=== PATIENT | male | born 1935 | race Caucasian/White ===

== ENCOUNTER 2017-10-24 11:40 | Inpatient (IN) | payer MEDICARE, OTHER ==
[2017-10-24 12:09] LABS: #Lymphocytes 1.4 thou/uL (1.20-3.40); #Neutrophils 7.3 thou/uL (1.40-6.50); %Basophils 0.3 % (0.0-1.0); %Eosinophils 9.2 % (0.0-10.0); %Lymphocytes 13.1 % (21.0-51.0); %Monocytes 9.3 % (0.0-10.0); %Neutrophils 68.1 % (42.0-75.0); Mean Corpuscular HGB CONC 34.4 g/dL (32.0-36.0); Mean Corpuscular Hemoglobin 31.6 pg (27.0-31.0); Mean Platelet Volume 7.7 fL (7.4-10.4); Platelet Count 182 thou/uL (130-400); RBC Distribution Width 12.6 % (11.5-14.5); Red Blood Cell (RBC) Count 4.42 mill/uL (4.70-6.10); White Blood Cell (WBC) Count 10.7 thou/uL (4.8-10.8)
[2017-10-24 12:28] LABS: ALT (SGPT) 12 U/L (8-55); AST (SGOT) 12 U/L (5-34); Albumin 4.3 g/dL (3.4-4.8); Alkaline Phosphatase 103 U/L (40-150); Anion Gap 18 mmol/L (10-20); Bilirubin, Total 0.5 mg/dL (0.2-1.2); Calc. Creatinine Clearance 0 mL/min (70-130); Calcium 8.7 mg/dL (7.8-10.44); Carbon Dioxide 12 mmol/L (23-31); Chloride 103 mmol/L (98-107); Estimated GFR-MDRD 10; Globulin 2.9 g/dL (2.4-3.5); Glucose 132 mg/dL (83-110); Potassium 5.9 mmol/L (3.5-5.1); Protein, Total 7.2 g/dL (5.8-8.1); Sodium 127 mmol/L (136-145)
[2017-10-24 12:31] LABS: Troponin I 0.022 ng/mL (< 0.028)
[2017-10-24 12:34] LABS: INR-International Normal Ratio 1.2; Prothrombin Time 15.3 SEC (12.0-14.7)
[2017-10-24 12:35] LABS: PTT 29.4 SEC (22.9-36.1)
[2017-10-24 12:39] LABS: BUN (Urea Nitrogen) 172 mg/dL (8.4-25.7)
--- NOTE | 2017-10-24 13:00 | RAD ---
FRONTAL RADIOGRAPH OF CHEST: Date: 10/24/17 COMPARISON: 01/24/17. HISTORY: Diarrhea, weakness. FINDINGS: Stable single lead AICD inserted via left subclavian approach. Mild increased linear interstitial den sity with pulmonary hyperinflation, stable. There is atherosclerotic calcification of the aortic arch . There is no pneumothorax or pleural fluid, and no focal consolidation or alveolar edema. Coronary a rterial calcification and/or stent material suspected. IMPRESSION: No acute findings. Stable appearance of the chest. POS: LORIE
[2017-10-24] MEDS ORDERED: Calcium Gluc 4.6 MEQ/10 ML (100 MG/ML) ONE ×2 (13:38→13:40)
[2017-10-24] MEDS ORDERED: Insulin Regular 300 UNITS/3 ML VIAL ONE (13:40)
[2017-10-24] MEDS ORDERED: Dextrose 50% Abboject 50 ML SYRINGE ONE (13:40)
[2017-10-24] MEDS ORDERED: Sodium Bicarb 50 MEQ/50 ML Abboject 8.4% SYRINGE ONE (13:52)
[2017-10-24 15:01] LABS: Anion Gap 17 mmol/L (10-20); Calc. Creatinine Clearance 0 mL/min (70-130); Carbon Dioxide 14 mmol/L (23-31); Chloride 107 mmol/L (98-107); Estimated GFR-MDRD 11; Glucose 158 mg/dL (83-110); Potassium 5.5 mmol/L (3.5-5.1); Sodium 132 mmol/L (136-145)
[2017-10-24 15:13] LABS: BUN (Urea Nitrogen) 168 mg/dL (8.4-25.7)
--- NOTE | 2017-10-24 15:59 | HP ---
PRIMARY CARE PHYSICIAN: Dr. Chepe Parr. REASON FOR ADMISSION: Gastroenteritis, acute kidney failure, hyperkalemia, metabolic acidosis, and b radycardia. HISTORY OF PRESENT ILLNESS: An 82-year-old male, who has underlying history of diabetes type 2, hype rtension, dyslipidemia, and chronic diastolic heart failure, who presented to emergency room with the complaint of nausea, vomiting, diarrhea. Patient reports that all symptoms started on 10/15/2017 during night time. The patient reports that he had a Botox injection for his tremor and night after patient's symptoms started with diarrhea. Si nce then every day, he was having loose stool without any pus or blood. He was feeling day by day mo re and more weak. He was also taking along with the diarrhea all his cardiac medication including bl ood pressure medication. Yesterday, he had episode of fall and he was not able to get out of from th e floor. He did not have any syncopal episode, but he was feeling dizzy, lightheaded, and very weak. He did not have any fever. He did not have any nausea or vomiting subsequently, but the diarrhea p ersisted. On Saturday, he went to see his primary care physician, who prescribed Lomotil and ciproflo xacin. The patient was able to refill those prescription yesterday and after taking Lomotil and cipr ofloxacin, his diarrhea slowed down, but today he was feeling more exhausted, more fatigued, more wea k. He was not able to walk few steps because of generalized weakness and that is why he came to the ER today. Today in the emergency room, routine blood tests showed hyperkalemia, hyponatremia, metabolic acidosi s, acute kidney failure with a creatinine 5.32. Last year in January, his creatinine was 1.68. His BNP is elevated, but patient's chest x-ray did not show any congestion and he was saturating normal on r oom air and he was lying flat without any shortness of breath in the emergency room. The patient has received 2 liters of fluid and the patient is also received hyperkalemia cocktail rishabh atment. The patient is being admitted to CCU for IMCU for close monitoring. PAST MEDICAL HISTORY: Chronic diastolic dysfunction with EF 50% to 55%, history of [place] in 2004, histo ry of ventricular tachyarrhythmia, required ablation in [place], diabetes type 2; requiring insulin, d yslipidemia, hypertension, peripheral vascular disease; required stent placement, gastroesophageal re flux disease, and opacity. PAST SURGICAL HISTORY: Cardiac catheterization with stent placement, renal artery stent placement, c arotid artery stent placements for cervical spinal fusion, back surgery, ablation for ventricular tac hyarrhythmia, and umbilical hernia surgery. PAST PSYCHIATRIC HISTORY: Reviewed and negative. ALLERGIES: FISH product, LATEX, NATURAL RUBBER, PENICILLIN, AND SHELLFISH. FAMILY HISTORY: No strong family history of premature coronary artery disease, stroke or cancer. SOCIAL HISTORY: Patient lives in [place], [place]. 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 He is able to do all activities of daily life by himself. He lives alone at home. REVIEW OF SYSTEMS: The following complete review of systems was negative, unless otherwise mentioned in the HPI or below: Constitutional: Weight loss or gain, ability to conduct usual activities. Skin: Rash, itching. Eyes: Double vision, pain. ENT/Mouth: Nose bleeding, neck stiffness, pain, tenderness. Cardiovascular: Palpitations, dyspnea on exertion, orthopnea. Respiratory: Shortness of breath, whee zing, cough, hemoptysis, fever or night sweats. Gastrointestinal: Poor appetite, abdominal pain, hea rtburn, nausea, vomiting, constipation, or diarrhea. Genitourinary: Urgency, frequency, dysuria, noc turia. Musculoskeletal: Pain, swelling. Neurologic/Psychiatric: Anxiety, depression. Allergy/Immunologic: Skin rash, bleeding tendency. Please see my HPI for pertinent positive and negative. All other review of systems reviewed and nega tive except as mentioned in the HPI. CURRENT HOME MEDICATIONS: Coreg 12.5 mg p.o. b.i.d., Lipitor 40 mg p.o. daily, Januvia 100 mg p.o. d aily, Plavix 75 mg p.o. daily, Procardia XL 60 mg p.o. daily, lisinopril 10 mg p.o. daily, Lopid 600 mg p.o. daily, Lasix 40 mg p.o. daily, Lantus 100 units subcu at bedtime, metformin 500 mg twice stephanie y, omeprazole 40 mg p.o. daily, aspirin 81 mg p.o. daily, calcium with vitamin D 1 tablet twice daily , Centrum one tablet p.o. daily, Lomotil p.r.n., and ciprofloxacin twice daily. EMERGENCY ROOM COURSE: So far in the emergency room, patient has received 2 liters of IV fluid, dext sowmya 50 in water, sodium bicarbonate 1 ampule, calcium gluconate 3 grams, Novolin R 10 units, and alb uterol nebulization. PHYSICAL EXAMINATION: VITAL SIGNS: Currently, blood pressure 81/71, pulse 48, respiratory rate 18, temperature 97.8, satur ation 98% on room air, weight 98.1 kilograms. GENERAL: Patient is currently alert, awake, appears weak, bradycardic, hypotensive. HEENT: Head is normocephalic, atraumatic. Eyes: Pupils round, reactive to light. Extraocular musc le intact. ENT: Dry mucous membranes. No oral lesion, no pharyngeal erythema, no exudate. NECK: Supple, no JVD, no thyromegaly, no carotid bruit, no JVD, no thyromegaly, no carotid bruits. LUNGS: Clear to auscultation without any rhonchi or rales. CARDIAC: S1 and S2. Appears bradycardic. No murmur elicited, no gallop, no rub. ABDOMEN: Soft, bowel sounds present, nontender, nondistended. No organomegaly, no mass, no suprapub ic tenderness. BACK: Unremarkable, no CVA tenderness. EXTREMITIES: Upper extremity passive movement of all joints are normal. Lower extremities: No cyndy a. Good peripheral pulsation. SKIN: No skin rash. HEMATOLOGICAL: No lymphadenopathy. PSYCHIATRIC: Normal affect. NEUROLOGIC: Nonfocal examination. He moves all 4 limbs. SIGNIFICANT LABORATORY DATA: 1. EKG showing pacemaker rhythm with heart rate 47 beats per minute. Chest x-ray based on my review , no acute cardiopulmonary process, AICD in place. No congestion. Coronary artery calcification. 2. CBC: WBC 10.7, hemoglobin 14.0, platelet 182. INR 1.2. BMP: Sodium 127, potassium 5.9, chlori de 103, carbon dioxide 12, anion gap 18, BUN 172, creatinine 5.32, glucose 132, calcium 8.7. LFT: A ST 12, ALT 12, alkaline phosphatase is 103, albumin 4.3, CK-MB 8.0, troponin I 0.022, and BNP 1052.6. ASSESSMENT AND PLAN: 1. Acute on chronic kidney failure, baseline chronic kidney disease stage 3. This patient's previou s creatinine is 1.68 and currently 5.32. He has almost one week history of diarrhea and on top of th at, he was taking antihypertensive medication as well as diuretic therapy that made him hypotension a nd this is hypoperfusion induced kidney injury, most likely acute flareup of kidney failure because o f volume depletion. We will check urinalysis, urine sodium, creatinine, urine protein, and creatinin e ratio as well. He may have underlying worsening of diabetic nephropathy. We will give him gentle IV fluid along with a bicarbonate drip and we will avoid nephrotoxin agent. We will consult Nephrolo gy. We will obtain renal ultrasound and we will monitor renal function closely. Even this patient h as underlying cardiomyopathy, he is at risk for fluid overload status and that is why we will closely monitor on IMCU. 2. Metabolic acidosis due to renal failure. The patient has received 1 ampule of sodium bicarbonate in the emergency room. We will start sodium bicarbonate drip at 75 mL per hour. We will use 3 ampu les of sodium bicarbonate in 5% dextrose with half normal saline and continue at 75 mL per hour. We will repeat BMP tomorrow. 3. Hyperkalemia likely due to renal failure and metabolic acidosis as well as lisinopril. At this p oint, the patient is given hyperkalemia cocktail treatment in the emergency room. We will repeat BMP tomorrow and we will avoid lisinopril for now. 4. Hyponatremia, likely related with dehydration. Patient is getting NS and we will repeat BMP bhavin rrow. 5. Gastroenteritis. The patient attributes relation with the Botox injection that is possible, but we will try to rule out infectious etiology and we will continue ciprofloxacin renally adjusted dose while in hospital and we will provide symptomatic treatment with Lomotil if needed. 6. Bradycardia, etiology uncertain, but most likely related with medication induced. He may need so me adjustment in his defibrillator or pacemaker. We will consult Cardiology for their opinion. 7. Chronic diastolic heart failure. Currently, patient appears euvolemic. He is saturating normal. He does not have any orthopnea. He does not have any edema though his BNP is elevated, but patient is euvolemic. We will hold on Lasix therapy because of hypotension. 8. Hypotension due to hypovolemia from diarrhea. We will avoid all antihypertensive medication unti l his blood pressure and hemodynamics improves. 9. Diabetes type 2. We will only use insulin as per sliding scale per protocol. Diabetic diet will be given. 10. Gastroesophageal reflux disease. We will continue Protonix 40 mg IV daily. 11. Dyslipidemia. We will check total CK and we will continue with Lopid 600 mg p.o. daily and Lipi tor 40 mg p.o. at bedtime. 12. Deep venous thrombosis prophylaxis, heparin 5000 units subcu twice daily. 13. Gastrointestinal prophylaxis. Protonix 40 mg IV daily. 14. Coronary artery disease. We will continue aspirin and statin therapy while in hospital along wi th the Plavix. Code status: The patient is FULL CODE. Patient's daughter is surrogate decision maker. Disposition plan based on clinical course. We are expecting patient's stay in hospital more than 2 m idnights. Plan of care discussed with the patient and family member at bedside in the emergency room .
[2017-10-24] MEDS ORDERED: Mag-Al 1200 mg/1200 mg/30 ML UDCUP PO PRN (16:05)
[2017-10-24] MEDS ORDERED: Artificial Tears 18 DROP/0.9 ML EA EYE PRN (16:05)
[2017-10-24] MEDS ORDERED: Sodium Bicarbonate 150 MEQ in Dextrose 5 %-0.45 % NaCl 1,000 ML IV SCH (16:05)
[2017-10-24] MEDS ORDERED: Diabetic Tussin 200 MG/10 ML UDCUP PO PRN (16:05)
[2017-10-24] MEDS ORDERED: HYDROcodone/Acetaminophen 5/325 mg Tablet PO PRN (16:05)
[2017-10-24] MEDS ORDERED: Sodium Chloride 0.65% Nasal 44 ML BOT EA NARE PRN (16:05)
[2017-10-24] MEDS ORDERED: Dextrose 50% Abboject 50 ML SYRINGE SLOW IVP PRN (16:05)
[2017-10-24] MEDS ORDERED: Silver Sulfadiazine 1% Cream 50 GM JAR TOP PRN (16:05)
[2017-10-24] MEDS ORDERED: Ondansetron ODT 4 MG TAB PO PRN (16:05)
[2017-10-24] MEDS ORDERED: Ondansetron HCl/PF 4 MG/2 ML Vial IVP PRN (16:05)
[2017-10-24] MEDS ORDERED: Acetaminophen 325 MG TAB PO PRN (16:05)
[2017-10-24] MEDS ORDERED: Eucerin (Mineral Oil/Petrolatum,White) 30 gm Jar TOP PRN (16:05)
[2017-10-24] MEDS ORDERED: Dextrose 5% in Water 1,000 ML IV PRN (16:05)
[2017-10-24 16:38] LABS: Uric Acid 13.6 mg/dL (3.5-7.2)
[2017-10-24 17:13] LABS: Bilirubin Negative (Negative); Blood, Urine Negative (Negative); Clarity CLEAR (Clear); Glucose, Urine (Dipstick) Negative (Negative); Leukocyte Negative (Negative); Nitrite Negative (Negative); Protein, Urine (Dipstick) Negative (Neg-Trace); Specific Gravity, Urine 1.013 (1.002-1.036); Urobilinogen 0.2 mg/dL (0.2-1.0)
[2017-10-24 17:18] LABS: Bacteria/HPF None Seen HPF (None Seen); Hyaline Casts/LPF 0-3 HYALINE CAST LPF (0-3 Hyaline); Pathc Cast-AUWi Flag 0.27 (0-2.49); RBC/HPF 0-3 HPF (0-3); Squamous Epithelial None Seen HPF (0-3); WBC/HPF None Seen HPF (0-3)
[2017-10-24 17:43] LABS: Creatinine, Urine 46.69 mg/dL (63-166); Protein, Urine Random Quant Less than 10 mg/dL
[2017-10-24] MEDS: Sodium Bicarbonate 150 MEQ in Dextrose 5% in Water 1,000 ML IV SCH ×2 (18:09)
[2017-10-24 20:34] LABS: Anion Gap 19 mmol/L (10-20); Calc. Creatinine Clearance 18 mL/min (70-130); Calcium 8.6 mg/dL (7.8-10.44); Carbon Dioxide 13 mmol/L (23-31); Chloride 105 mmol/L (98-107); Estimated GFR-MDRD 12; Glucose 152 mg/dL (83-110); Potassium 5.8 mmol/L (3.5-5.1); Sodium 131 mmol/L (136-145)
[2017-10-24 20:41] LABS: BUN (Urea Nitrogen) 157 mg/dL (8.4-25.7)
[2017-10-24] MEDS: Atorvastatin Calcium 40 MG TAB PO SCH (20:54)
[2017-10-24] MEDS: Heparin 5,000 UNITS/ML VIAL SC SCH (20:54)
--- NOTE | 2017-10-24 20:58 | CON ---
DATE OF CONSULTATION: 10/24/2017 REASON FOR CONSULTATION: Hyperkalemia and elevated creatinine. HISTORY OF PRESENT ILLNESS: This is an 82-year-old very pleasant gentleman, who presented to the [facility] with a 2-day history of diarrhea, abdominal pain, and low blood pressure. The patient's creati nine was in the ones in 2013 and increased to 4.89 today. It had improved from 5.3-4.8. The patient also had a potassium of 5.9, which has improved. The patient was started on a bicarbonate drip. Th e patient has had previous episodes of acute kidney injury. PAST MEDICAL HISTORY: Significant for hypertension, congestive heart failure, history of [place], history of ventricular tachyarrhythmia, history of ablation, history of tremors, history of peripheral vascu lar disease, stent placement, history of cardiac catheterization, history of carotid artery stent, hi story of ventricular tachycardia, and history of umbilical hernia repair. SOCIAL ECONOMIC HISTORY: No alcohol or drug use. FAMILY HISTORY: Negative for ESRD. ALLERGIES: Reviewed. HOME MEDICATIONS: List reviewed. REVIEW OF SYSTEMS: Fifteen-point review of systems was performed and negative except positives noted above. GENERAL: Weakness- HEAD: Headache- NECK: No swelling or lumps. NOSE: No epistaxis or discharge. EYES: No diplopia or pain. 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 NEUROPSYCHIATIC SYSTEMS: No suicidal ideation. No ideation. SKIN: Denies any rash or ulcer. CONSTITUTIONAL: No fever or chills. PHYSICAL EXAMINATION: GENERAL: Patient is awake and alert. VITAL SIGNS: Afebrile, pulse 70, breathing 16, blood pressure was 100/50. GENERAL APPEARANCE AND MENTAL STATUS: Fair. HEAD/NECK: Normocephalic. Atraumatic. EYES: EOMI. No deformity. EARS: Clear. No ulcers. NOSE: Intact. No lesions. MOUTH: Clear. No discharge. THROAT: Clear. No exudate. LUNGS: Clear. No crackles. CARDIAC: S1, S2. No rub. ABDOMEN: Benign. BS+. GENITALIA/RECTUM: Canseco absent. BACK/EXTREMITIES: Edema 0+ Ulcer- NEUROLOGICAL: Alert and motor intact. SKIN: Rash- Bruise- LYMPHATICS: Edema- Ulcer- LABORATORY DATA: Potassium 5.9 and decreased to 5.5, creatinine 4.89, improved. ASSESSMENT AND RECOMMENDATIONS: 1. Acute kidney injury due to decreased effective arterial blood volume. 2. Metabolic acidosis, on bicarbonate drip. 3. Hyperkalemia. Continue bicarbonate. We will recheck potassium in 4 hours. 4. Hyponatremia due to renal failure. 5. Euvolemia due to renal failure. No urgent indication for dialysis at this time, even though BUN is more than 100. We will try to treat the patient conservatively. I will order renal imaging to loni ok at renal shape, size, and symmetry.
--- NOTE | 2017-10-24 22:06 | ULT ---
RENAL ULTRASOUND: 10/24/17 HISTORY: Acute kidney insufficiency. Both kidneys measure approximately 12 cm in length. There is no evidence of hydronephrosis. There are bilateral renal cystic lesions noted with a 2 cm exophytic cyst from the upper right kidney. 1.0 cm cyst from the mid left kidney and a 1.5 cm cyst from the lateral lower left kidney. A 1.3 cm cyst inf erior left kidney. There is a hyperechoic focus in the mid left kidney measuring 1.0 cm possibly representing a calcific ation. No hydronephrosis. The urinary bladder is distended and appears unremarkable. IMPRESSION: 1. Bilateral renal cysts. 2. Hyperechoic focus in the mid left kidney. This may represent a calculus although no significa nt posterior shadowing is confirmed. Recommend CT to further characterize. 3. Kidneys otherwise unremarkable. POS: LORIE
[2017-10-24 22:55] LABS: Anion Gap 18 mmol/L (10-20); Calc. Creatinine Clearance 20 mL/min (70-130); Calcium 8.6 mg/dL (7.8-10.44); Carbon Dioxide 14 mmol/L (23-31); Chloride 104 mmol/L (98-107); Estimated GFR-MDRD 14; Glucose 171 mg/dL (83-110); Sodium 131 mmol/L (136-145)
[2017-10-24 23:06] LABS: BUN (Urea Nitrogen) 149 mg/dL (8.4-25.7)
--- NOTE | 2017-10-25 01:43 | CON ---
DATE OF CONSULTATION: 10/24/2017 HISTORY OF PRESENT ILLNESS: The patient is a very pleasant 82-year-old gentleman with a history of a n ischemic cardiomyopathy, who presented with nausea, vomiting, diarrhea, and nearly lost consciousne ss. The patient has a long history of coronary artery disease. He is followed by Dr. Kris Chowdhury. He says he has had placement of several cardiac stents. He states he has been followed up and underg one followup stress test and has been doing well. He also has had placement of automatic implantable cardiac defibrillator. The patient was in his usual state of health when he had a Botox injection. He subsequently developed diarrhea. He became extremely weak and nearly lost consciousness. PAST MEDICAL HISTORY: Significant for: 1. Coronary artery disease. 2. Hypertension. 3. Diabetes mellitus. 4. Dyslipidemia. 5. History of [place]. PAST SURGICAL HISTORY: He has had cervical spine surgery, back surgery, hernia surgery. ALLERGIES: LATEX, RUBBER, PENICILLIN, SHELLFISH. FAMILY HISTORY: No strong family history of heart disease. SOCIAL HISTORY: Former smoker. REVIEW OF SYSTEMS: Ten-point system noticeable for weakness, diarrhea, increasing dyspnea MEDICATIONS: Include Coreg 12.5 b.i.d., Lipitor 40 at bedtime, Januvia 100 daily, Plavix 75 daily, P rocardia 60 XL daily, Lopid 600 daily, Lantus, Lasix 40 daily, metformin 500 twice a day, aspirin 81 daily. PHYSICAL EXAMINATION: GENERAL: He is a pale gentleman, in no acute distress. VITAL SIGNS: Blood pressure 108/47, heart rate is 50. NECK: Showed no jugular venous distention. LUNGS: Clear to auscultation. HEART: Regular rate and rhythm, normal S1, S2. ABDOMEN: Distended. EXTREMITIES: Showed trace edema. SKIN: Warm and dry. NEUROLOGIC: Nonfocal. LABORATORY DATA: Sodium 132, potassium 5.5, chloride 107, bicarbonate 14, BUN 168, creatinine was 4. 89. His white blood cell count is 10.7, hemoglobin 14.0, hematocrit 40.6, platelets 182. INR was 1. 2. His EKG revealed electronic ventricular pacemaker with a rate of approximately 47. IMPRESSION: 1. Acute renal failure. 2. Gastroenteritis. 3. History of coronary artery disease. 4. History of peripheral vascular disease. 5. History of automatic implantable cardioverter-defibrillator placement. 6. Diabetes mellitus. 7. Hypertension. 8. Dyslipidemia. This gentleman presents with acute renal failure secondary to dehydration. The patient is being acti vely hydrated with saline from a cardiac standpoint. He will continue on his present medical regimen . We will interrogate AICD. We will follow this patient with you through his hospitalization.
[2017-10-25] MEDS: Sodium Bicarbonate 150 MEQ in Dextrose 5% in Water 1,000 ML IV SCH ×6 (03:46→23:00)
[2017-10-25 04:33] LABS: #Eosinphils 0.8 thou/uL (0.0-0.7); #Lymphocytes 1.3 thou/uL (1.20-3.40); #Monocytes 1.1 thou/uL (0.11-0.59); #Neutrophils 5.7 thou/uL (1.40-6.50); %Basophils 0.4 % (0.0-1.0); %Eosinophils 9.1 % (0.0-10.0); %Lymphocytes 14.7 % (21.0-51.0); %Monocytes 12.4 % (0.0-10.0); %Neutrophils 63.4 % (42.0-75.0); Hemoglobin 13.2 g/dL (14.0-18.0); Mean Corpuscular HGB CONC 36.2 g/dL (32.0-36.0); Mean Platelet Volume 7.8 fL (7.4-10.4); Platelet Count 181 thou/uL (130-400); RBC Distribution Width 12.6 % (11.5-14.5); White Blood Cell (WBC) Count 8.9 thou/uL (4.8-10.8)
[2017-10-25 04:53] LABS: ALT (SGPT) 10 U/L (8-55); AST (SGOT) 14 U/L (5-34); Albumin 3.8 g/dL (3.4-4.8); Alkaline Phosphatase 92 U/L (40-150); Anion Gap 14 mmol/L (10-20); Bilirubin, Total 0.5 mg/dL (0.2-1.2); Calc. Creatinine Clearance 23 mL/min (70-130); Calcium 8.5 mg/dL (7.8-10.44); Carbon Dioxide 19 mmol/L (23-31); Chloride 104 mmol/L (98-107); Estimated GFR-MDRD 17; Globulin 2.4 g/dL (2.4-3.5); Glucose 163 mg/dL (83-110); Potassium 4.3 mmol/L (3.5-5.1); Protein, Total 6.2 g/dL (5.8-8.1); Sodium 133 mmol/L (136-145)
[2017-10-25 04:57] LABS: CKMB 6.2 ng/mL (0-6.6); Troponin I 0.031 ng/mL (< 0.028)
[2017-10-25 05:05] LABS: BUN (Urea Nitrogen) 133 mg/dL (8.4-25.7)
[2017-10-25] MEDS: Heparin 5,000 UNITS/ML VIAL SC SCH ×2 (08:13→21:26)
[2017-10-25] MEDS: Clopidogrel Bisulfate 75 MG TAB PO SCH (08:13)
[2017-10-25] MEDS: Gemfibrozil 600 MG TAB PO SCH (08:13)
--- NOTE | 2017-10-25 11:09 | PRG ---
DATE OF SERVICE: 10/25/2017 SUBJECTIVE: An 82-year-old gentleman being seen for acute kidney injury and hyperkalemia. The patient denies any nausea, vomiting or chest pain. OBJECTIVE: GENERAL: The patient is awake, alert. VITAL SIGNS: Afebrile, pulse 62, breathing 16, blood pressure 132/61. GENERAL APPEARANCE AND MENTAL STATUS: Fair. HEAD/NECK: Normocephalic. Atraumatic. EYES: EOMI. No deformity. EARS: Clear. No ulcers. NOSE: Intact. No lesions. MOUTH: Clear. No discharge. THROAT: Clear. No exudate. LUNGS: Clear. No crackles. CARDIAC: S1, S2. No rub. ABDOMEN: Benign. BS+. GENITALIA/RECTUM: Canseco absent. BACK/EXTREMITIES: Edema 0+ Ulcer- NEUROLOGICAL: Alert and motor intact. SKIN: Rash- Bruise- LYMPHATICS: Edema- Ulcer- LABORATORY: Potassium is 4.3, creatinine 3.5. ASSESSMENT AND PLAN: 1. Acute kidney injury, improved. 2. Obstructive uropathy, most likely due to bladder decompensation versus other etiologies. Urology will be consulted. 3. Hyperkalemia, stable. 4. Metabolic acidosis, improved. No indication for dialysis at this time. MTDD
[2017-10-25] MEDS: HumaLOG 300 UNITS/3 ML VIAL SC PRN ×3 (11:29→21:30)
--- NOTE | 2017-10-25 12:01 | PDOC.PN ---
- Subjective Encounter Start Date: 10/25/17 Encounter Start Time: 08:45 -: old records requested/rev Patient seen and examined. No new complaints. No overnight events today pt feels better, creatinine is improving no fever, no chest pain, no dyspnea, no diarrhoea - Objective MAR Reviewed: Yes Vital Signs & Weight: Vital Signs (12 hours) Temp Pulse Resp BP Pulse Ox 10/25/17 11:25 97.7 F 53 L 19 126/46 L 96 10/25/17 07:40 98.5 F 72 22 H 130/51 L 97 10/25/17 07:33 97.4 F L 60 16 100 10/25/17 04:00 97.4 F L 60 16 123/61 100 Weight Admit Weight 220 lb Weight 214 lb 12.8 oz I&O: 10/24/17 10/25/17 10/26/17 06:59 06:59 06:59 Intake Total 1930 240 Output Total 4250 Balance -2320 240 Result Diagrams: 10/25/17 04:20 10/25/17 04:20 Additional Labs: Accuchecks 10/25/17 10/25/17 10/24/17 11:15 05:54 20:53 POC Glucose 202 H 164 H 166 H 10/24/17 16:14 POC Glucose 60 L Radiology Reviewed by me: Yes (renal us) EKG Reviewed by me: Yes (nsr) Phys Exam - Physical Examination Constitutional: NAD HEENT: PERRLA, moist MMs, sclera anicteric Neck: no JVD, supple Respiratory: no wheezing, no rales, no rhonchi Cardiovascular: RRR, no significant murmur, no rub Gastrointestinal: soft, non-tender, no distention, positive bowel sounds Musculoskeletal: no edema, pulses present Neurological: non-focal, normal sensation Lymphatic: no nodes Psychiatric: normal affect, A&O x 3 Skin: no rash, normal turgor Dx/Plan (1) Acute worsening of stage 3 chronic kidney disease Code(s): N18.3 - CHRONIC KIDNEY DISEASE, STAGE 3 (MODERATE) Status: Acute (2) Bradycardia Code(s): R00.1 - BRADYCARDIA, UNSPECIFIED Status: Acute (3) Gastroenteritis Code(s): K52.9 - NONINFECTIVE GASTROENTERITIS AND COLITIS, UNSPECIFIED Status : Acute (4) Hyperkalemia Code(s): E87.5 - HYPERKALEMIA Status: Acute (5) Hyponatremia Code(s): E87.1 - HYPO-OSMOLALITY AND HYPONATREMIA Status: Acute (6) Metabolic acidosis Code(s): E87.2 - ACIDOSIS Status: Acute (7) CAD (coronary artery disease) Code(s): I25.10 - ATHSCL HEART DISEASE OF [place] CORONARY ARTERY W/O ANG PCTRS Status: Chronic (8) Chronic diastolic heart failure Code(s): I50.32 - CHRONIC DIASTOLIC (CONGESTIVE) HEART FAILURE Status: Chronic (9) Diabetes type 2, controlled Code(s): E11.9 - TYPE 2 DIABETES MELLITUS WITHOUT COMPLICATIONS Status: Chronic (10) Dyslipidemia Code(s): E78.5 - HYPERLIPIDEMIA, UNSPECIFIED Status: Chronic (11) GERD (gastroesophageal reflux disease) Code(s): K21.9 - GASTRO-ESOPHAGEAL REFLUX DISEASE WITHOUT ESOPHAGITIS Status: Chronic (12) Hypertension Code(s): I10 - ESSENTIAL (PRIMARY) HYPERTENSION Status: Chronic - Plan cont current plan of care * cardiology and nephrology recommendation noted * CT stone protocol today to rule out obstructive uropathy * continue IVF with bicarbonate * medication reviewed as below * symptomatic treatment * repeat labs tomorrow * monitor. Review of Systems - Review of Systems Eyes: negative: Pain, Vision Change, Conjunctivae Inflammation, Eyelid Inflammation, Redness, Other ENT: negative: Ear Pain, Ear Discharge, Nose Pain, Nose Discharge, Nose Congestion, Mouth Pain, Mouth Swelling, Throat Pain, Throat Swelling, Other Respiratory: negative: Cough, Dry, Shortness of Breath, Hemoptysis, SOB with Excertion, Pleuritic Pain, Sputum, Wheezing Cardiovascular: negative: chest pain, palpitations, orthopnea, paroxysmal nocturnal dyspnea, edema, light headedness, other Gastrointestinal: negative: Nausea, Vomiting, Abdominal Pain, Diarrhea, Constipation, Melena, Hematochezia, Other Genitourinary: negative: Dysuria, Frequency, Incontinence, Hematuria, Retention , Other Musculoskeletal: negative: Neck Pain, Shoulder Pain, Arm Pain, Back Pain, Hand Pain, Leg Pain, Foot Pain, Other Skin: negative: Rash, Lesions, Hector, Bruising, Other - Medications/Allergies Allergies/Adverse Reactions: Allergies Allergy/AdvReac Type Severity Reaction Status Date / Time Fish Containing Products Allergy Verified 08/01/14 14:27 fish oil Allergy Verified 08/01/14 14:27 Latex, Natural Rubber Allergy Verified 08/01/14 14:36 Penicillins Allergy Verified 08/01/14 14:27 shellfish derived Allergy Verified 08/01/14 14:27 Medications: Current Medications Acetaminophen (Tylenol) 650 mg PO Q4H PRN PRN Reason: Headache/Fever or Pain Hydrocodone Bitart/Acetaminophen ([place] 5/325) 1 tab PO Q4H PRN PRN Reason: Moderate Pain (4-6) Al Hydroxide/Mg Hydroxide (Maalox) 30 ml PO Q6H PRN PRN Reason: Heartburn or Indigestion Albuterol/Ipratropium (Duoneb) 3 ml NEB [id number] PRN PRN Reason: SOB &/or Wheezing Artificial Tears (Tears Naturale) 0 drop EA EYE PRN PRN PRN Reason: Dry Eyes Aspirin (Aspirin Chewable) 81 mg PO DAILY [facility] Last Admin: 10/25/17 08:13 Dose: 81 mg Atorvastatin Calcium (Lipitor) 40 mg PO [facility] Last Admin: 10/24/17 20:54 Dose: 40 mg Clopidogrel Bisulfate (Plavix) 75 mg PO DAILY [facility] Last Admin: 10/25/17 08:13 Dose: 75 mg Dextrose/Water (Dextrose 50%) 25 gm SLOW IVP PRN PRN PRN Reason: Hypoglycemia Diphenoxylate HCl/Atropine (Lomotil) 1 tab PO QIDPRN PRN PRN Reason: Diarrhea/Loose Stools Gemfibrozil (Lopid) 600 mg PO DAILY [facility] Last Admin: 10/25/17 08:13 Dose: 600 mg Glucagon (Glucagon) 1 mg IM PRN PRN PRN Reason: Hypoglycemia Guaifenesin (Robitussin Sf) 200 mg PO Q4H PRN PRN Reason: Cough Heparin Sodium (Porcine) (Heparin) 5,000 units SC BID [facility] Last Admin: 10/25/17 08:13 Dose: 5,000 units Hydralazine HCl (Apresoline) 10 mg SLOW IVP Q4H PRN PRN Reason: Systolic BP > 180 Dextrose/Water (D5w) 1,000 mls @ 0 mls/hr IV .Q0M PRN; As Directed PRN Reason: Hypoglycemia Sodium Bicarbonate 150 meq/ (Dextrose/Water) 1,150 mls @ 125 mls/hr IV .Q9H12M MIKAYLA Last Admin: 10/25/17 03:46 Dose: 1,150 mls Insulin Human Lispro (Humalog) 0 units SC .MODERATE SLIDING SC PRN PRN Reason: Moderate Correction[place] Scale Last Admin: 10/25/17 11:29 Dose: 4 unit Insulin Human Lispro (Humalog) 0 units SC .BEDTIME SLIDING SC PRN PRN Reason: Bedtime Correctional Scale Mineral Oil/White Petrolatum (Eucerin Cream) 0 gm TOP BIDPRN PRN PRN Reason: Dry Skin Ondansetron HCl (Zofran Odt) 4 mg PO Q6H PRN PRN Reason: Nausea/Vomiting Ondansetron HCl (Zofran) 4 mg IVP Q6H PRN PRN Reason: Nausea/Vomiting Silver Sulfadiazine (Silvadene) 0 gm TOP Q12H PRN PRN Reason: Burn Sodium Chloride ([place] Nasal [place] 0.65%) 0 ml EA NARE QIDPRN PRN PRN Reason: Nasal Congestion
--- NOTE | 2017-10-25 13:18 | CT ---
ABDOMEN AND PELVIC CT SCAN WITHOUT IV CONTRAST: Date: 10/25/17 HISTORY: 82-year-old male with history of acute kidney insufficiency. History of diarrhea. FINDINGS: Small, stable, pleural based nodule in the right lower lobe. Minimal parenchymal changes in the lingu la and right middle lobe, having more the appearance of chronic change, as well as some minimal chron ic appearing pleural thickening with improvement when compared to the 07/12/12 CT angio of chest. The liver, pancreas, spleen, and adrenal glands are noted to be unremarkable. There are multiple gall stones in the dependent portion of the gallbladder without overt gallbladder wall thickening or peric holecystic fat stranding. There are some atherosclerotic calcific changes of the aorta, including regina e bilateral renal vascular calcifications. 2.2 cm diameter right renal exophytic cyst. 1.8 cm diamete r exophytic posterior left renal hemorrhagic cyst. No evidence for renal calculus or acute obstruc tion. Bilateral fat-containing inguinal hernias, worse on the left side. Canseco catheter within the bl adder. Borderline size small bowel loops, but no evidence to suggest significant obstruction. IMPRESSION: Gallstones without gallbladder wall thickening or pericholecystic fat stranding. Nonspecific bilatera l perirenal fat stranding with a right renal cyst and a left hemorrhagic cyst. Several borderline siz e small bowel loops without evidence for obstruction. Prominent atherosclerotic changes of the aorta and bilateral renal artery calcifications with a left renal artery vascular stent. No renal calculus or acute obstruction. POS: LORIE
--- NOTE | 2017-10-25 15:46 | CON ---
DATE OF CONSULTATION: 10/25/2017 REASON FOR CONSULTATION: MICU. HISTORY OF PRESENT ILLNESS: The patient is a pleasant 82-year-old gentleman, who apparently was seen in Neurology for symptoms of tremors. He was given several different medications. He was given some medication recently, which he had some side effect, started on Botox on Saturday, Saturday he had profuse diarrhea, shortness of breath, diarr hea has not relented. He was admitted with severe dehydration. Former smoker, quit smoking in 2004, a pack and a half a day for 30 years. Previous pneumonia, no TB , no asthma, no bronchitis. PAST MEDICAL HISTORY: Hypertension, coronary artery disease, diabetes, IA, CHF, and cardiac arrhythm ias. PAST SURGICAL HISTORY: Back and neck surgery, cardiac stents, AICD placed in. ALLERGIES: Multiple. PENICILLIN, SHELLFISH. MEDICATIONS: From home, Januvia 100, metformin 500, omeprazole 40, nifedipine ER 1, multivitamin, li sinopril 1, insulin, gemfibrozil, Lasix 40, Cipro, Plavix, and aspirin. SOCIAL/FAMILY HISTORY: , no alcohol abuse. Quit smoking many years ago. REVIEW OF SYSTEMS: Otherwise, extensive 10-point negative. PHYSICAL EXAMINATION: GENERAL: Appears in no acute distress. VITAL SIGNS: Blood pressure 130/50, sat 100% on room air, temperature 98.5, respiratory rate 22, pul se 72. CHEST: Decreased breath sounds, no wheezing. CARDIAC: Normal S1 and S2 ABDOMEN: Soft, no masses. LABORATORY DATA: White count 8000, H and H 13 and 36, platelet count 181. Electrolytes normal. Cre atinine is 3, BUN is 131 , glucose 161. IMPRESSION: 1. Prerenal azotemia secondary to severe profuse diarrhea, possibly brought on by Botox. 2. Unknown upper extremity tremors. 3. Diabetes. 4. Hypertension, disease. On the pulmonary stand point of view MICU. We will follow while in the MICU.
[2017-10-25] MEDS: Atorvastatin Calcium 40 MG TAB PO SCH (21:24)
[2017-10-25] MEDS: Doxycycline 100 MG CAP PO SCH (21:24)
[2017-10-25] MEDS: Finasteride 5 MG TAB PO SCH (21:24)
--- NOTE | 2017-10-25 23:12 | CON ---
DATE OF CONSULTATION: 10/25/2017 REASON FOR CONSULTATION: Urinary retention. HISTORY OF PRESENT ILLNESS: Mr. Eris Carranza is a pleasant 82-year-old white male who was admitted o n 10/24/2017 due to diarrhea after receiving Botox injection. The patient has apparent findings of g astroenteritis and has acute on chronic renal failure, developed hyperkalemia, metabolic acidosis, an d bradycardia. The patient has a significant cardiac history in addition to diabetes mellitus type 2 . Mr. Carranza reports no previous episodes of issues. He has never had urinary retention with any of his hospitalizations. He has not noticed enough difficulty with voiding in the past to be on medical therapy. He does not know his PSA. The patient is on no routine medications at home for his prostate. He did notice in the 2 weeks prio r to his hospitalization some slowing of his urinary stream. I am consulted today due to apparent ac [place] urinary retention. He did have a Canseco catheter placed overnight and he had a large volume of ur ine output. The patient self-reports about 900 mL followed by 1300 mL. He says at least 3 bags of u rine have been emptied in the last 24 hours. PAST MEDICAL HISTORY: Chronic diastolic dysfunction with ejection fraction of 50%-55%. The patient had a myocardial infarction in 2004. He has a history of peripheral vascular disease with stenting. He had a previous ventricular tachyarrhythmia which required ablation in [place]. He is paced due to that. He has diabetes type 2 which currently requires insulin. Also, history of dyslipidemia and h ypertension. He has had gastroesophageal reflux disease as well. PAST SURGICAL HISTORY: 1. Cardiac catheterization with stent placement. 2. Renal artery stent placement on the left. 3. Carotid artery stent placement. 4. Cervical spinal fusion. 5. Back surgery. 6. Ablation for ventricular tachyarrhythmia. 7. Umbilical hernia surgery. ALLERGIES: The patient has reported allergies to LATEX, NATURAL RUBBER, PENICILLINS, and SHELLFISH. FAMILY MEDICAL HISTORY: No history of disorders or previous cardiac disorders. SOCIAL HISTORY: The patient resides in [place]. He is a of the [employer]. He does have c igarette smoking history, but quit after his myocardial infarction in 2004. Does not currently use a lcohol. REVIEW OF SYSTEMS: Constitutional: No complaints of weight loss or weight gain. Head, Ears, Nose a nd Throat: Negative. Cardiovascular: The patient reports palpitations, irregular heartbeat, dyspne a on exertion and orthopnea. He has to sleep on his left side for proper perfusion. Respiratory: T he patient does report some shortness of breath and occasional cough. Gastrointestinal: Patient rep orts recent history of diarrhea after a Botox injection. Does not report vomiting. Genitourinary: The patient reported prior to his catheterization increased urinary frequency with a sensation of inc omplete bladder emptying. Musculoskeletal: The patient has generalized body aches, but other than t his, no specifically focal complaints today. Skin: Complaints only dryness and occasional itching. HOME MEDICATION LIST: Included: 1. Coreg 12.5 mg twice daily. 2. Lipitor 40 mg p.o. daily. 3. Januvia 100 mg p.o. b.i.d. 4. Plavix 75 mg per day. 5. Ecotrin taken daily. 6. Procardia-XL 60 mg p.o. daily. 7. Lisinopril 10 mg per day. 8. Lopid 600 mg daily. 9. Lasix 40 mg p.o. daily. 10. Lantus insulin 100 units subcu at bedtime. 11. Metformin 500 mg twice daily. 12. Omeprazole 40 mg p.o. daily. 13. Calcium with vitamin D twice daily. 14. Centrum 1 tablet p.o. daily. 15. Lomotil recently prescribed by Dr. Parr. 16. Ciprofloxacin 500 mg twice daily also prescribed by Dr. Parr. PHYSICAL EXAMINATION: VITAL SIGNS: The patient is currently without a fever, temperature 98.1, pulse is 60. I note this i s a random rate with a variation and dropped beats. Respiratory rate 20, O2 saturation is 90% on koki m air, blood pressure is 132/61. GENERAL: This is awake, alert, white male who appears to be a reasonable historian. HEAD, EARS, NOSE and THROAT: Extraocular movements are intact. Sclerae are anicteric. Oropharynx i s clear. NECK: Supple. LUNGS: Clear to auscultation bilaterally. CARDIAC: There is an irregularly irregular rhythm. ABDOMEN: Soft and nontender. He had a previous umbilical hernia repair. There are no palpable mass es. BACK: There is no costovertebral angle tenderness. SKIN: Skin survey, there are no decubiti noted on examination of the patient's back. GENITOURINARY: Phallus is uncircumcised and is without external lesion. An indwelling Canseco cathete r is in place and is draining clear to straw-colored urine. Testes are present bilaterally in the sc rotum. They are smooth, anodular, nontender with no palpable masses. Palpation of inguinal canals f inds no evidence of inguinal canal hernia. RECTAL: Digital rectal examination finds prostate gland which palpates to about 60 grams in size. I t is smooth and anodular; however, it is tender, more so on the left side than the right. EXTREMITIES: Appear within normal limits. There is no clubbing, cyanosis or edema at present. RADIOLOGIC STUDIES: A CT scan of the abdomen and pelvis was obtained on 10/25/2017. I reviewed that study in its entirety as well as the patient's renal ultrasound evaluation from 10/24/2017. The CT scan study demonstrates gallstones within the patient's gallbladder without evidence of swelling of t he gallbladder itself or any evidence of thickening of the gallbladder wall. There is a nonspecific bilateral fat stranding about the right kidney and left kidney. The patient has cysts present on bot h left and right kidney on the left side. There is a hyperdense probable hemorrhagic cyst, left post eriorly inferiorly. The patient does not appear to have hydronephrosis or hydroureter. There are ca lcifications of the arterial supply of both kidneys and the patient has a left renal artery stent, wh ich extends to the aorta. This stent extends partially into the aorta itself. Stranding about the k idneys is greater on the right than the left. Examination of the abdomen finds no obvious lesions th ere. The patient does have a relatively thin walled bladder with a Canseco catheter in place. Bladder volume appears to be small, but this is a decompressed bladder. There is no focal thickening observ ed, although this study would be best performed without a catheter in place. The patient's prostate gland appears to be enlarged. Dimensions of the prostate gland are 39 x 53 x 58 mm. This would calc ulate to an ellipse volume of 62.6 cubic cm indicating about a 3-fold enlargement on the patient's pr ostate gland. LABORATORY STUDIES: The patient's white count today is normal at 8900, hemoglobin is 13.2, hematocri t 36.4. There is no evidence of left shift. The patient's admission creatinine was 4.19 with blood urea nitrogen of 149. This is marginally improved today with a current creatinine of 3.5 and blood u rachana nitrogen of 133. A urinalysis obtained. Apparently at time of the patient's catheter placement showed no microorganis ms visible. Urine gravity was 1.013 with a pH of 5.0. There were 0-3 red cells per high power field . Urinary creatinine was 46.69 which would be low. ASSESSMENT AND PLAN: 1. Acute urinary retention, most likely secondary to prostatitis. Plan will be to place the patient on maximal medical therapy with tamsulosin, finasteride, and we will cover his probable prostatitis with doxycycline. Based on his current medication and hospital admission issues, I am not recommendi ng use of ciprofloxacin or Bactrim in this patient, an alternative would be cefprozil. The patient d oes not have listed allergies to either. 2. 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 The patient will be covered with a long course of doxycyc line for now. 3. Urinary retention. Realistically this patient is probably not going to be able to undergo an act ual voiding trial while in hospital. Given his very high blood urea nitrogen and creatinine, cathete r management is appropriate for this patient for the short term. This patient may undergo a voiding trial in my office when his medical condition is suitable for discharge. There is no acute need for a voiding trial at this point and is not recommended based on his kidney function numbers. 4. Acute on chronic renal insufficiency. The patient would benefit from renal dosing on medications . 5. Renal cysts. At the present time except for the hyperdense cyst, all appeared to be probable Hugh niak class 1 cyst but should be followed over the fpc.
[2017-10-26 04:34] LABS: #Eosinphils 0.4 thou/uL (0.0-0.7); #Lymphocytes 1.6 thou/uL (1.20-3.40); #Monocytes 1.2 thou/uL (0.11-0.59); #Neutrophils 6.6 thou/uL (1.40-6.50); %Basophils 0.3 % (0.0-1.0); %Eosinophils 3.9 % (0.0-10.0); %Lymphocytes 16.2 % (21.0-51.0); %Monocytes 12.5 % (0.0-10.0); %Neutrophils 67.1 % (42.0-75.0); Hemoglobin 13.5 g/dL (14.0-18.0); Mean Corpuscular HGB CONC 34.8 g/dL (32.0-36.0); Mean Platelet Volume 7.4 fL (7.4-10.4); Platelet Count 187 thou/uL (130-400); RBC Distribution Width 12.6 % (11.5-14.5); Red Blood Cell (RBC) Count 4.22 mill/uL (4.70-6.10); White Blood Cell (WBC) Count 9.9 thou/uL (4.8-10.8)
[2017-10-26 04:52] LABS: Albumin 3.7 g/dL (3.4-4.8); Anion Gap 14 mmol/L (10-20); BUN (Urea Nitrogen) 95 mg/dL (8.4-25.7); Calc. Creatinine Clearance 42 mL/min (70-130); Calcium 8.4 mg/dL (7.8-10.44); Carbon Dioxide 27 mmol/L (23-31); Chloride 102 mmol/L (98-107); Estimated GFR-MDRD 34; Glucose 202 mg/dL (83-110); Phosphorus 2.7 mg/dL (2.3-4.7); Potassium 4.3 mmol/L (3.5-5.1); Sodium 139 mmol/L (136-145)
[2017-10-26] MEDS: Clopidogrel Bisulfate 75 MG TAB PO SCH (09:22)
[2017-10-26] MEDS: Tamsulosin HCl 0.4 MG CAP PO SCH (09:22)
[2017-10-26] MEDS: Gemfibrozil 600 MG TAB PO SCH (09:22)
[2017-10-26] MEDS: Doxycycline 100 MG CAP PO SCH ×2 (09:22→20:43)
[2017-10-26] MEDS: Sodium Bicarbonate 150 MEQ in Dextrose 5% in Water 1,000 ML IV SCH ×4 (09:24→12:50)
[2017-10-26] MEDS: Heparin 5,000 UNITS/ML VIAL SC SCH ×2 (09:56→20:42)
[2017-10-26] MEDS: hydrALAZINE 20 MG/ML VIAL SLOW IVP PRN (11:55)
--- NOTE | 2017-10-26 12:25 | PRG ---
DATE OF SERVICE: 10/26/2017 SUBJECTIVE: An 82-year-old gentleman being seen for acute kidney injury. The patient denies any yolanda sea, vomiting or chest pain. PHYSICAL EXAMINATION: GENERAL: Patient is awake, alert. VITAL SIGNS: Afebrile, pulse 75, breathing 16, blood pressure 171/72. HEAD/NECK: Normocephalic. Atraumatic. EYES: EOMI. No deformity. EARS: Clear. No ulcers. NOSE: Intact. No lesions. MOUTH: Clear. No discharge. THROAT: Clear. No exudate. LUNGS: Clear. No crackles. CARDIAC: S1, S2. No rub. ABDOMEN: Benign. BS+. GENITALIA/RECTUM: Canseco absent. BACK/EXTREMITIES: Edema 0+ Ulcer- NEUROLOGICAL: Alert and motor intact. SKIN: Rash- Bruise- LYMPHATICS: Edema- Ulcer- LABORATORY DATA: Show creatinine is 1.9. ASSESSMENT AND RECOMMENDATIONS: 1. Acute kidney injury with chronic kidney disease, improved. 2. Hypertension, stable. 3. Anemia, stable. 4. Metabolic acidosis, stable. No indication for dialysis. Continue gentle hydration.
[2017-10-26] MEDS ORDERED: Senokot 8.6 MG TAB PO PRN (12:45)
[2017-10-26] MEDS: HumaLOG 300 UNITS/3 ML VIAL SC PRN ×3 (12:51→20:43)
[2017-10-26] MEDS ORDERED: Carvedilol 3.125 MG TAB PO SCH (13:45)
[2017-10-26] MEDS: Carvedilol 6.25 MG TAB PO SCH (16:51)
--- NOTE | 2017-10-26 16:56 | PRG ---
DATE OF SERVICE: 10/26/2017 SUBJECTIVE: Mr. Carranza is doing better. OBJECTIVE: VITAL SIGNS: His blood pressure has stabilized 171/70, sat is 98% on room air, temperature is 97, re spiratory rate 27. CHEST: No wheezing, no crackles. CARDIAC: Normal S1, S2. ABDOMEN: No masses. LABORATORY DATA: BUN and creatinine are much improved. Creatinine is down to 1.9, BUN is 95. White count is . IMPRESSION: 1. Profuse diarrhea, probably secondary to Botox. 2. Renal failure, much improved, probably he can be transferred out of the MICU.
--- NOTE | 2017-10-26 20:10 | PDOC.PN ---
- Subjective Encounter Start Date: 10/26/17 Encounter Start Time: 14:00 Patient seen and examined. No new complaints. No overnight events. No fever/ chills/CP. - Objective MAR Reviewed: Yes Vital Signs & Weight: Vital Signs (12 hours) Temp Pulse Pulse Pulse Resp BP BP 10/26/17 19:58 97.7 F 59 L 20 10/26/17 17:14 66 55 L 169/62 H 181/54 H 10/26/17 16:25 97.9 F 64 24 H 10/26/17 12:00 97.7 F 70 20 10/26/17 11:55 57 L BP Pulse Ox Pulse Ox Pulse Ox 10/26/17 19:58 153/67 H 99 10/26/17 17:14 96 100 10/26/17 16:25 166/68 H 99 10/26/17 12:00 178/70 H 96 10/26/17 11:55 Weight Admit Weight 220 lb Weight 214 lb 9.6 oz I&O: 10/25/17 10/26/17 10/27/17 06:59 06:59 06:59 Intake Total 1930 5090 1856 Output Total 4250 3525 1500 Balance -2320 1565 356 Result Diagrams: 10/26/17 04:15 10/26/17 04:15 Additional Labs: Accuchecks 10/26/17 10/26/17 10/26/17 16:21 11:04 06:05 POC Glucose 182 H 185 H 203 H 10/25/17 10/25/17 23:16 21:24 POC Glucose 209 H 222 H EKG Reviewed by me: Yes (Tele SR) Phys Exam - Physical Examination Constitutional: NAD Respiratory: no wheezing, no rhonchi Cardiovascular: RRR, no rub Gastrointestinal: soft, non-tender, positive bowel sounds Musculoskeletal: no edema Neurological: moves all 4 limbs Dx/Plan - Plan DVT proph w/SCDs IMPRESSION: 1. ARLENE - multifactorial 2. Urinary retention/Prostatitis s/p freitas 3. CAD 4. HTN / HLD / DM2 / PAD / s/p AICD PLAN: * Cont gentle IV hydration * Cardio/Nephro/Urology following * AM labs * Avoid Nephrotoxic agents * Cont to monitor * Cont therapy * DC planning * Cont Doxycycline Review of Systems - Medications/Allergies Allergies/Adverse Reactions: Allergies Allergy/AdvReac Type Severity Reaction Status Date / Time Fish Containing Products Allergy Verified 08/01/14 14:27 fish oil Allergy Verified 08/01/14 14:27 Latex, Natural Rubber Allergy Verified 08/01/14 14:36 Penicillins Allergy Verified 08/01/14 14:27 shellfish derived Allergy Verified 08/01/14 14:27 Medications: Current Medications Acetaminophen (Tylenol) 650 mg PO Q4H PRN PRN Reason: Headache/Fever or Pain Hydrocodone Bitart/Acetaminophen ([place] 5/325) 1 tab PO Q4H PRN PRN Reason: Moderate Pain (4-6) Last Admin: 10/25/17 21:30 Dose: 1 tab Al Hydroxide/Mg Hydroxide (Maalox) 30 ml PO Q6H PRN PRN Reason: Heartburn or Indigestion Albuterol/Ipratropium (Duoneb) 3 ml NEB [id number] PRN PRN Reason: SOB &/or Wheezing Artificial Tears (Tears Naturale) 0 drop EA EYE PRN PRN PRN Reason: Dry Eyes Aspirin (Aspirin Chewable) 81 mg PO DAILY [facility] Last Admin: 10/26/17 09:22 Dose: 81 mg Atorvastatin Calcium (Lipitor) 40 mg PO [facility] Last Admin: 10/25/17 21:24 Dose: 40 mg Carvedilol (Coreg) 6.25 mg PO BID-[facility] Last Admin: 10/26/17 16:51 Dose: 6.25 mg Clopidogrel Bisulfate (Plavix) 75 mg PO DAILY [facility] Last Admin: 10/26/17 09:22 Dose: 75 mg Dextrose/Water (Dextrose 50%) 25 gm SLOW IVP PRN PRN PRN Reason: Hypoglycemia Diphenoxylate HCl/Atropine (Lomotil) 1 tab PO QIDPRN PRN PRN Reason: Diarrhea/Loose Stools Doxycycline Hyclate (Vibramycin) 100 mg PO BID [facility] Stop: 11/24/17 09:01 Last Admin: 10/26/17 09:22 Dose: 100 mg Finasteride (Proscar) 5 mg PO [facility] Stop: 01/22/18 21:01 Last Admin: 10/25/17 21:24 Dose: 5 mg Gemfibrozil (Lopid) 600 mg PO DAILY [facility] Last Admin: 10/26/17 09:22 Dose: 600 mg Glucagon (Glucagon) 1 mg IM PRN PRN PRN Reason: Hypoglycemia Guaifenesin (Robitussin Sf) 200 mg PO Q4H PRN PRN Reason: Cough Heparin Sodium (Porcine) (Heparin) 5,000 units SC BID [facility] Last Admin: 10/26/17 09:56 Dose: Not Given Hydralazine HCl (Apresoline) 10 mg SLOW IVP Q4H PRN PRN Reason: Systolic BP > 180 Last Admin: 10/26/17 11:55 Dose: 10 mg Dextrose/Water (D5w) 1,000 mls @ 0 mls/hr IV .Q0M PRN; As Directed PRN Reason: Hypoglycemia Sodium Bicarbonate 150 meq/ (Dextrose/Water) 1,150 mls @ 50 mls/hr IV .Q23H [facility] Last Admin: 10/26/17 12:50 Dose: Not Given Insulin Human Lispro (Humalog) 0 units SC .MODERATE SLIDING SC PRN PRN Reason: Moderate Correctional Scale Last Admin: 10/26/17 16:52 Dose: 2 unit Insulin Human Lispro (Humalog) 0 units SC .BEDTIME SLIDING SC PRN PRN Reason: Bedtime Correctional Scale Last Admin: 10/25/17 21:30 Dose: 2 unit Mineral Oil/White Petrolatum (Eucerin Cream) 0 gm TOP BIDPRN PRN PRN Reason: Dry Skin Ondansetron HCl (Zofran Odt) 4 mg PO Q6H PRN PRN Reason: Nausea/Vomiting Last Admin: 10/26/17 16:53 Dose: 4 mg Ondansetron HCl (Zofran) 4 mg IVP Q6H PRN PRN Reason: Nausea/Vomiting Senna (Senokot) 2 tab PO HSPRN PRN PRN Reason: Constipation Silver Sulfadiazine (Silvadene) 0 gm TOP Q12H PRN PRN Reason: Burn Sodium Chloride ([place] Nasal [place] 0.65%) 0 ml EA NARE QIDPRN PRN PRN Reason: Nasal Congestion Tamsulosin HCl (Flomax) 0.4 mg PO QAM [facility] Stop: 01/23/18 09:01 Last Admin: 10/26/17 09:22 Dose: 0.4 mg
[2017-10-26] MEDS: Atorvastatin Calcium 40 MG TAB PO SCH (20:43)
[2017-10-26] MEDS: Finasteride 5 MG TAB PO SCH (20:43)
[2017-10-26] MEDS ORDERED: Docusate 100 MG CAP PO SCH (21:00)
[2017-10-27] MEDS: HumaLOG 300 UNITS/3 ML VIAL SC PRN ×2 (06:06→11:28)
[2017-10-27 06:23] LABS: Anion Gap 13 mmol/L (10-20); BUN (Urea Nitrogen) 58 mg/dL (8.4-25.7); Calc. Creatinine Clearance 51 mL/min (70-130); Calcium 8.1 mg/dL (7.8-10.44); Carbon Dioxide 30 mmol/L (23-31); Chloride 101 mmol/L (98-107); Estimated GFR-MDRD 42; Glucose 179 mg/dL (83-110); Magnesium 1.3 mg/dL (1.6-2.6); Potassium 4.3 mmol/L (3.5-5.1); Sodium 140 mmol/L (136-145)
[2017-10-27] MEDS: Sodium Bicarbonate 150 MEQ in Dextrose 5% in Water 1,000 ML IV SCH ×2 (06:49)
[2017-10-27] MEDS ORDERED: Magnesium Sulfate 2 GM in Sodium Chloride 0.9% 100 ML IVPB SCH (07:30)
[2017-10-27] MEDS: Gemfibrozil 600 MG TAB PO SCH (08:27)
[2017-10-27] MEDS: Carvedilol 6.25 MG TAB PO SCH ×2 (08:27→17:31)
[2017-10-27] MEDS: Tamsulosin HCl 0.4 MG CAP PO SCH (08:27)
[2017-10-27] MEDS: Clopidogrel Bisulfate 75 MG TAB PO SCH (08:27)
[2017-10-27] MEDS: Doxycycline 100 MG CAP PO SCH ×2 (08:27→20:02)
[2017-10-27] MEDS: Heparin 5,000 UNITS/ML VIAL SC SCH ×2 (08:28→20:03)
[2017-10-27] MEDS: Docusate 100 MG CAP PO SCH (08:40)
--- NOTE | 2017-10-27 12:53 | PRG ---
DATE OF SERVICE: 10/27/2017 SUBJECTIVE: An 82-year-old gentleman being seen for acute kidney injury with improving creatinine. The patient denies any nausea, vomiting, or chest pain. PHYSICAL EXAMINATION: GENERAL: Patient is awake, alert. VITAL SIGNS: Afebrile, pulse 85, breathing 16, blood pressure 139/62. HEAD/NECK: Normocephalic. Atraumatic. EYES: EOMI. No deformity. EARS: Clear. No ulcers. NOSE: Intact. No lesions. MOUTH: Clear. No discharge. THROAT: Clear. No exudate. LUNGS: Clear. No crackles. CARDIAC: S1, S2. No rub. ABDOMEN: Benign. BS+. GENITALIA/RECTUM: Canseco absent. BACK/EXTREMITIES: Edema 0+ Ulcer- NEUROLOGICAL: Alert and motor intact. SKIN: Rash- Bruise- LYMPHATICS: Edema- Ulcer- LABORATORY DATA: Show hemoglobin 13.5, creatinine 1.5. ASSESSMENT AND PLAN: 1. Acute kidney injury, improved. 2. Hypertension, stable. 3. Anemia, stable. No indication for dialysis. I will sign off on this patient. The patient was a dvised to follow up with Urology for obstructive uropathy.
--- NOTE | 2017-10-27 18:58 | PRG ---
DATE OF SERVICE: 10/27/2017 SUBJECTIVE: Eris Carranza this morning, awake, alert, and, responsive, less . OBJECTIVE: VITAL SIGNS: Blood pressure 176/69, temperature 97, pulse 69, respirations 19. CHEST: No wheezing. CARDIAC: Normal S1, S2. No gallops. LABORATORY DATA: Creatinine 1.58. ASSESSMENT: Azotemia, much improved. Renal function improved. Diarrhea, much improved. Baseline t remor. From pulmonary standpoint, he needs to transfer out of the MICU. Supportive care and PT.
[2017-10-27] MEDS: Atorvastatin Calcium 40 MG TAB PO SCH (20:02)
[2017-10-27] MEDS: Finasteride 5 MG TAB PO SCH (20:03)
--- NOTE | 2017-10-27 22:15 | PDOC.PN ---
- Subjective Encounter Start Date: 10/27/17 Encounter Start Time: 12:00 Patient seen and examined. No new complaints. No overnight events - Objective MAR Reviewed: Yes Vital Signs & Weight: Vital Signs (12 hours) Temp Pulse Resp BP Pulse Ox 10/27/17 20:05 98.5 F 72 18 169/74 H 97 10/27/17 19:40 98.5 F 72 18 97 10/27/17 16:00 98.0 F 47 L 18 148/56 H 98 10/27/17 12:00 98.0 F 84 20 139/62 98 Weight Admit Weight 220 lb Weight 215 lb 6.4 oz I&O: 10/26/17 10/27/17 10/28/17 06:59 06:59 06:59 Intake Total 5090 2718 1980 Output Total 3525 2500 975 Balance 3449 960 3458 Result Diagrams: 10/28/17 04:22 10/28/17 04:22 Additional Labs: Accuchecks 10/27/17 10/27/17 10/27/17 20:00 16:38 11:14 POC Glucose 181 H 152 H 226 H 10/27/17 05:54 POC Glucose 175 H EKG Reviewed by me: Yes (Tele SR) Phys Exam - Physical Examination Constitutional: NAD Respiratory: no wheezing, no rhonchi Cardiovascular: RRR, no rub Gastrointestinal: soft, non-tender, positive bowel sounds Musculoskeletal: no edema Dx/Plan - Plan DVT proph w/heparin, DVT proph w/SCDs IMPRESSION: 1. ARLENE - multifactorial - improving 2. Urinary retention/Prostatitis s/p freitas 3. CAD 4. HTN / HLD / DM2 / PAD / s/p AICD PLAN: * DC IV fluids * Cardio/Nephro/Urology following * Cont therapy * DC planning to SNF or Rehab - Will consult CM * Cont Doxycycline for Prostatitis Review of Systems - Review of Systems Respiratory: negative: Cough, Dry, Shortness of Breath, Hemoptysis, SOB with Excertion, Pleuritic Pain, Sputum, Wheezing Cardiovascular: negative: chest pain, palpitations, orthopnea, paroxysmal nocturnal dyspnea, edema, light headedness, other - Medications/Allergies Allergies/Adverse Reactions: Allergies Allergy/AdvReac Type Severity Reaction Status Date / Time Fish Containing Products Allergy Verified 08/01/14 14:27 fish oil Allergy Verified 08/01/14 14:27 Latex, Natural Rubber Allergy Verified 08/01/14 14:36 Penicillins Allergy Verified 08/01/14 14:27 shellfish derived Allergy Verified 08/01/14 14:27 Medications: Current Medications Acetaminophen (Tylenol) 650 mg PO Q4H PRN PRN Reason: Headache/Fever or Pain Hydrocodone Bitart/Acetaminophen ([place] 5/325) 1 tab PO Q4H PRN PRN Reason: Moderate Pain (4-6) Last Admin: 10/25/17 21:30 Dose: 1 tab Al Hydroxide/Mg Hydroxide (Maalox) 30 ml PO Q6H PRN PRN Reason: Heartburn or Indigestion Albuterol/Ipratropium (Duoneb) 3 ml NEB [id number] PRN PRN Reason: SOB &/or Wheezing Artificial Tears (Tears Naturale) 0 drop EA EYE PRN PRN PRN Reason: Dry Eyes Aspirin (Aspirin Chewable) 81 mg PO DAILY [facility] Last Admin: 10/27/17 08:27 Dose: 81 mg Atorvastatin Calcium (Lipitor) 40 mg PO [facility] Last Admin: 10/27/17 20:02 Dose: 40 mg Carvedilol (Coreg) 6.25 mg PO BID-[facility] Last Admin: 10/27/17 17:31 Dose: 6.25 mg Clopidogrel Bisulfate (Plavix) 75 mg PO DAILY [facility] Last Admin: 10/27/17 08:27 Dose: 75 mg Dextrose/Water (Dextrose 50%) 25 gm SLOW IVP PRN PRN PRN Reason: Hypoglycemia Diphenoxylate HCl/Atropine (Lomotil) 1 tab PO QIDPRN PRN PRN Reason: Diarrhea/Loose Stools Docusate Sodium (Colace) 100 mg PO DAILY [facility] Last Admin: 10/27/17 08:40 Dose: 100 mg Doxycycline Hyclate (Vibramycin) 100 mg PO BID [facility] Stop: 11/24/17 09:01 Last Admin: 10/27/17 20:02 Dose: 100 mg Finasteride (Proscar) 5 mg PO [facility] Stop: 01/22/18 21:01 Last Admin: 10/27/17 20:03 Dose: 5 mg Gemfibrozil (Lopid) 600 mg PO DAILY [facility] Last Admin: 10/27/17 08:27 Dose: 600 mg Glucagon (Glucagon) 1 mg IM PRN PRN PRN Reason: Hypoglycemia Guaifenesin (Robitussin Sf) 200 mg PO Q4H PRN PRN Reason: Cough Heparin Sodium (Porcine) (Heparin) 5,000 units SC BID [facility] Last Admin: 10/27/17 20:03 Dose: 5,000 units Hydralazine HCl (Apresoline) 10 mg SLOW IVP Q4H PRN PRN Reason: Systolic BP > 180 Last Admin: 10/26/17 11:55 Dose: 10 mg Dextrose/Water (D5w) 1,000 mls @ 0 mls/hr IV .Q0M PRN; As Directed PRN Reason: Hypoglycemia Insulin Human Lispro (Humalog) 0 units SC .MODERATE SLIDING SC PRN PRN Reason: Moderate Correctional Scale Last Admin: 10/27/17 11:28 Dose: 4 unit Insulin Human Lispro (Humalog) 0 units SC .BEDTIME SLIDING SC PRN PRN Reason: Bedtime Correctional Scale Last Admin: 10/26/17 20:43 Dose: 3 unit Mineral Oil/White Petrolatum (Eucerin Cream) 0 gm TOP BIDPRN PRN PRN Reason: Dry Skin Ondansetron HCl (Zofran Odt) 4 mg PO Q6H PRN PRN Reason: Nausea/Vomiting Last Admin: 10/26/17 16:53 Dose: 4 mg Ondansetron HCl (Zofran) 4 mg IVP Q6H PRN PRN Reason: Nausea/Vomiting Senna (Senokot) 2 tab PO HSPRN PRN PRN Reason: Constipation Silver Sulfadiazine (Silvadene) 0 gm TOP Q12H PRN PRN Reason: Burn Sodium Chloride ([place] Nasal [place] 0.65%) 0 ml EA NARE QIDPRN PRN PRN Reason: Nasal Congestion Tamsulosin HCl (Flomax) 0.4 mg PO QAM [facility] Stop: 01/23/18 09:01 Last Admin: 10/27/17 08:27 Dose: 0.4 mg
[2017-10-28 04:46] LABS: #Eosinphils 0.4 thou/uL (0.0-0.7); #Lymphocytes 1.6 thou/uL (1.20-3.40); #Monocytes 1.2 thou/uL (0.11-0.59); #Neutrophils 9.1 thou/uL (1.40-6.50); %Basophils 0.4 % (0.0-1.0); %Eosinophils 3.2 % (0.0-10.0); %Monocytes 9.5 % (0.0-10.0); %Neutrophils 73.9 % (42.0-75.0); Hemoglobin 13.1 g/dL (14.0-18.0); Mean Corpuscular HGB CONC 34.5 g/dL (32.0-36.0); Mean Corpuscular Hemoglobin 32.3 pg (27.0-31.0); Mean Corpuscular Volume 93.5 fl (80.0-94.0); Mean Platelet Volume 7.1 fL (7.4-10.4); Platelet Count 186 thou/uL (130-400); RBC Distribution Width 12.3 % (11.5-14.5); Red Blood Cell (RBC) Count 4.06 mill/uL (4.70-6.10); White Blood Cell (WBC) Count 12.3 thou/uL (4.8-10.8)
[2017-10-28 05:00] LABS: Anion Gap 13 mmol/L (10-20); BUN (Urea Nitrogen) 43 mg/dL (8.4-25.7); Calc. Creatinine Clearance 58 mL/min (70-130); Carbon Dioxide 26 mmol/L (23-31); Chloride 99 mmol/L (98-107); Estimated GFR-MDRD 50; Glucose 142 mg/dL (83-110); Magnesium 1.3 mg/dL (1.6-2.6); Potassium 4.3 mmol/L (3.5-5.1); Sodium 134 mmol/L (136-145)
[2017-10-28] MEDS: Clopidogrel Bisulfate 75 MG TAB PO SCH (08:54)
[2017-10-28] MEDS: Carvedilol 6.25 MG TAB PO SCH ×2 (08:54→17:31)
[2017-10-28] MEDS: Docusate 100 MG CAP PO SCH (08:55)
[2017-10-28] MEDS: Heparin 5,000 UNITS/ML VIAL SC SCH ×2 (08:55→21:04)
[2017-10-28] MEDS: Doxycycline 100 MG CAP PO SCH ×2 (08:55→21:04)
[2017-10-28] MEDS: Tamsulosin HCl 0.4 MG CAP PO SCH (08:55)
[2017-10-28] MEDS: Gemfibrozil 600 MG TAB PO SCH (08:55)
[2017-10-28] MEDS: Lisinopril 5 MG TAB PO SCH (08:59)
[2017-10-28] MEDS: HumaLOG 300 UNITS/3 ML VIAL SC PRN (12:48)
--- NOTE | 2017-10-28 14:10 | PDOC.PN ---
- Subjective Encounter Start Date: 10/28/17 Encounter Start Time: 14:08 Subjective: c/o recurrent loose stools & nausea. -: reports that he has a 'weak stomach'for certain foods -: no blood in stools - Objective MAR Reviewed: Yes Vital Signs & Weight: Vital Signs (12 hours) Temp Pulse Resp BP Pulse Ox 10/28/17 11:13 98.1 F 81 20 149/72 H 96 10/28/17 08:59 77 10/28/17 07:59 98.2 F 77 20 97 10/28/17 07:00 98.2 F 77 20 178/79 H 96 10/28/17 04:30 98.4 F 64 18 175/72 H 96 Weight Admit Weight 220 lb Weight 217 lb 4.8 oz I&O: 10/27/17 10/28/17 10/29/17 06:59 06:59 06:59 Intake Total 2718 2380 Output Total 2500 1725 Balance 218 655 Result Diagrams: 10/28/17 04:22 10/28/17 04:22 Additional Labs: Accuchecks 10/28/17 10/28/17 10/27/17 10:54 06:34 20:00 POC Glucose 189 H 135 H 181 H 10/27/17 16:38 POC Glucose 152 H Microbiology 10/25/17 08:21 Stool Stool Culture - Final 10/25/17 08:21 Stool Rapid Parasite Screen - Final 10/25/17 08:21 Stool Campylobacter Antigen Assay - Final 10/25/17 08:21 Stool Shiga Toxin Test - Final 10/25/17 08:21 Stool C. difficile GDH Antigen & Toxins - Final Laboratory Tests 10/24/17 10/24/17 10/24/17 12:00 14:33 20:06 Creatinine 5.32 H 4.89 H 4.63 H 10/24/17 10/25/17 10/26/17 22:29 04:20 04:15 Creatinine 4.19 H 3.50 H 1.90 H 10/27/17 10/28/17 05:55 04:22 Creatinine 1.58 H 1.37 H Phys Exam - Physical Examination Constitutional: NAD HEENT: PERRLA, moist MMs, sclera anicteric, oral pharynx no lesions Neck: no nodes, no JVD, supple, full ROM Respiratory: no wheezing, no rales, no rhonchi, clear to auscultation bilateral Cardiovascular: RRR, no significant murmur Gastrointestinal: soft, non-tender, no distention, positive bowel sounds Musculoskeletal: no edema, pulses present Neurological: non-focal, normal sensation, moves all 4 limbs Psychiatric: normal affect, A&O x 3 Skin: no rash Dx/Plan (1) Acute worsening of stage 3 chronic kidney disease Code(s): N18.3 - CHRONIC KIDNEY DISEASE, STAGE 3 (MODERATE) Status: Acute Comment: Much improved. Continue to monitor.Nephrology signed off.Avoid any nephrotoxins (2) Urinary retention Code(s): R33.9 - RETENTION OF URINE, UNSPECIFIED Status: Acute Comment: s/p Freitas placement (3) Gastroenteritis Code(s): K52.9 - NONINFECTIVE GASTROENTERITIS AND COLITIS, UNSPECIFIED Status : Suspected Comment: Stool studies negative (4) CAD (coronary artery disease) Code(s): I25.10 - ATHSCL HEART DISEASE OF [place] CORONARY ARTERY W/O ANG PCTRS Status: Chronic Comment: on ASA,statin,Coreg,lisinopril,Plavix (5) Chronic diastolic heart failure Code(s): I50.32 - CHRONIC DIASTOLIC (CONGESTIVE) HEART FAILURE Status: Chronic (6) Diabetes type 2, controlled Code(s): E11.9 - TYPE 2 DIABETES MELLITUS WITHOUT COMPLICATIONS Status: Chronic (7) Dyslipidemia Code(s): E78.5 - HYPERLIPIDEMIA, UNSPECIFIED Status: Chronic (8) GERD (gastroesophageal reflux disease) Code(s): K21.9 - GASTRO-ESOPHAGEAL REFLUX DISEASE WITHOUT ESOPHAGITIS Status: Chronic (9) Hypertension Code(s): I10 - ESSENTIAL (PRIMARY) HYPERTENSION Status: Chronic (10) Bradycardia Code(s): R00.1 - BRADYCARDIA, UNSPECIFIED Status: Resolved - Plan freitas catheter, continue antibiotics, PT/OT, out of bed/ambulate, DVT proph w/ SCDs cont Doxycycline for possible prostatitis.Cont proscar & Flomax.Fretias -: OP f/u w urology for voiding trial -: recheck C.diff.use prn Lomotil.add Florastor for diarrhea -: trial of gluten free diet given h/o diet related symptoms -: If no improvement,consider Gi for colonoscopy * .BP high-coreg increased. monitor * OK to transfer to Medical.SNIF placement when arranged * am labs Review of Systems - Review of Systems Constitutional: weakness, malaise. negative: fever, chills, sweats, other ENT: negative: Ear Pain, Ear Discharge, Nose Pain, Nose Discharge, Nose Congestion, Mouth Pain, Mouth Swelling, Throat Pain, Throat Swelling, Other Respiratory: negative: Cough, Dry, Shortness of Breath, Hemoptysis, SOB with Excertion, Pleuritic Pain, Sputum, Wheezing Cardiovascular: negative: chest pain, palpitations, orthopnea, paroxysmal nocturnal dyspnea, edema, light headedness, other Gastrointestinal: Nausea, Diarrhea. negative: Vomiting, Abdominal Pain, Constipation, Melena, Hematochezia, Other Genitourinary: negative: Dysuria, Frequency, Incontinence, Hematuria, Retention , Other Musculoskeletal: negative: Neck Pain, Shoulder Pain, Arm Pain, Back Pain, Hand Pain, Leg Pain, Foot Pain, Other Skin: negative: Rash, Lesions, Hector, Bruising, Other Neurological: negative: Weakness, Numbness, Incoordination, Change in Speech, Confusion, Seizures, Other - Medications/Allergies Allergies/Adverse Reactions: Allergies Allergy/AdvReac Type Severity Reaction Status Date / Time Fish Containing Products Allergy Verified 08/01/14 14:27 fish oil Allergy Verified 08/01/14 14:27 Latex, Natural Rubber Allergy Verified 08/01/14 14:36 Penicillins Allergy Verified 08/01/14 14:27 shellfish derived Allergy Verified 08/01/14 14:27 Medications: Current Medications Acetaminophen (Tylenol) 650 mg PO Q4H PRN PRN Reason: Headache/Fever or Pain Hydrocodone Bitart/Acetaminophen ([place] 5/325) 1 tab PO Q4H PRN PRN Reason: Moderate Pain (4-6) Last Admin: 10/25/17 21:30 Dose: 1 tab Al Hydroxide/Mg Hydroxide (Maalox) 30 ml PO Q6H PRN PRN Reason: Heartburn or Indigestion Albuterol/Ipratropium (Duoneb) 3 ml NEB [id number] PRN PRN Reason: SOB &/or Wheezing Artificial Tears (Tears Naturale) 0 drop EA EYE PRN PRN PRN Reason: Dry Eyes Aspirin (Aspirin Chewable) 81 mg PO DAILY [facility] Last Admin: 10/28/17 08:54 Dose: 81 mg Atorvastatin Calcium (Lipitor) 40 mg PO [facility] Last Admin: 10/27/17 20:02 Dose: 40 mg Carvedilol (Coreg) 6.25 mg PO BID-[facility] Last Admin: 10/28/17 08:54 Dose: 6.25 mg Clopidogrel Bisulfate (Plavix) 75 mg PO DAILY [facility] Last Admin: 10/28/17 08:54 Dose: 75 mg Dextrose/Water (Dextrose 50%) 25 gm SLOW IVP PRN PRN PRN Reason: Hypoglycemia Diphenoxylate HCl/Atropine (Lomotil) 1 tab PO QIDPRN PRN PRN Reason: Diarrhea/Loose Stools Docusate Sodium (Colace) 100 mg PO DAILY [facility] Last Admin: 10/28/17 08:55 Dose: Not Given Doxycycline Hyclate (Vibramycin) 100 mg PO BID [facility] Stop: 11/24/17 09:01 Last Admin: 10/28/17 08:55 Dose: 100 mg Finasteride (Proscar) 5 mg PO [facility] Stop: 01/22/18 21:01 Last Admin: 10/27/17 20:03 Dose: 5 mg Gemfibrozil (Lopid) 600 mg PO DAILY [facility] Last Admin: 10/28/17 08:55 Dose: 600 mg Glucagon (Glucagon) 1 mg IM PRN PRN PRN Reason: Hypoglycemia Guaifenesin (Robitussin Sf) 200 mg PO Q4H PRN PRN Reason: Cough Heparin Sodium (Porcine) (Heparin) 5,000 units SC BID [facility] Last Admin: 10/28/17 08:55 Dose: 5,000 units Hydralazine HCl (Apresoline) 10 mg SLOW IVP Q4H PRN PRN Reason: Systolic BP > 180 Last Admin: 10/26/17 11:55 Dose: 10 mg Dextrose/Water (D5w) 1,000 mls @ 0 mls/hr IV .Q0M PRN; As Directed PRN Reason: Hypoglycemia Insulin Human Lispro (Humalog) 0 units SC .MODERATE SLIDING SC PRN PRN Reason: Moderate Correctional Scale Last Admin: 10/28/17 12:48 Dose: 2 unit Insulin Human Lispro (Humalog) 0 units SC .BEDTIME SLIDING SC PRN PRN Reason: Bedtime Correctional Scale Last Admin: 10/26/17 20:43 Dose: 3 unit Lisinopril (Zestril) 5 mg PO DAILY [facility] Last Admin: 10/28/17 08:59 Dose: 5 mg Mineral Oil/White Petrolatum (Eucerin Cream) 0 gm TOP BIDPRN PRN PRN Reason: Dry Skin Ondansetron HCl (Zofran Odt) 4 mg PO Q6H PRN PRN Reason: Nausea/Vomiting Last Admin: 10/26/17 16:53 Dose: 4 mg Ondansetron HCl (Zofran) 4 mg IVP Q6H PRN PRN Reason: Nausea/Vomiting Senna (Senokot) 2 tab PO HSPRN PRN PRN Reason: Constipation Silver Sulfadiazine (Silvadene) 0 gm TOP Q12H PRN PRN Reason: Burn Sodium Chloride ([place] Nasal [place] 0.65%) 0 ml EA NARE QIDPRN PRN PRN Reason: Nasal Congestion Sodium Chloride (Flush - Normal Saline) 10 ml IVF Q12HR [facility] Last Admin: 10/28/17 08:59 Dose: 10 ml Sodium Chloride (Flush - Normal Saline) 10 ml IVF PRN PRN PRN Reason: Saline Flush Tamsulosin [facility] (Flomax) [facility] Stop: 01/23/18 09:01 Last Admin: 10/28/17 08:55 Dose: 0.4 mg
[2017-10-28] MEDS ORDERED: Saccharomyces boulardii 250 MG CAP PO SCH ×2 (14:14→14:30)
[2017-10-28] MEDS ORDERED: Magnesium Sulfate 1 GM, Admixture Fee 1 EACH in Sodium Chloride 0.9% 100 ML IVPB SCH (14:15)
[2017-10-28] MEDS: Finasteride 5 MG TAB PO SCH (21:04)
[2017-10-28] MEDS: Atorvastatin Calcium 40 MG TAB PO SCH (21:04)
[2017-10-29] MEDS: hydrALAZINE 20 MG/ML VIAL SLOW IVP PRN (01:22)
[2017-10-29] MEDS ORDERED: Furosemide 40 MG/4 ML VIAL SLOW IVP SCH (02:00)
[2017-10-29 02:06] LABS: #Eosinphils 0.3 thou/uL (0.0-0.7); #Lymphocytes 3.2 thou/uL (1.20-3.40); #Monocytes 1.3 thou/uL (0.11-0.59); #Neutrophils 12.8 thou/uL (1.40-6.50); %Basophils 0.2 % (0.0-1.0); %Eosinophils 1.7 % (0.0-10.0); %Monocytes 7.4 % (0.0-10.0); %Neutrophils 72.6 % (42.0-75.0); Hemoglobin 14.4 g/dL (14.0-18.0); Mean Corpuscular HGB CONC 34.5 g/dL (32.0-36.0); Mean Corpuscular Volume 92.6 fl (80.0-94.0); Mean Platelet Volume 7.1 fL (7.4-10.4); Platelet Count 217 thou/uL (130-400); RBC Distribution Width 12.2 % (11.5-14.5); White Blood Cell (WBC) Count 17.6 thou/uL (4.8-10.8)
--- NOTE | 2017-10-29 02:12 | PDOC.EVN ---
Event Note - Event Note Event Note: sudden onset of SOB was called to bedside, upon arrival, [place] [facility] had been activated for patient c /o SOB also for noted hypertension, s/p hydralazine administration for SBP pt lying in bed, conversant, c/o SOB and asking for a breathing tube to be placed HR 90-110s pulse ox 90% on 2LNC pt able to converse with some SOB with conversation heent: slightly dry mm, eomi, normocephalic, atraumatic cv: s1, s2, soft heart tones, pulses 2+ b/l UE, no pitting pedal edema resp: wheezing throughout, more prominent centrally, some WOB w/o pursed lips abd: large, + bs, nonttp msk: maee labs reviewed from AM CXR ordered stat just prior to my arrival: pulmonary vascular congestion appears progressive from previously s/p 1. hypertensive urgency - repeat hydralazine, bp control, t/c ntg 2. SOB with wheezing and hypoxia nebs, abg, pt has been moved to CCU per request of nsg bipap, monitor O2 sat lasix 40mg IV stat ordered cbc, cmp, magnesium troponin, EKG 12 lead concern for flash pulmonary edema, still unk etiology for this, could be related to episode of HTN when able t/c interrogating ppm that is in place pt with known cardiac hx 3. issues with urinary retention freitas is still in place, monitor UOP closely 4. ARLENE earlier during hospitalization repeat BMP appears to be stable at this point in time d/w [place] [facility] team prior to transfer. will await results and monitor patient closely. > 30min crit care time
[2017-10-29 02:27] LABS: ALT (SGPT) 14 U/L (8-55); AST (SGOT) 20 U/L (5-34); Alkaline Phosphatase 104 U/L (40-150); Anion Gap 16 mmol/L (10-20); BUN (Urea Nitrogen) 41 mg/dL (8.4-25.7); Calc. Creatinine Clearance 61 mL/min (70-130); Calcium 8.5 mg/dL (7.8-10.44); Carbon Dioxide 22 mmol/L (23-31); Chloride 96 mmol/L (98-107); Estimated GFR-MDRD 52; Globulin 2.9 g/dL (2.4-3.5); Glucose 157 mg/dL (83-110); Magnesium 1.4 mg/dL (1.6-2.6); Potassium 4.9 mmol/L (3.5-5.1); Protein, Total 6.9 g/dL (5.8-8.1); Sodium 129 mmol/L (136-145)
[2017-10-29 02:37] LABS: Troponin I 0.052 ng/mL (< 0.028)
[2017-10-29] MEDS: HumaLOG 300 UNITS/3 ML VIAL SC PRN ×3 (06:42→17:47)
--- NOTE | 2017-10-29 07:56 | RAD ---
CHEST 1 VIEW: Date: 10/29/17 HISTORY: Shortness of breath. COMPARISON: Chest radiograph dated 09/26/17. FINDINGS: Mild interstitial prominence. Cardiac silhouette is upper limits of normal in size. No pneumothorax. No large effusion. IMPRESSION: Mild increased interstitial markings which can be seen with pulmonary edema. POS: [facility]
[2017-10-29] MEDS: Doxycycline 100 MG CAP PO SCH ×2 (08:21→20:48)
[2017-10-29] MEDS: Saccharomyces boulardii 250 MG CAP PO SCH (08:22)
[2017-10-29] MEDS: Tamsulosin HCl 0.4 MG CAP PO SCH (08:22)
[2017-10-29] MEDS: Carvedilol 6.25 MG TAB PO SCH ×2 (08:22→17:47)
[2017-10-29] MEDS: Lisinopril 5 MG TAB PO SCH ×3 (08:22→20:49)
[2017-10-29] MEDS: Clopidogrel Bisulfate 75 MG TAB PO SCH (08:22)
[2017-10-29] MEDS: Gemfibrozil 600 MG TAB PO SCH (08:22)
[2017-10-29] MEDS: Docusate 100 MG CAP PO SCH (08:23)
[2017-10-29] MEDS: Heparin 5,000 UNITS/ML VIAL SC SCH ×2 (08:23→20:49)
[2017-10-29] MEDS ORDERED: Furosemide 40 MG TAB PO SCH (09:30)
[2017-10-29] MEDS ORDERED: Carvedilol 6.25 MG TAB PO SCH ×3 (09:30→17:00)
[2017-10-29] MEDS: Furosemide 40 MG TAB PO SCH (09:40)
--- NOTE | 2017-10-29 15:27 | PDOC.PN ---
- Subjective Encounter Start Date: 10/29/17 Encounter Start Time: 15:27 Subjective: had code green yesterday. SOB .resolved w Lasix.CXR showed Pulm edema -: feels better this morning.still w loose stools - Objective MAR Reviewed: Yes Vital Signs & Weight: Vital Signs (12 hours) Temp Pulse Resp BP Pulse Ox 10/29/17 12:00 98.4 F 10/29/17 09:38 191/84 H 10/29/17 09:37 82 191/84 H 10/29/17 08:22 82 191/84 H 10/29/17 08:00 98.4 F 82 21 H 100 10/29/17 04:00 98.5 F 100 Weight Admit Weight 220 lb Weight 218 lb 14.704 oz Most Recent Monitor Data Heart Rate from ECG 41 NIBP 138/47 NIBP BP-Mean 91 Respiration from ECG 18 SpO2 98 I&O: 10/28/17 10/29/17 10/30/17 06:59 06:59 06:59 Intake Total 2380 1300 600 Output Total 1725 1525 430 Balance 655 -225 170 Result Diagrams: 10/29/17 01:52 10/29/17 01:52 Additional Labs: Accuchecks 10/29/17 10/29/17 10/29/17 11:16 05:21 01:53 POC Glucose 189 H 155 H 145 H 10/28/17 10/28/17 19:52 16:23 POC Glucose 170 H 107 Microbiology 10/28/17 17:00 Stool C. difficile GDH Antigen & Toxins - Final 10/25/17 08:21 Stool Stool Culture - Final 10/25/17 08:21 Stool Rapid Parasite Screen - Final 10/25/17 08:21 Stool Campylobacter Antigen Assay - Final 10/25/17 08:21 Stool Shiga Toxin Test - Final 10/25/17 08:21 Stool C. difficile GDH Antigen & Toxins - Final Laboratory Tests 10/24/17 10/24/17 10/24/17 12:00 14:33 20:06 Sodium Creatinine 5.32 H 4.89 H 4.63 H Magnesium 10/24/17 10/25/17 10/26/17 22:29 04:20 04:15 Sodium Creatinine 4.19 H 3.50 H 1.90 H Magnesium 10/27/17 10/28/1710/29/18 05:55 04:22 01:52 Sodium 140 134 L 129 L Creatinine 1.58 H 1.37 H 1.33 H Magnesium 1.3 L Phys Exam - Physical Examination Constitutional: NAD easily winded HEENT: PERRLA, moist MMs, sclera anicteric, oral pharynx no lesions Neck: no nodes, no JVD, supple, full ROM Respiratory: no wheezing, no rales, no rhonchi, clear to auscultation bilateral Cardiovascular: RRR, no significant murmur Gastrointestinal: soft, non-tender, no distention, positive bowel sounds Musculoskeletal: no edema, pulses present Neurological: non-focal, normal sensation, moves all 4 limbs Psychiatric: normal affect, A&O x 3 Skin: no rash Dx/Plan (1) Dyspnea Code(s): R06.00 - DYSPNEA, UNSPECIFIED Status: Acute Comment: Flash Pulmonary edema (2) Hypertensive urgency Code(s): I16.0 - HYPERTENSIVE URGENCY Status: Resolved (3) Acute worsening of stage 3 chronic kidney disease Code(s): N18.3 - CHRONIC KIDNEY DISEASE, STAGE 3 (MODERATE) Status: Acute Comment: Much improved. Continue to monitor.Nephrology signed off.Avoid any nephrotoxins (4) Hyponatremia Code(s): E87.1 - HYPO-OSMOLALITY AND HYPONATREMIA Status: Acute (5) Urinary retention Code(s): R33.9 - RETENTION OF URINE, UNSPECIFIED Status: Acute Comment: s/p Canseco placement (6) Gastroenteritis Code(s): K52.9 - NONINFECTIVE GASTROENTERITIS AND COLITIS, UNSPECIFIED Status : Suspected Comment: Stool studies negative (7) CAD (coronary artery disease) Code(s): I25.10 - ATHSCL HEART DISEASE OF [place] CORONARY ARTERY W/O ANG PCTRS Status: Chronic Comment: on ASA,statin,Coreg,lisinopril,Plavix (8) Chronic diastolic heart failure Code(s): I50.32 - CHRONIC DIASTOLIC (CONGESTIVE) HEART FAILURE Status: Chronic (9) Diabetes type 2, controlled Code(s): E11.9 - TYPE 2 DIABETES MELLITUS WITHOUT COMPLICATIONS Status: Chronic (10) Dyslipidemia Code(s): E78.5 - HYPERLIPIDEMIA, UNSPECIFIED Status: Chronic (11) GERD (gastroesophageal reflux disease) Code(s): K21.9 - GASTRO-ESOPHAGEAL REFLUX DISEASE WITHOUT ESOPHAGITIS Status: Chronic (12) Hypertension Code(s): I10 - ESSENTIAL (PRIMARY) HYPERTENSION Status: Chronic (13) Bradycardia Code(s): R00.1 - BRADYCARDIA, UNSPECIFIED Status: Resolved - Plan PT/OT, respiratory therapy, out of bed/ambulate, DVT proph w/SCDs Started on lasix.continue.likley volume OL w IVF resuscitation -: Cardiology following.BB & JOSH-I increased.BP better controlled. -: cont ASA,plavix. -: renal Fx much improved.nephrology following.monitor UO.Canseco for retention. -: Sodium low today.? d/t fluid OL.monitor. * .cont Lomotil.gluten free diet. Repeat C.Diff also negative * ECHO ordered. last 2011 w EF 55% Review of Systems - Review of Systems Constitutional: weakness, malaise. negative: fever, chills, sweats, other ENT: negative: Ear Pain, Ear Discharge, Nose Pain, Nose Discharge, Nose Congestion, Mouth Pain, Mouth Swelling, Throat Pain, Throat Swelling, Other Respiratory: Shortness of Breath, SOB with Excertion. negative: Cough, Dry, Hemoptysis, Pleuritic Pain, Sputum, Wheezing Cardiovascular: negative: chest pain, palpitations, orthopnea, paroxysmal nocturnal dyspnea, edema, light headedness, other Gastrointestinal: Diarrhea. negative: Nausea, Vomiting, Abdominal Pain, Constipation, Melena, Hematochezia, Other Genitourinary: negative: Dysuria, Frequency, Incontinence, Hematuria, Retention , Other Musculoskeletal: negative: Neck Pain, Shoulder Pain, Arm Pain, Back Pain, Hand Pain, Leg Pain, Foot Pain, Other Skin: negative: Rash, Lesions, Hector, Bruising, Other Neurological: negative: Weakness, Numbness, Incoordination, Change in Speech, Confusion, Seizures, Other - Medications/Allergies Allergies/Adverse Reactions: Allergies Allergy/AdvReac Type Severity Reaction Status Date / Time Fish Containing Products Allergy Verified 08/01/14 14:27 fish oil Allergy Verified 08/01/14 14:27 Latex, Natural Rubber Allergy Verified 08/01/14 14:36 Penicillins Allergy Verified 08/01/14 14:27 shellfish derived Allergy Verified 08/01/14 14:27 Medications: Current Medications Acetaminophen (Tylenol) 650 mg PO Q4H PRN PRN Reason: Headache/Fever or Pain Hydrocodone Bitart/Acetaminophen ([place] 5/325) 1 tab PO Q4H PRN PRN Reason: Moderate Pain (4-6) Last Admin: 10/25/17 21:30 Dose: 1 tab Al Hydroxide/Mg Hydroxide (Maalox) 30 ml PO Q6H PRN PRN Reason: Heartburn or Indigestion Albuterol/Ipratropium (Duoneb) 3 ml NEB [id number] PRN PRN Reason: SOB &/or Wheezing Artificial Tears (Tears Naturale) 0 drop EA EYE PRN PRN PRN Reason: Dry Eyes Aspirin (Aspirin Chewable) 81 mg PO DAILY [facility] Last Admin: 10/29/17 08:22 Dose: 81 mg Atorvastatin Calcium (Lipitor) 40 mg PO [facility] Last Admin: 10/28/17 21:04 Dose: 40 mg Carvedilol (Coreg) 12.5 mg PO BID-[facility] Clopidogrel Bisulfate (Plavix) 75 mg PO DAILY [facility] Last Admin: 10/29/17 08:22 Dose: 75 mg Dextrose/Water (Dextrose 50%) 25 gm SLOW IVP PRN PRN PRN Reason: Hypoglycemia Diphenoxylate HCl/Atropine (Lomotil) 1 tab PO QIDPRN PRN PRN Reason: Diarrhea/Loose Stools Docusate Sodium (Colace) 100 mg PO DAILY [facility] Last Admin: 10/29/17 08:23 Dose: Not Given Doxycycline Hyclate (Vibramycin) 100 mg PO BID [facility] Stop: 11/24/17 09:01 Last Admin: 10/29/17 08:21 Dose: 100 mg Finasteride (Proscar) 5 mg PO [facility] Stop: 01/22/18 21:01 Last Admin: 10/28/17 21:04 Dose: 5 mg Furosemide (Lasix) 40 mg PO DAILY-[facility] Last Admin: 10/29/17 09:40 Dose: Not Given Gemfibrozil (Lopid) 600 mg PO DAILY [facility] Last Admin: 10/29/17 08:22 Dose: 600 mg Glucagon (Glucagon) 1 mg IM PRN PRN PRN Reason: Hypoglycemia Guaifenesin (Robitussin Sf) 200 mg PO Q4H PRN PRN Reason: Cough Heparin Sodium (Porcine) (Heparin) 5,000 units SC BID [facility] Last Admin: 10/29/17 08:23 Dose: 5,000 units Hydralazine HCl (Apresoline) 10 mg SLOW IVP Q4H PRN PRN Reason: Systolic BP > 180 Last Admin: 10/29/17 01:22 Dose: 10 mg Dextrose/Water (D5w) 1,000 mls @ 0 mls/hr IV .Q0M PRN; As Directed PRN Reason: Hypoglycemia Insulin Human Lispro (Humalog) 0 units SC .MODERATE SLIDING SC PRN PRN Reason: Moderate Correctional Scale Last Admin: 10/29/17 11:25 Dose: 2 unit Insulin Human Lispro (Humalog) 0 units SC .BEDTIME SLIDING SC PRN PRN Reason: Bedtime Correctional Scale Last Admin: 10/26/17 20:43 Dose: 3 unit Lisinopril (Zestril) 5 mg PO BID [facility] Last Admin: 10/29/17 09:37 Dose: Not Given Mineral Oil/White Petrolatum (Eucerin Cream) 0 gm TOP BIDPRN PRN PRN Reason: Dry Skin Nifedipine (Procardia Xl) 30 mg PO DAILY [facility] Ondansetron HCl (Zofran Odt) 4 mg PO Q6H PRN PRN Reason: Nausea/Vomiting Last Admin: 10/26/17 16:53 Dose: 4 mg Ondansetron HCl (Zofran) 4 mg IVP Q6H PRN PRN Reason: Nausea/Vomiting Saccharomyces Boulardii (Florastor) 250 mg PO DAILY [facility] Last Admin: 10/29/17 08:22 Dose: 250 mg Senna (Senokot) 2 tab PO HSPRN PRN PRN Reason: Constipation Silver Sulfadiazine (Silvadene) 0 gm TOP Q12H PRN PRN Reason: Burn Sodium Chloride ([place] Nasal [place] 0.65%) 0 ml EA NARE QIDPRN PRN PRN Reason: Nasal Congestion Sodium Chloride (Flush - Normal Saline) 10 ml IVF Q12HR [facility] Last Admin: 10/29/17 08:23 Dose: 10 ml Sodium Chloride (Flush - Normal Saline) 10 ml IVF PRN PRN PRN Reason: Saline Flush Tamsulosin HCl (Flomax) 0.4 mg PO QAM [facility] Stop: 01/23/18 09:01 Last Admin: 10/29/17 08:22 Dose: 0.4 mg
--- NOTE | 2017-10-29 20:13 | EKG ---
Test Reason : Blood Pressure : / mmHG Vent. Rate : 059 BPM Atrial Rate : 078 BPM P-R Int : 000 ms QRS Dur : 114 ms QT Int : 436 ms P-R-T Axes : 000 066 081 degrees QTc Int : 431 ms Sinus rhythm with A-V dissociation and Junctional rhythm with Sinus/atrial capture with occasional Pr emature ventricular complexes Septal infarct , age undetermined Abnormal ECG When compared with ECG of 24-OCT-2017 14:13, (Unconfirmed) Junctional rhythm has replaced Electronic ventricular pacemaker Vent. rate has increased BY 19 BPM Confirmed by CORY HASSAN (2) on 10/29/2017 8:13:01 PM Referred By: ELIU Confirmed By:CORY HASSAN
--- NOTE | 2017-10-29 20:37 | EKG ---
Test Reason : CODE GREEN Blood Pressure : / mmHG Vent. Rate : 069 BPM Atrial Rate : 069 BPM P-R Int : 000 ms QRS Dur : 100 ms QT Int : 430 ms P-R-T Axes : 068 068 075 degrees QTc Int : 460 ms Sinus rhythm with sinus arrhythmia with 1st degree A-V block Incomplete right bundle branch block Possible Anterior infarct (cited on or before 25-OCT-2017) Abnormal ECG When compared with ECG of 25-OCT-2017 09:39, (Unconfirmed) Sinus rhythm has replaced Junctional rhythm Questionable change in initial forces of Anteroseptal leads Confirmed by GILDARDO PUGH, DR. Armendariz ([id number]) on 10/29/2017 8:36:59 PM Referred By: ELIU Confirmed By:DR. Marcello EWING MD
[2017-10-29] MEDS: Atorvastatin Calcium 40 MG TAB PO SCH (20:45)
[2017-10-29] MEDS: Finasteride 5 MG TAB PO SCH (20:48)
[2017-10-29 21:27] LABS: Troponin I 0.079 ng/mL (< 0.028)
[2017-10-30 05:30] LABS: #Eosinphils 0.3 thou/uL (0.0-0.7); #Lymphocytes 1.7 thou/uL (1.20-3.40); #Monocytes 0.8 thou/uL (0.11-0.59); #Neutrophils 6.2 thou/uL (1.40-6.50); %Basophils 0.4 % (0.0-1.0); %Lymphocytes 18.4 % (21.0-51.0); %Neutrophils 69.2 % (42.0-75.0); Hemoglobin 12.5 g/dL (14.0-18.0); Mean Corpuscular HGB CONC 35.3 g/dL (32.0-36.0); Mean Corpuscular Hemoglobin 33.3 pg (27.0-31.0); Mean Corpuscular Volume 94.2 fl (80.0-94.0); Mean Platelet Volume 7.6 fL (7.4-10.4); Platelet Count 177 thou/uL (130-400); Red Blood Cell (RBC) Count 3.75 mill/uL (4.70-6.10); White Blood Cell (WBC) Count 8.9 thou/uL (4.8-10.8)
[2017-10-30 05:38] LABS: Anion Gap 16 mmol/L (10-20); BUN (Urea Nitrogen) 47 mg/dL (8.4-25.7); Calc. Creatinine Clearance 58 mL/min (70-130); Calcium 8.2 mg/dL (7.8-10.44); Carbon Dioxide 21 mmol/L (23-31); Chloride 98 mmol/L (98-107); Estimated GFR-MDRD 49; Glucose 130 mg/dL (83-110); Potassium 4.4 mmol/L (3.5-5.1); Sodium 131 mmol/L (136-145)
[2017-10-30] MEDS: Carvedilol 6.25 MG TAB PO SCH ×2 (08:20→16:26)
[2017-10-30] MEDS: Clopidogrel Bisulfate 75 MG TAB PO SCH (08:20)
[2017-10-30] MEDS: Docusate 100 MG CAP PO SCH (08:20)
[2017-10-30] MEDS: NIFEdipine XL 30 MG TAB PO SCH ×2 (08:20→09:43)
[2017-10-30] MEDS: Gemfibrozil 600 MG TAB PO SCH (08:20)
[2017-10-30] MEDS: Doxycycline 100 MG CAP PO SCH ×2 (08:20→20:45)
[2017-10-30] MEDS: Saccharomyces boulardii 250 MG CAP PO SCH (08:20)
[2017-10-30] MEDS: Furosemide 40 MG TAB PO SCH (08:21)
[2017-10-30] MEDS: Lisinopril 5 MG TAB PO SCH ×2 (08:21→20:51)
[2017-10-30] MEDS: Heparin 5,000 UNITS/ML VIAL SC SCH (08:21)
[2017-10-30] MEDS: Tamsulosin HCl 0.4 MG CAP PO SCH (08:21)
[2017-10-30] MEDS ORDERED: Spironolactone 25 MG TAB PO SCH ×2 (08:45)
[2017-10-30] MEDS ORDERED: NIFEdipine XL 30 MG TAB PO SCH (09:00)
[2017-10-30] MEDS ORDERED: NIFEdipine XL 60 MG TAB PO SCH (09:00)
[2017-10-30] MEDS: Enoxaparin Sodium 40 MG/0.4 ML SYRINGE SC SCH (09:47)
[2017-10-30] MEDS: HumaLOG 300 UNITS/3 ML VIAL SC PRN ×2 (13:13→18:54)
[2017-10-30 14:02] VITALS: BMI 29.7
--- NOTE | 2017-10-30 15:04 | PDOC.PN ---
- Subjective Encounter Start Date: 10/30/17 Encounter Start Time: 15:04 Subjective: feels much better.wants to get Freitas out -: no events overnight - Objective MAR Reviewed: Yes Vital Signs & Weight: Vital Signs (12 hours) Temp Pulse Resp BP Pulse Ox 10/30/17 12:00 97.8 F 10/30/17 09:47 64 137/56 L 10/30/17 09:45 64 137/56 L 10/30/17 09:43 64 137/56 L 10/30/17 09:00 96.2 F L 10/30/17 08:21 64 160/57 H 10/30/17 08:20 64 160/57 H 10/30/17 08:00 96.2 F L 64 19 100 10/30/17 04:00 97.9 F Weight Admit Weight 220 lb Weight 218 lb 14.704 oz Most Recent Monitor Data Heart Rate from ECG 62 NIBP 136/62 NIBP BP-Mean 109 Respiration from ECG 19 SpO2 98 I&O: 10/29/17 10/30/17 10/31/17 06:59 06:59 06:59 Intake Total 1300 1560 500 Output Total 1525 1540 745 Balance -225 20 -245 Result Diagrams: 10/30/17 04:20 10/30/17 04:20 Additional Labs: Accuchecks 10/30/17 10/30/17 10/29/17 12:12 06:10 20:53 POC Glucose 151 H 133 H 173 H 10/29/17 17:45 POC Glucose 174 H Microbiology 10/28/17 17:00 Stool C. difficile GDH Antigen & Toxins - Final 10/25/17 08:21 Stool Stool Culture - Final 10/25/17 08:21 Stool Rapid Parasite Screen - Final 10/25/17 08:21 Stool Campylobacter Antigen Assay - Final 10/25/17 08:21 Stool Shiga Toxin Test - Final 10/25/17 08:21 Stool C. difficile GDH Antigen & Toxins - Final Laboratory Tests 10/27/17 10/28/17 10/29/17 05:55 04:22 01:52 Creatinine 1.58 H 1.37 H 1.33 H 10/30/17 04:20 Creatinine 1.40 H Phys Exam - Physical Examination Constitutional: NAD HEENT: PERRLA, moist MMs, sclera anicteric, oral pharynx no lesions Neck: no nodes, no JVD, supple, full ROM Respiratory: no wheezing, no rales, no rhonchi, clear to auscultation bilateral Cardiovascular: RRR, no significant murmur, no rub, gallop Gastrointestinal: soft, non-tender, no distention, positive bowel sounds Musculoskeletal: no edema, pulses present Neurological: non-focal, normal sensation, moves all 4 limbs Psychiatric: normal affect, A&O x 3 Skin: no rash Dx/Plan (1) Acute worsening of stage 3 chronic kidney disease Code(s): N18.3 - CHRONIC KIDNEY DISEASE, STAGE 3 (MODERATE) Status: Acute Comment: Much improved. Continue to monitor.Nephrology signed off.Avoid any nephrotoxins (2) Dyspnea Code(s): R06.00 - DYSPNEA, UNSPECIFIED Status: Resolved Comment: Flash Pulmonary edema (3) Hypertensive urgency Code(s): I16.0 - HYPERTENSIVE URGENCY Status: Resolved (4) Hyponatremia Code(s): E87.1 - HYPO-OSMOLALITY AND HYPONATREMIA Status: Acute (5) Urinary retention Code(s): R33.9 - RETENTION OF URINE, UNSPECIFIED Status: Acute Comment: s/p Freitas placement (6) Gastroenteritis Code(s): K52.9 - NONINFECTIVE GASTROENTERITIS AND COLITIS, UNSPECIFIED Status : Suspected Comment: Stool studies negative (7) CAD (coronary artery disease) Code(s): I25.10 - ATHSCL HEART DISEASE OF [place] CORONARY ARTERY W/O ANG PCTRS Status: Chronic Comment: on ASA,statin,Coreg,lisinopril,Plavix (8) Chronic diastolic heart failure Code(s): I50.32 - CHRONIC DIASTOLIC (CONGESTIVE) HEART FAILURE Status: Chronic (9) Diabetes type 2, controlled Code(s): E11.9 - TYPE 2 DIABETES MELLITUS WITHOUT COMPLICATIONS Status: Chronic (10) Dyslipidemia Code(s): E78.5 - HYPERLIPIDEMIA, UNSPECIFIED Status: Chronic (11) GERD (gastroesophageal reflux disease) Code(s): K21.9 - GASTRO-ESOPHAGEAL REFLUX DISEASE WITHOUT ESOPHAGITIS Status: Chronic (12) Hypertension Code(s): I10 - ESSENTIAL (PRIMARY) HYPERTENSION Status: Chronic (13) Bradycardia Code(s): R00.1 - BRADYCARDIA, UNSPECIFIED Status: Resolved - Plan PT/OT, respiratory therapy, out of bed/ambulate, DVT proph w/SCDs clinically better.transfer to tele.cont diuresis.repeat ECHo reviwed.EGF 45 -: cont cardioprudent meds.cardiology following.on BB.JOSH-I -: bladder tarining protocol.pt can not keep OP urology appt -: DC freitas if able to void. cont Flomax/proscar. -: rehab approved. DC in am if stable & able to void * .on Doxycycline per urology. * cont ASA,statin,Lopid,Procardia,aldactone,lasix Review of Systems - Review of Systems Constitutional: negative: fever, chills, sweats, weakness, malaise, other Respiratory: negative: Cough, Dry, Shortness of Breath, Hemoptysis, SOB with Excertion, Pleuritic Pain, Sputum, Wheezing Cardiovascular: negative: chest pain, palpitations, orthopnea, paroxysmal nocturnal dyspnea, edema, light headedness, other Gastrointestinal: negative: Nausea, Vomiting, Abdominal Pain, Diarrhea, Constipation, Melena, Hematochezia, Other Genitourinary: negative: Dysuria, Frequency, Incontinence, Hematuria, Retention , Other Musculoskeletal: negative: Neck Pain, Shoulder Pain, Arm Pain, Back Pain, Hand Pain, Leg Pain, Foot Pain, Other Neurological: negative: Weakness, Numbness, Incoordination, Change in Speech, Confusion, Seizures, Other - Medications/Allergies Allergies/Adverse Reactions: Allergies Allergy/AdvReac Type Severity Reaction Status Date / Time Fish Containing Products Allergy Verified 08/01/14 14:27 fish oil Allergy Verified 08/01/14 14:27 Latex, Natural Rubber Allergy Verified 08/01/14 14:36 Penicillins Allergy Verified 08/01/14 14:27 shellfish derived Allergy Verified 08/01/14 14:27 Medications: Current Medications Acetaminophen (Tylenol) 650 mg PO Q4H PRN PRN Reason: Headache/Fever or Pain Hydrocodone Bitart/Acetaminophen ([place] 5/325) 1 tab PO Q4H PRN PRN Reason: Moderate Pain (4-6) Last Admin: 10/25/17 21:30 Dose: 1 tab Al Hydroxide/Mg Hydroxide (Maalox) 30 ml PO Q6H PRN PRN Reason: Heartburn or Indigestion Albuterol/Ipratropium (Duoneb) 3 ml NEB [id number] PRN PRN Reason: SOB &/or Wheezing Artificial Tears (Tears Naturale) 0 drop EA EYE PRN PRN PRN Reason: Dry Eyes Aspirin (Aspirin Chewable) 81 mg PO DAILY [facility] Last Admin: 10/30/17 08:21 Dose: 81 mg Atorvastatin Calcium (Lipitor) 40 mg PO [facility] Last Admin: 10/29/17 20:45 Dose: 40 mg Carvedilol (Coreg) 6.25 mg PO BID-[facility] Last Admin: 10/30/17 08:20 Dose: 6.25 mg Clopidogrel Bisulfate (Plavix) 75 mg PO DAILY [facility] Last Admin: 10/30/17 08:20 Dose: 75 mg Dextrose/Water (Dextrose 50%) 25 gm SLOW IVP PRN PRN PRN Reason: Hypoglycemia Diphenoxylate HCl/Atropine (Lomotil) 1 tab PO QIDPRN PRN PRN Reason: Diarrhea/Loose Stools Docusate Sodium (Colace) 100 mg PO DAILY [facility] Last Admin: 10/30/17 08:20 Dose: 100 mg Doxycycline Hyclate (Vibramycin) 100 mg PO BID [facility] Stop: 11/24/17 09:01 Last Admin: 10/30/17 08:20 Dose: 100 mg Enoxaparin Sodium (Lovenox) 40 mg SC 0900 [facility] Last Admin: 10/30/17 09:47 Dose: Not Given Finasteride (Proscar) 5 mg PO [facility] Stop: 01/22/18 21:01 Last Admin: 10/29/17 20:48 Dose: 5 mg Furosemide (Lasix) 40 mg PO DAILY-[facility] Last Admin: 10/30/17 08:21 Dose: 40 mg Gemfibrozil (Lopid) 600 mg PO DAILY [facility] Last Admin: 10/30/17 08:20 Dose: 600 mg Glucagon (Glucagon) 1 mg IM PRN PRN PRN Reason: Hypoglycemia Guaifenesin (Robitussin Sf) 200 mg PO Q4H PRN PRN Reason: Cough Hydralazine HCl (Apresoline) 10 mg SLOW IVP Q4H PRN PRN Reason: Systolic BP > 180 Last Admin: 10/29/17 01:22 Dose: 10 mg Dextrose/Water (D5w) 1,000 mls @ 0 mls/hr IV .Q0M PRN; As Directed PRN Reason: Hypoglycemia Insulin Human Lispro (Humalog) 0 units SC .MODERATE SLIDING SC PRN PRN Reason: Moderate Correctional Scale Last Admin: 10/30/17 13:13 Dose: 2 unit Insulin Human Lispro (Humalog) 0 units SC .BEDTIME SLIDING SC PRN PRN Reason: Bedtime Correctional Scale Last Admin: 10/26/17 20:43 Dose: 3 unit Lisinopril (Zestril) 5 mg PO BID [facility] Last Admin: 10/30/17 08:21 Dose: 5 mg Mineral Oil/White Petrolatum (Eucerin Cream) 0 gm TOP BIDPRN PRN PRN Reason: Dry Skin Nifedipine (Procardia Xl) 60 mg PO DAILY [facility] Last Admin: 10/30/17 09:45 Dose: Not Given Ondansetron HCl (Zofran Odt) 4 mg PO Q6H PRN PRN Reason: Nausea/Vomiting Last Admin: 10/26/17 16:53 Dose: 4 mg Ondansetron HCl (Zofran) 4 mg IVP Q6H PRN PRN Reason: Nausea/Vomiting Saccharomyces Boulardii (Florastor) 250 mg PO DAILY [facility] Last Admin: 10/30/17 08:20 Dose: 250 mg Senna (Senokot) 2 tab PO HSPRN PRN PRN Reason: Constipation Silver Sulfadiazine (Silvadene) 0 gm TOP Q12H PRN PRN Reason: Burn Sodium Chloride ([place] Nasal [place] 0.65%) 0 ml EA NARE QIDPRN PRN PRN Reason: Nasal Congestion Sodium Chloride (Flush - Normal Saline) 10 ml IVF Q12HR [facility] Last Admin: 10/30/17 08:28 Dose: 10 ml Sodium Chloride (Flush - Normal Saline) 10 ml IVF PRN PRN PRN Reason: Saline Flush Spironolactone (Aldactone) 25 mg PO QA-[facility] Tamsulosin [facility]) [facility] [place]: 01/23/18 09:01 Last Admin: 10/30/17 08:21 Dose: 0.4 mg
[2017-10-30] MEDS: Atorvastatin Calcium 40 MG TAB PO SCH (20:46)
[2017-10-30] MEDS: Finasteride 5 MG TAB PO SCH (20:46)
[2017-10-30] MEDS: Diphenoxylate HCl/Atropine Tablet PO PRN (20:51)
[2017-10-31] MEDS ORDERED: NIFEdipine XL 60 MG TAB PO SCH (08:22)
[2017-10-31] MEDS: Doxycycline 100 MG CAP PO SCH ×2 (09:00→21:38)
[2017-10-31] MEDS: NIFEdipine XL 60 MG TAB PO SCH (09:01)
[2017-10-31] MEDS: Lisinopril 5 MG TAB PO SCH ×2 (09:02→21:39)
[2017-10-31] MEDS: Tamsulosin HCl 0.4 MG CAP PO SCH (09:02)
[2017-10-31] MEDS: Furosemide 40 MG TAB PO SCH (09:02)
[2017-10-31] MEDS: Carvedilol 6.25 MG TAB PO SCH ×2 (09:02→17:08)
[2017-10-31] MEDS: Spironolactone 25 MG TAB PO SCH (09:02)
[2017-10-31] MEDS: Saccharomyces boulardii 250 MG CAP PO SCH (09:03)
[2017-10-31] MEDS: Diphenoxylate HCl/Atropine Tablet PO PRN (09:03)
[2017-10-31] MEDS: Gemfibrozil 600 MG TAB PO SCH (09:03)
[2017-10-31] MEDS: Clopidogrel Bisulfate 75 MG TAB PO SCH (09:03)
[2017-10-31] MEDS: Docusate 100 MG CAP PO SCH (09:06)
[2017-10-31] MEDS: Enoxaparin Sodium 40 MG/0.4 ML SYRINGE SC SCH (09:06)
--- NOTE | 2017-10-31 09:57 | PRG ---
DATE OF SERVICE: 10/31/2017 SUBJECTIVE: The patient seen and examined at the bedside. He complains about quite severe diarrhea, two to three hours, watery. No abdominal pain, no vomiting, but mild nausea. OBJECTIVE: VITAL SIGNS: Blood pressure is 180/84, pulse is 72, temperature is 98.1, and O2 saturation is 95% on room air. HEENT: Atraumatic, normocephalic. Eyes are PERRLA. Conjunctivae pinkish. Oral mucosa is moist. NECK: Supple, no lymphadenopathy. Thyroid is not palpable. LUNGS: Breath sounds diminished at both bases with few crackles bilaterally. HEART: S1, S2, somewhat irregular. No S3, no S4. ABDOMEN: Soft, nontender, nondistended. Bowel sounds are present, no organomegaly. EXTREMITIES: No clubbing, cyanosis. There is 1+ peripheral edema similar bilaterally. NEUROLOGIC: He is alert and oriented x3. There is no any sensorimotor deficit present. Cranial ner ves are intact. He has the Canseco catheter in. LABORATORY DATA: None today. His glycemia is ranging from 151-239. IMPRESSION: 1. Hypertensive urgency, is still requiring additional adjustment of his medications. His blood pre ssure systolic is up to 180. Arcade Attendant put him on Procardia today 120 mg once a day. 2. Urinary retention status post Canseco placement. He was seen by urologist and he is started on pro state medications. He will stay on those additional few days before the Canseco is removed and voiding trial is done. 3. Coronary artery disease, on aspirin, statin, Coreg, lisinopril, and Plavix. 4. Chronic diastolic heart failure. 5. Diabetes mellitus type 2, chronic, relatively well controlled. 6. Hyperlipidemia, chronic. 7. Hypertension. 8. Hyponatremia. We do not have any blood work today, but will obtain a new set tomorrow. We will see where we stand. PLAN: The patient is going to continue current regimen before he can be discharged to the rehabilita tion. His blood pressure is still high and is requiring some management. He started on Procardia to day by Dr. Zamora. Will continue PT and OT, respiratory therapy. Will continue DVT prophylaxis wi th SCDs.
--- NOTE | 2017-10-31 17:16 | PRG ---
DATE OF SERVICE: 10/31/2017 SUBJECTIVE: Patient was seen and examined at bedside and overnight events noted. Patient denies any shortness of breath or chest pain or palpitation. No history of nausea or vomitin g or diarrhea or fever or chills or cramps. OBJECTIVE: GENERAL: This is a obese male, in no apparent distress. VITAL SIGNS: Temperature 97.5, pulse 93, respiratory rate 18, blood pressure 124/58. HEENT: Atraumatic, normocephalic. Oral mucosa is moist NECK: Supple. CARDIOVASCULAR: S1 and S2 heard. Rate and rhythm regular. RESPIRATORY: Clear to auscultation. GASTROINTESTINAL: Abdomen is soft. MUSCULOSKELETAL: No tenderness. No edema. DERMATOLOGIC: No skin rash. NEUROLOGIC: Alert and awake and oriented X3, No focal neurologic deficits. Moving all the extremitie s. PSYCHIATRIC: Mood and affect normal. LABORATORY DATA: Not done today. Potassium is 4.4, BUN 47, creatinine is 1.4. ASSESSMENT AND PLAN: 1. Acute kidney injury on chronic kidney stage 3. Renal function was slight worsening, most likely from medications. We will monitor. 2. Cardiorenal syndrome, on diuretics, on JOSH inhibitor. 3. Hypertension, better with Procardia. 4. Anemia, stable. 5. We will check labs in the morning. Follow with Cardiology.
[2017-10-31] MEDS: Atorvastatin Calcium 40 MG TAB PO SCH (21:39)
[2017-10-31] MEDS: Finasteride 5 MG TAB PO SCH (21:39)
[2017-11-01 05:16] LABS: Anion Gap 12 mmol/L (10-20); BUN (Urea Nitrogen) 41 mg/dL (8.4-25.7); Calc. Creatinine Clearance 66 mL/min (70-130); Calcium 8.5 mg/dL (7.8-10.44); Carbon Dioxide 21 mmol/L (23-31); Chloride 96 mmol/L (98-107); Estimated GFR-MDRD 56; Glucose 166 mg/dL (83-110); Potassium 4.5 mmol/L (3.5-5.1); Sodium 124 mmol/L (136-145)
[2017-11-01] MEDS: Furosemide 40 MG TAB PO SCH (09:11)
[2017-11-01] MEDS: Clopidogrel Bisulfate 75 MG TAB PO SCH (09:11)
[2017-11-01] MEDS: NIFEdipine XL 60 MG TAB PO SCH (09:11)
[2017-11-01] MEDS: Tamsulosin HCl 0.4 MG CAP PO SCH (09:11)
[2017-11-01] MEDS: Doxycycline 100 MG CAP PO SCH (09:11)
[2017-11-01] MEDS: Spironolactone 25 MG TAB PO SCH (09:12)
[2017-11-01] MEDS: Saccharomyces boulardii 250 MG CAP PO SCH (09:12)
[2017-11-01] MEDS: Carvedilol 6.25 MG TAB PO SCH (09:12)
[2017-11-01] MEDS: Enoxaparin Sodium 40 MG/0.4 ML SYRINGE SC SCH (09:13)
[2017-11-01] MEDS: Gemfibrozil 600 MG TAB PO SCH (09:13)
[2017-11-01] MEDS: Docusate 100 MG CAP PO SCH (09:17)
[2017-11-01] MEDS: Lisinopril 5 MG TAB PO SCH (09:18)
--- NOTE | 2017-11-01 12:33 | PDOC.PN ---
- Subjective Encounter Start Date: 11/01/17 Encounter Start Time: 08:45 -: old records requested/rev Patient seen and examined. No new complaints. No overnight events - Objective MAR Reviewed: Yes Vital Signs & Weight: Vital Signs (12 hours) Temp Pulse Resp BP BP Pulse Ox 11/01/17 09:18 65 11/01/17 09:12 167/94 H 11/01/17 09:11 65 167/94 H 11/01/17 08:00 97.8 F 65 24 H 97 11/01/17 07:30 97.8 F 65 24 H 167/94 H 97 11/01/17 04:00 97.7 F 57 L 16 141/65 H 95 Weight Admit Weight 220 lb Weight 224 lb 4.8 oz Most Recent Monitor Data Heart Rate from ECG 55 NIBP 145/55 NIBP BP-Mean 116 Respiration from ECG 14 SpO2 100 I&O: 10/31/17 11/01/17 11/02/17 06:59 06:59 06:59 Intake Total 1900 2980 Output Total 2145 2200 Balance -245 780 Result Diagrams: 10/30/17 04:20 11/01/17 04:17 Additional Labs: Accuchecks 10/31/17 10/31/17 20:13 15:54 POC Glucose 246 H 194 H Phys Exam - Physical Examination Constitutional: NAD HEENT: PERRLA, moist MMs, sclera anicteric Neck: no JVD, supple Respiratory: no wheezing, no rales, no rhonchi Cardiovascular: RRR, no significant murmur, no rub Gastrointestinal: soft, non-tender, no distention, positive bowel sounds Musculoskeletal: no edema, pulses present Neurological: non-focal, normal sensation, moves all 4 limbs Psychiatric: normal affect, A&O x 3 Skin: no rash, normal turgor Dx/Plan (1) Acute worsening of stage 3 chronic kidney disease Code(s): N18.3 - CHRONIC KIDNEY DISEASE, STAGE 3 (MODERATE) Status: Acute Comment: (2) Bradycardia Code(s): R00.1 - BRADYCARDIA, UNSPECIFIED Status: Resolved (3) Gastroenteritis Code(s): K52.9 - NONINFECTIVE GASTROENTERITIS AND COLITIS, UNSPECIFIED Status : Suspected Comment: Stool studies negative (4) Hyperkalemia Code(s): E87.5 - HYPERKALEMIA Status: Resolved (5) Hyponatremia Code(s): E87.1 - HYPO-OSMOLALITY AND HYPONATREMIA Status: Resolved (6) Metabolic acidosis Code(s): E87.2 - ACIDOSIS Status: Resolved (7) CAD (coronary artery disease) Code(s): I25.10 - ATHSCL HEART DISEASE OF [place] CORONARY ARTERY W/O ANG PCTRS Status: Chronic Comment: on ASA,statin,Coreg,lisinopril,Plavix (8) Chronic diastolic heart failure Code(s): I50.32 - CHRONIC DIASTOLIC (CONGESTIVE) HEART FAILURE Status: Chronic (9) Diabetes type 2, controlled Code(s): E11.9 - TYPE 2 DIABETES MELLITUS WITHOUT COMPLICATIONS Status: Chronic (10) Dyslipidemia Code(s): E78.5 - HYPERLIPIDEMIA, UNSPECIFIED Status: Chronic (11) GERD (gastroesophageal reflux disease) Code(s): K21.9 - GASTRO-ESOPHAGEAL REFLUX DISEASE WITHOUT ESOPHAGITIS Status: Chronic (12) Hypertension Code(s): I10 - ESSENTIAL (PRIMARY) HYPERTENSION Status: Chronic (13) Prostatitis Code(s): N41.9 - INFLAMMATORY DISEASE OF [place], UNSPECIFIED Status: Acute Qualifiers: Prostatitis type: acute Qualified Code(s): N41.0 - Acute prostatitis (14) Urinary retention Code(s): R33.9 - RETENTION OF URINE, UNSPECIFIED Status: Acute Comment: s/p Canseco placement (15) Dyspnea Code(s): R06.00 - DYSPNEA, UNSPECIFIED Status: Resolved Comment: Flash Pulmonary edema (16) Hypertensive urgency Code(s): I16.0 - HYPERTENSIVE URGENCY Status: Resolved - Plan cont current plan of care, PT/OT, protective services social worker * medication reviewed as below * symptomatic treatment * stable for discharge * see discharge summery * voiding trial in 1 week. Review of Systems - Review of Systems ENT: negative: Ear Pain, Ear Discharge, Nose Pain, Nose Discharge, Nose Congestion, Mouth Pain, Mouth Swelling, Throat Pain, Throat Swelling, Other Respiratory: negative: Cough, Dry, Shortness of Breath, Hemoptysis, SOB with Excertion, Pleuritic Pain, Sputum, Wheezing Cardiovascular: negative: chest pain, palpitations, orthopnea, paroxysmal nocturnal dyspnea, edema, light headedness, other Gastrointestinal: negative: Nausea, Vomiting, Abdominal Pain, Diarrhea, Constipation, Melena, Hematochezia, Other Genitourinary: negative: Dysuria, Frequency, Incontinence, Hematuria, Retention , Other Musculoskeletal: negative: Neck Pain, Shoulder Pain, Arm Pain, Back Pain, Hand Pain, Leg Pain, Foot Pain, Other Skin: negative: Rash, Lesions, Hector, Bruising, Other - Medications/Allergies Allergies/Adverse Reactions: Allergies Allergy/AdvReac Type Severity Reaction Status Date / Time Fish Containing Products Allergy Verified 08/01/14 14:27 fish oil Allergy Verified 08/01/14 14:27 Latex, Natural Rubber Allergy Verified 08/01/14 14:36 Penicillins Allergy Verified 08/01/14 14:27 shellfish derived Allergy Verified 08/01/14 14:27 Medications: Current Medications Acetaminophen (Tylenol) 650 mg PO Q4H PRN PRN Reason: Headache/Fever or Pain Hydrocodone Bitart/Acetaminophen ([place] 5/325) 1 tab PO Q4H PRN PRN Reason: Moderate Pain (4-6) Last Admin: 10/25/17 21:30 Dose: 1 tab Al Hydroxide/Mg Hydroxide (Maalox) 30 ml PO Q6H PRN PRN Reason: Heartburn or Indigestion Albuterol/Ipratropium (Duoneb) 3 ml NEB [id number] PRN PRN Reason: SOB &/or Wheezing Artificial Tears (Tears Naturale) 0 drop EA EYE PRN PRN PRN Reason: Dry Eyes Aspirin (Aspirin Chewable) 81 mg PO DAILY [facility] Last Admin: 11/01/17 09:16 Dose: 81 mg Atorvastatin Calcium (Lipitor) 40 mg PO HS [facility] Last Admin: 10/31/17 21:39 Dose: 40 mg Carvedilol (Coreg) 6.25 mg PO BID-[facility] Last Admin: 11/01/17 09:12 Dose: 6.25 mg Clopidogrel Bisulfate (Plavix) 75 mg PO DAILY [facility] Last Admin: 11/01/17 09:11 Dose: 75 mg Dextrose/Water (Dextrose 50%) 25 gm SLOW IVP PRN PRN PRN Reason: Hypoglycemia Diphenoxylate HCl/Atropine (Lomotil) 1 tab PO QIDPRN PRN PRN Reason: Diarrhea/Loose Stools Last Admin: 10/31/17 09:03 Dose: 1 tab Docusate Sodium (Colace) 100 mg PO DAILY [facility] Last Admin: 11/01/17 09:17 Dose: Not Given Doxycycline Hyclate (Vibramycin) 100 mg PO BID [facility] Stop: 11/24/17 09:01 Last Admin: 11/01/17 09:11 Dose: 100 mg Enoxaparin Sodium (Lovenox) 40 mg SC 0900 [facility] Last Admin: 11/01/17 09:13 Dose: 40 mg Finasteride (Proscar) 5 mg PO HS [facility] Stop: 01/22/18 21:01 Last Admin: 10/31/17 21:39 Dose: 5 mg Furosemide (Lasix) 40 mg PO DAILY-AC [facility] Last Admin: 11/01/17 09:11 Dose: 40 mg Gemfibrozil (Lopid) 600 mg PO DAILY [facility] Last Admin: 11/01/17 09:13 Dose: 600 mg Glucagon (Glucagon) 1 mg IM PRN PRN PRN Reason: Hypoglycemia Guaifenesin (Robitussin Sf) 200 mg PO Q4H PRN PRN Reason: Cough Hydralazine HCl (Apresoline) 10 mg SLOW IVP Q4H PRN PRN Reason: Systolic BP > 180 Last Admin: 10/29/17 01:22 Dose: 10 mg Dextrose/Water (D5w) 1,000 mls @ 0 mls/hr IV .Q0M PRN; As Directed PRN Reason: Hypoglycemia Insulin Human Lispro (Humalog) 0 units SC .MODERATE SLIDING SC PRN PRN Reason: Moderate Correctional Scale Last Admin: 10/30/17 18:54 Dose: 4 unit Insulin Human Lispro (Humalog) 0 units SC .BEDTIME SLIDING SC PRN PRN Reason: Bedtime Correctional Scale Last Admin: 10/26/17 20:43 Dose: 3 unit Isosorbide Mononitrate (Imdur Er) 30 mg PO DAILY [facility] Last Admin: 11/01/17 09:18 Dose: 30 mg Lisinopril (Zestril) 5 mg PO BID [facility] Last Admin: 11/01/17 09:18 Dose: 5 mg Mineral Oil/White Petrolatum (Eucerin Cream) 0 gm TOP BIDPRN PRN PRN Reason: Dry Skin Nifedipine (Procardia Xl) 120 mg PO DAILY [facility] Last Admin: 11/01/17 09:11 Dose: 120 mg Ondansetron HCl (Zofran Odt) 4 mg PO Q6H PRN PRN Reason: Nausea/Vomiting Last Admin: 10/26/17 16:53 Dose: 4 mg Ondansetron HCl (Zofran) 4 mg IVP Q6H PRN PRN Reason: Nausea/Vomiting Saccharomyces Boulardii (Florastor) 250 mg PO DAILY [facility] Last Admin: 11/01/17 09:12 Dose: 250 mg Senna (Senokot) 2 tab PO HSPRN PRN PRN Reason: Constipation Silver Sulfadiazine (Silvadene) 0 gm TOP Q12H PRN PRN Reason: Burn Sodium Chloride ([place] Nasal [place] 0.65%) 0 ml EA NARE QIDPRN PRN PRN Reason: Nasal Congestion Sodium Chloride (Flush - Normal Saline) 10 ml IVF Q12HR [facility] Last Admin: 11/01/17 09:19 Dose: 10 ml Sodium Chloride (Flush - Normal Saline) 10 ml IVF PRN PRN PRN Reason: Saline Flush Spironolactone (Aldactone) 25 mg PO QAM[facility] Last Admin: 11/01/17 09:12 Dose: 25 mg Tamsulosin HCl (Flomax) [facility] Stop: 01/23/18 09:01 Last Admin: 11/01/17 09:11 Dose: 0.4 mg
--- NOTE | 2017-11-01 13:33 | DIS ---
DATE OF ADMISSION: 10/24/2017 DATE OF DISCHARGE: 11/01/2017 PRIMARY CARE PHYSICIAN: Chepe Parr M.D. DISCHARGE DISPOSITION: senior care home. PRIMARY DISCHARGE DIAGNOSES: Acute on chronic kidney failure, baseline chronic kidney disease stage 3, metabolic acidosis due to renal failure, hyperkalemia due to renal failure, hyponatremia due to de hydration, gastroenteritis, bradycardia due to medication resolved, acute prostatitis, acute urinary retention required Canseco catheterization, hypertensive urgency resolved. SECONDARY DISCHARGE DIAGNOSES: Chronic diastolic heart failure, diabetes type 2, gastroesophageal re flux disease, dyslipidemia, obesity with body mass index 30, coronary artery disease. SIGNIFICANT LABORATORY DATA: Hemoglobin 12.5, INR 1.2, creatinine 1.24. Urinalysis normal. RADIOLOGICAL INVESTIGATION: Echocardiography showed EF 40%-45%, mild aortic stenosis. Abdomen and p vicky CT scan showed gallstones without gallbladder wall thickening. Renal ultrasound showed bilater al renal cysts and chest x-ray. DISCHARGE MEDICATIONS: Aspirin 81 mg p.o. daily, Lipitor 40 mg p.o. daily, calcium with vitamin D 1 tablet p.o. b.i.d., Coreg 6.25 mg p.o. b.i.d., Plavix 75 mg p.o. daily, Lomotil 1 tablet p.o. t.i.d. p.r.n., doxycycline 100 mg p.o. b.i.d. for 15 days, Proscar 5 mg p.o. daily, Lasix 40 mg p.o. daily, Lopid 600 mg p.o. daily, insulin 15 units subq at bedtime, DuoNeb q.6 hourly, Imdur 30 mg p.o. daily, lisinopril 5 mg p.o. b.i.d., metformin 500 mg p.o. b.i.d., Procardia-XL 60 mg p.o. b.i.d., multivita min 1 tablet p.o. daily, omeprazole 40 mg p.o. daily, Florastor 250 mg p.o. daily, Januvia 100 mg p.o . daily, Aldactone 25 mg p.o. daily, and Flomax 0.4 mg p.o. daily. INPATIENT CONSULTANTS: Dr. Tuttle was consulted while in hospital because patient stayed in [facility]. Dr. Angel Wu was consulted for prostatitis. Dr. Hope in group was following while in hospital. TEST RESULTS PENDING ON DISCHARGE: None. ALLERGIES: FISH CONTAINING PRODUCTS, LATEX, NATURAL RUBBER. CONTRAINDICATIONS: None. CODE STATUS: FULL CODE. ALLERGIES: FISH CONTAINING PRODUCT, FISH OIL, LATEX, and NATURAL RUBBER. DISCHARGE PLAN: Post hospital, patient is discharged to half-way home. The patient will need a follow up with Urology. The patient will need a voiding trial in 1 week. HOSPITAL COURSE: An 82-year-old male with above-mentioned medical problem who was admitted by me. Franco colunga see my HPI for further details. This patient was having diarrhea after Botox injection and sub sequently he got dehydrated. He was taking his antihypertensive medication along with diarrhea and h e was hypotensive. He had acute kidney failure with creatinine 5.32. His BNP was also elevated, but he clinically appeared dehydrated rather than having any congestive heart failure. We admitted him to [facility] and that is why child nurse saw this patient, he had elevated BNP and that is why we did ec hocardiography, which showed slightly low EF. During this admission, we cautiously hydrated with IV fluid and his renal function improved to normal. He was also having obstructive etiology and that is why we consulted Urology and they recommended to start doxycycline for prostatitis. He required Fol ey catheter for urinary retention and we discharged him with Canseco catheter and voiding trial will be done within 1 week after discharge. Initially, we kept on hold oral diabetic medication and insulin because of renal failure, but on the day of discharge because his blood sugar was going up, we resumed all previous medication including b lood pressure medication as well. Only we did change his lisinopril to 5 mg b.i.d., Procardia 60 mg b.i.d., Imdur was added and Lasix was continued as per previous. The patient is seen and examined at bedside today. Today, he has approval for half-way home. Patient will continue above-mentioned medication and then he will follow up with primary care physic mallorie. Paperwork for discharge done. Discharge medication reconciliation done.
[2017-11-01 15:08] VITALS: BP 115/55; TEMP 97.4
--- NOTE | 2017-11-01 23:33 | PRG ---
DATE OF SERVICE: 11/01/2017 SUBJECTIVE: Patient was seen and examined at bedside and overnight events noted. Patient denies any shortness of breath or chest pain or palpitation. No history of nausea or vomiting or diarrhea or fever or chills or cramps. OBJECTIVE: GENERAL: This is a well-developed male, in no apparent distress VITAL SIGNS: Temperature 97.5, pulse 56, respirations 18, blood pressure 115/ 55. HEENT: Atraumatic, normocephalic. Oral mucosa is moist. NECK: Supple. CARDIOVASCULAR: S1, S2 heard. Rate and rhythm regular. RESPIRATORY: Clear to auscultation. GASTROINTESTINAL: Abdomen is soft. MUSCULOSKELETAL: No tenderness. No edema. DERMATOLOGIC: No skin rash. NEUROLOGIC: Alert and awake and oriented x3. No focal neurologic deficits. Moving all the extremities. PSYCHIATRIC: Mood and affect normal LABORATORY DATA: Potassium is 4.5, BUN 41, creatinine is 1.2. ASSESSMENT AND PLAN: 1. Acute kidney injury. Renal function is better. 2. Cardiorenal syndrome. 3. Edema 4. Anemia. Monitor renal function closely. MTDD
== END 2017-11-01 15:07 | DRG 683 ==
LOC: ERS 11:40 → IMCU/EMU 16:02 → T4-B 10-28 17:43 → CCU 10-29 01:55 → 2NO 10-30 16:42
PROVIDERS: ADMIT Internal Medicine; ATTEND Internal Medicine
DX: N17.9 Acute kidney failure, unspecified (principal); E87.2 Acidosis; I95.9 Hypotension, unspecified; E11.22 Type 2 diabetes mellitus with diabetic chronic kidney disease; I13.0 Hypertensive heart and chronic kidney disease with heart failure and stage 1 through stage 4 chronic kidney disease, or unspecified chronic kidney disease; E87.1 Hypo-osmolality and hyponatremia; E87.5 Hyperkalemia; I50.32 Chronic diastolic (congestive) heart failure; N41.0 Acute prostatitis; N18.3 Chronic kidney disease, stage 3 (moderate); R00.1 Bradycardia, unspecified; I25.10 Atherosclerotic heart disease of native coronary artery without angina pectoris; E78.5 Hyperlipidemia, unspecified; K21.9 Gastro-esophageal reflux disease without esophagitis; R33.9 Retention of urine, unspecified; I16.0 Hypertensive urgency; I73.9 Peripheral vascular disease, unspecified; Z95.810 Presence of automatic (implantable) cardiac defibrillator; I25.2 Old myocardial infarction; Z87.891 Personal history of nicotine dependence; E86.0 Dehydration; Z79.4 Long term (current) use of insulin; K52.9 Noninfective gastroenteritis and colitis, unspecified; E86.1 Hypovolemia; D64.9 Anemia, unspecified; N13.9 Obstructive and reflux uropathy, unspecified; T50.905A Adverse effect of unspecified drugs, medicaments and biological substances, initial encounter; E66.9 Obesity, unspecified; Z68.30 Body mass index [BMI] 30.0-30.9, adult; K80.80 Other cholelithiasis without obstruction; N28.1 Cyst of kidney, acquired; I25.5 Ischemic cardiomyopathy
CPT/HCPCS: 36415; 36416; 71045; 74176; 76770; 80048; 80053; 80069; 81001; 82553; 82570; 83735; 83880; 84156; 84300; 84484; 84550; 85025; 85610; 85730; 87045; 87046; 87324; 87328; 87329; 87449; 87899; 93005; 93010; 93306; 94640; 96361; 96374; 96375; A4216; G8978-GP-CK; G8978-GP-CM; G8979-GP-CJ; J0360; J1644; J1650; J1815; J1940; J3475; J7042; J7050; J7070; J7620

== ENCOUNTER 2017-11-12 09:04 | Inpatient (IN) | payer MEDICARE, OTHER ==
[2017-11-12 09:47] LABS: #Basophils 0.1 thou/uL (0.0-0.2); #Eosinphils 0.3 thou/uL (0.0-0.7); #Lymphocytes 1.9 thou/uL (1.20-3.40); #Neutrophils 6.7 thou/uL (1.40-6.50); %Basophils 0.6 % (0.0-1.0); %Eosinophils 3.3 % (0.0-10.0); %Lymphocytes 18.9 % (21.0-51.0); %Monocytes 9.8 % (0.0-10.0); %Neutrophils 67.4 % (42.0-75.0); Hemoglobin 12.4 g/dL (14.0-18.0); Mean Corpuscular HGB CONC 34.2 g/dL (32.0-36.0); Mean Corpuscular Hemoglobin 31.3 pg (27.0-31.0); Mean Corpuscular Volume 91.7 fl (80.0-94.0); Mean Platelet Volume 6.8 fL (7.4-10.4); Platelet Count 266 thou/uL (130-400); RBC Distribution Width 11.9 % (11.5-14.5); Red Blood Cell (RBC) Count 3.95 mill/uL (4.70-6.10); White Blood Cell (WBC) Count 9.9 thou/uL (4.8-10.8)
[2017-11-12 10:02] LABS: ALT (SGPT) 25 U/L (8-55); AST (SGOT) 20 U/L (5-34); Albumin 3.9 g/dL (3.4-4.8); Alkaline Phosphatase 72 U/L (40-150); Anion Gap 14 mmol/L (10-20); BUN (Urea Nitrogen) 43 mg/dL (8.4-25.7); Bilirubin, Total 0.8 mg/dL (0.2-1.2); Calc. Creatinine Clearance 0 mL/min (70-130); Carbon Dioxide 22 mmol/L (23-31); Chloride 88 mmol/L (98-107); Estimated GFR-MDRD 41; Globulin 2.4 g/dL (2.4-3.5); Glucose 99 mg/dL (83-110); Potassium 4.6 mmol/L (3.5-5.1); Protein, Total 6.3 g/dL (5.8-8.1)
[2017-11-12 10:05] LABS: Sodium 119 mmol/L (136-145)
[2017-11-12 10:06] LABS: CKMB 3.9 ng/mL (0-6.6); Troponin I 0.012 ng/mL (< 0.028)
[2017-11-12 14:15] LABS: Sodium 120 mmol/L (136-145)
[2017-11-12] MEDS ORDERED: Dextrose 50% Abboject 50 ML SYRINGE SLOW IVP PRN (15:33)
[2017-11-12] MEDS ORDERED: Dextrose 5% in Water 1,000 ML IV PRN (15:33)
[2017-11-12] MEDS ORDERED: Sodium Chloride 0.9% 1,000 ML IV SCH (15:45)
[2017-11-12] MEDS ORDERED: Milk Of Magnesia 30 ML UDCUP PO PRN (16:43)
[2017-11-12 17:10] VITALS: BMI 29.9
[2017-11-12 18:08] LABS: Sodium 120 mmol/L (136-145)
--- NOTE | 2017-11-12 18:14 | HP ---
PRIMARY CARE PHYSICIAN: Chepe Parr MD PRESENTING COMPLAINT: Generalized weakness. HISTORY OF PRESENT ILLNESS: An 82-year-old male with a past medical history of CHF with EF 50%-55%; PR in [address]; ventricular tachyarrhythmia, which required ablation; type 2 diabetes mellitus, on insulin; dyslipidemia; hypertension; PVD, status post stent placement; GERD; and obesity who presented to the emergency room from his [facility] facility where he was sent to after a recent admission. He complains of generalized weakness and nausea as well as diarrhea, which he reported has been on for the past month since he had a Botox injection. It subsided slightly, but he reports he had 5 loose stools yesterday, nonbloody and nonmucoid, and has moved his bowel once today as well. There is no history of fevers, chills. He has no respiratory, cardiac, or urinary symptoms. His labs were routinely checked today and he was noticed to have hyponatremia of 118 and was then sent to the emergency room. At the emergency room, repeat sodium was 119. He was alert and well oriented. His creatinine was slightly above normal. He received a bolus of fluids and was admitted for hyponatremia. PAST MEDICAL HISTORY: As stated in HPI, includes CKD. PAST SURGICAL HISTORY: Cardiac catheterization with stent placement, renal artery stent placement, carotid artery stent placement for cervical spine fusion , history of back surgeries, ablation for ventricular tachyarrhythmia, and surgery for umbilical hernia. FAMILY HISTORY: Reviewed and noncontributory. SOCIAL HISTORY: Former smoker (quit in 2004). No history of alcohol or illicit drug use. REVIEW OF SYSTEMS: Twelve-point review of systems conducted, was negative except as stated in HPI. HOME MEDICATIONS: Aspirin 81 mg daily, atorvastatin 40 mg daily, calcium carbonate/vitamin D3 one tablet b.i.d., carvedilol 6.25 mg b.i.d., Plavix 75 mg daily, diphenoxylate hydrochloride/atropine 1 tablet t.i.d., doxycycline 100 mg b.i.d., finasteride 5 mg at bedtime, furosemide 40 mg daily, gemfibrozil 1 tablet daily, insulin glargine 50 units at bedtime, ipratropium/albuterol sulfate 3 mL q.4 hours p.r.n. for shortness of breath, Imdur 30 mg daily, lisinopril 5 mg b.i.d., metformin 500 mg b.i.d., nifedipine 60 mg b.i.d., omeprazole 40 mg daily, Saccharomyces boulardii 250 mg daily, sitagliptin phosphate 100 mg daily, spironolactone 25 mg daily, tamsulosin 0.4 mg a.m. PHYSICAL EXAMINATION: VITAL SIGNS: Within normal limits. GENERAL: Not in acute distress, sitting comfortably in bed. NEUROLOGIC: Alert and well oriented. No focal deficit. HEENT: Normocephalic, atraumatic. Not pale, anicteric. Moist mucous membranes. PERRLA. EOMI. RESPIRATORY: Vesicular breath sounds bilaterally. No wheezes, rales, or rhonchi. CARDIOVASCULAR: S1, S2 only. No murmurs, rubs, or gallops. Regular rate and rhythm. SKIN: Warm, dry, well perfused. No rashes or lesions. MUSCULOSKELETAL: 1+ edema in bilateral lower extremities. PSYCHIATRIC: Normal mood and affect. LABORATORY DATA: As stated in HPI. ASSESSMENT/PLAN: 1. Hyponatremia. The patient is asymptomatic. He will be admitted to telemetry and gently hydrated. We will also check serum sodium every 4 hours and get serum and urine osmolalities as well as urine electrolytes. 2. Acute kidney injury on chronic kidney disease. Metformin and lisinopril will be held. We will hydrate gently and monitor his renal function closely, as well as his volume status. 3. Congestive heart failure with diastolic dysfunction. He is stable, not in acute exacerbation. We will resume his home medications once confirmed. 4. Type 2 diabetes mellitus, on insulin. We will place him on sliding scale insulin. Diabetic diet, fingerstick glucose before meals and at bedtime, on hypoglycemia protocol. 5. Diarrhea. The patient reports diarrhea on and off for the past few weeks. We will obtain urine studies. 6. Dyslipidemia. Resume statin. 7. Peripheral vascular disease/coronary artery disease. We will resume home medications once confirmed. CODE STATUS: FULL. MTDD
[2017-11-12 19:21] LABS: Potassium, Urine 15.2 mmol/L
[2017-11-12 22:30] LABS: Sodium 120 mmol/L (136-145)
[2017-11-12] MEDS: Heparin 5,000 UNITS/ML VIAL SC SCH (22:31)
[2017-11-12] MEDS ORDERED: Diphenoxylate HCl/Atropine Tablet PO PRN (22:34)
[2017-11-12] MEDS: Docusate 100 MG CAP PO SCH (22:35)
[2017-11-12] MEDS ORDERED: Finasteride 5 MG TAB PO SCH (23:45)
[2017-11-12] MEDS ORDERED: Melatonin 3 MG TAB PO SCH (23:45)
[2017-11-12] MEDS ORDERED: Docusate 100 MG CAP PO SCH (23:45)
[2017-11-13 02:32] LABS: #Eosinphils 0.3 thou/uL (0.0-0.7); #Lymphocytes 2.1 thou/uL (1.20-3.40); #Monocytes 1.2 thou/uL (0.11-0.59); #Neutrophils 5.9 thou/uL (1.40-6.50); %Basophils 0.4 % (0.0-1.0); %Eosinophils 3.4 % (0.0-10.0); %Lymphocytes 21.9 % (21.0-51.0); %Monocytes 12.6 % (0.0-10.0); %Neutrophils 61.8 % (42.0-75.0); Hemoglobin 11.8 g/dL (14.0-18.0); Mean Corpuscular HGB CONC 36.4 g/dL (32.0-36.0); Mean Corpuscular Hemoglobin 32.7 pg (27.0-31.0); Mean Corpuscular Volume 89.9 fl (80.0-94.0); Mean Platelet Volume 6.7 fL (7.4-10.4); Platelet Count 223 thou/uL (130-400); RBC Distribution Width 11.9 % (11.5-14.5); Red Blood Cell (RBC) Count 3.62 mill/uL (4.70-6.10); White Blood Cell (WBC) Count 9.5 thou/uL (4.8-10.8)
[2017-11-13 02:43] LABS: Sodium 121 mmol/L (136-145)
[2017-11-13 03:06] LABS: Anion Gap 9 mmol/L (10-20); BUN (Urea Nitrogen) 34 mg/dL (8.4-25.7); Calc. Creatinine Clearance 63 mL/min (70-130); Calcium 8.9 mg/dL (7.8-10.44); Carbon Dioxide 26 mmol/L (23-31); Chloride 92 mmol/L (98-107); Estimated GFR-MDRD 53; Glucose 72 mg/dL (83-110); Potassium 5.5 mmol/L (3.5-5.1); Sodium 121 mmol/L (136-145)
[2017-11-13] MEDS: NIFEdipine XL 60 MG TAB PO SCH ×2 (08:12→20:56)
[2017-11-13] MEDS: Clopidogrel Bisulfate 75 MG TAB PO SCH (08:13)
[2017-11-13] MEDS: Docusate 100 MG CAP PO SCH (08:13)
[2017-11-13] MEDS: Tamsulosin HCl 0.4 MG CAP PO SCH (08:13)
[2017-11-13] MEDS: Atorvastatin Calcium 40 MG TAB PO SCH (08:13)
[2017-11-13] MEDS: Carvedilol 6.25 MG TAB PO SCH ×2 (08:14→20:53)
[2017-11-13] MEDS: Spironolactone 25 MG TAB PO SCH (08:14)
[2017-11-13] MEDS: Heparin 5,000 UNITS/ML VIAL SC SCH ×2 (08:14→20:55)
[2017-11-13] MEDS: Aspirin 81 mg Enteric Coated Tablet PO SCH (08:14)
[2017-11-13] MEDS ORDERED: Furosemide 40 MG TAB PO SCH (09:00)
[2017-11-13] MEDS ORDERED: Carvedilol 6.25 MG TAB PO SCH (09:00)
--- NOTE | 2017-11-13 14:12 | PDOC.PN ---
- Subjective Encounter Start Date: 11/13/17 Encounter Start Time: 14:21 Subjective: No new complaints. Reports 3 loose stools but no sample for collection -: No acute events overnight. - Objective Resuscitation Status: Resuscitation Status FULL:Full Resuscitation MAR Reviewed: Yes Vital Signs & Weight: Vital Signs (12 hours) Temp Pulse Pulse Pulse Resp BP BP 11/13/17 11:35 63 60 161/70 H 11/13/17 08:17 58 L 56 L 181/77 H 11/13/17 08:12 58 L 181/77 H 11/13/17 04:00 97.4 F L 57 L 16 BP BP Pulse Ox 11/13/17 11:35 189/81 H 11/13/17 08:17 175/75 H 11/13/17 08:12 11/13/17 04:00 174/77 H 93 L Weight Weight 220 lb 6.4 oz I&O: 11/12/17 11/13/17 11/14/17 06:59 06:59 06:59 Intake Total 500 Output Total 650 Balance -150 Result Diagrams: 11/13/17 02:08 11/13/17 02:08 Additional Labs: Accuchecks 11/13/17 11/13/17 11/12/17 10:29 06:57 21:13 POC Glucose 124 H 67 L 132 H 11/12/17 17:29 POC Glucose 87 Phys Exam - Physical Examination Constitutional: NAD HEENT: PERRLA, moist MMs, sclera anicteric, TM's clear Neck: no JVD, supple, full ROM Respiratory: no wheezing, no rales, no rhonchi, clear to auscultation bilateral Cardiovascular: no significant murmur, no rub Gastrointestinal: soft, non-tender, no distention, positive bowel sounds Musculoskeletal: pulses present, edema present (1+ b/l lower extremities) Neurological: non-focal, moves all 4 limbs Psychiatric: normal affect, A&O x 3 Skin: no rash, normal turgor Dx/Plan (1) Hyponatremia Code(s): E87.1 - HYPO-OSMOLALITY AND HYPONATREMIA Status: Acute Comment: Likely diuretic induiced. Serum osm low, urine osm also low and urine sodium > 40. Furosemide held and nephrology consulted. 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 Has been asymptomatic and no red alarms on tele. Carvedilol held. Will continue to monitor. 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 Continue current regimen. (4) Dyslipidemia Code(s): E78.5 - HYPERLIPIDEMIA, UNSPECIFIED Status: Chronic Comment: Continue Lipitor. (5) Hypertension Code(s): I10 - ESSENTIAL (PRIMARY) HYPERTENSION Status: Chronic Qualifiers: Hypertension type: essential hypertension Qualified Code(s): I10 - Essential (primary) hypertension Comment: Not at goal 2/2 carvedilol being held. Will restart Lisinopril and continue Nicardipine. :Hydralazine PRN for SBP > 180 (6) Chronic diastolic heart failure Code(s): I50.32 - CHRONIC DIASTOLIC (CONGESTIVE) HEART FAILURE Status: Chronic Comment: Not in acute exacerbation. Will resume home medications. (7) CAD (coronary artery disease) Code(s): I25.10 - ATHSCL HEART DISEASE OF [place] CORONARY ARTERY W/O ANG PCTRS Status: Chronic Qualifiers: Coronary Disease-Associated Artery/Lesion type: bypass graft [place] vs. transplanted heart: [place] heart Associated angina: without angina Qualified Code(s): I25.810 - Atherosclerosis of coronary artery bypass graft(s) without angina pectoris Comment: on ASA,statin,Coreg,lisinopril,Plavix. Coreg held 2/2 bradycardia. (8) Acute worsening of stage 3 chronic kidney disease Code(s): N18.3 - CHRONIC KIDNEY DISEASE, STAGE 3 (MODERATE) Status: Acute Comment: Likely a combination of diuretics and ACEi. Improving. (9) Diarrhea Code(s): R19.7 - DIARRHEA, UNSPECIFIED Status: Acute Qualifiers: Diarrhea type: unspecified type Qualified Code(s): R19.7 - Diarrhea, unspecified Comment: f/u stool studies. - Plan cont current plan of care, out of bed/ambulate, DVT proph w/heparin * . Review of Systems - Medications/Allergies Allergies/Adverse Reactions: Allergies Allergy/AdvReac Type Severity Reaction Status Date / Time Fish Containing Products Allergy Verified 08/01/14 14:27 fish oil Allergy Verified 08/01/14 14:27 Latex, Natural Rubber Allergy Verified 08/01/14 14:36 Penicillins Allergy Verified 08/01/14 14:27 shellfish derived Allergy Verified 08/01/14 14:27 Medications: Current Medications Albuterol/Ipratropium (Duoneb) 3 ml NEB Q6H PRN PRN Reason: SOB &/or Wheezing Aspirin (Ecotrin) 81 mg PO DAILY [facility] Last Admin: 11/13/17 08:14 Dose: 81 mg Atorvastatin Calcium (Lipitor) 40 mg PO DAILY [facility] Last Admin: 11/13/17 08:13 Dose: 40 mg Carvedilol (Coreg) 6.25 mg PO BID [facility] Last Admin: 11/13/17 08:14 Dose: Not Given Clopidogrel Bisulfate (Plavix) 75 mg PO DAILY [facility] Last Admin: 11/13/17 08:13 Dose: 75 mg Dextrose/Water (Dextrose 50%) 25 gm SLOW IVP PRN PRN PRN Reason: Hypoglycemia Diphenoxylate HCl/Atropine (Lomotil) 1 tab PO TID PRN PRN Reason: Diarrhea/Loose Stools Docusate Sodium (Colace) 100 mg PO BID [facility] Last Admin: 11/13/17 08:13 Dose: 100 mg Finasteride (Proscar) 5 mg PO HS [facility] Furosemide (Lasix) 40 mg PO DAILY [facility] Last Admin: 11/13/17 08:13 Dose: 40 mg Glucagon (Glucagon) 1 mg IM PRN PRN PRN Reason: Hypoglycemia Heparin Sodium (Porcine) (Heparin) 5,000 units SC TID [facility] Last Admin: 11/13/17 08:14 Dose: 5,000 units Dextrose/Water (D5w) 1,000 mls @ 0 mls/hr IV .Q0M PRN; As Directed PRN Reason: Hypoglycemia Insulin Human Lispro (Humalog) 0 units SC .MILD SLIDING SCALE PRN PRN Reason: Mild Correctional Scale Isosorbide Mononitrate (Imdur Er) 30 mg PO DAILY [facility] Last Admin: 11/13/17 08:13 Dose: 30 mg Lactulose (Lactulose) 20 gm PO DAILYPRN PRN PRN Reason: Constipation Lisinopril (Zestril) 5 mg PO BID [facility] Magnesium Hydroxide (Milk Of Magnesium) 30 ml PO DAILYPRN PRN PRN Reason: Constipation Melatonin (Melatonin) 9 mg PO HS [facility] Nifedipine (Procardia Xl) 60 mg PO BID [facility] Last Admin: 11/13/17 08:12 Dose: 60 mg Pantoprazole Sodium (Protonix) 40 mg PO DAILY [facility] Last Admin: 11/13/17 08:13 Dose: 40 mg Spironolactone (Aldactone) 25 mg PO QAM[facility] Last Admin: 11/13/17 08:14 Dose: 25 mg Tamsulosin HCl (Flomax) 0.4 mg PO QAM [facility] Last Admin: 11/13/17 08:13 Dose: 0.4 mg
[2017-11-13] MEDS ORDERED: hydrALAZINE 20 MG/ML VIAL SLOW IVP PRN (14:15)
[2017-11-13 14:40] LABS: Sodium 121 mmol/L (136-145)
[2017-11-13] MEDS: Finasteride 5 MG TAB PO SCH (20:54)
[2017-11-13] MEDS: Melatonin 3 MG TAB PO SCH (20:56)
[2017-11-13] MEDS: Lisinopril 5 MG TAB PO SCH (20:56)
[2017-11-13 23:01] LABS: Sodium 121 mmol/L (136-145)
[2017-11-14 06:15] LABS: #Eosinphils 0.2 thou/uL (0.0-0.7); #Lymphocytes 1.6 thou/uL (1.20-3.40); #Monocytes 1.1 thou/uL (0.11-0.59); #Neutrophils 5.3 thou/uL (1.40-6.50); %Basophils 0.6 % (0.0-1.0); %Eosinophils 2.8 % (0.0-10.0); %Lymphocytes 19.9 % (21.0-51.0); %Monocytes 12.9 % (0.0-10.0); %Neutrophils 63.8 % (42.0-75.0); Hemoglobin 11.3 g/dL (14.0-18.0); Mean Corpuscular HGB CONC 35.7 g/dL (32.0-36.0); Mean Corpuscular Hemoglobin 32.3 pg (27.0-31.0); Mean Corpuscular Volume 90.5 fl (80.0-94.0); Mean Platelet Volume 6.7 fL (7.4-10.4); Platelet Count 232 thou/uL (130-400); Red Blood Cell (RBC) Count 3.49 mill/uL (4.70-6.10); White Blood Cell (WBC) Count 8.2 thou/uL (4.8-10.8)
[2017-11-14 06:27] LABS: Anion Gap 10 mmol/L (10-20); BUN (Urea Nitrogen) 27 mg/dL (8.4-25.7); Calc. Creatinine Clearance 65 mL/min (70-130); Calcium 8.9 mg/dL (7.8-10.44); Carbon Dioxide 27 mmol/L (23-31); Chloride 91 mmol/L (98-107); Estimated GFR-MDRD 56; Glucose 94 mg/dL (83-110); Potassium 4.7 mmol/L (3.5-5.1); Sodium 123 mmol/L (136-145)
[2017-11-14] MEDS: NIFEdipine XL 60 MG TAB PO SCH ×2 (08:54→21:02)
[2017-11-14] MEDS: Aspirin 81 mg Enteric Coated Tablet PO SCH (08:55)
[2017-11-14] MEDS: Spironolactone 25 MG TAB PO SCH (08:55)
[2017-11-14] MEDS: Tamsulosin HCl 0.4 MG CAP PO SCH (08:56)
[2017-11-14] MEDS: Lisinopril 5 MG TAB PO SCH ×2 (08:56→21:02)
[2017-11-14] MEDS: Atorvastatin Calcium 40 MG TAB PO SCH (08:56)
[2017-11-14] MEDS: Clopidogrel Bisulfate 75 MG TAB PO SCH (08:56)
[2017-11-14] MEDS: Heparin 5,000 UNITS/ML VIAL SC SCH ×2 (08:58→21:03)
[2017-11-14] MEDS: Carvedilol 6.25 MG TAB PO SCH ×2 (08:58→21:02)
--- NOTE | 2017-11-14 13:29 | PDOC.PN ---
- Subjective Encounter Start Date: 11/14/17 Encounter Start Time: 13:32 Subjective: No new complaints. -: No acute events overnight. - Objective Resuscitation Status: Resuscitation Status FULL:Full Resuscitation MAR Reviewed: Yes Vital Signs & Weight: Vital Signs (12 hours) Temp Pulse Resp BP BP Pulse Ox 11/14/17 08:56 58 L 140/63 11/14/17 08:54 58 L 140/63 11/14/17 08:00 98.0 F 58 L 18 98 11/14/17 04:00 98.1 F 56 L 16 122/59 L 95 Weight Admit Weight 220 lb 6.4 oz Weight 216 lb 9.6 oz I&O: 11/13/17 11/14/17 11/15/17 06:59 06:59 06:59 Intake Total 500 1200 Output Total 650 800 Balance -150 400 Result Diagrams: 11/14/17 05:32 11/14/17 05:32 Additional Labs: Accuchecks 11/14/17 11/14/17 11/13/17 11:05 06:41 20:56 POC Glucose 178 H 102 186 H 11/13/17 15:43 POC Glucose 127 H Phys Exam - Physical Examination Constitutional: NAD HEENT: PERRLA, moist MMs, sclera anicteric Neck: no JVD, supple, full ROM Respiratory: no wheezing, no rales, no rhonchi, clear to auscultation bilateral Cardiovascular: RRR, no significant murmur, no rub Gastrointestinal: soft, non-tender, no distention, positive bowel sounds Musculoskeletal: pulses present, edema present Neurological: non-focal, moves all 4 limbs Skin: no rash, normal turgor Dx/Plan (1) Hyponatremia Code(s): E87.1 - HYPO-OSMOLALITY AND HYPONATREMIA Status: Acute Comment: Improving. Pt asymptomatic. Likely diuretic induced. Serum osm low, urine osm also low and urine sodium > 40. Furosemide held for now. Will f/u nephrology recs. 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 Has been asymptomatic and no red alarms on tele. Carvedilol held. Will continue to monitor. (3) Diabetes type 2, controlled Code(s): E11.9 - TYPE 2 DIABETES MELLITUS WITHOUT COMPLICATIONS Status: Chronic Qualifiers: Diabetes mellitus oysterman insulin use: with longterm use Diabetes mellitus complication detail: with chronic kidney disease Chronic kidney disease stage: stage 3 (moderate) Comment: Well controlled. Continue current regimen. (4) Dyslipidemia Code(s): E78.5 - HYPERLIPIDEMIA, UNSPECIFIED Status: Chronic Comment: Continue Lipitor. (5) Hypertension Code(s): I10 - ESSENTIAL (PRIMARY) HYPERTENSION Status: Chronic Qualifiers: Hypertension type: essential hypertension Qualified Code(s): I10 - Essential (primary) hypertension Comment: Fairly well controlled. Continue Lisinopril and continue Nicardipine. Hydralazine PRN for SBP > 180 (6) Chronic diastolic heart failure Code(s): I50.32 - CHRONIC DIASTOLIC (CONGESTIVE) HEART FAILURE Status: Chronic Comment: Not in acute exacerbation. Will resume home medications. (7) CAD (coronary artery disease) Code(s): I25.10 - ATHSCL HEART DISEASE OF [place] CORONARY ARTERY W/O ANG PCTRS Status: Chronic Qualifiers: Coronary Disease-Associated Artery/Lesion type: bypass graft [place] vs. transplanted heart: [place] heart Associated angina: without angina Qualified Code(s): I25.810 - Atherosclerosis of coronary artery bypass graft(s) without angina pectoris Comment: on ASA,statin,Coreg,lisinopril,Plavix. Coreg held 2/2 bradycardia. (8) Acute worsening of stage 3 chronic kidney disease Code(s): N18.3 - CHRONIC KIDNEY DISEASE, STAGE 3 (MODERATE) Status: Resolved Comment: Likely a combination of diuretics and ACEi. (9) Diarrhea Code(s): R19.7 - DIARRHEA, UNSPECIFIED Status: Resolved Qualifiers: Diarrhea type: unspecified type Qualified Code(s): R19.7 - Diarrhea, unspecified Plan: Report diarrhea but had no loose stools while in hospital. - Plan cont current plan of care, PT/OT, social media senior associate, DVT proph w/heparin * . Review of Systems - Medications/Allergies Allergies/Adverse Reactions: Allergies Allergy/AdvReac Type Severity Reaction Status Date / Time Fish Containing Products Allergy Verified 08/01/14 14:27 fish oil Allergy Verified 08/01/14 14:27 Latex, Natural Rubber Allergy Verified 08/01/14 14:36 Penicillins Allergy Verified 08/01/14 14:27 shellfish derived Allergy Verified 08/01/14 14:27 Medications: Current Medications Albuterol/Ipratropium (Duoneb) 3 ml NEB Q6H PRN PRN Reason: SOB &/or Wheezing Aspirin (Ecotrin) 81 mg PO DAILY [facility] Last Admin: 11/14/17 08:55 Dose: 81 mg Atorvastatin Calcium (Lipitor) 40 mg PO DAILY [facility] Last Admin: 11/14/17 08:56 Dose: 40 mg Carvedilol (Coreg) 6.25 mg PO BID [facility] Last Admin: 11/14/17 08:58 Dose: Not Given Clopidogrel Bisulfate (Plavix) 75 mg PO DAILY [facility] Last Admin: 11/14/17 08:56 Dose: 75 mg Dextrose/Water (Dextrose 50%) 25 gm SLOW IVP PRN PRN PRN Reason: Hypoglycemia Diphenoxylate HCl/Atropine (Lomotil) 1 tab PO TID PRN PRN Reason: Diarrhea/Loose Stools Finasteride (Proscar) 5 mg PO HS [facility] Last Admin: 11/13/17 20:54 Dose: 5 mg Furosemide (Lasix) 40 mg PO DAILY [facility] Last Admin: 11/13/17 08:13 Dose: 40 mg Glucagon (Glucagon) 1 mg IM PRN PRN PRN Reason: Hypoglycemia Heparin Sodium (Porcine) (Heparin) 5,000 units SC BID [facility] Last Admin: 11/14/17 08:58 Dose: 5,000 units Hydralazine HCl (Apresoline) 10 mg SLOW IVP Q4H PRN PRN Reason: Blood Pressure Dextrose/Water (D5w) 1,000 mls @ 0 mls/hr IV .Q0M PRN; As Directed PRN Reason: Hypoglycemia Insulin Human Lispro (Humalog) 0 units SC .MILD SLIDING SCALE PRN PRN Reason: Mild Correctional Scale Isosorbide Mononitrate (Imdur Er) 30 mg PO DAILY [facility] Last Admin: 11/14/17 08:55 Dose: 30 mg Lactulose (Lactulose) 20 gm PO DAILYPRN PRN PRN Reason: Constipation Lisinopril (Zestril) 5 mg PO BID [facility] Last Admin: 11/14/17 08:56 Dose: 5 mg Magnesium Hydroxide (Milk Of Magnesium) 30 ml PO DAILYPRN PRN PRN Reason: Constipation Melatonin (Melatonin) 9 mg PO [facility] Last Admin: 11/13/17 20:56 Dose: 9 mg Nifedipine (Procardia Xl) 60 mg PO BID [facility] Last Admin: 11/14/17 08:54 Dose: 60 mg Pantoprazole Sodium (Protonix) 40 mg PO DAILY [facility] Last Admin: 11/14/17 08:56 Dose: 40 mg Sodium Chloride (Flush - Normal Saline) 10 ml IVF Q12HR [facility] Last Admin: 11/14/17 09:04 Dose: 10 ml Sodium Chloride (Flush - Normal Saline) 10 ml IVF PRN PRN PRN Reason: Saline Flush Spironolactone (Aldactone) 25 mg PO QAM[facility] Last Admin: 11/14/17 08:55 Dose: 25 mg Tamsulosin HCl (Flomax) [facility] [place] Last Admin: 11/14/17 08:56 Dose: 0.4 mg
--- NOTE | 2017-11-14 15:02 | EKG ---
Test Reason : Blood Pressure : / mmHG Vent. Rate : 046 BPM Atrial Rate : 046 BPM P-R Int : 000 ms QRS Dur : 096 ms QT Int : 474 ms P-R-T Axes : 000 040 091 degrees QTc Int : 414 ms Undetermined rhythm Possible Lateral infarct , age undetermined Abnormal ECG Confirmed by JAZZ SOFIA ([id number]), assistant editor GUANAKITO MILLER ([id number]) on 11/14/2017 3:00:39 PM Referred By: Confirmed By:JAZZ SOFIA
[2017-11-14] MEDS: Melatonin 3 MG TAB PO SCH (21:02)
[2017-11-14] MEDS: Finasteride 5 MG TAB PO SCH (21:03)
[2017-11-15 04:20] LABS: #Eosinphils 0.3 thou/uL (0.0-0.7); #Lymphocytes 1.7 thou/uL (1.20-3.40); #Monocytes 0.8 thou/uL (0.11-0.59); #Neutrophils 3.9 thou/uL (1.40-6.50); %Basophils 0.4 % (0.0-1.0); %Eosinophils 4.5 % (0.0-10.0); %Lymphocytes 24.6 % (21.0-51.0); %Monocytes 12.2 % (0.0-10.0); %Neutrophils 58.4 % (42.0-75.0); Hemoglobin 10.4 g/dL (14.0-18.0); Mean Corpuscular HGB CONC 35.6 g/dL (32.0-36.0); Mean Corpuscular Volume 92.7 fl (80.0-94.0); Mean Platelet Volume 6.7 fL (7.4-10.4); Platelet Count 195 thou/uL (130-400); Red Blood Cell (RBC) Count 3.16 mill/uL (4.70-6.10); White Blood Cell (WBC) Count 6.7 thou/uL (4.8-10.8)
[2017-11-15 04:24] LABS: Anion Gap 12 mmol/L (10-20); BUN (Urea Nitrogen) 30 mg/dL (8.4-25.7); Calc. Creatinine Clearance 52 mL/min (70-130); Calcium 8.3 mg/dL (7.8-10.44); Carbon Dioxide 24 mmol/L (23-31); Chloride 89 mmol/L (98-107); Estimated GFR-MDRD 43; Glucose 135 mg/dL (83-110); Potassium 4.8 mmol/L (3.5-5.1); Sodium 120 mmol/L (136-145)
[2017-11-15] MEDS ORDERED: Furosemide 40 MG TAB PO SCH (07:45)
[2017-11-15] MEDS: Clopidogrel Bisulfate 75 MG TAB PO SCH (09:49)
[2017-11-15] MEDS: NIFEdipine XL 60 MG TAB PO SCH ×2 (09:49→21:17)
[2017-11-15] MEDS: Atorvastatin Calcium 40 MG TAB PO SCH (09:51)
[2017-11-15] MEDS: Carvedilol 6.25 MG TAB PO SCH ×2 (09:51→21:17)
[2017-11-15] MEDS: Spironolactone 25 MG TAB PO SCH (09:51)
[2017-11-15] MEDS: Aspirin 81 mg Enteric Coated Tablet PO SCH (09:51)
[2017-11-15] MEDS: Tamsulosin HCl 0.4 MG CAP PO SCH (09:52)
[2017-11-15] MEDS: Lisinopril 5 MG TAB PO SCH (09:53)
[2017-11-15] MEDS: Heparin 5,000 UNITS/ML VIAL SC SCH ×2 (09:56→21:18)
--- NOTE | 2017-11-15 12:02 | PDOC.PN ---
- Subjective Encounter Start Date: 11/15/17 Encounter Start Time: 12:05 Subjective: No new complaints. -: no acute events overnight -: Awaiting nephrology review for hyponatremia. - Objective Resuscitation Status: Resuscitation Status FULL:Full Resuscitation MAR Reviewed: Yes Vital Signs & Weight: Vital Signs (12 hours) Temp Pulse Resp BP Pulse Ox 11/15/17 11:19 97.9 F 49 L 16 117/67 95 11/15/17 09:53 60 11/15/17 09:48 60 96 11/15/17 08:02 98.2 F 51 L 16 115/58 L 98 11/15/17 08:00 98.1 F 60 18 94 L 11/15/17 04:00 97.9 F 49 L 16 105/88 95 Weight Admit Weight 220 lb 6.4 oz Weight 216 lb 9.6 oz I&O: 11/14/17 11/15/17 11/16/17 06:59 06:59 06:59 Intake Total 1200 500 Output Total 800 Balance 400 500 Result Diagrams: 11/15/17 03:55 11/15/17 03:55 Additional Labs: Accuchecks 11/15/17 11/14/17 11/14/17 04:43 20:54 16:51 POC Glucose 162 H 194 H 175 H Phys Exam - Physical Examination Constitutional: NAD HEENT: PERRLA, moist MMs, sclera anicteric, oral pharynx no lesions Neck: no JVD, supple, full ROM Respiratory: no wheezing, no rales, no rhonchi, clear to auscultation bilateral Cardiovascular: RRR, no significant murmur, no rub Gastrointestinal: soft, non-tender, no distention, positive bowel sounds Musculoskeletal: pulses present, edema present Neurological: non-focal, moves all 4 limbs Psychiatric: normal affect, A&O x 3 Skin: no rash, normal turgor Dx/Plan (1) Hyponatremia Code(s): E87.1 - HYPO-OSMOLALITY AND HYPONATREMIA Status: Acute Comment: Stable. Remains asymptomatic. Likely diuretic induced. Serum osm low, urine osm also low and urine sodium > 40. On 1.2 liters restriction. Awaiting nephrology recs. 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 Has been asymptomatic and no red alarms on tele. Carvedilol held. Will continue to monitor. (3) Diabetes type 2, controlled Code(s): E11.9 - TYPE 2 DIABETES MELLITUS WITHOUT COMPLICATIONS Status: Chronic Qualifiers: Diabetes mellitus longterm insulin use: with longterm use Diabetes mellitus complication detail: with chronic kidney disease Chronic kidney disease stage: stage 3 (moderate) Comment: Well controlled. Continue current regimen. (4) Dyslipidemia Code(s): E78.5 - HYPERLIPIDEMIA, UNSPECIFIED Status: Chronic Comment: Continue Lipitor. (5) Hypertension Code(s): I10 - ESSENTIAL (PRIMARY) HYPERTENSION Status: Chronic Qualifiers: Hypertension type: essential hypertension Qualified Code(s): I10 - Essential (primary) hypertension Comment: Fairly well controlled. Continue Lisinopril, Nicardipine. Hydralazine PRN for SBP > 180 (6) Chronic diastolic heart failure Code(s): I50.32 - CHRONIC DIASTOLIC (CONGESTIVE) HEART FAILURE Status: Chronic Comment: Not in acute exacerbation. (7) CAD (coronary artery disease) Code(s): I25.10 - ATHSCL HEART DISEASE OF [place] CORONARY ARTERY W/O ANG PCTRS Status: Chronic Qualifiers: Coronary Disease-Associated Artery/Lesion type: bypass graft [place] vs. transplanted heart: [place] heart Associated angina: without angina Qualified Code(s): I25.810 - Atherosclerosis of coronary artery bypass graft(s) without angina pectoris Comment: on ASA,statin,Coreg,lisinopril,Plavix. Coreg held 2/2 bradycardia. (8) Diarrhea Code(s): R19.7 - DIARRHEA, UNSPECIFIED Status: Resolved Qualifiers: Diarrhea type: unspecified type Qualified Code(s): R19.7 - Diarrhea, unspecified (9) CKD (chronic kidney disease) Code(s): N18.9 - CHRONIC KIDNEY DISEASE, UNSPECIFIED Status: Acute Qualifiers: Chronic kidney disease stage: stage 3 (moderate) Qualified Code(s): N18.3 - Chronic kidney disease, stage 3 (moderate) Comment: Hovering around baseline. - Plan cont current plan of care Discharge pending nephrology review. * . Review of Systems - Medications/Allergies Allergies/Adverse Reactions: Allergies Allergy/AdvReac Type Severity Reaction Status Date / Time Fish Containing Products Allergy Verified 08/01/14 14:27 fish oil Allergy Verified 08/01/14 14:27 Latex, Natural Rubber Allergy Verified 08/01/14 14:36 Penicillins Allergy Verified 08/01/14 14:27 shellfish derived Allergy Verified 08/01/14 14:27 Medications: Current Medications Albuterol/Ipratropium (Duoneb) 3 ml NEB Q6H PRN PRN Reason: SOB &/or Wheezing Aspirin (Ecotrin) 81 mg PO DAILY [facility] Last Admin: 11/15/17 09:51 Dose: 81 mg Atorvastatin Calcium (Lipitor) 40 mg PO DAILY [facility] Last Admin: 11/15/17 09:51 Dose: 40 mg Carvedilol (Coreg) 6.25 mg PO BID [facility] Last Admin: 11/15/17 09:51 Dose: Not Given Clopidogrel Bisulfate (Plavix) 75 mg PO DAILY [facility] Last Admin: 11/15/17 09:49 Dose: 75 mg Dextrose/Water (Dextrose 50%) 25 gm SLOW IVP PRN PRN PRN Reason: Hypoglycemia Diphenoxylate HCl/Atropine (Lomotil) 1 tab PO TID PRN PRN Reason: Diarrhea/Loose Stools Finasteride (Proscar) [address] [facility] Last Admin: 11/14/17 21:03 Dose: 5 mg Furosemide (Lasix) 40 mg PO DAILY[facility] Glucagon (Glucagon) 1 mg IM PRN PRN PRN Reason: Hypoglycemia Heparin Sodium (Porcine) (Heparin) 5,000 units SC BID [facility] Last Admin: 11/15/17 09:56 Dose: 5,000 units Hydralazine HCl (Apresoline) 10 mg SLOW IVP Q4H PRN PRN Reason: Blood Pressure Dextrose/Water (D5w) 1,000 mls @ 0 mls/hr IV .Q0M PRN; As Directed PRN Reason: Hypoglycemia Insulin Human Lispro (Humalog) 0 units SC .MILD SLIDING SCALE PRN PRN Reason: Mild Correctional Scale Isosorbide Mononitrate (Imdur Er) 30 mg PO DAILY [facility] Last Admin: 11/15/17 09:53 Dose: Not Given Lactulose (Lactulose) 20 gm PO DAILYPRN PRN PRN Reason: Constipation Lisinopril (Zestril) 5 mg PO BID [facility] Last Admin: 11/15/17 09:53 Dose: Not Given Magnesium Hydroxide (Milk Of Magnesium) 30 ml PO DAILYPRN PRN PRN Reason: Constipation Melatonin (Melatonin) 9 mg PO HS [facility] Last Admin: 11/14/17 21:02 Dose: 9 mg Nifedipine (Procardia Xl) 60 mg PO BID [facility] Last Admin: 11/15/17 09:49 Dose: 60 mg Pantoprazole Sodium (Protonix) 40 mg PO DAILY [facility] Last Admin: 11/15/17 09:51 Dose: 40 mg Sodium Chloride (Flush - Normal Saline) 10 ml IVF Q12HR [facility] Last Admin: 11/15/17 09:56 Dose: 10 ml Sodium Chloride (Flush - Normal Saline) 10 ml IVF PRN PRN PRN Reason: Saline Flush Spironolactone (Aldactone) 25 mg PO QAM[facility] Last Admin: 11/15/17 09:51 Dose: 25 mg Tamsulosin HCl (Flomax) 0.4 mg PO QAM [facility] Last Admin: 11/15/17 09:52 Dose: 0.4 mg
[2017-11-15] MEDS: Sodium Chloride 0.9% 1,000 ML IV SCH (17:59)
[2017-11-15] MEDS: HumaLOG 300 UNITS/3 ML VIAL SC PRN (18:02)
--- NOTE | 2017-11-15 19:03 | RAD ---
PORTABLE AP CHEST X-RAY 11/15/17 HISTORY: Fluid overload. COMPARISON: 10/29/17. FINDINGS: Single view left subclavian AICD device remains in place and unchanged in position. The pulmonary vas cular congestion noted on the prior study as well as interstitial markings have resolved. May be mini mal prominence of the perihilar interstitial densities on this exam. There is no pleural effusion. Th e lungs are otherwise clear. Cardiac silhouette and pulmonary vasculature are within normal limits. Vascular calcification seen in the thoracic aorta. No other interval change. IMPRESSION: Improvement in interstitial edema and pulmonary vascular congestion when compared to the prior study on 10/29/17. There is only minimal prominence of the perihilar densities on the current study. POS: LORIE
--- NOTE | 2017-11-15 20:44 | CON ---
DATE OF CONSULTATION: 11/15/2017 CONSULTING PHYSICIAN: Dr. Cheung. REASON FOR CONSULTATION: Hyponatremia. REASON FOR ADMISSION: Weakness. HISTORY OF PRESENT ILLNESS: An 82-year-old male with history of CHF, chronic kidney disease, AICD, t ype 2 diabetes, hyperlipidemia, hypertension who came to the hospital with weakness and found to have hyponatremia. His sodium on admission was 119 and improved to 120 to 121 and he dialysis the last 3 days. He was on Lasix and spironolactone. The patient denies any shortness of breath, no swelling, no chest pain, no nausea, vomiting, diarrhea. Patient had diarrhea before admission. PAST MEDICAL HISTORY: Positive for coronary artery disease, CKD, hyperlipidemia, hypertension, type 2 diabetes, GERD, and obesity. PAST SURGICAL HISTORY: Cardiac catheterization, renal artery stent placement, back surgeries, umbili keli hernia repair. HOME MEDICATIONS: Aspirin, atorvastatin, calcium carbonate, vitamin D3, carvedilol, Plavix, furosemi de, insulin Glargine, lisinopril, nifedipine, saccharomyces, sitagliptin, spironolactone. ALLERGIES: FISH, PENICILLIN. SOCIAL HISTORY: No smoking, alcohol. FAMILY HISTORY: No surgeries. REVIEW OF SYSTEMS: The following complete review of systems was negative, unless otherwise mentioned in the HPI or below: Constitutional: Weight loss or gain, ability to conduct usual activities. Sk in: Rash, itching. Eyes: Double vision, pain. ENT/Mouth: Nose bleeding, neck stiffness, pain, te nderness. Cardiovascular: Palpitations, dyspnea on exertion, orthopnea. Respiratory: Shortness of breath, wheezing, cough, hemoptysis, fever or night sweats. Gastrointestinal: Poor appetite, abdom inal pain, heartburn, nausea, vomiting, constipation, or diarrhea. Genitourinary: Urgency, frequenc y, dysuria, nocturia. Musculoskeletal: Pain, swelling. Neurologic/Psychiatric: Anxiety, depressio n. Allergy/Immunologic: Skin rash, bleeding tendency. PHYSICAL EXAMINATION: GENERAL: This is a well-built male in no apparent distress. VITAL SIGNS: Temperature 97.7, pulse 50, respiratory rate 18, blood pressure 134/69. HEENT: Atraumatic, normocephalic. Oral mucosa is moist. NECK: Supple, no masses. HEART: S1, S2. Rate and rhythm regular. RESPIRATORY: Clear. ABDOMEN: Soft. MUSCULOSKELETAL: No tenderness. No edema. DERMATOLOGIC: No skin rash. NEUROLOGIC: Alert, awake. PSYCHIATRIC: Mood and affect normal. LABORATORY DATA: Sodium is 120, potassium is 4.8, BUN is 89, creatinine is 1.5. ASSESSMENT AND PLAN: 1. Hyponatremia, most likely from hypovolemia. We will stop diuretics and start on IV fluids. Chec k cortisol, TSH level in the a.m. Medication list reviewed. 2. Acute kidney injury. We will start on IV fluids. 3. Cardiorenal syndrome. Hold diuretics. 4. Anemia, mild. 5. Edema, controlled. 6. Hypertension, stable. 7. Hypoalbuminemia, mild. PLAN: To start IV fluids, stop diuretics, monitor sodium level. We will follow.
[2017-11-15] MEDS: Finasteride 5 MG TAB PO SCH (21:17)
[2017-11-15] MEDS: Melatonin 3 MG TAB PO SCH (21:18)
[2017-11-16] MEDS: Sodium Chloride 0.9% 1,000 ML IV SCH ×2 (02:45→11:12)
[2017-11-16 04:22] LABS: #Eosinphils 0.3 thou/uL (0.0-0.7); #Lymphocytes 1.5 thou/uL (1.20-3.40); #Monocytes 0.8 thou/uL (0.11-0.59); #Neutrophils 4.4 thou/uL (1.40-6.50); %Basophils 0.7 % (0.0-1.0); %Lymphocytes 21.7 % (21.0-51.0); %Monocytes 10.9 % (0.0-10.0); %Neutrophils 62.7 % (42.0-75.0); Mean Corpuscular Hemoglobin 32.5 pg (27.0-31.0); Mean Corpuscular Volume 90.2 fl (80.0-94.0); Mean Platelet Volume 6.4 fL (7.4-10.4); Platelet Count 191 thou/uL (130-400); RBC Distribution Width 11.9 % (11.5-14.5); Red Blood Cell (RBC) Count 3.38 mill/uL (4.70-6.10)
[2017-11-16 04:32] LABS: Anion Gap 10 mmol/L (10-20); BUN (Urea Nitrogen) 25 mg/dL (8.4-25.7); Calc. Creatinine Clearance 68 mL/min (70-130); Calcium 8.5 mg/dL (7.8-10.44); Carbon Dioxide 24 mmol/L (23-31); Chloride 93 mmol/L (98-107); Estimated GFR-MDRD 59; Glucose 113 mg/dL (83-110); Magnesium 1.3 mg/dL (1.6-2.6); Potassium 4.6 mmol/L (3.5-5.1); Sodium 122 mmol/L (136-145)
[2017-11-16] MEDS ORDERED: Furosemide 40 MG TAB PO SCH (07:30)
[2017-11-16] MEDS: NIFEdipine XL 60 MG TAB PO SCH ×2 (09:02→20:36)
[2017-11-16] MEDS: Atorvastatin Calcium 40 MG TAB PO SCH (09:02)
[2017-11-16] MEDS: Tamsulosin HCl 0.4 MG CAP PO SCH (09:02)
[2017-11-16] MEDS: Clopidogrel Bisulfate 75 MG TAB PO SCH (09:02)
[2017-11-16] MEDS: Aspirin 81 mg Enteric Coated Tablet PO SCH (09:03)
[2017-11-16] MEDS: Heparin 5,000 UNITS/ML VIAL SC SCH ×2 (09:03→20:36)
[2017-11-16] MEDS: Carvedilol 6.25 MG TAB PO SCH ×2 (09:03→20:24)
--- NOTE | 2017-11-16 11:15 | PDOC.PN ---
- Subjective Encounter Start Date: 11/16/17 Encounter Start Time: 11:16 Subjective: No complaints today. -: No acute events overnight. - Objective Resuscitation Status: Resuscitation Status FULL:Full Resuscitation MAR Reviewed: Yes Vital Signs & Weight: Vital Signs (12 hours) Temp Pulse Resp BP BP Pulse Ox 11/16/17 09:03 136/70 11/16/17 09:02 60 136/70 11/16/17 08:15 97.8 F 60 18 136/70 92 L 11/16/17 08:00 97.9 F 60 18 92 L 11/16/17 04:00 97.9 F 52 L 18 127/65 92 L 11/16/17 00:00 97.9 F 60 18 134/66 92 L Weight Admit Weight 220 lb 6.4 oz Weight 216 lb 9.6 oz I&O: 11/15/17 11/16/17 11/17/17 06:59 06:59 06:59 Intake Total 500 900 Balance 500 900 Result Diagrams: 11/16/17 03:57 11/16/17 03:57 Additional Labs: Accuchecks 11/16/17 11/15/17 11/15/17 05:27 20:37 15:49 POC Glucose 114 H 135 H 180 H 11/15/17 11:24 POC Glucose 166 H Phys Exam - Physical Examination Constitutional: NAD HEENT: PERRLA, moist MMs, sclera anicteric, oral pharynx no lesions Neck: no JVD, supple, full ROM Respiratory: no wheezing, no rales, no rhonchi, clear to auscultation bilateral Cardiovascular: RRR, no significant murmur, no rub Gastrointestinal: soft, non-tender, no distention, positive bowel sounds Musculoskeletal: no edema, pulses present Neurological: non-focal, moves all 4 limbs Psychiatric: normal affect, A&O x 3 Skin: no rash, normal turgor Dx/Plan (1) Hyponatremia Code(s): E87.1 - HYPO-OSMOLALITY AND HYPONATREMIA Status: Acute Comment: Stable. Likely diuretic induced. Serum osm low, urine osm also low and urine sodium > 40. Nephrology on board and has been started on IV fluids. Diuretics discontinued. Serum cortisol and TSH WNL. Monitor serum sodium and f/u nephrology recs. (2) Diabetes type 2, controlled Code(s): E11.9 - TYPE 2 DIABETES MELLITUS WITHOUT COMPLICATIONS Status: Chronic Qualifiers: Diabetes mellitus jail insulin use: with buttermaker use Diabetes mellitus complication detail: with chronic kidney disease Chronic kidney disease stage: stage 3 (moderate) Comment: Well controlled. Continue current regimen. (3) Dyslipidemia Code(s): E78.5 - HYPERLIPIDEMIA, UNSPECIFIED Status: Chronic Comment: Continue Lipitor. (4) Hypertension Code(s): I10 - ESSENTIAL (PRIMARY) HYPERTENSION Status: Chronic Qualifiers: Hypertension type: essential hypertension Qualified Code(s): I10 - Essential (primary) hypertension Comment: Fairly well controlled. Continue Lisinopril, Nicardipine. Hydralazine PRN for SBP > 180 (5) Chronic diastolic heart failure Code(s): I50.32 - CHRONIC DIASTOLIC (CONGESTIVE) HEART FAILURE Status: Chronic Comment: Not in acute exacerbation. (6) CAD (coronary artery disease) Code(s): I25.10 - ATHSCL HEART DISEASE OF [place] CORONARY ARTERY W/O ANG PCTRS Status: Chronic Qualifiers: Coronary Disease-Associated Artery/Lesion type: bypass graft [place] vs. transplanted heart: [place] heart Associated angina: without angina Qualified Code(s): I25.810 - Atherosclerosis of coronary artery bypass graft(s) without angina pectoris Comment: on ASA,statin,Coreg,lisinopril,Plavix. Coreg held 2/2 bradycardia. (7) Diarrhea Code(s): R19.7 - DIARRHEA, UNSPECIFIED Status: Resolved Qualifiers: Diarrhea type: unspecified type Qualified Code(s): R19.7 - Diarrhea, unspecified (8) CKD (chronic kidney disease) Code(s): N18.9 - CHRONIC KIDNEY DISEASE, UNSPECIFIED Status: Acute Qualifiers: Chronic kidney disease stage: stage 3 (moderate) Qualified Code(s): N18.3 - Chronic kidney disease, stage 3 (moderate) Comment: Hovering around baseline. (9) Bradycardia Code(s): R00.1 - BRADYCARDIA, UNSPECIFIED Status: Resolved - Plan cont current plan of care, PT/OT, out of bed/ambulate, DVT proph w/heparin f/u serum sodium -: f/u nephrology recommendations. * . Review of Systems - Medications/Allergies Allergies/Adverse Reactions: Allergies Allergy/AdvReac Type Severity Reaction Status Date / Time Fish Containing Products Allergy Verified 08/01/14 14:27 fish oil Allergy Verified 08/01/14 14:27 Latex, Natural Rubber Allergy Verified 08/01/14 14:36 Penicillins Allergy Verified 08/01/14 14:27 shellfish derived Allergy Verified 08/01/14 14:27 Medications: Current Medications Albuterol/Ipratropium (Duoneb) 3 ml NEB Q6H PRN PRN Reason: SOB &/or Wheezing Aspirin (Ecotrin) 81 mg PO DAILY ON LICENSE OF [facility] Last Admin: 11/16/17 09:03 Dose: 81 mg Atorvastatin Calcium (Lipitor) 40 mg PO DAILY ON LICENSE OF [facility] Last Admin: 11/16/17 09:02 Dose: 40 mg Carvedilol (Coreg) 6.25 mg PO BID ON LICENSE OF [facility] Last Admin: 11/16/17 09:03 Dose: Not Given Clopidogrel Bisulfate (Plavix) 75 mg PO DAILY ON LICENSE OF [facility] Last Admin: 11/16/17 09:02 Dose: 75 mg Dextrose/Water (Dextrose 50%) 25 gm SLOW IVP PRN PRN PRN Reason: Hypoglycemia Diphenoxylate HCl/Atropine (Lomotil) 1 tab PO TID PRN PRN Reason: Diarrhea/Loose Stools Finasteride (Proscar) 5 mg PO HS ON LICENSE OF [facility] Last Admin: 11/15/17 21:17 Dose: 5 mg Glucagon (Glucagon) 1 mg IM PRN PRN PRN Reason: Hypoglycemia Heparin Sodium (Porcine) (Heparin) 5,000 units SC BID ON LICENSE OF [facility] Last Admin: 11/16/17 09:03 Dose: 5,000 units Hydralazine HCl (Apresoline) 10 mg SLOW IVP Q4H PRN PRN Reason: Blood Pressure Dextrose/Water (D5w) 1,000 mls @ 0 mls/hr IV .Q0M PRN; As Directed PRN Reason: Hypoglycemia Sodium Chloride (Normal Saline 0.9%) 1,000 mls @ 100 mls/hr IV .Q10H ON LICENSE OF [facility] Last Admin: 11/16/17 11:12 Dose: 1,000 mls Insulin Human Lispro (Humalog) 0 units SC .MILD SLIDING SCALE PRN PRN Reason: Mild Correctional Scale Last Admin: 11/15/17 18:02 Dose: 2 unit Isosorbide Mononitrate (Imdur Er) 30 mg PO DAILY ON LICENSE OF [facility] Last Admin: 11/16/17 09:02 Dose: 30 mg Lactulose (Lactulose) 20 gm PO DAILYPRN PRN PRN Reason: Constipation Magnesium Hydroxide (Milk Of Magnesium) 30 ml PO DAILYPRN PRN PRN Reason: Constipation Melatonin (Melatonin) 9 mg PO HS ON LICENSE OF [facility] Last Admin: 11/15/17 21:18 Dose: 9 mg Nifedipine (Procardia Xl) 60 mg PO BID ON LICENSE OF [facility] Last Admin: 11/16/17 09:02 Dose: 60 mg Pantoprazole Sodium (Protonix) 40 mg PO DAILY ON LICENSE OF [facility] Last Admin: 11/16/17 09:03 Dose: 40 mg Sodium Chloride (Flush - Normal Saline) 10 ml IVF Q12HR ON LICENSE OF [facility] Last Admin: 11/16/17 09:03 Dose: Not Given Sodium Chloride (Flush - Normal Saline) 10 ml IVF PRN PRN PRN Reason: Saline Flush Tamsulosin HCl (Flomax) 0.4 mg PO QAM ON LICENSE OF [facility] Last Admin: 11/16/17 09:02 Dose: 0.4 mg
[2017-11-16] MEDS ORDERED: Cosyntropin 250 MCG VIAL SLOW IVP SCH (15:15)
--- NOTE | 2017-11-16 17:31 | PRG ---
DATE OF SERVICE: 11/16/2017 SUBJECTIVE: Patient was seen and examined at bedside and overnight events noted. Patient denies any shortness of breath or chest pain or palpitation. No history of nausea or vomiting or diarrhea or f ever or chills or cramps. OBJECTIVE: GENERAL: This is an elderly male in no apparent distress. VITAL SIGNS: Temperature 97.9, pulse 60, respiratory rate 19, blood pressure 136/70. HEENT: Atraumatic, normocephalic. Oral mucosa is moist. NECK: Supple. CARDIOVASCULAR: S1, S2 heard. Rate and rhythm regular. RESPIRATORY: Clear to auscultation. GASTROINTESTINAL: Abdomen is soft. MUSCULOSKELETAL: No tenderness. No edema. DERMATOLOGIC: No skin rash. NEUROLOGIC: Alert and awake and oriented x3. No focal neurologic deficits. Moving all the extremit ies. PSYCHIATRIC: Mood and affect normal. LABORATORY DATA: Sodium is 122 and creatinine is 1.1. ASSESSMENT AND PLAN: 1. Hyponatremia, most likely hypovolemic, better with IV fluids. Currently on intravenous fluids. Cortisol and TSH level is acceptable. 2. Cardiorenal syndrome. 3. Anemia. 4. Edema, controlled. 5. Hypertension. 6. Hypoalbuminemia. 7. Continue on intravenous fluids. We will check cosyntropin stimulation test in the morning.
[2017-11-16 18:29] LABS: Sodium 122 mmol/L (136-145)
[2017-11-16 18:30] LABS: Potassium 4.6 mmol/L (3.5-5.1)
[2017-11-16] MEDS: Finasteride 5 MG TAB PO SCH (20:36)
[2017-11-16] MEDS: Melatonin 3 MG TAB PO SCH (20:36)
[2017-11-17] MEDS: Sodium Chloride 0.9% 1,000 ML IV SCH ×2 (00:57→12:21)
[2017-11-17 04:32] LABS: #Eosinphils 0.1 thou/uL (0.0-0.7); #Monocytes 0.7 thou/uL (0.11-0.59); #Neutrophils 4.9 thou/uL (1.40-6.50); %Basophils 0.2 % (0.0-1.0); %Eosinophils 0.8 % (0.0-10.0); %Lymphocytes 14.5 % (21.0-51.0); %Neutrophils 74.5 % (42.0-75.0); Hemoglobin 10.4 g/dL (14.0-18.0); Mean Corpuscular HGB CONC 36.3 g/dL (32.0-36.0); Mean Corpuscular Hemoglobin 33.7 pg (27.0-31.0); Mean Corpuscular Volume 92.7 fl (80.0-94.0); Mean Platelet Volume 6.9 fL (7.4-10.4); Platelet Count 177 thou/uL (130-400); Red Blood Cell (RBC) Count 3.08 mill/uL (4.70-6.10); White Blood Cell (WBC) Count 6.6 thou/uL (4.8-10.8)
[2017-11-17 04:37] LABS: Anion Gap 10 mmol/L (10-20); BUN (Urea Nitrogen) 16 mg/dL (8.4-25.7); Calc. Creatinine Clearance 79 mL/min (70-130); Calcium 8.2 mg/dL (7.8-10.44); Carbon Dioxide 22 mmol/L (23-31); Chloride 94 mmol/L (98-107); Estimated GFR-MDRD 70; Glucose 164 mg/dL (83-110); Potassium 4.5 mmol/L (3.5-5.1); Sodium 121 mmol/L (136-145)
[2017-11-17] MEDS: Carvedilol 6.25 MG TAB PO SCH ×2 (08:00→20:16)
[2017-11-17] MEDS: Heparin 5,000 UNITS/ML VIAL SC SCH ×2 (08:00→20:16)
[2017-11-17] MEDS: NIFEdipine XL 60 MG TAB PO SCH ×2 (08:00→20:16)
[2017-11-17] MEDS: Clopidogrel Bisulfate 75 MG TAB PO SCH (08:00)
[2017-11-17] MEDS: Tamsulosin HCl 0.4 MG CAP PO SCH (08:00)
[2017-11-17] MEDS: Aspirin 81 mg Enteric Coated Tablet PO SCH (08:00)
[2017-11-17] MEDS: Atorvastatin Calcium 40 MG TAB PO SCH (08:01)
[2017-11-17] MEDS ORDERED: Conivaptan 20 MG in Premix Bag 1 BAG IVPB SCH (11:00)
--- NOTE | 2017-11-17 11:05 | PDOC.PN ---
- Subjective Encounter Start Date: 11/17/17 Encounter Start Time: 09:45 -: old records requested/rev Pt seen and examined, chart reviewed in its entirety, this is my first visit with this patient. Pt still feels Mederos, but at baseline, has had for 2-3 years. minimal edema, breathing s okay. Na still low, no marked change, renal following. no F/c, no CP, no orthopnea, no PND, no d/C, no N/V 10 point ROS performed and neg for all systems except as per HPI - Objective Resuscitation Status: Resuscitation Status FULL:Full Resuscitation MAR Reviewed: Yes Vital Signs & Weight: Vital Signs (12 hours) Temp Pulse Resp BP BP Pulse Ox 11/17/17 08:00 97.8 F 65 16 144/70 H 94 L 11/17/17 07:48 97.8 F 65 16 144/70 H 94 L 11/17/17 00:00 97.9 F 67 18 134/72 94 L Weight Admit Weight 220 lb 6.4 oz Weight 216 lb 9.6 oz I&O: 11/16/17 11/17/17 11/18/17 06:59 06:59 06:59 Intake Total 900 1730 240 Balance 900 1730 240 Result Diagrams: 11/17/17 03:41 11/17/17 03:41 Additional Labs: Accuchecks 11/16/17 11/16/17 15:48 11:51 POC Glucose 204 H 145 H Radiology Reviewed by me: Yes EKG Reviewed by me: Yes Phys Exam - Physical Examination Constitutional: NAD HEENT: PERRLA, moist MMs, sclera anicteric, oral pharynx no lesions Neck: no nodes, no JVD, supple, full ROM Respiratory: no wheezing, no rales, no rhonchi, clear to auscultation bilateral Cardiovascular: RRR, no significant murmur, no rub Gastrointestinal: soft, non-tender, no distention, positive bowel sounds Musculoskeletal: no edema, pulses present Neurological: non-focal, normal sensation, moves all 4 limbs Lymphatic: no nodes Psychiatric: normal affect, A&O x 3 Skin: no rash, normal turgor, cap refill <2 seconds Dx/Plan (1) CKD (chronic kidney disease) Code(s): N18.9 - CHRONIC KIDNEY DISEASE, UNSPECIFIED Status: Acute Qualifiers: Chronic kidney disease stage: stage 3 (moderate) Qualified Code(s): N18.3 - Chronic kidney disease, stage 3 (moderate) Comment: Hovering around baseline. (2) Diarrhea Code(s): R19.7 - DIARRHEA, UNSPECIFIED Status: Resolved Qualifiers: Diarrhea type: unspecified type Qualified Code(s): R19.7 - Diarrhea, unspecified (3) Hyponatremia Code(s): E87.1 - HYPO-OSMOLALITY AND HYPONATREMIA Status: Acute Comment: Stable. Likely diuretic induced. Serum osm low, urine osm also low and urine sodium > 40. Nephrology on board and has been started on IV fluids. Diuretics discontinued. Serum cortisol and TSH WNL. Monitor serum sodium and f/u nephrology recs. [place] to be dehydration and GI losses. Susanna dd po NaCL, follow up on renal recs (4) Urinary retention Code(s): R33.9 - RETENTION OF URINE, UNSPECIFIED Status: Acute Comment: s/p Canseco placement (5) CAD (coronary artery disease) Code(s): I25.10 - ATHSCL HEART DISEASE OF [place] CORONARY ARTERY W/O ANG PCTRS Status: Chronic Qualifiers: Coronary Disease-Associated Artery/Lesion type: bypass graft [place] vs. transplanted heart: [place] heart Associated angina: without angina Qualified Code(s): I25.810 - Atherosclerosis of coronary artery bypass graft(s) without angina pectoris Comment: on ASA,statin,Coreg,lisinopril,Plavix. Coreg held 2/2 bradycardia. (6) Chronic diastolic heart failure Code(s): I50.32 - CHRONIC DIASTOLIC (CONGESTIVE) HEART FAILURE Status: Chronic Comment: Not in acute exacerbation. (7) Diabetes type 2, controlled Code(s): E11.9 - TYPE 2 DIABETES MELLITUS WITHOUT COMPLICATIONS Status: Chronic Qualifiers: Diabetes mellitus penitentiary insulin use: with penitentiary use Diabetes mellitus complication detail: with chronic kidney disease Chronic kidney disease stage: stage 3 (moderate) Comment: Well controlled. Continue current regimen. (8) Dyslipidemia Code(s): E78.5 - HYPERLIPIDEMIA, UNSPECIFIED Status: Chronic Comment: Continue Lipitor. (9) GERD (gastroesophageal reflux disease) Code(s): K21.9 - GASTRO-ESOPHAGEAL REFLUX DISEASE WITHOUT ESOPHAGITIS Status: Chronic (10) Hypertension Code(s): I10 - ESSENTIAL (PRIMARY) HYPERTENSION Status: Chronic Qualifiers: Hypertension type: essential hypertension Qualified Code(s): I10 - Essential (primary) hypertension Comment: Fairly well controlled. Continue Lisinopril, Nicardipine. Hydralazine PRN for SBP > 180 - Plan * .
[2017-11-17] MEDS ORDERED: Sodium Chloride 1 GM TAB PO SCH (11:15)
[2017-11-17] MEDS: Tolvaptan 15 MG TAB PO SCH (12:43)
--- NOTE | 2017-11-17 15:05 | PRG ---
DATE OF SERVICE: 11/17/2017 SUBJECTIVE: Patient was seen and examined at bedside and overnight events noted. Patient denies any shortness of breath or chest pain or palpitation. No history of nausea or vomiting or diarrhea or fever or chill s or cramps. OBJECTIVE: GENERAL: This is a well-built male, in no apparent distress. VITAL SIGNS: Temperature 95, pulse 65, respiratory rate 18, blood pressure 144/78. HEENT: Atraumatic, normocephalic. Oral mucosa is moist. NECK: Supple. CARDIOVASCULAR: S1, S2 heard. Rate and rhythm regular. RESPIRATORY: Clear to auscultation. GASTROINTESTINAL: Abdomen is soft. MUSCULOSKELETAL: No tenderness. No edema. DERMATOLOGIC: No skin rash. NEUROLOGIC: Alert and awake and oriented x3. No focal neurologic deficits. Moving all the extremit ies. PSYCHIATRIC: Mood and affect normal. LABORATORY DATA: Potassium is 4.5, sodium 121, BUN is 16, creatinine is 1.02. ASSESSMENT AND PLAN: 1. Hyponatremia. No significant improvement with IV fluids. Most likely normovolemic syndrome of i nappropriate antidiuretic hormone secretion. Cortisol level and cosyntropin stimulation is normal. TSH level is normal. Plan is to start him on Vaptan and monitor sodium closely. We will check sodiu m in the evening. 2. Edema, controlled. 3. Hypertension. 4. Anemia. 5. Cardiorenal syndrome. 6. Hold diuretics. We will add Vaptan, monitor urine output and also sodium closely. We will follo w the patient to continue on fluid restriction for now.
[2017-11-17] MEDS: Sodium Chloride 1 GM TAB PO SCH (20:16)
[2017-11-17] MEDS: Melatonin 3 MG TAB PO SCH (20:16)
[2017-11-17] MEDS: Finasteride 5 MG TAB PO SCH (20:16)
[2017-11-17 20:25] LABS: Potassium 4.7 mmol/L (3.5-5.1)
[2017-11-17] MEDS: HumaLOG 300 UNITS/3 ML VIAL SC PRN (21:28)
[2017-11-18 04:58] LABS: #Eosinphils 0.1 thou/uL (0.0-0.7); #Lymphocytes 1.1 thou/uL (1.20-3.40); #Monocytes 1.1 thou/uL (0.11-0.59); #Neutrophils 6.3 thou/uL (1.40-6.50); %Basophils 0.1 % (0.0-1.0); %Eosinophils 1.2 % (0.0-10.0); %Lymphocytes 12.5 % (21.0-51.0); %Monocytes 12.4 % (0.0-10.0); %Neutrophils 73.8 % (42.0-75.0); Hemoglobin 10.8 g/dL (14.0-18.0); Mean Corpuscular HGB CONC 35.9 g/dL (32.0-36.0); Mean Corpuscular Hemoglobin 32.7 pg (27.0-31.0); Mean Platelet Volume 6.4 fL (7.4-10.4); Platelet Count 169 thou/uL (130-400); RBC Distribution Width 12.2 % (11.5-14.5); Red Blood Cell (RBC) Count 3.29 mill/uL (4.70-6.10); White Blood Cell (WBC) Count 8.6 thou/uL (4.8-10.8)
[2017-11-18 05:02] LABS: Anion Gap 11 mmol/L (10-20); BUN (Urea Nitrogen) 18 mg/dL (8.4-25.7); Calc. Creatinine Clearance 70 mL/min (70-130); Calcium 8.5 mg/dL (7.8-10.44); Carbon Dioxide 22 mmol/L (23-31); Chloride 97 mmol/L (98-107); Estimated GFR-MDRD 61; Glucose 141 mg/dL (83-110); Potassium 4.4 mmol/L (3.5-5.1); Sodium 126 mmol/L (136-145)
[2017-11-18] MEDS: Atorvastatin Calcium 40 MG TAB PO SCH (10:03)
[2017-11-18] MEDS: Clopidogrel Bisulfate 75 MG TAB PO SCH (10:03)
[2017-11-18] MEDS: Carvedilol 6.25 MG TAB PO SCH ×2 (10:03→22:05)
[2017-11-18] MEDS: Tamsulosin HCl 0.4 MG CAP PO SCH (10:03)
[2017-11-18] MEDS: Heparin 5,000 UNITS/ML VIAL SC SCH ×2 (10:04→22:07)
[2017-11-18] MEDS: NIFEdipine XL 60 MG TAB PO SCH ×2 (10:04→22:06)
[2017-11-18] MEDS: Aspirin 81 mg Enteric Coated Tablet PO SCH (10:04)
[2017-11-18] MEDS: Sodium Chloride 1 GM TAB PO SCH ×2 (10:05→22:10)
[2017-11-18] MEDS ORDERED: Furosemide 40 MG/4 ML VIAL SLOW IVP SCH (10:30)
[2017-11-18] MEDS ORDERED: Albuterol Sulfate 2.5 mg/3 ml Neb NEB PRN (10:31)
[2017-11-18 11:29] LABS: Anion Gap 11 mmol/L (10-20); BUN (Urea Nitrogen) 20 mg/dL (8.4-25.7); Calc. Creatinine Clearance 62 mL/min (70-130); Calcium 9.1 mg/dL (7.8-10.44); Carbon Dioxide 21 mmol/L (23-31); Chloride 98 mmol/L (98-107); Estimated GFR-MDRD 53; Glucose 216 mg/dL (83-110); Potassium 4.5 mmol/L (3.5-5.1); Sodium 125 mmol/L (136-145)
[2017-11-18] MEDS: HumaLOG 300 UNITS/3 ML VIAL SC PRN ×2 (11:48→17:55)
[2017-11-18] MEDS: Tolvaptan 15 MG TAB PO SCH (11:51)
--- NOTE | 2017-11-18 11:53 | PRG ---
DATE OF SERVICE: 11/18/2017 SUBJECTIVE: An 82-year-old gentleman being seen for hyponatremia. Patient denies any nausea, vomiting or chest pain. PHYSICAL EXAMINATION: GENERAL: Patient is awake. VITAL SIGNS: Afebrile, pulse 76, breathing 16, blood pressure 140/56. HEAD/NECK: Normocephalic. Atraumatic. EYES: EOMI. No deformity. EARS: Clear. No ulcers. NOSE: Intact. No lesions. MOUTH: Clear. No discharge. THROAT: Clear. No exudate. LUNGS: Clear. No crackles. CARDIAC: S1, S2. No rub. ABDOMEN: Benign. BS+. GENITALIA/RECTUM: Canseco absent. BACK/EXTREMITIES: Edema 0+ Ulcer- NEUROLOGICAL: Alert and motor intact. SKIN: Rash- Bruise- LYMPHATICS: Edema- Ulcer- LABORATORY DATA: Show sodium 126. ASSESSMENT AND RECOMMENDATIONS: 1. Hyponatremia, most likely because of syndrome of inappropriate antidiuretic hormone secretion. We will recommend 800 mL fluid restriction. 2. Anemia, stable. 3. Medications based on glomerular filtration rate are appropriate. I would avoid excessive fluid intake. 4. CKD stage III stable/. MTDD
--- NOTE | 2017-11-18 11:55 | PDOC.PN ---
- Subjective Encounter Start Date: 11/18/17 Encounter Start Time: 10:30 PT complains of SOB, worsening today, but increasing over last 2-3 days. looks more SOB visibly. no CP, no N/V/d/c, no F/C. Case discussed with renal, given IV Vaptan yesterday, sodium better. Pt denies wheeezing or chest tightness, denies COPD. Review of H&P shows duonebs and sig smokign history. 10 point ROS performed and neg for all systems except as per HPI - Objective Resuscitation Status: Resuscitation Status FULL:Full Resuscitation MAR Reviewed: Yes Vital Signs & Weight: Vital Signs (12 hours) Temp Pulse Resp BP BP Pulse Ox 11/18/17 10:04 76 148/56 H 11/18/17 10:03 148/56 H 11/18/17 03:42 98.1 F 76 20 156/76 H 93 L 11/17/17 23:55 19 Weight Admit Weight 220 lb 6.4 oz Weight 216 lb 9.6 oz I&O: 11/17/17 11/18/17 11/19/17 06:59 06:59 06:59 Intake Total 1730 2270 Balance 1730 2270 Result Diagrams: 11/18/17 04:25 11/18/17 10:59 Additional Labs: Accuchecks 11/18/17 11/18/17 11/17/17 11:10 05:19 20:46 POC Glucose 200 H 136 H 234 H 11/17/17 16:13 POC Glucose 176 H Radiology Reviewed by me: Yes EKG Reviewed by me: Yes Phys Exam - Physical Examination awake, alert, mild resp distress,using accessory muscles HEENT: PERRLA, moist MMs, sclera anicteric, oral pharynx no lesions Neck: no nodes, no JVD, supple, full ROM Respiratory: no wheezing, no rhonchi poor air movement Cardiovascular: RRR, no significant murmur, no rub Gastrointestinal: soft, non-tender, no distention, positive bowel sounds Musculoskeletal: pulses present, edema present Neurological: non-focal, normal sensation, moves all 4 limbs Lymphatic: no nodes Psychiatric: normal affect, A&O x 3 Skin: no rash, normal turgor, cap refill <2 seconds Dx/Plan (1) CKD (chronic kidney disease) Code(s): N18.9 - CHRONIC KIDNEY DISEASE, UNSPECIFIED Status: Acute Qualifiers: Chronic kidney disease stage: stage 3 (moderate) Qualified Code(s): N18.3 - Chronic kidney disease, stage 3 (moderate) Comment: Hovering around baseline. (2) Diarrhea Code(s): R19.7 - DIARRHEA, UNSPECIFIED Status: Resolved Qualifiers: Diarrhea type: unspecified type Qualified Code(s): R19.7 - Diarrhea, unspecified (3) Hyponatremia Code(s): E87.1 - HYPO-OSMOLALITY AND HYPONATREMIA Status: Acute Comment: Stable. Likely diuretic induced. Serum osm low, urine osm also low and urine sodium > 40. Nephrology on board and has been started on IV fluids. Diuretics discontinued. Serum cortisol and TSH WNL. Monitor serum sodium and f/u nephrology recs. [place] to be dehydration and GI losses. Susanna dd po NaCL, follow up on renal recs (4) Urinary retention Code(s): R33.9 - RETENTION OF URINE, UNSPECIFIED Status: Acute Comment: s/p Canseco placement (5) CAD (coronary artery disease) Code(s): I25.10 - ATHSCL HEART DISEASE OF [place] CORONARY ARTERY W/O ANG PCTRS Status: Chronic Qualifiers: Coronary Disease-Associated Artery/Lesion type: bypass graft [place] vs. transplanted heart: [place] heart Associated angina: without angina Qualified Code(s): I25.810 - Atherosclerosis of coronary artery bypass graft(s) without angina pectoris Comment: on ASA,statin,Coreg,lisinopril,Plavix. Coreg held 2/2 bradycardia. (6) Chronic diastolic heart failure Code(s): I50.32 - CHRONIC DIASTOLIC (CONGESTIVE) HEART FAILURE Status: Chronic Comment: may be more symptomatic now withincreased sodium level and intake. Will give a dose of lasix. CXR with bibasilaqr edema or infiltrate (7) Diabetes type 2, controlled Code(s): E11.9 - TYPE 2 DIABETES MELLITUS WITHOUT COMPLICATIONS Status: Chronic Qualifiers: Diabetes mellitus terminal make up operator insulin use: with terminal make up operator use Diabetes mellitus complication detail: with chronic kidney disease Chronic kidney disease stage: stage 3 (moderate) Comment: Well controlled. Continue current regimen. (8) Dyslipidemia Code(s): E78.5 - HYPERLIPIDEMIA, UNSPECIFIED Status: Chronic Comment: Continue Lipitor. (9) GERD (gastroesophageal reflux disease) Code(s): K21.9 - GASTRO-ESOPHAGEAL REFLUX DISEASE WITHOUT ESOPHAGITIS Status: Chronic Qualifiers: Esophagitis presence: without esophagitis Qualified Code(s): K21.9 - Gastro -esophageal reflux disease without esophagitis (10) Hypertension Code(s): I10 - ESSENTIAL (PRIMARY) HYPERTENSION Status: Chronic Qualifiers: Hypertension type: essential hypertension Qualified Code(s): I10 - Essential (primary) hypertension Comment: Fairly well controlled. Continue Lisinopril, Nicardipine. 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 Will restart nebs. repqat CXR later today or tomorrow. - Plan cont current plan of care, PT/OT, respiratory therapy, out of bed/ambulate * .
--- NOTE | 2017-11-18 12:58 | RAD ---
SINGLE VIEW OF THE CHEST: COMPARISON: 11/15/17. HISTORY: Worsening dyspnea. FINDINGS: A single view of the chest shows a normal-size cardiomediastinal silhouette. The pacemaker is unchan ged in position. Airspace opacities are seen in both lower lobes which may represent atelectasis or infiltrate. These have slightly worsened compared to the prior exam. IMPRESSION: Worsening bilateral lower lobe infiltrates. POS: MICK
[2017-11-18] MEDS: Melatonin 3 MG TAB PO SCH (22:06)
[2017-11-18] MEDS: Finasteride 5 MG TAB PO SCH (22:06)
[2017-11-19 05:28] LABS: #Eosinphils 0.1 thou/uL (0.0-0.7); #Lymphocytes 1.5 thou/uL (1.20-3.40); #Neutrophils 5.8 thou/uL (1.40-6.50); %Basophils 0.1 % (0.0-1.0); %Eosinophils 1.4 % (0.0-10.0); %Lymphocytes 17.5 % (21.0-51.0); %Monocytes 12.3 % (0.0-10.0); %Neutrophils 68.7 % (42.0-75.0); Hemoglobin 10.4 g/dL (14.0-18.0); Mean Corpuscular HGB CONC 35.1 g/dL (32.0-36.0); Mean Corpuscular Hemoglobin 32.2 pg (27.0-31.0); Mean Corpuscular Volume 91.7 fl (80.0-94.0); Mean Platelet Volume 6.4 fL (7.4-10.4); Platelet Count 152 thou/uL (130-400); RBC Distribution Width 12.3 % (11.5-14.5); Red Blood Cell (RBC) Count 3.22 mill/uL (4.70-6.10); White Blood Cell (WBC) Count 8.4 thou/uL (4.8-10.8)
[2017-11-19 05:35] LABS: Anion Gap 9 mmol/L (10-20); BUN (Urea Nitrogen) 22 mg/dL (8.4-25.7); Calc. Creatinine Clearance 63 mL/min (70-130); Calcium 8.7 mg/dL (7.8-10.44); Carbon Dioxide 24 mmol/L (23-31); Chloride 100 mmol/L (98-107); Estimated GFR-MDRD 54; Glucose 156 mg/dL (83-110); Potassium 4.1 mmol/L (3.5-5.1); Sodium 129 mmol/L (136-145)
--- NOTE | 2017-11-19 08:21 | RAD ---
SINGLE VIEW OF THE CHEST: Comparison: 11-18-17 History: Bilateral pulmonary infiltrate. Follow up exam. FINDINGS: Single view of the chest shows a normal sized cardiomediastinal silhouette. The pacemaker is unchange d in position. Increased interstitial markings are present. There are increased opacities in the lowe r lobes which are unchanged and may represent atelectasis or infiltrates. IMPRESSION: Stable exam. POS: LORIE
[2017-11-19] MEDS: NIFEdipine XL 60 MG TAB PO SCH ×2 (09:53→22:11)
[2017-11-19] MEDS: Sodium Chloride 1 GM TAB PO SCH ×2 (09:53→22:11)
[2017-11-19] MEDS: Aspirin 81 mg Enteric Coated Tablet PO SCH (09:54)
[2017-11-19] MEDS: Clopidogrel Bisulfate 75 MG TAB PO SCH (09:54)
[2017-11-19] MEDS: Carvedilol 6.25 MG TAB PO SCH ×2 (09:55→22:10)
[2017-11-19] MEDS: Heparin 5,000 UNITS/ML VIAL SC SCH ×2 (09:55→22:12)
[2017-11-19] MEDS: Tamsulosin HCl 0.4 MG CAP PO SCH (09:55)
[2017-11-19] MEDS: Atorvastatin Calcium 40 MG TAB PO SCH (09:55)
[2017-11-19] MEDS ORDERED: Furosemide 40 MG/4 ML VIAL SLOW IVP SCH (10:30)
[2017-11-19] MEDS: HumaLOG 300 UNITS/3 ML VIAL SC PRN (13:13)
--- NOTE | 2017-11-19 13:37 | PDOC.PN ---
- Subjective Encounter Start Date: 11/19/17 Encounter Start Time: 10:20 Pt is breathing better, less orthopnea and HARTLEY, no CP. responded well to lasix diuresis. No f/C, no n/V/D/c. Sodium up to 129. cleared for D/C when otherwise ready. Case discusse [facility] Case management, read yto go when medically ready. Still on O2. Will give naother dos eof lasix and watch tonight, plan on D/C in AM, wean O2 as tolerated 10 point ROS performed and neg for all systems except as per HPI - Objective Resuscitation Status: Resuscitation Status FULL:Full Resuscitation MAR Reviewed: Yes Vital Signs & Weight: Vital Signs (12 hours) Pulse Resp BP Pulse Ox 11/19/17 11:06 58 L 16 92 L 11/19/17 09:55 144/69 H 11/19/17 09:53 58 L 144/69 H 11/19/17 02:15 58 L 14 96 Weight Admit Weight 220 lb 6.4 oz Weight 216 lb 9.6 oz I&O: 11/18/17 11/19/17 11/20/17 06:59 06:59 06:59 Intake Total 2270 1800 Output Total 1550 Balance 2270 250 Result Diagrams: 11/19/17 04:51 11/19/17 04:51 Additional Labs: Accuchecks 11/19/17 11/19/17 11/18/17 11:01 05:30 20:25 POC Glucose 220 H 159 H 341 H 11/18/17 17:11 POC Glucose 174 H Radiology Reviewed by me: Yes EKG Reviewed by me: Yes Phys Exam - Physical Examination Constitutional: NAD HEENT: PERRLA, moist MMs, sclera anicteric, oral pharynx no lesions Neck: no nodes, no JVD, supple, full ROM Respiratory: no wheezing, no rhonchi, clear to auscultation bilateral Cardiovascular: RRR, no significant murmur, no rub Gastrointestinal: soft, non-tender, no distention, positive bowel sounds Musculoskeletal: no edema, pulses present Neurological: non-focal, normal sensation, moves all 4 limbs Lymphatic: no nodes Psychiatric: normal affect, A&O x 3 Skin: no rash, normal turgor, cap refill <2 seconds Dx/Plan (1) CKD (chronic kidney disease) Code(s): N18.9 - CHRONIC KIDNEY DISEASE, UNSPECIFIED Status: Acute Qualifiers: Chronic kidney disease stage: stage 3 (moderate) Qualified Code(s): N18.3 - Chronic kidney disease, stage 3 (moderate) Comment: Hovering around baseline. (2) Hyponatremia Code(s): E87.1 - HYPO-OSMOLALITY AND HYPONATREMIA Status: Acute Comment: Stable. Likely diuretic induced. Serum osm low, urine osm also low and urine sodium > 40. Nephrology on board and has been started on IV fluids. Diuretics discontinued. Serum cortisol and TSH WNL. Monitor serum sodium and f/u nephrology recs. [place] to be dehydration and GI losses. Susanna dd po NaCL, follow up on renal recs (3) Urinary retention Code(s): R33.9 - RETENTION OF URINE, UNSPECIFIED Status: Acute Comment: s/p Canseco placement (4) CAD (coronary artery disease) Code(s): I25.10 - ATHSCL HEART DISEASE OF [place] CORONARY ARTERY W/O ANG PCTRS Status: Chronic Qualifiers: Coronary Disease-Associated Artery/Lesion type: bypass graft [place] vs. transplanted heart: [place] heart Associated angina: without angina Qualified Code(s): I25.810 - Atherosclerosis of coronary artery bypass graft(s) without angina pectoris Comment: on ASA,statin,Coreg,lisinopril,Plavix. Coreg held 2/2 bradycardia. (5) Chronic diastolic heart failure Code(s): I50.32 - CHRONIC DIASTOLIC (CONGESTIVE) HEART FAILURE Status: Chronic Comment: may be more symptomatic now withincreased sodium level and intake. Will give another dose of lasix. CXR with bibasilar edema or infiltrate, resp status improved (6) Diabetes type 2, controlled Code(s): E11.9 - TYPE 2 DIABETES MELLITUS WITHOUT COMPLICATIONS Status: Chronic Qualifiers: Diabetes mellitus fpc insulin use: with terminal block assembler use Diabetes mellitus complication detail: with chronic kidney disease Chronic kidney disease stage: stage 3 (moderate) Comment: Well controlled. Continue current regimen. (7) Dyslipidemia Code(s): E78.5 - HYPERLIPIDEMIA, UNSPECIFIED Status: Chronic Comment: Continue Lipitor. (8) GERD (gastroesophageal reflux disease) Code(s): K21.9 - GASTRO-ESOPHAGEAL REFLUX DISEASE WITHOUT ESOPHAGITIS Status: Chronic Qualifiers: Esophagitis presence: without esophagitis Qualified Code(s): K21.9 - Gastro -esophageal reflux disease without esophagitis (9) Hypertension Code(s): I10 - ESSENTIAL (PRIMARY) HYPERTENSION Status: Chronic Qualifiers: Hypertension type: essential hypertension Qualified Code(s): I10 - Essential (primary) hypertension Comment: Fairly well controlled. Continue Lisinopril, Nicardipine. Hydralazine PRN for SBP > 180 (10) COPD (chronic obstructive pulmonary disease) Status: Chronic Qualifiers: COPD type: COPD with acute exacerbation Qualified Code(s): J44.1 - Chronic obstructive pulmonary disease with (acute) exacerbation Comment: pt denies COPD, but fpc smoker, quit in 2004 and on duonebs at home. Will restart nebs. repqat CXR later today or tomorrow. (11) Diarrhea Code(s): R19.7 - DIARRHEA, UNSPECIFIED Status: Resolved Qualifiers: Diarrhea type: unspecified type Qualified Code(s): R19.7 - Diarrhea, unspecified - Plan cont current plan of care, PT/OT, social insurance analyst, respiratory therapy * .
--- NOTE | 2017-11-19 13:59 | PRG ---
DATE OF SERVICE: 11/19/2017 SUBJECTIVE: This is an 82-year-old gentleman being seen for hyponatremia. Patient denies any nausea, vomiting or chest pain. PHYSICAL EXAMINATION: GENERAL: Patient is awake, alert. VITAL SIGNS: Afebrile, pulse 75, breathing 16, blood pressure was 130/67. HEAD/NECK: Normocephalic. Atraumatic. EYES: EOMI. No deformity. EARS: Clear. No ulcers. NOSE: Intact. No lesions. MOUTH: Clear. No discharge. THROAT: Clear. No exudate. LUNGS: Clear. No crackles. CARDIAC: S1, S2. No rub. ABDOMEN: Benign. BS+. GENITALIA/RECTUM: Canseco absent. BACK/EXTREMITIES: Edema 0+ Ulcer- NEUROLOGICAL: Alert and motor intact. SKIN: Rash- Bruise- LYMPHATICS: Edema- Ulcer- LABORATORY DATA: Show sodium 129, potassium 4.1. ASSESSMENT AND PLAN: 1. Hyponatremia improved. 2. Chronic kidney disease, improved. 3. Hypertension, stable. 4. I will sign off on this patient. The patient can follow up with Dr. Wiseman in 48-72 hours. [facility]
[2017-11-19] MEDS: Finasteride 5 MG TAB PO SCH (22:11)
[2017-11-19] MEDS: Melatonin 3 MG TAB PO SCH (22:11)
[2017-11-20 05:15] LABS: #Eosinphils 0.2 thou/uL (0.0-0.7); #Lymphocytes 1.3 thou/uL (1.20-3.40); #Monocytes 0.8 thou/uL (0.11-0.59); %Basophils 0.3 % (0.0-1.0); %Eosinophils 2.5 % (0.0-10.0); %Lymphocytes 15.6 % (21.0-51.0); %Monocytes 9.9 % (0.0-10.0); %Neutrophils 71.8 % (42.0-75.0); Hemoglobin 10.3 g/dL (14.0-18.0); Mean Corpuscular HGB CONC 35.3 g/dL (32.0-36.0); Mean Corpuscular Hemoglobin 32.3 pg (27.0-31.0); Mean Corpuscular Volume 91.6 fl (80.0-94.0); Mean Platelet Volume 6.5 fL (7.4-10.4); Platelet Count 151 thou/uL (130-400); RBC Distribution Width 12.3 % (11.5-14.5); Red Blood Cell (RBC) Count 3.18 mill/uL (4.70-6.10); White Blood Cell (WBC) Count 8.3 thou/uL (4.8-10.8)
[2017-11-20 05:38] LABS: Anion Gap 14 mmol/L (10-20); BUN (Urea Nitrogen) 25 mg/dL (8.4-25.7); Calc. Creatinine Clearance 62 mL/min (70-130); Carbon Dioxide 19 mmol/L (23-31); Chloride 100 mmol/L (98-107); Estimated GFR-MDRD 53; Sodium 129 mmol/L (136-145)
[2017-11-20 05:39] LABS: Calcium 8.7 mg/dL (7.8-10.44); Glucose 158 mg/dL (83-110); Magnesium 1.4 mg/dL (1.6-2.6)
[2017-11-20] MEDS ORDERED: Furosemide 40 MG/4 ML VIAL SLOW IVP SCH (08:15)
[2017-11-20] MEDS ORDERED: Magnesium Sulfate 3 GM in Sodium Chloride 0.9% 100 ML IVPB SCH ×2 (08:30→09:00)
[2017-11-20] MEDS ORDERED: Spironolactone 25 MG TAB PO SCH (08:30)
[2017-11-20] MEDS: NIFEdipine XL 60 MG TAB PO SCH (08:40)
[2017-11-20] MEDS: Clopidogrel Bisulfate 75 MG TAB PO SCH (08:40)
[2017-11-20] MEDS: Aspirin 81 mg Enteric Coated Tablet PO SCH (08:40)
[2017-11-20] MEDS: Tamsulosin HCl 0.4 MG CAP PO SCH (08:41)
[2017-11-20] MEDS: Atorvastatin Calcium 40 MG TAB PO SCH (08:41)
[2017-11-20] MEDS: Carvedilol 6.25 MG TAB PO SCH (08:41)
[2017-11-20] MEDS: Sodium Chloride 1 GM TAB PO SCH (08:41)
[2017-11-20] MEDS: Heparin 5,000 UNITS/ML VIAL SC SCH (08:41)
[2017-11-20] MEDS ORDERED: Polyethylene Glycol 3350 17 GM Packet PO SCH (09:00)
[2017-11-20] MEDS ORDERED: metFORMIN 500 MG TAB PO SCH (09:00)
--- NOTE | 2017-11-20 12:18 | PRG ---
DATE OF SERVICE: 11/20/2017 SUBJECTIVE: An 82-year-old gentleman being seen for hyponatremia. The patient denies any nausea, vo miting or chest pain. PHYSICAL EXAMINATION: GENERAL: Patient is awake, alert. VITAL SIGNS: Afebrile, pulse 75, breathing 16, blood pressure 130/69. OBJECTIVE: See above. Awake, alert, in no acute distress. GENERAL APPEARANCE AND MENTAL STATUS: Fair. HEAD/NECK: Normocephalic. Atraumatic. EYES: EOMI. No deformity. EARS: Clear. No ulcers. NOSE: Intact. No lesions. MOUTH: Clear. No discharge. THROAT: Clear. No exudate. LUNGS: Clear. No crackles. CARDIAC: S1, S2. No rub. ABDOMEN: Benign. BS+. GENITALIA/RECTUM: Canseco absent. BACK/EXTREMITIES: Edema 0+ Ulcer- NEUROLOGICAL: Alert and motor intact. SKIN: Rash- Bruise- LYMPHATICS: Edema- Ulcer- LABORATORY: Sodium 129. ASSESSMENT AND RECOMMENDATIONS: 1. Hyponatremia due to syndrome of inappropriate antidiuretic hormone secretion. 1000 mL fluid rest riction. The patient will follow up with Dr. Wiseman in 3-4 days. 2. Hypertension, stable. 3. Anemia, stable. 4. Medication based on glomerular filtration rate are appropriate. The patient is ready for discharge from my aspect.
[2017-11-20 12:44] VITALS: BP 122/54; TEMP 97.5
--- NOTE | 2017-11-22 19:24 | DIS ---
PRIMARY CARE PHYSICIAN: Chepe Parr M.D. DATE OF ADMISSION: 11/12/2017 DATE OF DISCHARGE: 11/20/2017 DISCHARGE DIAGNOSES: 1. Hyponatremia. 2. Acute on chronic diastolic congestive heart failure. 3. Chronic obstructive pulmonary disease. 4. Essential hypertension. 5. Recent diarrhea, probable gastroenteritis. 6. Diabetes mellitus type 2, controlled. 7. Coronary artery disease, without angina. 8. Urinary retention. 9. Gastroesophageal reflux disease. 10. Hyperlipidemia. CONSULTATIONS: Nephrology, Initially Dr. Mauricio Wiseman on 11/15/2017, taken over Dr. Hernandez Hope on 11/18/2017 until discharge. PROCEDURES: None. HISTORY AND PHYSICAL: Mr. Carranza is an 82-year-old gentleman with the above history, who presented to the Emergency Department for evaluation of the abdomen with generalized weakness. He did have a his tory of chronic CHF, diastolic with EF 50% to 55%, history of heart attack in 2004, has AICD in place of ventricular tachycardia arrhythmias. He had an ablation for this at some point in the interim. Workup in the Emergency Department showed us the patient has been having weakness, nausea, and diarrh ea for the last month or so, but still having five loose stools a day prior to admission. Sodium was 118 in the primary care doctor's office. He sent to the Emergency Department, his repeat sodium was 119. He was alert and oriented, but still weak, so he received a bolus of IV fluids and we were keli led for admission. HOSPITAL COURSE: The patient was seen and examined by Dr. Cheung. The patient was placed in the ospital on medical, overnight patient had three loose stools. By the morning of 11/13/2017, his heri ls were stable. Blood pressure was in the elevated side and urine osmol was low, however, as likely diuretic induced. Lasix was held and Nephrology was consulted. His follow up sodium the day was up from 119-121. The patient was watched from 11/13/2017 to 11/15/2017, ultimately seen by Dr. Wiseman on 11/15/2017. He felt it was likely sodium depletion and dehydration, so was continued on IV normal saline. Sodiu m remained in the 120 range. From 11/15/2017 to 11/17/2017, the patient remained largely stable. His diuretics were on hold. He was developing some increasing shortness of breath and some edema. Sodium did not make an appreciabl e change, going up only to 121 is the best. At that point, he was placed on Vaptan. I took over the case that day and added some oral sodium chloride tablets as well. Overnight 11/17/2017 to 11/18/2017, sodium did increase from 121-125, the Vaptan was held. After emiliano t point, sodium was better, he was continued on his sodium chloride tablets. The patient denied hist ory of COPD initially, but did take DuoNebs at home. He was continued on DuoNebs due to increasing s hortness of breath and was found that due to his diuretic hold and his fluid that he has been given, he is likely having acute exacerbation of his chronic diastolic CHF. He was on Lasix IV x1 on the 9t h with good response to diuresis. By 11/19/2017, he still having some shortness of breath, but it was improved. He was given another d ose of IV Lasix and was resumed on his regular Lasix during the following day. By 11/19/2017, his br eathing was only back to baseline. He was watched overnight one more night. Sodium was up to 129 an d holding steady. Overnight, he did well. By 11/20/2017, he was stable for discharge to [place] for rehabilitation. PHYSICAL EXAMINATION: The patient was seen and examined on the day of discharge. Discharge plan and disposition was discussed with the patient [id number] at the bedside. DISCHARGE MEDICATIONS: 1. Albuterol sulfate 2.5 mg nebulized q.2 hours p.r.n. 2. Aspirin 81 mg daily. 3. Atorvastatin 40 mg p.o. at bedtime. 4. Calcium carbonate/vitamin D 600/125 one tablet b.i.d. 5. Coreg 6.25 mg p.o. b.i.d. 6. Plavix 75 mg daily. 7. Diphenoxylate/atropine 1 tablet t.i.d. p.r.n. 8. Proscar 5 mg p.o. at bedtime. 9. Lasix 40 mg daily. 10. Lantus 50 units subcutaneously at bedtime. 11. DuoNebs 3 mL q.6 hours scheduled. 12. Isosorbide mononitrate 30 mg p.o. daily. 13. Lisinopril 5 mg p.o. b.i.d. 14. Melatonin at bedtime. 15. Metformin 500 mg p.o. b.i.d. 16. Omeprazole 40 mg daily. 17. MiraLax 17 grams daily. 18. Florastor if needed. 19. Januvia 100 mg p.o. daily. 20. Spironolactone 25 mg p.o. q.a.m. 21. Flomax 0.4 mg p.o. q.a.m. DISCHARGE CONDITION: Stable. DISPOSITION: The patient was discharged to [facility] for physical therapy, occupational therapy, rehabilitation. DISCHARGE ACTIVITY: Per cardiopulmonary limits. DISCHARGE DIET: Heart healthy diabetic diet ordered. FOLLOWUP APPOINTMENTS: 1. PCP, Dr. Chepe Parr within a week. 2. Dr. Wiseman and Dr. Hope in 1 week. 3. Follow up with payroll accounting clerk as scheduled.
== END 2017-11-20 12:17 | DRG 643 ==
LOC: ERS 09:04 → 2NO 16:15 → T4-A 11-14 15:58
PROVIDERS: ADMIT Internal Medicine; ATTEND Internal Medicine
DX: E22.2 Syndrome of inappropriate secretion of antidiuretic hormone (principal); I50.33 Acute on chronic diastolic (congestive) heart failure; N17.9 Acute kidney failure, unspecified; I13.0 Hypertensive heart and chronic kidney disease with heart failure and stage 1 through stage 4 chronic kidney disease, or unspecified chronic kidney disease; J44.1 Chronic obstructive pulmonary disease with (acute) exacerbation; E11.22 Type 2 diabetes mellitus with diabetic chronic kidney disease; K52.9 Noninfective gastroenteritis and colitis, unspecified; I25.10 Atherosclerotic heart disease of native coronary artery without angina pectoris; K21.9 Gastro-esophageal reflux disease without esophagitis; E78.5 Hyperlipidemia, unspecified; R33.9 Retention of urine, unspecified; I25.2 Old myocardial infarction; Z95.810 Presence of automatic (implantable) cardiac defibrillator; E66.9 Obesity, unspecified; Z68.29 Body mass index [BMI] 29.0-29.9, adult; E88.09 Other disorders of plasma-protein metabolism, not elsewhere classified; N18.3 Chronic kidney disease, stage 3 (moderate); Z87.891 Personal history of nicotine dependence; E86.0 Dehydration; R00.1 Bradycardia, unspecified; Z79.4 Long term (current) use of insulin; E11.51 Type 2 diabetes mellitus with diabetic peripheral angiopathy without gangrene
CPT/HCPCS: 36415; 36416; 71045; 80048; 80400; 82436; 82533; 82553; 83605; 83735; 83880; 83930; 83935; 84133; 84300; 84443; 84484; 85025; 93005; 94640; A4216; G8978-GP-CI; G8979-GP-CI; G8980-GP-CI; G8987-GO-CJ; G8988-GO-CI; J0834; J1644; J1940; J3475; J7050; J7620

== ENCOUNTER 2018-01-16 08:44 | Inpatient (IN) | payer MEDICARE, OTHER ==
[2018-01-16 09:11] LABS: Actual Bicarbonate (HCO3a) 19.1 mEq/L (22-28); Base Excess (BEa) -11.1 mEq/L (-2.0 to +3.0); CO2 Tension 62.2 mmHg (35.0-45.0); Hematocrit-ABG 42.2 % (42.0-52.0); O2 Tension (PaO2) 87.5 mmHg (> 60.0)
[2018-01-16 09:12] LABS: Analyzer IN Cardio ER; Calcium, Ionized 1.2 mmol/L (1.12-1.30); Hemoglobin (Hb) 13.5 g/dL (14.0-18.0); Puncture Site RRA
[2018-01-16 09:21] LABS: Mean Corpuscular HGB CONC 33.6 g/dL (32.0-36.0); Mean Corpuscular Hemoglobin 32.8 pg (27.0-31.0); Mean Corpuscular Volume 97.6 fl (80.0-94.0); Mean Platelet Volume 7.7 fL (7.4-10.4); Platelet Count 192 thou/uL (130-400); RBC Distribution Width 13.4 % (11.5-14.5); Red Blood Cell (RBC) Count 4.27 mill/uL (4.70-6.10); White Blood Cell (WBC) Count 16.7 thou/uL (4.8-10.8)
[2018-01-16 09:31] LABS: INR-International Normal Ratio 1.1; PTT 25.7 SEC (22.9-36.1); Prothrombin Time 14.6 SEC (12.0-14.7)
--- NOTE | 2018-01-16 09:32 | RAD ---
CHEST 1 VIEW: HISTORY: Respiratory failure. Followup. COMPARISON: 11/19/17. FINDINGS: Cardiac silhouette is magnified by projection. Pulmonary vasculature is engorged with bilateral eddie hilar infiltrates, right worse than left. Mediastinum is midline with aortic calcification and a sin gle-led left subclavian cardiac electronic device. The tip of an endotracheal catheter overlies the thoracic inlet. Nasogastric tube descends to the abdomen. No evidence of pneumothorax. Left latera l costophrenic angle is excluded from the image. IMPRESSION: 1. Pulmonary vascular congestion with probable developing edema. 2. Endotracheal catheter is in good radiographic position. POS: [facility]
[2018-01-16 09:42] LABS: ALT (SGPT) 11 U/L (8-55); AST (SGOT) 14 U/L (5-34); Albumin 3.6 g/dL (3.4-4.8); Alkaline Phosphatase 78 U/L (40-150); Anion Gap 14 mmol/L (10-20); BUN (Urea Nitrogen) 36 mg/dL (8.4-25.7); Bilirubin, Total 0.5 mg/dL (0.2-1.2); Calc. Creatinine Clearance 0 mL/min (70-130); Calcium 8.4 mg/dL (7.8-10.44); Carbon Dioxide 19 mmol/L (23-31); Chloride 109 mmol/L (98-107); Estimated GFR-MDRD 41; Globulin 2.6 g/dL (2.4-3.5); Glucose 256 mg/dL (83-110); Magnesium 1.5 mg/dL (1.6-2.6); Potassium 5.1 mmol/L (3.5-5.1); Protein, Total 6.2 g/dL (5.8-8.1); Sodium 137 mmol/L (136-145)
[2018-01-16 09:45] LABS: CKMB 3.4 ng/mL (0-6.6); Troponin I 0.019 ng/mL (< 0.028)
[2018-01-16 09:47] LABS: Bilirubin Negative (Negative); Blood, Urine Negative (Negative); Glucose, Urine (Dipstick) Negative (Negative); Leukocyte Negative (Negative); Nitrite Negative (Negative); Protein, Urine (Dipstick) 100 mg/dL (Neg-Trace); Urobilinogen 0.2 mg/dL (0.2-1.0); pH, Urine 5.5 (5.0-9.0)
[2018-01-16 09:50] LABS: Clarity Hazy (Clear)
[2018-01-16 09:51] LABS: Specific Gravity, Urine 1.016 (1.002-1.036)
[2018-01-16 10:00] LABS: #Eosinphils 0.6 thou/uL (0.0-0.7); #Lymphocytes 4.2 thou/uL (1.20-3.40); #Monocytes 0.9 thou/uL (0.11-0.59); #Neutrophils 10.9 thou/uL (1.40-6.50); %Basophils 0.2 % (0.0-1.0); %Eosinophils 3.6 % (0.0-10.0); %Lymphocytes 25.4 % (21.0-51.0); %Monocytes 5.5 % (0.0-10.0); %Neutrophils 65.2 % (42.0-75.0); Eosinophils 2 % (0-10); Lymphocytes 21 % (21-51); MDiff Complete? YES; Monocytes 6 % (0-10); Neutrophil 60 % (42-75); PLT Morphology Comment Appears Adequate; RBC Morphology Normal; Reactive Lymphocytes 11 % (0-10)
[2018-01-16 10:12] LABS: Bacteria/HPF 3+ HPF (None Seen); Hyaline Casts/LPF NONE SEEN LPF (0-3 Hyaline); RBC/HPF 0-3 HPF (0-3); Squamous Epithelial 0-3 HPF (0-3); WBC/HPF None Seen HPF (0-3)
[2018-01-16] MEDS ORDERED: Magnesium Sulfate 2 GM/100 ML BAG ONE (10:18)
[2018-01-16] MEDS ORDERED: Furosemide 40 MG/4 ML VIAL ONE (10:18)
[2018-01-16] MEDS ORDERED: Lorazepam 2 MG/ML VIAL ONE (10:27)
[2018-01-16] MEDS ORDERED: fentaNYL Citrate/PF 2,000 MCG in Sodium Chloride 0.9% 60 ML IV SCH ×2 (10:30→15:15)
[2018-01-16] MEDS ORDERED: Meropenem 1 GM in Sodium Chloride 0.9% 100 ML IVPB SCH (11:00)
[2018-01-16] MEDS ORDERED: HumaLOG 300 UNITS/3 ML VIAL SC PRN (11:05)
[2018-01-16] MEDS ORDERED: Dextrose 5% in Water 1,000 ML IV PRN (11:05)
[2018-01-16] MEDS ORDERED: Dextrose 50% Abboject 50 ML SYRINGE SLOW IVP PRN (11:05)
--- NOTE | 2018-01-16 12:09 | CT ---
CT BRAIN WITHOUT CONTRAST: Date: 01/16/18 HISTORY: Altered mental status. Shortness of breath. COMPARISON: None. FINDINGS: There is no acute hemorrhage. There is extensive periventricular and deep white matter microangiopath ic changes. No midline shift or mass effect. An enteric and endotracheal tube are both seen. Mastoids are clear. Small volume fluid left maxillary sinus. The globes are normal. IMPRESSION: Extensive chronic microangiopathic changes and mild atrophy. No acute intracranial abnormality. POS: [facility]
[2018-01-16 12:10] LABS: Actual Bicarbonate (HCO3a) 19.9 mEq/L (22-28); Base Excess (BEa) -9.2 mEq/L (-2.0 to +3.0); CO2 Tension 56.1 mmHg (35.0-45.0); Calcium, Ionized 1.2 mmol/L (1.12-1.30); Hematocrit-ABG 43.5 % (42.0-52.0); Hemoglobin (Hb) 14.2 g/dL (14.0-18.0); O2 Tension (PaO2) 105.3 mmHg (> 60.0); pH, Arterial 7.17 (7.35-7.45)
[2018-01-16 12:11] LABS: ALV-art Gradient 537.575 (0-20); Puncture Site RRA
[2018-01-16] MEDS ORDERED: Ondansetron HCl/PF 4 MG/2 ML Vial IVP PRN (12:23)
[2018-01-16] MEDS ORDERED: Acetaminophen 325 MG TAB PO PRN (12:24)
[2018-01-16] MEDS ORDERED: Ondansetron ODT 4 MG TAB PO PRN (12:24)
[2018-01-16 13:20] LABS: Actual Bicarbonate (HCO3a) 17.5 mEq/L (22-28); Base Excess (BEa) -8.3 mEq/L (-2.0 to +3.0); CO2 Tension 36.7 mmHg (35.0-45.0); Hematocrit-ABG 40.4 % (42.0-52.0); Hemoglobin (Hb) 13.3 g/dL (14.0-18.0); O2 Tension (PaO2) 55.3 mmHg (> 60.0)
[2018-01-16 13:23] LABS: Calcium, Ionized 1.2 mmol/L (1.12-1.30); Puncture Site LBA
[2018-01-16 13:24] LABS: ALV-art Gradient 184.025 (0-20)
[2018-01-16 14:04] LABS: Anion Gap 14 mmol/L (10-20); BUN (Urea Nitrogen) 38 mg/dL (8.4-25.7); Calc. Creatinine Clearance 51 mL/min (70-130); Calcium 8.3 mg/dL (7.8-10.44); Carbon Dioxide 16 mmol/L (23-31); Chloride 112 mmol/L (98-107); Estimated GFR-MDRD 42; Glucose 175 mg/dL (83-110); Potassium 6.2 mmol/L (3.5-5.1); Sodium 136 mmol/L (136-145)
[2018-01-16] MEDS: MEROPENEM 1 GM/50 ML 1 GM in Premix Bag 1 BAG IVPB SCH (14:04)
[2018-01-16] MEDS ORDERED: Lacri-Lube Opth Oint 3.5 GM TUBE EA EYE PRN (14:57)
[2018-01-16] MEDS ORDERED: Propofol BOLUS 1,000 MG/100 ML VIAL IV PRN (14:58)
[2018-01-16] MEDS ORDERED: Dextrose 5% in Water 1,000 ML IV SCH (15:00)
[2018-01-16] MEDS ORDERED: Fentanyl BOLUS 250 ML IVPB PRN (15:00)
[2018-01-16] MEDS ORDERED: Ventilator Sedation Protocol 1 EACH FS SCH (15:00)
[2018-01-16] MEDS ORDERED: Morphine 4 MG/ML VIAL SLOW IVP PRN (15:00)
[2018-01-16] MEDS ORDERED: DISCONTINUE PREVIOUS NARCOTIC PAIN MEDICATIONS AND BENZODIAZEPINES FS SCH (15:00)
--- NOTE | 2018-01-16 16:05 | CON ---
DATE OF CONSULTATION: 01/16/2018 SERVICE: Pulmonary Medicine. REASON FOR CONSULTATION: Respiratory failure. HISTORY OF PRESENT ILLNESS: The patient is an 82-year-old white male with past medical history significant for heart failure. He was recently in the hospital , but discharged after volume overload event was resolved. Because of increasing difficulty breathing, Emergency Services were called out to his house. He was intubated in the field and when he got here, he was on mechanical ventilation. He was unable to provide any additional elements of the history. We do not know whether or not this was a sudden onset of respiratory failure, or of a subacute presentation. In the Emergency Department , he was given a dose of Lasix. He was also given some antibiotics. He was tucked into the ICU. PAST MEDICAL HISTORY: 1. Coronary artery disease. 2. Chronic systolic heart failure. 3. Type 2 diabetes mellitus. 4. Hypertension. 5. Dyslipidemia. 6. Gastroesophageal reflux disease. 7. Bradyarrhythmia, status post AICD placement. PAST SURGICAL HISTORY: 1. Cardiac ablation. 2. Percutaneous coronary intervention. 3. Herniorrhaphy. 4. AICD/pacemaker placement. 5. Neck surgery. 6. Back surgery. SOCIAL HISTORY: He had a remote history of smoking, but quit over 10 years ago. Prior to that, he had greater than [id number] history of smoking. The family denies any alcohol or illicit drug use. FAMILY HISTORY: Noncontributory. ALLERGIES: PENICILLIN, SHELLFISH, and LATEX. MEDICATIONS: List of his inpatient medications were reviewed and modified. REVIEW OF SYSTEMS: This cannot be obtained as the patient is intubated and sedated. PHYSICAL EXAMINATION: VITAL SIGNS: Afebrile, pulse 51, blood pressure 102/49, respirations 23, saturation 100% on 50% FiO2 and a PEEP of 7. HEENT: Normocephalic, atraumatic. Sclerae are white, conjunctivae pink. Oral mucosa is moist without lesions. LUNGS: Decent air entry. Crackles are present throughout bilateral lung nugent. They are more predominantly displayed in the dependent region. There is not a significant prolongation of the expiratory phase. No wheezing or rhonchi are appreciated. HEART: Normal rate, regular. ABDOMEN: Soft, nontender, nondistended. Bowel sounds are positive. MUSCULOSKELETAL: No cyanosis or clubbing. There is a 1-2+ pitting in the bilateral lower extremities, which is apparently dramatically improved compared to his last presentation. GENITOURINARY: Canseco catheter in place. NEUROLOGIC: Grossly nonfocal. LABORATORY DATA: WBC 16.7, hemoglobin 14.0, platelets 192,000. INR 1.1. A pH 7.30, pCO2 of 36, pO2 of 55 after significant modification to his ventilator. Creatinine 1.60, BUN 38, bicarbonate 16 and down trending, anion gap 14. Chloride 112, potassium up trending to 6.2. Lactate is cleared to 1.0, BNP 1100 , which is an historic high for this patient. Troponin is 0.019. Urinalysis is essentially unremarkable other than some proteinuria and bacteria without leukocyte esterase or nitrites. There are no significant white blood cells identified. IMAGING: Chest x-ray demonstrates pulmonary vascular congestion. Probable bilateral pulmonary edema is also identified. Endotracheal tube is in good position. A infectious etiology cannot be excluded. He has both interstitial and alveolar infiltrates, possibly characteristic of an atypical infection. CT of the brain demonstrates no acute intracranial abnormality. There are extensive microangiopathic changes. ASSESSMENT: 1. Acute hypoxic respiratory failure. 2. Acute on chronic systolic and diastolic heart failure. 3. Severe sepsis. 4. Healthcare-associated pneumonia, possible. 5. Non-anion gap metabolic acidosis. 6. Hyperkalemia. 7. Acute kidney injury. 8. Type 2 diabetes mellitus. DISCUSSION AND PLAN: I will give him a dose of Kayexalate. Multiple ventilator adjustments have been made in order to improve comfort. I agree with empiric antibiotics. I am going to add one in order to make certain we also cover atypical agents for a brief period of time. A sputum sample will be sent off. Pulmonary Critical Care will continue to follow along. My suspicion is that we are dealing with a water mediated event. That being said, it will be nice to understand what happened to him once we can get the tube out. We will work on minimizing ventilator support through time. Critical care time: 30 minutes. MTDD
[2018-01-16] MEDS: Propofol 1,000 MG/100 ML VIAL IV PRN (16:41)
[2018-01-16] MEDS: Lorazepam 2 MG/ML VIAL SLOW IVP PRN ×2 (16:42→22:45)
[2018-01-16] MEDS ORDERED: Famotidine/PF 20 mg/2ml Vial SLOW IVP SCH (21:00)
[2018-01-16 21:16] LABS: Anion Gap 17 mmol/L (10-20); BUN (Urea Nitrogen) 40 mg/dL (8.4-25.7); Calc. Creatinine Clearance 52 mL/min (70-130); Calcium 8.2 mg/dL (7.8-10.44); Carbon Dioxide 14 mmol/L (23-31); Chloride 112 mmol/L (98-107); Estimated GFR-MDRD 43; Glucose 142 mg/dL (83-110); Potassium 5.3 mmol/L (3.5-5.1); Sodium 138 mmol/L (136-145)
[2018-01-16] MEDS: Insulin Glargine 10 UNITS in Pre-Filled Syringe SC SCH (21:53)
[2018-01-16] MEDS: Heparin 5,000 UNITS/ML VIAL SC SCH (21:53)
--- NOTE | 2018-01-16 22:35 | CON ---
DATE OF CONSULTATION: 01/17/2018 CARDIOLOGY CONSULTATION PRIMARY CARE PHYSICIAN: Dr. Chepe Parr. PRIMARY AGRICULTURAL CONSULTANT: Dr. Chowdhury. PRIMARY AGRICULTURAL CONSULTANT: Here in [place] is Dr. Zamora. REFERRING PHYSICIAN: Dr. Lopez or Dr. Otero. REASON FOR CARDIOLOGY CONSULTATION: Bradycardia. HISTORY OF PRESENT ILLNESS: Mr. Carranza is an 82-year-old male with a significant history of ischemic cardiomyopathy with AICD placement, hypertension , diabetes, and ex-smoker. Patient was here in the [facility] in 10/2017 for acute kidney injury and dehydration due to the severe diarrhea. The patient was transferred to [facility] for rehabilitation in 2017. Patient readmitted back to the hospital for acute respiratory failure secondary to acute on chronic diastolic dysfunction with hyponatremia. Per patient's daughter, patient was doing well at the facility. Patient followed up with Dr. Chowdhury, entry level receptionist at [facility] about 2 weeks ago. The patient's AICD was interrogated at that time, which was showing normal. Patient lives by himself and he is usually taking care of himself. However this morning, patient called the patient's daughter for worsening shortness of breath. When patient's daughter arrived to the patient's place, the daughter noticed the patient started having shortness of breath with gasping and severe edema in the lower extremities. EMS was called, the patient was intubated in the field, and the patient was transferred to [facility] for further evaluation and treatment. Until before patient was transferred to the CCU, patient was on the fentanyl drip per patient 's daughter. At this moment, patient's sedation was off to see patient's neuro status and patient is alert and oriented x4. Even though, patient has a tube in his mouth, he follows the commands very well. Per patient's nurse, patient' s heart rate went down to 40s while the patient was sleeping that is the reason , the cardiac consult was ordered. The patient's daughter does not know the AICD setting at this moment, but he has a [employer] AICD; however, patient's daughter did know why patient has AICD instead of pacemaker. During the initial Cardiology consult assessment, the patient denies chest pain or discomfort during the episode, numbness on the left upper extremities or any other cardiac complaints besides worsening of shortness of breath. Patient had a history of myocardial infarction with status post stent placement in 2004, history of atrial fibrillation ablation, and status post AICD placement. The patient's last echocardiogram was done in 10/2007 in which shows EF of 40%-45%, thickening aortic valve leaflets, mild aortic stenosis, mild mitral valve regurgitation, mild tricuspid regurgitation, and the pacemaker wire visualized in the right ventricle and the patient has a history of stent placement to the left carotid arteries. PAST MEDICAL HISTORY: Coronary artery disease, status post stent placement in 2004, hypertension, hyperlipidemia, carotid stenosis, left carotid stenosis with status post stent placement, possible renal stenosis, GERD, diabetes type 2 , and history of pneumonia. PAST SURGICAL HISTORY: Again, stent placement in the left carotid arteries, coronary arteries, and the kidney. Patient has back surgery, bilateral cataract surgery, hernia repair, left ankle fractures, and neck surgeries. FAMILY HISTORY: There are no significant history of coronary artery disease, CVA, cancer, hypertension. Patient's half-sister disease is due to complication of diabetes at the age of around 50-60. SOCIAL HISTORY: Patient divorce, patient lives by himself. Patient was noted to be active per patient's daughter. He is an ex-smoker. He used to smoke 2 packs a day and quit 2004. He does not drink or use illicit drugs. He enjoyed 1 cup of coffee a day per patient and per daughter, he usually watch fluid and the salt intake at home. He has 2 children and there are no history of congenital disease history. ALLERGIES: He is allergic to PENICILLIN, SHELLFISH, and LATEX. HOME MEDICATIONS: As Lasix 40 mg once a day, Plavix 75 mg once a day, atorvastatin 40 mg once a day, carvedilol 12.5 mg once a day, aspirin 81 mg once a day, multivitamin 1 tablet once a day, Lantus 50 units every night p.m., Januvia 100 mg p.o. once a day, metformin 500 mg twice a day, Imdur ER 30 mg once a day, omeprazole 40 mg once a day, melatonin 10 mg once a day night, Procardia 60 mg once a day, lisinopril 10 mg once a day. REVIEW OF SYSTEMS: A 12-point system is negative prior to hospital admission in 10/2017. PHYSICAL EXAMINATION: VITAL SIGNS: Blood pressure is 102/49, pulses have been lower to 47 up to 60, O2 saturation 100% on the vent machine, respiratory rate 18, temperature 98.2. GENERAL: Well-developed, well-nourished without any acute distress. HEAD: Normocephalic, atraumatic. EYES: Extraocular muscle movement intact. ENT: Oral and nasal mucosa moist without lesions. NECK: Supple and normal range of motion. No JVP. LUNGS: Coarse and diminished at the bases, but no wheezing at this moment. CARDIOVASCULAR: Regular rate and rhythm. Normal S1, S2. There are no S3, S4, no significant murmur, bruit, thrills, or hives noted. No pulses in the bilateral dorsal pedis. There have a 2+ in the bilateral posterior tibial, 1+ in the bilateral popliteal pulses. Carotid pulses are present, but without bruit or thrill. There are 2+ pitting edema in bilateral lower extremities. ABDOMEN: Soft and nontender or mass to palpate, slightly distended, but soft to touch palpate. Bowel sounds are present but hypoactive. MUSCULOSKELETAL: Able to move all extremities. No calf tenderness. SKIN: Warm and dry. No skin rash, lesion, or bruise noted. NEUROLOGIC: Patient alert and oriented x4. Patient can follow the commands. Awake, normal affect. Nonfocal. PSYCHIATRIC: Normal mood and affect normal. EKG: A 12-lead EKG showing sinus rhythm with no-ST segment change or T-wave inversion. LABORATORY DATA: WBC 6.7, hemoglobin 14, hematocrit 41.7, platelet 192. Sodium 136, potassium 6.2, BUN 38, creatinine 1.60, lactic acid is 3.2 and 1.0, calcium 8.3. AST 14, ALT 11, CK-MB 3.4. Troponin is 0.019 and BNP is 1014. ASSESSMENT AND PLAN: 1. Bradycardia, although patient's AICD interrogation by Dr. Chowdhury's office was normal per patient's daughter. We like to go ahead and order another AICD interrogation today to see patient's AICD setting, and we might like to increase the lower setting of the heart rate. At this moment, patient is asymptomatic. Patient denies any dizziness or lightheadedness at this moment, we would like to continue to monitor on the telemetry. 2. Acute hypoxic respiratory failure. Chest x-ray shows pulmonary vascular congestion, possible bilateral pulmonary edema or possible infectious etiologies cannot exclude. At this moment, patient's O2 sat is stable with ventilation support. Patient is going to be extubated tomorrow morning. Patient is on IV antibiotic and also Lasix 40 mg IV twice a day. Continue to monitor patient's condition at this moment. 3. Acute on chronic systolic and diastolic heart failure. Patient's BMP today show more than 1000s. Patient on the Lasix 40 mg IV push twice a day. Patient' s condition is stable at this moment, we would like to continue current medication and adjust patient medication as appropriate. 4. Coronary artery disease with history of stent placement in 2004. Patient's condition is stable at this moment, we would like to continue to monitor on the telemetry. We would like to resume Plavix once patient is extubated tomorrow. 5. Hypertension. Patient's blood pressure is stable with current medication. His lisinopril is on hold due to chronic kidney disease. 6. Hyperlipidemia. Patient is on atorvastatin at home. We like to resume the medication, once patient's condition is stable. 7. Diabetes, type 2. Patient on before meals and at bedtime blood glucose checks, which is managed by primary care doctor. 8. Acute on chronic kidney disease. Patient's creatinine level has been in his baseline at this moment, we would like to continue to monitor. Thank you very much for allowing the Cardiology service to participate in the care of this patient. We will follow along with the patient care team and make further recommendations as appropriate. MARLEN
--- NOTE | 2018-01-17 00:15 | HP ---
HISTORY OF PRESENT ILLNESS: The patient is an 82-year-old male with a past medical history of acute on chronic diastolic heart failure, COPD, hypertension, and a recent hyponatremia who was discharged from the hospital on November for hyponatremia. Patient's granddaughters who are at the bedside states that patient called him this morning stating that he could not breathe. At this time, the uma carl alerted EMS. Per ER documentation, it notes that EMS thought the patient was very hypoxic, satu rations were in the 70s and the patient was then intubated out in the field. I further asked the gra nddaughters if he has been complaining of any coughing or fevers or chills, they stated that he has n ot complained of any symptoms at all. PAST MEDICAL HISTORY: 1. Hypertension. 2. History of COPD. 3. Hyponatremia. 4. Chronic diastolic heart function. 5. Chronic kidney disease. 6. Ventricular tachyarrhythmias. He has AICD. 7. Diabetes. 8. Gastroesophageal reflux disease. 9. Obesity. PAST SURGICAL HISTORY: He has had a cardiac catheterization stents, renal artery stent placement, ca rotid artery stent placement of cervical, history of back surgeries, ablation for ventricular arrhyth mias, and surgery of the umbilical hernia. No obvious history getting from the documentation since t he patient is unable to provide history due to his intubation. FAMILY HISTORY: Unable to obtain. SOCIAL HISTORY: From the records, it indicates a former smoker, quit in 2004. No history of alcohol or drug use. REVIEW OF SYSTEMS: Unable to complete since the patient is currently intubated. HOME MEDICATIONS: This is from his last discharge; aspirin 81 mg daily, atorvastatin 40 mg daily, ca lcium carbonate, vitamin D 1 tab p.o. b.i.d., carvedilol 6.25 mg b.i.d., Plavix 75 mg daily, doxycycl ine 100 mg p.o. b.i.d., finasteride 5 mg at bedtime, Lasix 40 mg daily, gemfibrozil 1 tab daily, insu irving 50 units at bedtime, DuoNeb 3 mL q.4 hours p.r.n., metformin 500 mg b.i.d., nifedipine 60 mg b.i. d., omeprazole 40 mg b.i.d., lisinopril 5 mg b.i.d., sitagliptin phosphate 100 mg, spironolactone 25 mg daily, and tamsulosin 0.4 mg q.a.m. PHYSICAL EXAMINATION: VITAL SIGNS: He was afebrile at 98.8, heart rate of 60s, 90-100%. He is currently intubated. Blood pressure of 130/69. GENERAL: The patient is awake, intubated, follows commands, currently is not on any sedation. HEENT: Normocephalic, atraumatic. NECK: No lymphadenopathy noted. LUNGS: Mild crackles to bilateral bases. No rhonchi heard. CARDIOVASCULAR: S1, S2 present, appears to be bradycardic. No murmurs, rubs, or gallops heard. ABDOMEN: Soft, nontender. Bowel sounds are present x2. No pain upon palpation of the abdomen. No hepatomegaly or splenomegaly noted. NEUROLOGIC: The patient is awake and following commands, moving all extremities. No focal neurologi keli deficits noted. SKIN: No lesions noted. LABORATORY AND DIAGNOSTIC DATA: WBCs of 16.7, hemoglobin of 14.0, hematocrit of 41.7, platelets of 1 92,000. There are no bands. Chemistry: Sodium of 136, potassium of 6.2, bicarbonate of 16, anion g ap of 14, creatinine of 1.6, BUN of 38, glucose of 175, lactic acid of 3.2. BNP of 1014.4. Troponin x1 is negative. The patient's chest x-ray upon my review, I see possible some pulmonary edema and a lso possible infiltration on the right lower to mid lung area. ASSESSMENT: The patient is an 82-year-old male who presents to the hospital with shortness of breath . 1. Acute hypoxic respiratory failure. 2. Sepsis. 3. Acute on chronic diastolic dysfunction. 4. Mild leukocytosis. 5. Hyperkalemia. 6. Non-anion gap metabolic acidosis. 7. Mild acute kidney injury on chronic kidney disease. PLAN: We will start patient on meropenem for broad coverage, since he is allergic to PENICILLIN acco rding to the granddaughters and patient has not received any cephalosporins while in this hospital ay. We will also check blood cultures and sputum culture. Patient is awake, possible extubation to ay versus tomorrow. We will leave that to a Pulmonology. We will start the patient on some DuoNeb a lso. Patient's potassium is 6.2, we will treat it with Kayexalate and also may be a little bit of ca lcium gluconate. We will also give the patient one dose of IV Lasix for better outcome if patient is going to get extubated. DVT prophylaxis. We will put the patient on vent for now. Also, we will check patient's sugars sinc e the patient is a diabetic.
[2018-01-17] MEDS: MEROPENEM 1 GM/50 ML 1 GM in Premix Bag 1 BAG IVPB SCH (00:35)
[2018-01-17] MEDS: Lorazepam 2 MG/ML VIAL SLOW IVP PRN (01:57)
[2018-01-17] MEDS: Furosemide 40 MG/4 ML VIAL SLOW IVP SCH ×2 (05:45→15:20)
[2018-01-17 06:05] LABS: Anion Gap 16 mmol/L (10-20); BUN (Urea Nitrogen) 42 mg/dL (8.4-25.7); Calc. Creatinine Clearance 46 mL/min (70-130); Calcium 8.4 mg/dL (7.8-10.44); Carbon Dioxide 16 mmol/L (23-31); Chloride 110 mmol/L (98-107); Estimated GFR-MDRD 42; Glucose 129 mg/dL (83-110); Phosphorus 3.1 mg/dL (2.3-4.7); Potassium 4.5 mmol/L (3.5-5.1); Sodium 137 mmol/L (136-145)
[2018-01-17 06:15] LABS: Band 1 % (5-11); Hemoglobin 12.6 g/dL (14.0-18.0); Lymphocytes 13 % (21-51); MDiff Complete? YES; Mean Corpuscular HGB CONC 33.2 g/dL (32.0-36.0); Mean Corpuscular Hemoglobin 31.8 pg (27.0-31.0); Mean Corpuscular Volume 95.8 fl (80.0-94.0); Mean Platelet Volume 7.6 fL (7.4-10.4); Monocytes 7 % (0-10); Neutrophil 79 % (42-75); Platelet Count 163 thou/uL (130-400); RBC Distribution Width 13.4 % (11.5-14.5); Red Blood Cell (RBC) Count 3.97 mill/uL (4.70-6.10); White Blood Cell (WBC) Count 13.1 thou/uL (4.8-10.8)
--- NOTE | 2018-01-17 07:56 | ADD-CON ---
ADDENDUM DATE OF CONSULTATION: 01/16/2018 This is an addendum to the note already dictated by nurse practitioner, NAMAN Morin. DATE OF ADMISSION: 01/16/2018 INDICATION FOR CONSULTATION: An 82-year-old gentleman with history of cardiomyopathy and acute CHF exacerbation. HISTORY OF PRESENT ILLNESS: This is a very pleasant 82-year-old gentleman who has a history of ischemic cardiomyopathy with a long history of coronary artery disease, has undergone angioplasty and stent placement. He was not a candidate for bypass surgery. Apparently, according to his family, he has had a defibrillator implanted. He was in the shower earlier today and became very short of breath and dyspneic and when he got out was very diaphoretic and was unable to catch his breath. The family called 911 and he was brought to the emergency room. He has undergone some diuresis and feels better. He apparently has gained about 5 pounds and more so than his usual weight and has developed acute congestive heart failure. At this time, he is on the ventilator. He is more stable. He became very agitated today. Blood pressure is on the low side 81/39, heart rates in the 50s and he is defibrillator suspect that is at the lower rate to avoid pacing as much as possible, but otherwise has had no complaints of chest pain, but he does have a long history of diabetes and smoked heavily in the past also. We are uncertain as to which vessels have stents whether or not he even has any coronary stents, though he has stents in the renal arteries and also on the carotids, but he is uncertain as to whether or not he even has stents in the coronary arteries. We will try to obtain those records from Dr. Chowdhury at [facility]. PAST MEDICAL HISTORY, SOCIAL HISTORY, FAMILY HISTORY, AND REVIEW OF SYSTEMS, MEDICATIONS, ALLERGIES: Please refer to the notes dictated by the nurse practitioner. PHYSICAL EXAMINATION: GENERAL: Reveals an elderly gentleman who is on the ventilator at this time, he is very calm and sedated. VITAL SIGNS: It was found blood pressure 81/39, heart rate 56 and shows paced rhythm. O2 saturation shows a sinus rhythm with first-degree heart block. EKG has pacing of the heart rate gets very low, but at this time, he remains stable. Respiratory rate is 13 on the ventilator, O2 saturations are 100%. He is afebrile. HEENT: Reveals the head to be normocephalic, atraumatic. I cannot hear any significant bruits at this time, but he has increased airway noise due to the ventilator. CHEST: Clear anteriorly. CARDIOVASCULAR: Heart sounds are distant, but appears to be regular, did not hear any gross murmurs. ABDOMEN: Shows obesity with positive bowel sounds. I cannot elicit any masses. EXTREMITIES: Show no clubbing or cyanosis. He has 1+ lower extremity edema. Pedal pulses are difficult to palpate. NEUROLOGIC: The patient is sedated. IMPRESSION: 1. Acute congestive heart failure symptoms due to cardiomyopathy and volume overload. We will continue diuresis at this time. Also note that his WBC was elevated as well as he has hyperkalemia, which would indicate somewhat decreased perfusion. 2. Hyperkalemia with potassium of 6.2. This will need to be addressed in order to lower that otherwise, even if he does need to pace in defibrillator, he may not capture. The potassium gets too elevated. 3. Acute on chronic renal insufficiency with a creatinine of 1.6. 4. Diabetes. This will be dealt with by the primary care service. 5. Elevated BNP of 1114 compatible with his congestive heart failure. We will need to slowly or gently diurese this gentleman. He will need an echocardiogram for evaluation of left ventricular systolic function, if it is severely compromised then he may need to be placed on dobutamine in order to further diuresis in order to protect the kidneys. His last echocardiogram here appears to be done from 2011, at which time ejection fraction appeared to be normal at 50%-55%. He did have an echocardiogram in 10/2017, which showed ejection fraction of 40%-45% with akinesis of the inferior wall. There was no mention in diastolic dysfunction at that time. We will repeat the echocardiogram to see if there have been any interval changes. Further care of the patient will be determined by Dr. Zamora when he visits with the patient tomorrow, since he has seen this patient earlier though just a couple of months ago. I have reviewed his medications. At this time, we agreed with the medications as they are and may need to start low-dose beta blockers once blood pressure improves if he is able tolerate these medications. We also can interrogate his AICD to determine if he has had any events since he was last seen. [facility]
--- NOTE | 2018-01-17 08:24 | RAD ---
CHEST 1 VIEW: HISTORY: Dyspnea. Pleural fluid. Followup. COMPARISON: 01/16/18. FINDINGS: Cardiac silhouette is magnified by projection. Pulmonary vasculature slightly less engorged than on the prior study with slight interval decreased in prominence of widespread reticulonodular interstiti al prominence. Mediastinum midline with aortic calcification. Lines and tubes are unchanged in posi tion. No evidence of pneumothorax. IMPRESSION: Slight interval improvement in appearance of the pulmonary vascular congestion. Other findings are s table. POS: [facility]
[2018-01-17] MEDS: Heparin 5,000 UNITS/ML VIAL SC SCH ×2 (08:31→20:39)
[2018-01-17] MEDS: Propofol 1,000 MG/100 ML VIAL IV PRN (08:31)
--- NOTE | 2018-01-17 10:06 | PDOC.PN ---
- Subjective Encounter Start Date: 01/17/18 Encounter Start Time: 08:40 -: old records requested/rev Patient seen and examined for respi failure. No new complaints. No overnight events - Objective MAR Reviewed: Yes Vital Signs & Weight: Vital Signs (12 hours) Temp Pulse Resp BP Pulse Ox 01/17/18 09:00 65 21 H 100 01/17/18 07:42 98.7 F 64 15 100 01/17/18 07:00 98.7 F 01/17/18 06:41 58 L 119/47 L 01/17/18 06:39 62 19 100 01/17/18 06:00 13 01/17/18 04:00 98.8 F 13 01/17/18 03:07 52 L 13 100 01/17/18 02:00 13 01/17/18 00:00 98.6 F 14 Weight Admit Weight 218 lb 11.177 oz Weight 197 lb 5.019 oz Most Recent Monitor Data Heart Rate from ECG 62 NIBP 127/51 NIBP BP-Mean 83 Respiration from ECG 17 SpO2 100 I&O: 01/16/18 01/17/18 01/18/18 06:59 06:59 06:59 Intake Total 1028.8 0 Output Total 1175 350 Balance -146.2 -350 Result Diagrams: 01/17/18 04:40 01/17/18 04:40 Additional Labs: Accuchecks 01/17/18 01/16/18 04:40 16:17 POC Glucose 134 H 141 H Radiology Reviewed by me: Yes (chest xray) EKG Reviewed by me: Yes (nsr) Phys Exam - Physical Examination Constitutional: NAD intubated HEENT: PERRLA, sclera anicteric Neck: no JVD, supple Respiratory: no wheezing, no rales, no rhonchi Cardiovascular: RRR, no significant murmur, no rub Gastrointestinal: soft, no distention, positive bowel sounds Musculoskeletal: no edema, pulses present Lymphatic: no nodes Psychiatric: normal affect, A&O x 3 Skin: no rash, normal turgor Dx/Plan (1) Acute on chronic systolic ACC/AHA stage C congestive heart failure Code(s): I50.23 - ACUTE ON CHRONIC SYSTOLIC (CONGESTIVE) HEART FAILURE Status : Acute (2) Acute respiratory failure with hypoxia and hypercapnia Code(s): J96.01 - ACUTE RESPIRATORY FAILURE WITH HYPOXIA; J96.02 - ACUTE RESPIRATORY FAILURE WITH HYPERCAPNIA Status: Acute (3) Bradycardia Code(s): R00.1 - BRADYCARDIA, UNSPECIFIED Status: Acute (4) Hyperkalemia Code(s): E87.5 - HYPERKALEMIA Status: Acute (5) Normal anion gap metabolic acidosis Code(s): E87.2 - ACIDOSIS Status: Acute (6) CAD (coronary artery disease) Code(s): I25.10 - ATHSCL HEART DISEASE OF [place] CORONARY ARTERY W/O ANG PCTRS Status: Chronic Qualifiers: Coronary Disease-Associated Artery/Lesion type: bypass graft [place] vs. transplanted heart: [place] heart Associated angina: without angina Qualified Code(s): I25.810 - Atherosclerosis of coronary artery bypass graft(s) without angina pectoris Comment: on ASA,statin,Coreg,lisinopril,Plavix. Coreg held 2/2 bradycardia. 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 Will restart nebs. repqat CXR later today or tomorrow. 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 Continue current regimen. (9) Dyslipidemia Code(s): E78.5 - HYPERLIPIDEMIA, UNSPECIFIED Status: Chronic Comment: Continue Lipitor. (10) GERD (gastroesophageal reflux disease) Code(s): K21.9 - GASTRO-ESOPHAGEAL REFLUX DISEASE WITHOUT ESOPHAGITIS Status: Chronic Qualifiers: Esophagitis presence: without esophagitis Qualified Code(s): K21.9 - Gastro -esophageal reflux disease without esophagitis (11) Hypertension Code(s): I10 - ESSENTIAL (PRIMARY) HYPERTENSION Status: Chronic Qualifiers: Hypertension type: essential hypertension Qualified Code(s): I10 - Essential (primary) hypertension Comment: Fairly well controlled. Continue Lisinopril, Nicardipine. Hydralazine PRN for SBP > 180 (12) Pneumonia Code(s): J18.9 - PNEUMONIA, UNSPECIFIED ORGANISM Status: Suspected - Plan cont current plan of care, plan discussed w/ family, continue antibiotics * today plan for extubation * discussed with daughter bedside * medication reviewed as below * symptomatic treatment * antibiotics as per pulmonary * stable and improving. Review of Systems - Review of Systems Other: unable to review due to intubated status - Medications/Allergies Allergies/Adverse Reactions: Allergies Allergy/AdvReac Type Severity Reaction Status Date / Time Fish Containing Products Allergy Verified 01/16/18 14:58 fish oil Allergy Verified 01/16/18 14:58 Latex, Natural Rubber Allergy Verified 01/16/18 14:58 Penicillins Allergy Verified 01/16/18 14:58 shellfish derived Allergy Verified 01/16/18 14:58 Medications: Current Medications Albuterol/Ipratropium (Duoneb) 3 ml NEB [id number] [facility] Last Admin: 01/17/18 06:39 Dose: 3 ml Dextrose/Water (Dextrose 50%) 25 gm SLOW IVP PRN PRN PRN Reason: Hypoglycemia Famotidine (Pepcid) 20 mg SLOW IVP QPM [facility] Last Admin: 01/16/18 22:37 Dose: 20 mg Furosemide (Lasix) 40 mg SLOW IVP 0600,1400 [facility] Last Admin: 01/17/18 05:45 Dose: 40 mg Glucagon (Glucagon) 1 mg IM PRN PRN PRN Reason: Hypoglycemia Heparin Sodium (Porcine) (Heparin) 5,000 units SC BID [facility] Last Admin: 01/17/18 08:31 Dose: 5,000 units Dextrose/Water (D5w) 1,000 mls @ 0 mls/hr IV .Q0M PRN; As Directed PRN Reason: Hypoglycemia Insulin Glargine 10 units/ (Miscellaneous Medication) 0.1 mls @ 0 mls/hr SC HS [facility] Last Admin: 01/16/18 21:53 Dose: 0.1 mls Meropenem 1 gm/ Device 50 mls @ 100 mls/hr IVPB 1200,2359 [facility] Last Admin: 01/17/18 00:35 Dose: 50 mls Levofloxacin 750 mg/ Device 150 mls @ 100 mls/hr IVPB 1500 [facility] Last Admin: 01/16/18 16:38 Dose: 150 mls Dextrose/Water (D5w) 1,000 mls @ 40 mls/hr IV .Q24H [facility] Last Admin: 01/16/18 16:38 Dose: 1,000 mls Fentanyl Citrate (Fentanyl Bolus) 250 mls @ 0 mls/hr IVPB PRN PRN; As Directed PRN Reason: Breakthrough pain/agitation Stop: 02/15/18 15:00 Fentanyl Citrate 2,000 mcg/ (Sodium Chloride) 100 mls @ 0 mls/hr IV INF MIKAYLA PRN Reason: As Directed Insulin Human Lispro (Humalog) 0 units SC .MILD SLIDING SCALE PRN PRN Reason: Mild Correctional Scale Lorazepam (Ativan) 2 mg SLOW IVP Q1H PRN PRN Reason: Breakthrough agitation Stop: 02/15/18 15:00 Last Admin: 01/17/18 01:57 Dose: 2 mg Mineral Oil/White Petrolatum (Lacri-Lube Ointment) 0 gm EA EYE PRN PRN PRN Reason: Dry Eyes Morphine Sulfate (Morphine) 2 mg SLOW IVP Q1H PRN PRN Reason: breakthrough pain/agitation Stop: 02/15/18 15:00 Discontinue Previous Narcotic Pain Medications And Benzodiazepines 1 each FS .ONE [facility] Stop: 02/15/18 15:00 Propofol (Diprivan) 1,000 mg IV INF PRN; Protocol PRN Reason: TO ACHIEVE GOAL RASS Stop: 02/15/18 14:58 Last Admin: 01/17/18 08:31 Dose: 1,000 mg Propofol (Diprivan Bolus) 20 mg IV Q5MIN PRN PRN Reason: BREAKTHROUGH AGITATION Stop: 02/15/18 14:58 Sodium Chloride (Flush - Normal Saline) 10 ml IVF Q12HR [facility] Last Admin: 01/16/18 21:54 Dose: 10 ml Sodium Chloride (Flush - Normal Saline) 10 ml IVF PRN PRN PRN Reason: Saline Flush Sodium Polystyrene Sulfonate (Kayexelate Oral Susp 15 Gm/60 Ml) 15 gm PO 1500 [facility] Last Admin: 01/16/18 16:39 Dose: 15 gm
[2018-01-17] MEDS ORDERED: Dextrose 5% in Water 1,000 ML IV SCH ×2 (12:45→13:15)
--- NOTE | 2018-01-17 12:53 | PRG ---
DATE OF SERVICE: 01/17/2018 SERVICE: Pulmonary Medicine. INTERVAL HISTORY: The patient is doing fine from a respiratory standpoint. He is on spontaneous jewell athing trial. He denies any current chest pain, nausea, vomiting, fevers or chills. He is breathing comfortably. Oxygen requirements have dramatically improved overnight. There were no overnight faye nts. OBJECTIVE: VITAL SIGNS: Afebrile, pulse 66, blood pressure 155/72, respirations 22, saturation 100% on 2 liters nasal cannula. GENERAL: The patient is awake, alert, no apparent distress. LUNGS: Excellent air entry. There is a prolonged expiratory phase. No wheezing or rhonchi are appr eciated. Dependent crackles are still present. HEART: Normal rate, regular. ABDOMEN: Soft, nontender, nondistended. Bowel sounds are positive. MUSCULOSKELETAL: No cyanosis or clubbing. No pitting in the bilateral lower extremities. NEUROLOGIC: Grossly nonfocal. LABORATORY DATA: WBC 13.1, hemoglobin 12.6, platelets 163,000. Neutrophil count is 79%. INR 1.1. Creatinine 1.58 and stable. Basic metabolic profile, magnesium and phosphorus are normal. TSH 0.45. Bicarbonate is gently increasing, but the anion gap is improving. IMAGING: Echocardiogram demonstrates 20%-30% ejection fraction. Diastolic dysfunction is also prese nt. Aortic valve has decreased excursion with evidence of stenosis. There is also severe mitral reg urgitation. IMAGING: Chest x-ray demonstrates significant improvement in opacifications throughout the right pallavi g. Pulmonary vascular congestion remains. Otherwise, there is chronic stable findings. Endotrachea l tube remains in decent position. The widened dara angle is suggestive of left atrial enlargement . Bilateral pleural effusions are likely present. ASSESSMENT: 1. Acute hypoxic respiratory failure, significantly better. 2. Acute on chronic systolic and diastolic and valvular heart failure. 3. Mitral regurgitation, severe. 4. Severe sepsis. 5. Healthcare-associated pneumonia, unlikely. 6. Anion gap metabolic acidosis, resolving. 7. Hyperkalemia, resolved. 8. Acute kidney injury, stable. 9. Type 2 diabetes mellitus. PLAN: The patient finished his spontaneous breathing trial. If he meets criteria at the end of this thing, extubation will be considered. If we are successful in that maneuver, we will start mobilizi ng him, get him into a chair, and feed him. With a severe mitral regurgitation, he may benefit from tight blood pressure control. CRITICAL CARE TIME: 30 minutes.
[2018-01-17] MEDS: hydrALAZINE 25 MG TAB PO SCH ×2 (15:45→20:00)
[2018-01-17] MEDS: Aspirin 81 mg Enteric Coated Tablet PO SCH (17:45)
[2018-01-17] MEDS: Insulin Glargine 10 UNITS in Pre-Filled Syringe SC SCH (20:36)
[2018-01-17] MEDS: Atorvastatin Calcium 40 MG TAB PO SCH (20:38)
[2018-01-18 05:08] LABS: Anion Gap 12 mmol/L (10-20); BUN (Urea Nitrogen) 36 mg/dL (8.4-25.7); Calc. Creatinine Clearance 57 mL/min (70-130); Calcium 8.4 mg/dL (7.8-10.44); Carbon Dioxide 23 mmol/L (23-31); Chloride 107 mmol/L (98-107); Estimated GFR-MDRD 54; Glucose 88 mg/dL (83-110); Potassium 3.3 mmol/L (3.5-5.1); Sodium 139 mmol/L (136-145)
[2018-01-18] MEDS: Furosemide 40 MG/4 ML VIAL SLOW IVP SCH ×2 (06:23→14:28)
[2018-01-18] MEDS ORDERED: Chloraseptic Spray 180 ml Bottle PO PRN (07:21)
[2018-01-18] MEDS ORDERED: Sodium Chloride 0.65% Nasal 44 ML BOT EA NARE PRN (07:21)
[2018-01-18] MEDS ORDERED: Loratadine 10 MG TAB PO PRN (07:21)
[2018-01-18] MEDS ORDERED: Artificial Tears 18 DROP/0.9 ML EA EYE PRN (07:21)
[2018-01-18] MEDS ORDERED: Loperamide HCl 2 MG CAP PO PRN (07:21)
[2018-01-18] MEDS ORDERED: Acetaminophen 325 MG TAB PO PRN (07:21)
[2018-01-18] MEDS ORDERED: Milk Of Magnesia 30 ML UDCUP PO PRN (07:21)
[2018-01-18] MEDS ORDERED: Ondansetron HCl/PF 4 MG/2 ML Vial IVP PRN (07:21)
[2018-01-18] MEDS ORDERED: Nitroglycerin 0.4 MG TAB (25 Tab Bottle) SL PRN (07:21)
[2018-01-18] MEDS ORDERED: Ondansetron ODT 4 MG TAB PO PRN (07:21)
[2018-01-18] MEDS ORDERED: Eucerin (Mineral Oil/Petrolatum,White) 30 gm Jar TOP PRN (07:21)
[2018-01-18] MEDS ORDERED: Mag-Al 1200 mg/1200 mg/30 ML UDCUP PO PRN (07:21)
[2018-01-18] MEDS ORDERED: hydrALAZINE 20 MG/ML VIAL SLOW IVP PRN (07:21)
[2018-01-18] MEDS ORDERED: Bisacodyl 10 MG SUPP PR PRN (07:21)
[2018-01-18] MEDS ORDERED: Diabetic Tussin 200 MG/10 ML UDCUP PO PRN (07:21)
[2018-01-18] MEDS ORDERED: Temazepam 15 MG CAP PO PRN (07:21)
[2018-01-18] MEDS ORDERED: Spironolactone 25 MG TAB PO SCH (08:00)
[2018-01-18] MEDS: hydrALAZINE 25 MG TAB PO SCH ×3 (08:28→20:24)
[2018-01-18] MEDS: Heparin 5,000 UNITS/ML VIAL SC SCH ×2 (08:28→20:25)
[2018-01-18] MEDS: Famotidine 20 MG TAB PO SCH ×2 (08:28→20:24)
--- NOTE | 2018-01-18 09:50 | PDOC.PN ---
- Subjective Encounter Start Date: 01/18/18 Encounter Start Time: 09:30 Patient seen and examined for respi failure, he is doing well, eating his breakfast. No new complaints. No overnight events - Objective Resuscitation Status: Resuscitation Status FULL:Full Resuscitation MAR Reviewed: Yes Vital Signs & Weight: Vital Signs (12 hours) Temp Pulse Resp BP Pulse Ox 01/18/18 08:28 84 161/93 H 01/18/18 07:22 96 01/18/18 07:20 80 17 96 01/18/18 07:08 98 F 87 17 99 01/18/18 07:00 98 F 01/18/18 04:00 97.9 F 01/18/18 02:24 79 16 98 01/18/18 00:00 98.1 F 01/17/18 21:52 81 16 98 Weight Admit Weight 218 lb 11.177 oz Weight 196 lb 3.382 oz Most Recent Monitor Data Heart Rate from ECG 78 NIBP 132/50 NIBP BP-Mean 111 Respiration from ECG 24 SpO2 99 I&O: 01/17/18 01/18/18 01/19/18 06:59 06:59 06:59 Intake Total 1028.8 1571 240 Output Total 1175 3550 260 Balance -146.2 -1978 - Result Diagrams: 01/17/18 04:40 01/18/18 03:36 Additional Labs: Accuchecks 01/17/18 01/17/18 01/17/18 20:36 18:48 10:55 POC Glucose 184 H 97 136 H Radiology Reviewed by me: Yes (echo) EKG Reviewed by me: Yes (nsr) Phys Exam - Physical Examination Constitutional: NAD HEENT: PERRLA, moist MMs, sclera anicteric Neck: no JVD, supple Respiratory: no wheezing, no rhonchi few base rales Cardiovascular: RRR, no rub SM+ Gastrointestinal: soft, non-tender, no distention, positive bowel sounds Musculoskeletal: no edema, pulses present Neurological: non-focal, normal sensation, moves all 4 limbs Lymphatic: no nodes Psychiatric: normal affect, A&O x 3 Skin: no rash, normal turgor Dx/Plan (1) Acute on chronic systolic ACC/AHA stage C congestive heart failure Code(s): I50.23 - ACUTE ON CHRONIC SYSTOLIC (CONGESTIVE) HEART FAILURE Status : Acute (2) Acute respiratory failure with hypoxia and hypercapnia Code(s): J96.01 - ACUTE RESPIRATORY FAILURE WITH HYPOXIA; J96.02 - ACUTE RESPIRATORY FAILURE WITH HYPERCAPNIA Status: Acute (3) Bradycardia Code(s): R00.1 - BRADYCARDIA, UNSPECIFIED Status: Acute (4) Hyperkalemia Code(s): E87.5 - HYPERKALEMIA Status: Acute (5) Normal anion gap metabolic acidosis Code(s): E87.2 - ACIDOSIS Status: Acute (6) CAD (coronary artery disease) Code(s): I25.10 - ATHSCL HEART DISEASE OF [place] CORONARY ARTERY W/O ANG PCTRS Status: Chronic Qualifiers: Coronary Disease-Associated Artery/Lesion type: bypass graft [place] vs. transplanted heart: [place] heart Associated angina: without angina Qualified Code(s): I25.810 - Atherosclerosis of coronary artery bypass graft(s) without angina pectoris Comment: on ASA,statin,Coreg,lisinopril,Plavix. Coreg held 2/2 bradycardia. 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 Will restart nebs. repqat CXR later today or tomorrow. 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 Continue current regimen. (9) Dyslipidemia Code(s): E78.5 - HYPERLIPIDEMIA, UNSPECIFIED Status: Chronic Comment: Continue Lipitor. (10) GERD (gastroesophageal reflux disease) Code(s): K21.9 - GASTRO-ESOPHAGEAL REFLUX DISEASE WITHOUT ESOPHAGITIS Status: Chronic Qualifiers: Esophagitis presence: without esophagitis Qualified Code(s): K21.9 - Gastro -esophageal reflux disease without esophagitis (11) Hypertension Code(s): I10 - ESSENTIAL (PRIMARY) HYPERTENSION Status: Chronic Qualifiers: Hypertension type: essential hypertension Qualified Code(s): I10 - Essential (primary) hypertension Comment: Fairly well controlled. Continue Lisinopril, Nicardipine. Hydralazine PRN for SBP > 180 (12) Pneumonia Code(s): J18.9 - PNEUMONIA, UNSPECIFIED ORGANISM Status: Suspected (13) Moderate mitral regurgitation Code(s): I34.0 - NONRHEUMATIC MITRAL (VALVE) INSUFFICIENCY Status: Chronic - Plan cont current plan of care, continue antibiotics, PT/OT, respiratory therapy * medication reviewed as below * symptomatic treatment * transfer to tele * will adjust medication * continue levaquin for now * repeat labs tomorrow. * continue PT Review of Systems - Review of Systems Constitutional: negative: fever, chills, sweats, weakness, malaise, other Eyes: negative: Pain, Vision Change, Conjunctivae Inflammation, Eyelid Inflammation, Redness, Other ENT: negative: Ear Pain, Ear Discharge, Nose Pain, Nose Discharge, Nose Congestion, Mouth Pain, Mouth Swelling, Throat Pain, Throat Swelling, Other Respiratory: Cough, SOB with Excertion. negative: Dry, Shortness of Breath, Hemoptysis, Pleuritic Pain, Sputum, Wheezing Cardiovascular: negative: chest pain, palpitations, orthopnea, paroxysmal nocturnal dyspnea, edema, light headedness, other Gastrointestinal: negative: Nausea, Vomiting, Abdominal Pain, Diarrhea, Constipation, Melena, Hematochezia, Other Genitourinary: negative: Dysuria, Frequency, Incontinence, Hematuria, Retention , Other Musculoskeletal: negative: Neck Pain, Shoulder Pain, Arm Pain, Back Pain, Hand Pain, Leg Pain, Foot Pain, Other Skin: negative: Rash, Lesions, Hector, Bruising, Other Neurological: negative: Weakness, Numbness, Incoordination, Change in Speech, Confusion, Seizures, Other - Medications/Allergies Allergies/Adverse Reactions: Allergies Allergy/AdvReac Type Severity Reaction Status Date / Time Fish Containing Products Allergy Verified 01/16/18 14:58 fish oil Allergy Verified 01/16/18 14:58 Latex, Natural Rubber Allergy Verified 01/16/18 14:58 Penicillins Allergy Verified 01/16/18 14:58 shellfish derived Allergy Verified 01/16/18 14:58 Medications: Current Medications Acetaminophen (Tylenol) 650 mg PO Q4H PRN PRN Reason: Headache/Fever or Mild Pain Al Hydroxide/Mg Hydroxide (Maalox) 15 ml PO Q4H PRN PRN Reason: Heartburn or Indigestion Albuterol/Ipratropium (Duoneb) 3 ml NEB [id number] [facility] Last Admin: 01/18/18 07:20 Dose: 3 ml Artificial Tears (Tears Naturale) 0 drop EA EYE PRN PRN PRN Reason: Dry Eyes Aspirin (Ecotrin) 81 mg PO 1800 [facility] Last Admin: 01/17/18 17:45 Dose: 81 mg Atorvastatin Calcium (Lipitor) 40 mg PO [facility] Last Admin: 01/17/18 20:38 Dose: 40 mg Bisacodyl (Dulcolax) 10 mg [place] DAILYPRN PRN PRN Reason: Constipation Dextrose/Water (Dextrose 50%) 25 gm SLOW IVP PRN PRN PRN Reason: Hypoglycemia Docusate Sodium (Colace) 100 mg PO BIDPRN PRN PRN Reason: Constipation Famotidine (Pepcid) 20 mg PO BID [facility] Last Admin: 01/18/18 08:28 Dose: 20 mg Furosemide (Lasix) 40 mg SLOW IVP 0600,1400 [facility] Last Admin: 01/18/18 06:23 Dose: 40 mg Glucagon (Glucagon) 1 mg IM PRN PRN PRN Reason: Hypoglycemia Guaifenesin (Robitussin Sf) 200 mg PO Q4H PRN PRN Reason: Cough Heparin Sodium (Porcine) (Heparin) 5,000 units SC BID [facility] Last Admin: 01/18/18 08:28 Dose: 5,000 units Hydralazine HCl (Apresoline) 25 mg PO TID [facility] Last Admin: 01/18/18 08:28 Dose: 25 mg Hydralazine HCl (Apresoline) 10 mg SLOW IVP Q4H PRN PRN Reason: Systolic BP > 180 Dextrose/Water (D5w) 1,000 mls @ 0 mls/hr IV .Q0M PRN; As Directed PRN Reason: Hypoglycemia Insulin Glargine 10 units/ (Miscellaneous Medication) 0.1 mls @ 0 mls/hr SC [facility] Last Admin: 01/17/18 20:36 Dose: 0.1 mls Insulin Human Lispro (Humalog) 0 units SC .MILD SLIDING SCALE PRN PRN Reason: Mild Correctional Scale Levofloxacin (Levaquin) 750 mg PO 0600 [facility] Stop: 01/22/18 06:01 Last Admin: 01/18/18 06:23 Dose: 750 mg Loperamide HCl (Imodium) 2 mg PO PRN PRN PRN Reason: Diarrhea/Loose Stools Loratadine (Claritin) 10 mg PO DAILYPRN PRN PRN Reason: Sinus Symptoms Magnesium Hydroxide (Milk Of Magnesium) 30 ml PO DAILYPRN PRN PRN Reason: Constipation Mineral Oil/White Petrolatum (Lacri-Lube Ointment) 0 gm EA EYE PRN PRN PRN Reason: Dry Eyes Mineral Oil/White Petrolatum (Eucerin Cream) 0 gm TOP BIDPRN PRN PRN Reason: Dry Skin Nitroglycerin (Nitrostat) 0.4 mg SL Q5MIN PRN PRN Reason: Chest Pain Ondansetron HCl (Zofran Odt) 4 mg PO Q6H PRN PRN Reason: Nausea/Vomiting Ondansetron HCl (Zofran) 4 mg IVP Q6H PRN PRN Reason: Nausea/Vomiting Phenol (Chloraseptic [place] 180 Ml Bot) 0 ml PO PRN PRN PRN Reason: Sore Throat Sodium Chloride (Flush - Normal Saline) 10 ml IVF Q12HR MI[facility]AY[facility] Last Admin: 01/18/18 08:29 Dose: 10 ml Sodium Chloride (Flush - Normal Saline) 10 ml IVF PRN PRN PRN Reason: Saline Flush Sodium Chloride ([place] Nasal [place] 0.65%) 0 ml EA NARE QIDPRN PRN PRN Reason: Nasal Congestion Temazepam (Restoril) 15 mg PO HSPRN PRN PRN Reason: Insomnia
[2018-01-18] MEDS: MEROPENEM 1 GM/50 ML 1 GM in Premix Bag 1 BAG IVPB SCH (11:34)
--- NOTE | 2018-01-18 11:59 | PRG ---
DATE OF SERVICE: 01/18/2018 SUBJECTIVE: This morning, he is awake, alert, and responsive. Denies any difficulty breathing. The patient was extubated yesterday, he is doing well. His chest x-ray today shows no obvious infilt rates. OBJECTIVE: VITAL SIGNS: Pulse 81, blood pressure 161/88, sats are 99% on 2 liters, respiration 19. His I's and O's have been good. CHEST: Chest revealed minimal crackles. CARDIAC: Normal S1 and S2, no gallops, no masses. LABORATORY DATA: Creatinine 1.28, BUN 36. Blood cultures growing presumed micrococcus. IMPRESSION: 1. Respiratory failure. 2. Congestive heart failure, ejection fraction 30%. 3. Presumed pneumonia. 4. Diabetes. PLAN: He appears to be stable enough to be transferred out of the ICU. Continue antibiotics, nebuli zer treatments, and supportive care. We will follow.
[2018-01-18] MEDS: Isosorbide Dinitrate 20 MG TAB PO SCH ×2 (14:28→20:24)
[2018-01-18] MEDS: Docusate 100 MG CAP PO PRN ×2 (14:32→20:29)
[2018-01-18] MEDS: Aspirin 81 mg Enteric Coated Tablet PO SCH (19:33)
[2018-01-18] MEDS: Atorvastatin Calcium 40 MG TAB PO SCH (20:24)
[2018-01-18] MEDS: Insulin Glargine 10 UNITS in Pre-Filled Syringe SC SCH (20:37)
[2018-01-19 04:31] LABS: #Eosinphils 0.2 thou/uL (0.0-0.7); #Lymphocytes 1.5 thou/uL (1.20-3.40); %Basophils 0.5 % (0.0-1.0); %Eosinophils 2.4 % (0.0-10.0); %Lymphocytes 16.8 % (21.0-51.0); %Monocytes 11.9 % (0.0-10.0); %Neutrophils 68.4 % (42.0-75.0); Hemoglobin 12.2 g/dL (14.0-18.0); Mean Corpuscular HGB CONC 34.9 g/dL (32.0-36.0); Mean Corpuscular Hemoglobin 32.9 pg (27.0-31.0); Mean Corpuscular Volume 94.3 fl (80.0-94.0); Platelet Count 165 thou/uL (130-400); RBC Distribution Width 13.2 % (11.5-14.5); Red Blood Cell (RBC) Count 3.73 mill/uL (4.70-6.10); White Blood Cell (WBC) Count 8.8 thou/uL (4.8-10.8)
[2018-01-19 05:06] LABS: Anion Gap 12 mmol/L (10-20); BUN (Urea Nitrogen) 29 mg/dL (8.4-25.7); Calc. Creatinine Clearance 60 mL/min (70-130); Calcium 8.5 mg/dL (7.8-10.44); Carbon Dioxide 24 mmol/L (23-31); Chloride 105 mmol/L (98-107); Estimated GFR-MDRD 54; Glucose 142 mg/dL (83-110); Magnesium 1.3 mg/dL (1.6-2.6); Potassium 3.2 mmol/L (3.5-5.1); Sodium 138 mmol/L (136-145)
[2018-01-19] MEDS: Furosemide 40 MG/4 ML VIAL SLOW IVP SCH (05:51)
[2018-01-19] MEDS: Docusate 100 MG CAP PO PRN (05:51)
[2018-01-19] MEDS ORDERED: Magnesium Sulfate 3 GM in Sodium Chloride 0.9% 100 ML IVPB SCH (06:15)
--- NOTE | 2018-01-19 08:25 | PDOC.PN ---
- Subjective Encounter Start Date: 01/19/18 Encounter Start Time: 07:00 Patient seen and examined for CHF. No new complaints. No overnight events today he is on room air, his BP is fluctuates - Objective Resuscitation Status: Resuscitation Status FULL:Full Resuscitation MAR Reviewed: Yes Vital Signs & Weight: Vital Signs (12 hours) Temp Pulse Resp BP BP Pulse Ox 01/19/18 04:06 92 L 01/19/18 04:00 96.6 F L 76 20 128/58 L 96 01/19/18 00:03 92 L 01/19/18 00:00 98.3 F 74 20 118/55 L 94 L 01/18/18 20:24 73 177/77 H Weight Admit Weight 218 lb 11.177 oz Weight 205 lb 11.2 oz Most Recent Monitor Data Heart Rate from ECG 78 NIBP 132/50 NIBP BP-Mean 111 Respiration from ECG 24 SpO2 99 I&O: 01/18/18 01/19/18 01/20/18 06:59 06:59 06:59 Intake Total 1571 620 Output Total 3550 560 Balance -1978 60 Result Diagrams: 01/19/18 03:59 01/19/18 03:59 Additional Labs: Accuchecks 01/19/18 01/18/18 01/18/18 05:45 20:38 16:44 POC Glucose 153 H 164 H 131 H 01/18/18 11:11 POC Glucose 163 H EKG Reviewed by me: Yes (nsr) Phys Exam - Physical Examination Constitutional: NAD HEENT: PERRLA, moist MMs, sclera anicteric Neck: no JVD, supple Respiratory: no wheezing, no rales, no rhonchi Cardiovascular: RRR, no rub SM+ Gastrointestinal: soft, non-tender, no distention, positive bowel sounds Musculoskeletal: no edema, pulses present Neurological: non-focal, normal sensation, moves all 4 limbs Lymphatic: no nodes Psychiatric: normal affect, A&O x 3 Skin: no rash, normal turgor Dx/Plan (1) Acute on chronic systolic ACC/AHA stage C congestive heart failure Code(s): I50.23 - ACUTE ON CHRONIC SYSTOLIC (CONGESTIVE) HEART FAILURE Status : Acute (2) Acute respiratory failure with hypoxia and hypercapnia Code(s): J96.01 - ACUTE RESPIRATORY FAILURE WITH HYPOXIA; J96.02 - ACUTE RESPIRATORY FAILURE WITH HYPERCAPNIA Status: Resolved (3) Bradycardia Code(s): R00.1 - BRADYCARDIA, UNSPECIFIED Status: Resolved (4) Hyperkalemia Code(s): E87.5 - HYPERKALEMIA Status: Resolved (5) Normal anion gap metabolic acidosis Code(s): E87.2 - ACIDOSIS Status: Resolved (6) CAD (coronary artery disease) Code(s): I25.10 - ATHSCL HEART DISEASE OF [place] CORONARY ARTERY W/O ANG PCTRS Status: Chronic Qualifiers: Coronary Disease-Associated Artery/Lesion type: bypass graft [place] vs. transplanted heart: [place] heart Associated angina: without angina Qualified Code(s): I25.810 - Atherosclerosis of coronary artery bypass graft(s) without angina pectoris Comment: on ASA,statin,Coreg,lisinopril,Plavix. Coreg held 2/2 bradycardia. (7) COPD (chronic obstructive pulmonary disease) Status: Chronic Qualifiers: COPD type: COPD with acute exacerbation Qualified Code(s): J44.1 - Chronic obstructive pulmonary disease with (acute) exacerbation Comment: pt denies COPD, but alf smoker, quit in 2004 and on duonebs at home. Will restart nebs. repqat CXR later today or tomorrow. (8) Diabetes type 2, controlled Code(s): E11.9 - TYPE 2 DIABETES MELLITUS WITHOUT COMPLICATIONS Status: Chronic Qualifiers: Diabetes mellitus alf insulin use: with alf use Diabetes mellitus complication detail: with chronic kidney disease Chronic kidney disease stage: stage 3 (moderate) Comment: Well controlled. Continue current regimen. (9) Dyslipidemia Code(s): E78.5 - HYPERLIPIDEMIA, UNSPECIFIED Status: Chronic Comment: Continue Lipitor. (10) GERD (gastroesophageal reflux disease) Code(s): K21.9 - GASTRO-ESOPHAGEAL REFLUX DISEASE WITHOUT ESOPHAGITIS Status: Chronic Qualifiers: Esophagitis presence: without esophagitis Qualified Code(s): K21.9 - Gastro -esophageal reflux disease without esophagitis (11) Hypertension Code(s): I10 - ESSENTIAL (PRIMARY) HYPERTENSION Status: Chronic Qualifiers: Hypertension type: essential hypertension Qualified Code(s): I10 - Essential (primary) hypertension Comment: Fairly well controlled. Continue Lisinopril, Nicardipine. Hydralazine PRN for SBP > 180 (12) Pneumonia Code(s): J18.9 - PNEUMONIA, UNSPECIFIED ORGANISM Status: Suspected (13) Moderate mitral regurgitation Code(s): I34.0 - NONRHEUMATIC MITRAL (VALVE) INSUFFICIENCY Status: Chronic (14) Hypokalemia Code(s): E87.6 - HYPOKALEMIA Status: Acute (15) Hypomagnesemia Code(s): E83.42 - HYPOMAGNESEMIA Status: Acute - Plan cont current plan of care, continue antibiotics, PT/OT * continue po levaquin * continue IV lasix * cardiology following * he has significant improvement * will need to adjust his BP meds * expecting discharge tomorrow if stable * medication reviewed as below * symptomatic treatment. * replace potassium and magnesium today * repeat labs tomorrow Review of Systems - Review of Systems Constitutional: negative: fever, chills, sweats, weakness, malaise, other Eyes: negative: Pain, Vision Change, Conjunctivae Inflammation, Eyelid Inflammation, Redness, Other ENT: negative: Ear Pain, Ear Discharge, Nose Pain, Nose Discharge, Nose Congestion, Mouth Pain, Mouth Swelling, Throat Pain, Throat Swelling, Other Respiratory: negative: Cough, Dry, Shortness of Breath, Hemoptysis, SOB with Excertion, Pleuritic Pain, Sputum, Wheezing Cardiovascular: negative: chest pain, palpitations, orthopnea, paroxysmal nocturnal dyspnea, edema, light headedness, other Gastrointestinal: negative: Nausea, Vomiting, Abdominal Pain, Diarrhea, Constipation, Melena, Hematochezia, Other Genitourinary: negative: Dysuria, Frequency, Incontinence, Hematuria, Retention , Other Musculoskeletal: negative: Neck Pain, Shoulder Pain, Arm Pain, Back Pain, Hand Pain, Leg Pain, Foot Pain, Other Skin: negative: Rash, Lesions, Hector, Bruising, Other - Medications/Allergies Allergies/Adverse Reactions: Allergies Allergy/AdvReac Type Severity Reaction Status Date / Time Fish Containing Products Allergy Verified 01/16/18 14:58 fish oil Allergy Verified 01/16/18 14:58 Latex, Natural Rubber Allergy Verified 01/16/18 14:58 Penicillins Allergy Verified 01/16/18 14:58 shellfish derived Allergy Verified 01/16/18 14:58 Medications: Current Medications Acetaminophen (Tylenol) 650 mg PO Q4H PRN PRN Reason: Headache/Fever or Mild Pain Al Hydroxide/Mg Hydroxide (Maalox) 15 ml PO Q4H PRN PRN Reason: Heartburn or Indigestion Albuterol/Ipratropium (Duoneb) 3 ml NEB [id number] [facility] Last Admin: 01/19/18 07:21 Dose: Not Given Artificial Tears (Tears Naturale) 0 drop EA EYE PRN PRN PRN Reason: Dry Eyes Aspirin (Ecotrin) 81 mg PO 1800 [facility] Last Admin: 01/18/18 19:33 Dose: 81 mg Atorvastatin Calcium (Lipitor) 40 mg PO [facility] Last Admin: 01/18/18 20:24 Dose: 40 mg Bisacodyl (Dulcolax) 10 mg [place] DAILYPRN PRN PRN Reason: Constipation Carvedilol (Coreg) 6.25 mg PO BID-[facility] Dextrose/Water (Dextrose 50%) 25 gm SLOW IVP PRN PRN PRN Reason: Hypoglycemia Docusate Sodium (Colace) 100 mg PO BIDPRN PRN PRN Reason: Constipation Last Admin: 01/19/18 05:51 Dose: 100 mg Famotidine (Pepcid) 20 mg PO BID [facility] Last Admin: 01/18/18 20:24 Dose: 20 mg Furosemide (Lasix) 40 mg PO DAILY-[facility] Glucagon (Glucagon) 1 mg IM PRN PRN PRN Reason: Hypoglycemia Guaifenesin (Robitussin Sf) 200 mg PO Q4H PRN PRN Reason: Cough Heparin Sodium (Porcine) (Heparin) 5,000 units SC BID [facility] Last Admin: 01/18/18 20:25 Dose: 5,000 units Hydralazine HCl (Apresoline) 25 mg PO TID [facility] Last Admin: 01/18/18 20:24 Dose: 25 mg Hydralazine HCl (Apresoline) 10 mg SLOW IVP Q4H PRN PRN Reason: Systolic BP > 180 Dextrose/Water (D5w) 1,000 mls @ 0 mls/hr IV .Q0M PRN; As Directed PRN Reason: Hypoglycemia Insulin Glargine 10 units/ (Miscellaneous Medication) 0.1 mls @ 0 mls/hr SC [facility] Last Admin: 01/18/18 20:37 Dose: 0.1 mls Insulin Human Lispro (Humalog) 0 units SC .MILD SLIDING SCALE PRN PRN Reason: Mild Correctional Scale Isosorbide Dinitrate (Isordil) 20 mg PO TID [facility] Last Admin: 01/18/18 20:24 Dose: 20 mg Levofloxacin (Levaquin) 750 mg PO 0600 [facility] Stop: 01/22/18 06:01 Last Admin: 01/19/18 05:51 Dose: 750 mg Loperamide HCl (Imodium) 2 mg PO PRN PRN PRN Reason: Diarrhea/Loose Stools Loratadine (Claritin) 10 mg PO DAILYPRN PRN PRN Reason: Sinus Symptoms Magnesium Hydroxide (Milk Of Magnesium) 30 ml PO DAILYPRN PRN PRN Reason: Constipation Mineral Oil/White Petrolatum (Lacri-Lube Ointment) 0 gm EA EYE PRN PRN PRN Reason: Dry Eyes Mineral Oil/White Petrolatum (Eucerin Cream) 0 gm TOP BIDPRN PRN PRN Reason: Dry Skin Nitroglycerin (Nitrostat) 0.4 mg SL Q5MIN PRN PRN Reason: Chest Pain Ondansetron HCl (Zofran Odt) 4 mg PO Q6H PRN PRN Reason: Nausea/Vomiting Ondansetron HCl (Zofran) 4 mg IVP Q6H PRN PRN Reason: Nausea/Vomiting Phenol (Chloraseptic [place] 180 Ml Bot) 0 ml PO PRN PRN PRN Reason: Sore Throat Potassium Chloride (K-Dur) 40 meq PO BID-[facility] Stop: 01/19/18 17:01 Sodium Chloride (Flush - Normal Saline) 10 ml IVF Q12HR [facility] Last Admin: 01/18/18 20:24 Dose: 10 ml Sodium Chloride (Flush - Normal Saline) 10 ml IVF PRN PRN PRN Reason: Saline Flush Last Admin: 01/19/18 05:51 Dose: 10 ml Sodium Chloride ([place]mber Nasal [place] 0.65%) 0 ml EA NARE QIDPRN PRN PRN Reason: Nasal Congestion Temazepam (Restoril) 15 mg PO HSPRN PRN PRN Reason: Insomnia
[2018-01-19] MEDS: hydrALAZINE 25 MG TAB PO SCH ×3 (08:57→20:54)
[2018-01-19] MEDS: Potassium Chloride 20 MEQ TAB PO SCH ×2 (08:58→17:43)
[2018-01-19] MEDS: Isosorbide Dinitrate 20 MG TAB PO SCH ×3 (08:58→20:55)
[2018-01-19] MEDS: Famotidine 20 MG TAB PO SCH ×2 (08:58→20:54)
[2018-01-19] MEDS: Heparin 5,000 UNITS/ML VIAL SC SCH ×2 (08:58→20:54)
--- NOTE | 2018-01-19 12:58 | PRG ---
DATE OF SERVICE: 01/19/2018 SUBJECTIVE: This morning remains encephalopathic. OBJECTIVE: VITAL SIGNS: Sats are 96% on room air, respiratory rate 15, temperature 97, blood pressure is 186/82 . LUNGS: No respiratory distress. CHEST: Decreased breath sounds without any wheezing. CARDIAC: Normal S1 and S2. No gallops. ABDOMEN: Soft, no masses. LABORATORY DATA: BNP 1004. Creatinine of 1.28. White count is normal. IMPRESSION: 1. Respiratory failure, improved. 2. Congestive heart failure. 3. Pneumonia. PLAN: Deescalate antibiotics. Supportive care and PT. DISPOSITION: As per the primary care physician.
[2018-01-19] MEDS: Carvedilol 6.25 MG TAB PO SCH (17:43)
[2018-01-19] MEDS: Aspirin 81 mg Enteric Coated Tablet PO SCH (17:43)
[2018-01-19] MEDS: Insulin Glargine 10 UNITS in Pre-Filled Syringe SC SCH (20:54)
[2018-01-19] MEDS: Atorvastatin Calcium 40 MG TAB PO SCH (20:54)
[2018-01-20 04:33] LABS: Anion Gap 11 mmol/L (10-20); BUN (Urea Nitrogen) 26 mg/dL (8.4-25.7); Calc. Creatinine Clearance 58 mL/min (70-130); Calcium 8.6 mg/dL (7.8-10.44); Carbon Dioxide 24 mmol/L (23-31); Chloride 106 mmol/L (98-107); Estimated GFR-MDRD 53; Glucose 149 mg/dL (83-110); Potassium 4.3 mmol/L (3.5-5.1); Sodium 137 mmol/L (136-145)
[2018-01-20] MEDS ORDERED: Furosemide 40 MG TAB PO SCH (07:30)
[2018-01-20] MEDS: Heparin 5,000 UNITS/ML VIAL SC SCH (08:41)
[2018-01-20] MEDS: hydrALAZINE 25 MG TAB PO SCH (08:42)
[2018-01-20] MEDS: Famotidine 20 MG TAB PO SCH (08:42)
[2018-01-20] MEDS: Isosorbide Dinitrate 20 MG TAB PO SCH (08:42)
[2018-01-20] MEDS: Carvedilol 6.25 MG TAB PO SCH (08:42)
--- NOTE | 2018-01-20 10:11 | DIS ---
DATE OF ADMISSION: 01/16/2018 DATE OF DISCHARGE: 01/20/2018 PRIMARY CARE PHYSICIAN: Dr. Chepe Parr. DISCHARGE DISPOSITION: Home with home health. PRIMARY DISCHARGE DIAGNOSES: Acute on chronic systolic congestive heart failure, stage C; initially hyperkalemia and subsequently hypokalemia, corrected; hypomagnesemia, corrected; pneumonia; bradycard ia, resolved; acute respiratory failure with hypoxia, resolved; normal anion gap metabolic acidosis, resolved. SECONDARY DISCHARGE DIAGNOSES: Chronic systolic heart failure with EF 20%-30%, coronary artery disea se, chronic obstructive pulmonary disease, diabetes type 2, dyslipidemia, gastroesophageal reflux dis ease, hypertension, and moderate mitral regurgitation. PRIMARY PROCEDURE AND OPERATION: Endotracheal intubation and mechanical ventilatory support. RADIOLOGICAL INVESTIGATION: Chest x-ray on admission showed pulmonary vascular congestion, pulmonary edema. CT brain was negative for any acute intracranial process. Echocardiography showed EF 20%-30 %, moderate mitral regurgitation. SIGNIFICANT LABORATORY DATA: WBC 8.8, hemoglobin 12.2, platelet 165. INR 1.1. PH 7.30, CO2 of 86.9 , O2 55.3, bicarbonate 17.5. Sodium 137, potassium 4.3, BUN 26, creatinine 1.31, calcium 8.6, magnes ium 2.0. Urinalysis normal. Blood culture showed micrococcus, which was contaminated. DISCHARGE MEDICATIONS: Aspirin 81 mg p.o. daily, Lipitor 40 mg p.o. daily, Coreg 6.25 mg p.o. b.i.d. , Plavix 75 mg p.o. daily, Lasix 40 mg p.o. daily, hydralazine 25 mg p.o. t.i.d., Lantus insulin 50 u nits subcu at bedtime, Isordil 20 mg t.i.d., Levaquin 750 mg p.o. daily for 3 more days, lisinopril 5 mg p.o. daily, metformin 500 mg p.o. b.i.d., multivitamin 1 tablet p.o. daily, omeprazole 40 mg p.o. daily, Januvia 100 mg p.o. daily. CONTRAINDICATION: The patient is not on aldosterone carlitos agent, because the patient was presented with hyperkalemia and he is at high risk for getting hyperkalemia with lisinopril, that is why that medication is not given upon discharge. INPATIENT CONSULTANTS: Dr. Lopez was consulted while in hospital for respiratory failure. Dr. Viviana knox was consulted while in hospital for systolic heart failure. TEST RESULTS PENDING ON DISCHARGE: None. ALLERGIES: FISH CONTAINING PRODUCT, FISH OIL, NATURAL RUBBER, LATEX. DISCHARGE PLAN: Post hospital, the patient will follow up with Dr. Parr in 1 week. The patient w ill make appointment with his immersion metal cleaner, Dr. Kris Chowdhury. The patient will follow up with the [facility]. HOSPITAL COURSE: An 82-year-old male with above-mentioned medical problem who was admitted by Dr. Delphine Otero on 01/16/2018. Please see her H&P for further detail. [facility] with shortness of breath. This patient required intubation. He wa s hypoxic. He had two diagnoses on admission, which was pulmonary edema as well as pneumonia. The p atient was given empirically broad spectrum antibiotic therapy. He was treated with Lasix. His vent ilator managed by Pulmonary. The next day, the patient's condition significantly improved and patient was able to extubated. Afte r extubation, we observed in ICU and subsequently we transferred him to telemetry floor. We did echo cardiography, which showed moderate to severe mitral regurgitation. We are suspecting that this tabby ent has underlying systolic heart failure with mitral regurgitation that might have precipitated pulm onary edema and that was the reason for admission. He was suspected for pneumonia with a mild leukoc ytosis. He was given broad spectrum antibiotic therapy and subsequently we finished complete course of antibiotic therapy with Levaquin. He had hyperkalemia, normal anion gap metabolic acidosis as wel l as acute kidney injury which was resolved by the time of dictation. Patient subsequently had hypokalemia and hypomagnesemia, which was replaced per protocol. The patient is not given Aldactone, the only reason is because he is at risk for hyperkalemia. We re duced dose of lisinopril. We added hydralazine and isosorbide dinitrate on his regimen. Patient is seen and examined at bedside today. All discharge medication discussed with the patient i n detail. Heart failure education, dietary education and fluid restriction education discussed with the patient. All new medication prescription will be sent to his pharmacy. Overall, the patient is medically stable for discharge today.
--- NOTE | 2018-01-20 10:16 | PDOC.PN ---
- Subjective Encounter Start Date: 01/20/18 Encounter Start Time: 07:10 Patient seen and examined for chf. No new complaints. No overnight events - Objective Resuscitation Status: Resuscitation Status FULL:Full Resuscitation MAR Reviewed: Yes Vital Signs & Weight: Vital Signs (12 hours) Temp Pulse Resp BP BP Pulse Ox 01/20/18 08:42 83 134/63 01/20/18 07:54 98.1 F 83 26 H 135/61 94 L 01/20/18 06:47 83 14 96 01/20/18 04:00 98.9 F 61 20 140/60 99 01/20/18 03:43 92 L 01/19/18 23:17 94 L Weight Admit Weight 218 lb 11.177 oz Weight 205 lb 3.2 oz Most Recent Monitor Data Heart Rate from ECG 78 NIBP 132/50 NIBP BP-Mean 111 Respiration from ECG 24 SpO2 99 I&O: 01/19/18 01/20/18 01/21/18 06:59 06:59 06:59 Intake Total 620 320 Output Total 560 1 Balance 60 319 Result Diagrams: 01/19/18 03:59 01/20/18 03:55 Additional Labs: Accuchecks 01/20/18 01/19/18 01/19/18 06:58 20:35 16:46 POC Glucose 148 H 227 H 164 H 01/19/18 10:37 POC Glucose 169 H EKG Reviewed by me: Yes Phys Exam - Physical Examination Constitutional: NAD HEENT: PERRLA, moist MMs, sclera anicteric Neck: no JVD, supple Respiratory: no wheezing, no rales, no rhonchi Cardiovascular: RRR, no rub sm+ Gastrointestinal: soft, non-tender, no distention, positive bowel sounds Musculoskeletal: no edema, pulses present Neurological: non-focal, normal sensation Lymphatic: no nodes Psychiatric: normal affect, A&O x 3 Skin: no rash, normal turgor Dx/Plan (1) Acute on chronic systolic ACC/AHA stage C congestive heart failure Code(s): I50.23 - ACUTE ON CHRONIC SYSTOLIC (CONGESTIVE) HEART FAILURE Status : Acute (2) Acute respiratory failure with hypoxia and hypercapnia Code(s): J96.01 - ACUTE RESPIRATORY FAILURE WITH HYPOXIA; J96.02 - ACUTE RESPIRATORY FAILURE WITH HYPERCAPNIA Status: Resolved (3) Bradycardia Code(s): R00.1 - BRADYCARDIA, UNSPECIFIED Status: Resolved (4) Hyperkalemia Code(s): E87.5 - HYPERKALEMIA Status: Resolved (5) Normal anion gap metabolic acidosis Code(s): E87.2 - ACIDOSIS Status: Resolved (6) CAD (coronary artery disease) Code(s): I25.10 - ATHSCL HEART DISEASE OF [place] CORONARY ARTERY W/O ANG PCTRS Status: Chronic Qualifiers: Coronary Disease-Associated Artery/Lesion type: bypass graft [place] vs. transplanted heart: [place] heart Associated angina: without angina Qualified Code(s): I25.810 - Atherosclerosis of coronary artery bypass graft(s) without angina pectoris Comment: on ASA,statin,Coreg,lisinopril,Plavix. Coreg held 2/2 bradycardia. (7) COPD (chronic obstructive pulmonary disease) Status: Chronic Qualifiers: COPD type: COPD with acute exacerbation Qualified Code(s): J44.1 - Chronic obstructive pulmonary disease with (acute) exacerbation Comment: pt denies COPD, but terminal carman smoker, quit in 2004 and on duonebs at home. Will restart nebs. repqat CXR later today or tomorrow. (8) Diabetes type 2, controlled Code(s): E11.9 - TYPE 2 DIABETES MELLITUS WITHOUT COMPLICATIONS Status: Chronic Qualifiers: Diabetes mellitus [facility] insulin use: with terminal carman use Diabetes mellitus complication detail: with chronic kidney disease Chronic kidney disease stage: stage 3 (moderate) Comment: Well controlled. Continue current regimen. (9) Dyslipidemia Code(s): E78.5 - HYPERLIPIDEMIA, UNSPECIFIED Status: Chronic Comment: Continue Lipitor. (10) GERD (gastroesophageal reflux disease) Code(s): K21.9 - GASTRO-ESOPHAGEAL REFLUX DISEASE WITHOUT ESOPHAGITIS Status: Chronic Qualifiers: Esophagitis presence: without esophagitis Qualified Code(s): K21.9 - Gastro -esophageal reflux disease without esophagitis (11) Hypertension Code(s): I10 - ESSENTIAL (PRIMARY) HYPERTENSION Status: Chronic Qualifiers: Hypertension type: essential hypertension Qualified Code(s): I10 - Essential (primary) hypertension Comment: Fairly well controlled. Continue Lisinopril, Nicardipine. Hydralazine PRN for SBP > 180 (12) Pneumonia Code(s): J18.9 - PNEUMONIA, UNSPECIFIED ORGANISM Status: Suspected (13) Moderate mitral regurgitation Code(s): I34.0 - NONRHEUMATIC MITRAL (VALVE) INSUFFICIENCY Status: Chronic - Plan cont current plan of care, continue antibiotics, respiratory therapy * medication reviewed as below * symptomatic treatment * see my discharge guzmanami. Review of Systems - Review of Systems Eyes: negative: Pain, Vision Change, Conjunctivae Inflammation, Eyelid Inflammation, Redness, Other ENT: negative: Ear Pain, Ear Discharge, Nose Pain, Nose Discharge, Nose Congestion, Mouth Pain, Mouth Swelling, Throat Pain, Throat Swelling, Other Respiratory: negative: Cough, Dry, Shortness of Breath, Hemoptysis, SOB with Excertion, Pleuritic Pain, Sputum, Wheezing Cardiovascular: negative: chest pain, palpitations, orthopnea, paroxysmal nocturnal dyspnea, edema, light headedness, other Gastrointestinal: negative: Nausea, Vomiting, Abdominal Pain, Diarrhea, Constipation, Melena, Hematochezia, Other Genitourinary: negative: Dysuria, Frequency, Incontinence, Hematuria, Retention , Other Musculoskeletal: negative: Neck Pain, Shoulder Pain, Arm Pain, Back Pain, Hand Pain, Leg Pain, Foot Pain, Other - Medications/Allergies Allergies/Adverse Reactions: Allergies Allergy/AdvReac Type Severity Reaction Status Date / Time Fish Containing Products Allergy Verified 01/16/18 14:58 fish oil Allergy Verified 01/16/18 14:58 Latex, Natural Rubber Allergy Verified 01/16/18 14:58 Penicillins Allergy Verified 01/16/18 14:58 shellfish derived Allergy Verified 01/16/18 14:58 Medications: Current Medications Acetaminophen (Tylenol) 650 mg PO Q4H PRN PRN Reason: Headache/Fever or Mild Pain Al Hydroxide/Mg Hydroxide (Maalox) 15 ml PO Q4H PRN PRN Reason: Heartburn or Indigestion Albuterol/Ipratropium (Duoneb) 3 ml NEB [id number] [facility] Last Admin: 01/20/18 06:47 Dose: 3 ml Artificial Tears (Tears Naturale) 0 drop EA EYE PRN PRN PRN Reason: Dry Eyes Aspirin (Ecotrin) 81 mg PO 1800 [facility] Last Admin: 01/19/18 17:43 Dose: 81 mg Atorvastatin Calcium (Lipitor) 40 mg PO HS [facility] Last Admin: 01/19/18 20:54 Dose: 40 mg Bisacodyl (Dulcolax) 10 mg ND DAILYPRN PRN PRN Reason: Constipation Carvedilol (Coreg) 6.25 mg PO BID-[facility] Last Admin: 01/20/18 08:42 Dose: 6.25 mg Dextrose/Water (Dextrose 50%) 25 gm SLOW IVP PRN PRN PRN Reason: Hypoglycemia Docusate Sodium (Colace) 100 mg PO BIDPRN PRN PRN Reason: Constipation Last Admin: 01/19/18 05:51 Dose: 100 mg Famotidine (Pepcid) 20 mg PO BID [facility] Last Admin: 01/20/18 08:42 Dose: 20 mg Furosemide (Lasix) 40 mg PO DAILY-[facility] Last Admin: 01/20/18 08:43 Dose: 40 mg Glucagon (Glucagon) 1 mg IM PRN PRN PRN Reason: Hypoglycemia Guaifenesin (Robitussin Sf) 200 mg PO Q4H PRN PRN Reason: Cough Heparin Sodium (Porcine) (Heparin) 5,000 units SC BID [facility] Last Admin: 01/20/18 08:41 Dose: 5,000 units Hydralazine HCl (Apresoline) 25 mg PO TID [facility] Last Admin: 01/20/18 08:42 Dose: 25 mg Hydralazine HCl (Apresoline) 10 mg SLOW IVP Q4H PRN PRN Reason: Systolic BP > 180 Dextrose/Water (D5w) 1,000 mls @ 0 mls/hr IV .Q0M PRN; As Directed PRN Reason: Hypoglycemia Insulin Glargine 10 units/ (Miscellaneous Medication) 0.1 mls @ 0 mls/hr SC [facility] Last Admin: 01/19/18 20:54 Dose: 0.1 mls Insulin Human Lispro (Humalog) 0 units SC .MILD SLIDING SCALE PRN PRN Reason: Mild Correctional Scale Isosorbide Dinitrate (Isordil) 20 mg PO TID [facility] Last Admin: 01/20/18 08:42 Dose: 20 mg Levofloxacin (Levaquin) 750 mg PO 0600 [facility] Stop: 01/22/18 06:01 Last Admin: 01/20/18 05:28 Dose: 750 mg Loperamide HCl (Imodium) 2 mg PO PRN PRN PRN Reason: Diarrhea/Loose Stools Loratadine (Claritin) 10 mg PO DAILYPRN PRN PRN Reason: Sinus Symptoms Magnesium Hydroxide (Milk Of Magnesium) 30 ml PO DAILYPRN PRN PRN Reason: Constipation Last Admin: 01/19/18 15:12 Dose: 30 ml Mineral Oil/White Petrolatum (Lacri-Lube Ointment) 0 gm EA EYE PRN PRN PRN Reason: Dry Eyes Mineral Oil/White Petrolatum (Eucerin Cream) 0 gm TOP BIDPRN PRN PRN Reason: Dry Skin Nitroglycerin (Nitrostat) 0.4 mg SL Q5MIN PRN PRN Reason: Chest Pain Ondansetron HCl (Zofran Odt) 4 mg PO Q6H PRN PRN Reason: Nausea/Vomiting Ondansetron HCl (Zofran) 4 mg IVP Q6H PRN PRN Reason: Nausea/Vomiting Phenol (Chloraseptic [place] 180 Ml Bot) 0 ml PO PRN PRN PRN Reason: Sore Throat Sodium Chloride (Flush - Normal Saline) 10 ml IVF Q12HR [facility] Last Admin: 01/20/18 08:43 Dose: 10 ml Sodium Chloride (Flush - Normal Saline) 10 ml IVF PRN PRN PRN Reason: Saline Flush Last Admin: 01/19/18 05:51 Dose: 10 ml Sodium Chloride ([place] Nasal [place] 0.65%) 0 ml EA NARE QIDPRN PRN PRN Reason: Nasal Congestion Temazepam (Restoril) 15 mg PO HSPRN PRN PRN Reason: Insomnia
[2018-01-20 12:14] VITALS: BP 139/69; TEMP 98.2
--- NOTE | 2018-01-23 16:05 | PQF ---
[employer] Sunny,JAZZ NOWAK, LÓPEZ QUINTERO MD [id number] CLINICAL DOCUMENTATION CLARIFICATION FORM: POST DISCHARGE Addendum to original discharge summary date: ____ Late entry note date: __ Sepsis and Severe Sepsis~are ~mentioned on the H&P and PN 01/16 and 01/17 Please verify if Sepsis was ruled in or out Please check appropriate box(s) to clarify if the following diagnosis has been ruled in or ruled out: [ ] Ruled in diagnosis Sepsis [ ] Continue to treat [ ] Resolved [ ] Ruled out diagnosis [ ] Cannot rule out diagnosis [ ] Other diagnosis [ x ] Unable to determine In addition, please specify: Present on Admission (POA): [ ] Yes [ ] No [ x ] Unable to determine For continuity of documentation, please document condition throughout progress notes and discharge summary. Thank You. CLINICAL INDICATORS - SIGNS / SYMPTOMS / LABS Sepsis and Severe Sepsis are mentioned on the H&P and PN 01/16 and 01/17 Present Clinical Indicators - Signs / Symptoms / Labs Results and Location in Medical Record [ x ] Altered mental status H&P [ ] Fever or hypothermia (<96.8 F/36 C or > 100.4 F/38C) [ x ] Respiratory rate >20/min, Hypoxemia, SBP <100mmHg [ x ] Heart Rate/Tachycardia (>90 bpm) [ x ] Acute organ dysfunction/failure [ x ] Metabolic acidosis Lactic Acid >2mmol/L OR 36mg/dL, [ ] Oliguria , Increase BUN/Cr, Decreased GFR [ ] Coag abnormalities, thrombocytopenia plts <100k [ ] Shock-hypotension resistant to IV fluid boluses [x ] WBC count (>12,000/mm^4 or <4000/mm^3 or 10% neuts, 10% bands) [ ] Hyperglycemia in absence of diabetes mellitus [x ] Positive blood cultures Present Risk Factors Results and Location in Medical Record [ x ] Infection/Bacteremia [ x ] Pneumonia, UTI, infected wound, gangrenous gall bladder Diabetes or Cancer H&P [ ] Surgery / surgical instrumentation / trauma Ruptured/perforated bowel, ruptured appendix [ ] Immunosuppression [ X ] Advancing Age Present Treatments Results and Location in Medical Record [ X ] Initiation Sepsis Protocol ICU H&P [X ] Daily CBC, blood/sputum/wound cx [ X ] ID Consult [ X ] IV Antibiotics broad spectrum [ X ] IV fluids [ ] Vasopressors, meds [ ] (This form is maintained as a part of the permanent medical record) 2014 [employer]. All Rights Reserved MTDD
== END 2018-01-20 14:31 | disposition home health service (06) | DRG 871 ==
LOC: ERS 08:44 → CCU 10:55 → 2NO 01-18 10:02
PROVIDERS: ADMIT Internal Medicine; ATTEND Internal Medicine
PROC: 5A1935Z Respiratory Ventilation, Less than 24 Consecutive Hours (ICD-10-PCS; principal; 2018-01-16)
DX: A41.9 Sepsis, unspecified organism (principal); J96.01 Acute respiratory failure with hypoxia; I50.43 Acute on chronic combined systolic (congestive) and diastolic (congestive) heart failure; J18.9 Pneumonia, unspecified organism; J96.02 Acute respiratory failure with hypercapnia; E87.2 Acidosis; N17.9 Acute kidney failure, unspecified; I13.0 Hypertensive heart and chronic kidney disease with heart failure and stage 1 through stage 4 chronic kidney disease, or unspecified chronic kidney disease; J44.1 Chronic obstructive pulmonary disease with (acute) exacerbation; J44.0 Chronic obstructive pulmonary disease with (acute) lower respiratory infection; I34.0 Nonrheumatic mitral (valve) insufficiency; E87.6 Hypokalemia; R65.20 Severe sepsis without septic shock; I25.10 Atherosclerotic heart disease of native coronary artery without angina pectoris; I25.5 Ischemic cardiomyopathy; E11.22 Type 2 diabetes mellitus with diabetic chronic kidney disease; N18.3 Chronic kidney disease, stage 3 (moderate); E87.5 Hyperkalemia; E78.5 Hyperlipidemia, unspecified; E83.42 Hypomagnesemia; K21.9 Gastro-esophageal reflux disease without esophagitis; I25.2 Old myocardial infarction; E66.9 Obesity, unspecified; Z68.27 Body mass index [BMI] 27.0-27.9, adult; Z95.810 Presence of automatic (implantable) cardiac defibrillator; Z95.5 Presence of coronary angioplasty implant and graft; Z87.891 Personal history of nicotine dependence; Z91.040 Latex allergy status; Z88.0 Allergy status to penicillin; Z91.013 Allergy to seafood; Z79.84 Long term (current) use of oral hypoglycemic drugs
CPT/HCPCS: 31500; 36415; 36416; 51702; 70450; 71045; 80048; 80053; 81003; 81015; 82553; 82805; 83605; 83735; 83880; 84100; 84443; 84484; 85007; 85025; 85027; 85610; 85730; 87040; 87149; 93005; 93306; 94002; 94003; 94640; 94660; 96365; 96375; 99292; A4216; G8978-GP-CM; G8979-GP-CK; J1644; J1940; J2060; J2185; J2704; J3010; J3475; J7050; J7620; S0028

== ENCOUNTER 2018-06-23 12:57 | Outpatient (CLI) | payer MEDICARE, OTHER ==
--- NOTE | 2018-06-23 14:52 | RAD ---
CHEST 2 VIEWS: HISTORY: Dyspnea. COMPARISON: Radiograph 01/17/2018. FINDINGS: Lungs without focal airspace consolidation, pneumothorax, or effusion. Single-lead defibrillator is present. There is a lower thoracic spine compression fracture with approximately 20% height loss. Chronic bronchiectasis in the lower lobes. IMPRESSION: Chronic findings. POS: [facility]
== END 2018-06-23 12:58 | disposition home or self-care (01) ==
LOC: BBPSJX 12:57 → RAD 12:58
PROVIDERS: ATTEND Internal Medicine Pulmonary Disease
DX: R06.00 Dyspnea, unspecified (principal); J47.9 Bronchiectasis, uncomplicated; M48.54XA Collapsed vertebra, not elsewhere classified, thoracic region, initial encounter for fracture; Z95.810 Presence of automatic (implantable) cardiac defibrillator
CPT/HCPCS: 71046

== ENCOUNTER 2019-01-14 14:22 | Inpatient (IN) | payer MEDICARE, OTHER ==
[2019-01-14 15:03] LABS: #Eosinphils 0.1 thou/uL (0.0-0.7); #Lymphocytes 1.2 thou/uL (1.20-3.40); #Monocytes 0.9 thou/uL (0.11-0.59); #Neutrophils 6.7 thou/uL (1.40-6.50); %Basophils 0.4 % (0.0-1.0); %Eosinophils 1.1 % (0.0-10.0); %Lymphocytes 13.2 % (21.0-51.0); %Monocytes 10.6 % (0.0-10.0); %Neutrophils 74.7 % (42.0-75.0); Hemoglobin 10.3 g/dL (14.0-18.0); Mean Corpuscular HGB CONC 32.4 g/dL (32.0-36.0); Mean Corpuscular Hemoglobin 27.3 pg (27.0-31.0); Mean Corpuscular Volume 84.3 fL (78.0-98.0); Mean Platelet Volume 7.7 fL (7.4-10.4); Platelet Count 187 thou/uL (130-400); RBC Distribution Width 16.1 % (11.5-14.5); Red Blood Cell (RBC) Count 3.78 mill/uL (4.70-6.10); White Blood Cell (WBC) Count 8.9 thou/uL (4.8-10.8)
--- NOTE | 2019-01-14 15:12 | RAD ---
XR Chest 1 View Portable HISTORY: Dyspnea COMPARISON: 06/23/2018 exam. FINDINGS: Heart size is borderline. Internal defibrillator device is present. Interstitial changes in the bases appear chronic in nature. No signs of overt failure. IMPRESSION: Stable chronic lung change.
[2019-01-14 15:23] LABS: ALT (SGPT) 20 U/L (8-55); AST (SGOT) 21 U/L (5-34); Albumin 3.8 g/dL (3.4-4.8); Alkaline Phosphatase 130 U/L (40-150); Anion Gap 14 mmol/L (10-20); BUN (Urea Nitrogen) 25 mg/dL (8.4-25.7); Bilirubin, Total 0.9 mg/dL (0.2-1.2); CK (CPK) 182 U/L (30-200); Calc. Creatinine Clearance 0 mL/min (70-130); Calcium 9.3 mg/dL (7.8-10.44); Carbon Dioxide 26 mmol/L (23-31); Chloride 100 mmol/L (98-107); Estimated GFR-MDRD 37; Glucose 271 mg/dL (83-110); Potassium 3.4 mmol/L (3.5-5.1); Protein, Total 6.8 g/dL (5.8-8.1); Sodium 137 mmol/L (136-145)
[2019-01-14 15:43] LABS: CKMB 4.2 ng/mL (0-6.6)
[2019-01-14] MEDS ORDERED: Aspirin 325 MG TAB ONE (16:22)
[2019-01-14] MEDS ORDERED: Furosemide 40 MG/4 ML VIAL ONE (16:47)
[2019-01-14 18:19] LABS: Troponin I 0.034 ng/mL (< 0.028)
[2019-01-14] MEDS ORDERED: Acetaminophen 325 MG TAB PO PRN (19:20)
[2019-01-14] MEDS ORDERED: HumaLOG 300 UNITS/3 ML VIAL SC PRN ×2 (19:20)
[2019-01-14] MEDS ORDERED: Guaifenesin DM 100-10/5 ML UDCUP PO PRN (19:20)
[2019-01-14] MEDS ORDERED: Senokot S 8.6-50 MG TAB PO PRN (19:20)
[2019-01-14] MEDS ORDERED: Dextrose 5% in Water 1,000 ML IV PRN (19:20)
[2019-01-14] MEDS ORDERED: Bisacodyl 10 MG SUPP PR PRN (19:20)
[2019-01-14] MEDS ORDERED: Dextrose 50% Abboject 50 ML SYRINGE SLOW IVP PRN (19:20)
[2019-01-14 20:22] VITALS: BMI 30.1
--- NOTE | 2019-01-14 20:26 | HP ---
REASON FOR ADMISSION: Acute CHF exacerbation. HISTORY OF PRESENTING ILLNESS: The patient gives history of having increased fluid retention in both his lower extremities and abdomen. He had gone to see Ms. Aaron, nurse practitioner [facility] in November. He was given a dose of IV Lasix and oral increased doses of Lasix. He tried this for 2 weeks and later went to see her again and was still having a lot of retention. He got another dose of IV Lasix and was switched over to torsemide. This morning, he went to see Dr. Zamora and was referred to the emergency room for admission. He has had severe orthopnea and has not been able to lay down flat now. No complaints of chest pain, but has had some tightness, has wet cough but has mucoid expectoration. No fever at home. PAST MEDICAL AND SURGICAL HISTORY: History of CHF with systolic dysfunction and ejection fraction of around 30% based on echo done in January 2018. He also had moderate aortic stenosis, [id number] mitral regurgitation on the echo then. Diabetes mellitus type 2, dyslipidemia, hypertension, COPD, chronic kidney disease stage 3, history of prior cardiac arrest, ventricular arrhythmias with single lead AICD, GERD, obesity, carotid artery stents, back surgery, ablation of ventricular arrhythmias, umbilical hernia repair, and renal artery stent. CURRENT MEDICATIONS: The patient is on: 1. Atorvastatin 40 mg daily. 2. Januvia 100 mg daily. 3. Plavix 75 mg daily. 4. Lantus 50 units subcu at bedtime. 5. Metformin 500 mg p.o. twice daily. 6. Omeprazole 40 mg daily. 7. Calcium with vitamin D one tablet once daily. 8. Centrum Silver one tablet daily. 9. Imdur extended release 30 mg daily. 10. Ranexa 1000 mg twice daily. 11. Hydralazine 50 mg three times daily. 12. Advair Diskus 100/50 mcg two times a day. 13. Potassium chloride 10 mEq p.o. twice daily. 14. Magnesium oxide 400 mg daily. 15. Albuterol inhaler/nebulizer q.6 hourly p.r.n. 16. Torsemide 20 mg daily. ALLERGIES: LATEX, PENICILLIN, AND SHELLFISH. PERSONAL HISTORY: Does not abuse alcohol or drugs. Quit smoking in 2004. FAMILY HISTORY: Mother when he was [id number]. He does not know the exact cause of . Father was a World War II and at the age of 72 years. REVIEW OF SYSTEMS: CONSTITUTIONAL: Negative for weight loss or gain, ability to conduct usual activities. SKIN: Negative for rash, itching. EYES: Negative for double vision, pain. ENT/MOUTH: Negative for nose bleeding, neck stiffness, pain, tenderness. CARDIOVASCULAR: Negative for palpitations, dyspnea on exertion, orthopnea. RESPIRATORY: Negative for shortness of breath, wheezing, cough, hemoptysis, fever or night sweats. GASTROINTESTINAL: Negative for poor appetite, abdominal pain, heartburn, nausea , vomiting, constipation, or diarrhea. GENITOURINARY: Negative for urgency, frequency, dysuria, nocturia. MUSCULOSKELETAL: Negative for pain, swelling. NEUROLOGIC/PSYCHIATRIC: Negative for anxiety, depression. ALLERGY/IMMUNOLOGIC: Negative for skin rash, bleeding tendency. CODE STATUS: Full. Power of senior courtroom clerk is his daughter. PHYSICAL EXAMINATION: GENERAL: The patient is an 83-year-old male, who is currently not in any acute distress. VITAL SIGNS: Blood pressure 160/66, pulse 82 per minute, respiratory rate 22 per minute, temperature 98.4 degrees Fahrenheit, and saturating 97% on room air. NECK: Supple. There is elevated JVD. HEENT: Eyes; extraocular muscles intact. Pupils reacting to light. Oral cavity, mucous membranes are moist. No exudates or congestion. CARDIOVASCULAR: S1 and S2 heard. Murmur plus. RESPIRATORY: Air entry 1+ bilateral. Rales plus in the infrascapular area. ABDOMEN: Soft. There is no rigidity or guarding. Bowel sounds are heard. EXTREMITIES: There is 2+ peripheral edema. No calf tenderness. VASCULAR: Peripheral pulses 1+ bilateral. No ischemic ulcerations or gangrene. CENTRAL NERVOUS SYSTEM: No gross focal deficits noted. The patient is alert, awake, and oriented well. PSYCHIATRIC: The patient's mood is euthymic. No hallucinations or delusions. LABORATORY DATA: White count of 8.9, hemoglobin and hematocrit of 10 and 31, platelet count is 187, MCV is 84 with 74% neutrophils. BUN 25 and creatinine 1.7, serum bicarb is 26, potassium is 3.4, serum glucose 271. BNP is 985. Liver enzymes are within normal limits. Troponin I is indeterminate, peaking up to 0.04. Chest x-ray done shows pulmonary vascular congestion and cardiomegaly. EKG done shows possible atrial fibrillation, but 75 beats per minute, incomplete RBBB seen. Questionable Q-waves seen in V1, V2, and V3. CLINICAL IMPRESSION AND PLAN: The patient will be admitted to telemetry for acute congestive heart failure exacerbation with prior EF of 30% in 2018. He has massive edema in lower extremities and has severe orthopnea. He is also having wet cough. He will be placed on Lasix 40 mg IV q.12 hourly and we will also add Zaroxolyn. We will continue him on aspirin, Lipitor, small dose of carvedilol, Cozaar. Metformin home dose, DuoNeb q.6 hourly. Lantus 10 units subcu twice daily. Echo with 2D Doppler for LV function. We will also consult the patient's stations superintendent, Dr. Zamora. The patient is a full code. The power of senior courtroom clerk is his daughter, Ava Morrison. Job ID: [id number] MTDD
[2019-01-14] MEDS ORDERED: Famotidine 20 MG TAB PO SCH (21:00)
[2019-01-14] MEDS ORDERED: Non-Formulary Item 1 EACH (Insulin Glargine,Hum.Rec.Anlog [Lantus Solostar] 10 UNIT) SQ SCH (21:00)
[2019-01-14] MEDS: Carvedilol 3.125 MG TAB PO SCH (21:46)
[2019-01-14] MEDS: Insulin Glargine 10 UNITS in Pre-Filled Syringe 1 EACH SC SCH (21:47)
[2019-01-14] MEDS: metFORMIN 500 MG TAB PO SCH (21:47)
[2019-01-15] MEDS: Furosemide 40 MG/4 ML VIAL SLOW IVP SCH ×2 (06:14→14:10)
[2019-01-15 06:38] LABS: #Eosinphils 0.2 thou/uL (0.0-0.7); #Neutrophils 6.6 thou/uL (1.40-6.50); %Basophils 0.4 % (0.0-1.0); %Eosinophils 1.8 % (0.0-10.0); %Lymphocytes 11.9 % (21.0-51.0); %Monocytes 10.9 % (0.0-10.0); Hemoglobin 9.9 g/dL (14.0-18.0); Mean Corpuscular Hemoglobin 27.7 pg (27.0-31.0); Mean Corpuscular Volume 83.9 fL (78.0-98.0); Mean Platelet Volume 7.9 fL (7.4-10.4); Platelet Count 173 thou/uL (130-400); RBC Distribution Width 16.1 % (11.5-14.5); Red Blood Cell (RBC) Count 3.57 mill/uL (4.70-6.10); White Blood Cell (WBC) Count 8.7 thou/uL (4.8-10.8)
[2019-01-15 06:43] LABS: Hemoglobin A1c 6.7 % (4.0-6.0)
[2019-01-15 07:01] LABS: Anion Gap 15 mmol/L (10-20); BUN (Urea Nitrogen) 25 mg/dL (8.4-25.7); Calc. Creatinine Clearance 50 mL/min (70-130); Calcium 8.9 mg/dL (7.8-10.44); Carbon Dioxide 25 mmol/L (23-31); Cardiac Risk 2.6 (Less than 4.5); Chloride 101 mmol/L (98-107); Cholesterol 81 mg/dl (< 200 Desired); Estimated GFR-MDRD 41; Glucose 102 mg/dL (83-110); HDL Cholesterol 31 mg/dL (>60 Neg Risk); Iron 22 ug/dL (65-175); Iron 26 ug/dL (65-175); Iron Binding Capacity, Total 378 mcg/dL (261-462); Iron Binding Capacity, Total 384 mcg/dL (261-462); LDL Cholesterol, Calculated 41 mg/dL; Potassium 3.4 mmol/L (3.5-5.1); Sodium 138 mmol/L (136-145); Triglycerides 45 mg/dL (Less than 150)
[2019-01-15 07:19] LABS: Ferritin 51.08 ng/mL (22-322); Thyroid Stimulating Hormone 1.4098 uIU/mL (0.35-4.94)
[2019-01-15 07:32] LABS: Folate (Folic Acid) 15.2 ng/mL (7.0-31.4)
[2019-01-15] MEDS: Potassium Chloride 20 MEQ TAB PO SCH ×2 (08:54→16:35)
[2019-01-15] MEDS: Metolazone 5 MG TAB PO SCH (08:54)
[2019-01-15] MEDS ORDERED: Losartan 25 MG TAB PO SCH (09:00)
[2019-01-15] MEDS: Insulin Glargine 10 UNITS in Pre-Filled Syringe 1 EACH SC SCH ×2 (09:02→20:42)
[2019-01-15] MEDS: metFORMIN 500 MG TAB PO SCH ×2 (09:03→20:41)
[2019-01-15] MEDS: Carvedilol 3.125 MG TAB PO SCH ×2 (09:03→20:41)
[2019-01-15] MEDS: Enoxaparin Sodium 40 MG/0.4 ML SYRINGE SC SCH (09:03)
[2019-01-15] MEDS: Atorvastatin Calcium 40 MG TAB PO SCH (09:03)
[2019-01-15] MEDS: Aspirin Chewable 81 MG TAB PO SCH (09:03)
[2019-01-15] MEDS: Clopidogrel Bisulfate 75 MG TAB PO SCH (09:03)
--- NOTE | 2019-01-15 10:26 | PDOC.PN ---
- Subjective Encounter Start Date: 01/15/19 Encounter Start Time: 08:15 Subjective: breathing better, no chest pain or palp - Objective Resuscitation Status - Order Detail: 01/14/19 19:13 Resuscitation Status Routine Resuscitation Status: FULL: Full Resuscitation Discussed with: POA: daughter SAPPHIRE Reviewed: Yes Vital Signs & Weight: Vital Signs (12 hours) Temp Pulse Pulse Pulse Resp BP BP 01/15/19 09:23 80 82 133/60 162/74 H 01/15/19 06:52 97 16 01/15/19 03:06 97.8 F 78 17 01/15/19 01:56 76 16 BP Pulse Ox Pulse Ox 01/15/19 09:23 95 01/15/19 06:52 95 01/15/19 03:06 134/65 96 01/15/19 01:56 92 L Weight Weight 221 lb 4.8 oz I&O: 01/14/19 01/15/19 01/16/19 06:59 06:59 06:59 Intake Total 300 Output Total 750 Balance -450 Result Diagrams: 01/15/19 05:46 01/15/19 05:46 Additional Labs: Accuchecks 01/15/19 01/14/19 05:14 20:28 POC Glucose 112 H 214 H Phys Exam - Physical Examination HEENT: PERRLA, moist MMs Neck: no JVD, supple Respiratory: no wheezing rales+ Cardiovascular: RRR, no significant murmur Gastrointestinal: soft, no distention, positive bowel sounds Musculoskeletal: pulses present, edema present Neurological: non-focal, moves all 4 limbs Psychiatric: normal affect, A&O x 3 Dx/Plan (1) Acute on chronic systolic ACC/AHA stage C congestive heart failure Code(s): I50.23 - ACUTE ON CHRONIC SYSTOLIC (CONGESTIVE) HEART FAILURE Status : Acute (2) CAD (coronary artery disease) Code(s): I25.10 - ATHSCL HEART DISEASE OF [place] CORONARY ARTERY W/O ANG PCTRS Status: Chronic Qualifiers: Coronary Disease-Associated Artery/Lesion type: bypass graft [place] vs. transplanted heart: [place] heart Associated angina: without angina Qualified Code(s): I25.810 - Atherosclerosis of coronary artery bypass graft(s) without angina pectoris (3) COPD (chronic obstructive pulmonary disease) Status: Chronic Qualifiers: COPD type: COPD with acute exacerbation Qualified Code(s): J44.1 - Chronic obstructive pulmonary disease with (acute) exacerbation (4) Diabetes type 2, controlled Code(s): E11.9 - TYPE 2 DIABETES MELLITUS WITHOUT COMPLICATIONS Status: Chronic Qualifiers: Diabetes mellitus skilled nursing insulin use: with skilled nursing use Diabetes mellitus complication detail: with chronic kidney disease Chronic kidney disease stage: stage 3 (moderate) Comment: Well controlled. Continue current regimen. (5) Dyslipidemia Code(s): E78.5 - HYPERLIPIDEMIA, UNSPECIFIED Status: Chronic Comment: Continue Lipitor. (6) GERD (gastroesophageal reflux disease) Code(s): K21.9 - GASTRO-ESOPHAGEAL REFLUX DISEASE WITHOUT ESOPHAGITIS Status: Chronic Qualifiers: Esophagitis presence: without esophagitis Qualified Code(s): K21.9 - Gastro -esophageal reflux disease without esophagitis (7) Hypertension Code(s): I10 - ESSENTIAL (PRIMARY) HYPERTENSION Status: Chronic Qualifiers: Hypertension type: essential hypertension Qualified Code(s): I10 - Essential (primary) hypertension (8) Moderate mitral regurgitation Code(s): I34.0 - NONRHEUMATIC MITRAL (VALVE) INSUFFICIENCY Status: Chronic - Plan diuresing well, no trouble passing urine -: continue lasix, zaroxolyn, asp, plavix, coreg, cozaar, nebs -: glucophage and lantus for dm -: to ambulate in hallway as tolerated -: geovanna hose for lower extre edema, hemostable * . Review of Systems - Medications/Allergies Allergies/Adverse Reactions: Allergies Allergy/AdvReac Type Severity Reaction Status Date / Time Fish Containing Products Allergy Verified 01/14/19 23:49 fish oil Allergy Verified 01/14/19 23:49 Latex, Natural Rubber Allergy Verified 01/14/19 23:49 Penicillins Allergy Verified 01/14/19 23:49 shellfish derived Allergy Verified 01/14/19 23:49 Medications: Current Medications Acetaminophen (Tylenol) 650 mg PO Q4H PRN PRN Reason: Headache/Fever/Mild Pain (1-3) Albuterol/Ipratropium (Duoneb) 3 ml NEB [id number] MIKAYLA Last Admin: 01/15/19 06:52 Dose: 3 ml Aspirin (Aspirin Chewable) 81 mg PO DAILY MIKAYLA Last Admin: 01/15/19 09:03 Dose: 81 mg Atorvastatin Calcium (Lipitor) 40 mg PO DAILY [facility] Last Admin: 01/15/19 09:03 Dose: 40 mg Bisacodyl (Dulcolax) 10 mg AL DAILYPRN PRN PRN Reason: Constipation Carvedilol (Coreg) 3.125 mg PO BID [facility] Last Admin: 01/15/19 09:03 Dose: 3.125 mg Clopidogrel Bisulfate (Plavix) 75 mg PO DAILY [facility] Last Admin: 01/15/19 09:03 Dose: 75 mg Dextrose/Water (Dextrose 50%) 25 gm SLOW IVP PRN PRN PRN Reason: Hypoglycemia Enoxaparin Sodium (Lovenox) 40 mg SC 0900 [facility] Last Admin: 01/15/19 09:03 Dose: 40 mg Famotidine (Pepcid) 20 mg PO QPM [facility] Furosemide (Lasix) 40 mg SLOW IVP 0600,1400 [facility] Last Admin: 01/15/19 06:14 Dose: 40 mg Glucagon (Glucagon) 1 mg IM PRN PRN PRN Reason: Hypoglycemia Guaifenesin/Dextromethorphan (Robitussin Dm) 15 ml PO Q4H PRN PRN Reason: Cough Dextrose/Water (D5w) 1,000 mls @ 0 mls/hr IV .Q0M PRN PRN Reason: Hypoglycemia Insulin Glargine 10 units/ (Miscellaneous Medication) 0.1 mls @ 0 mls/hr SC BID [facility] Last Admin: 01/15/19 09:02 Dose: 0.1 mls Insulin Human Lispro (Humalog) 0 units SC .MODERATE SLIDING SC PRN PRN Reason: Moderate Correctional Scale Insulin Human Lispro (Humalog) 0 units SC .BEDTIME SLIDING SC PRN PRN Reason: Bedtime Correctional Scale Losartan Potassium (Cozaar) 12.5 mg PO DAILY [facility] Last Admin: 01/15/19 08:55 Dose: 12.5 mg Metformin HCl (Glucophage) 500 mg PO BID [facility] Last Admin: 01/15/19 09:03 Dose: 500 mg Metolazone (Zaroxolyn) 5 mg PO 0830 [facility] Last Admin: 01/15/19 08:54 Dose: 5 mg Multivitamins/Iron (Centrum Kids Complete/Iron) 1 tab PO DAILY [facility] Potassium Chloride (K-Dur) 40 meq PO BID-[facility] Last Admin: 01/15/19 08:54 Dose: 40 meq Senna/Docusate Sodium (Senokot S) 2 tab PO BID PRN PRN Reason: Constipation
[2019-01-15] MEDS: Multivitamins CHEW w/Iron Tablet PO SCH (10:36)
--- NOTE | 2019-01-15 16:11 | CON ---
DATE OF CONSULTATION: HISTORY OF PRESENT ILLNESS: The patient is an 83-year-old gentleman with a long history of congestive heart failure, who presented with dyspnea and lower extremity swelling. The patient was followed primarily by Dr. Kris Chowdhury. He was seen here initially in January of 2018. He presented with congestive heart failure. He underwent an echocardiogram, which revealed severe decrease in left ventricular systolic function with an estimated ejection fraction of 20% to 30%. He was found to have [id number] mitral regurgitation. The patient has previously undergone multiple PTCA and stent placements. He has also had placement of an automatic implantable cardiac defibrillator. The patient has chronic renal insufficiency. For the past year, the patient has been on medical therapy. He has done reasonably well, but he presents with increasing dyspnea. The patient denies having any chest discomfort. He has marked lower extremity swelling. PAST MEDICAL HISTORY: Significant for, 1. Coronary artery disease. 2. Cardiomyopathy. 3. Hypertension. 4. Diabetes mellitus. PAST SURGICAL HISTORY: He has had cervical spine surgery, back surgery, and hernia surgery. SOCIAL HISTORY: He is a former smoker. FAMILY HISTORY: No strong family history of heart disease. ALLERGIES: HE IS ALLERGIC TO PENICILLIN, SHELLFISH, AND LATEX. MEDICATIONS: Included home; 1. Torsemide 40 daily. 2. Potassium 20 daily. 3. Imdur 40 t.i.d. 4. Metformin 500 b.i.d. 5. Omeprazole 40 daily. 6. Plavix 75 daily. 7. Lipitor 40 at bedtime. REVIEW OF SYSTEMS: Ten-point system, otherwise unremarkable. PHYSICAL EXAMINATION: GENERAL: Obese gentleman, in no acute distress. VITAL SIGNS: Blood pressure 134/65. NECK: Showed jugular venous distention in jaw. LUNGS: Few crackles in both bases. HEART: Regular rate and rhythm. Normal S1 and S2. 1/6 systolic murmur. ABDOMEN: Markedly distended. EXTREMITIES: Showed severe bilateral edema. DIAGNOSTIC DATA: His sodium was 138, potassium 3.4, chloride 101, bicarbonate 25, BUN 25, and creatinine 1.6. White blood cell count was 8.7, hemoglobin 9.9, hematocrit 30.0, and his platelets were 173. His EKG revealed him to have atrial fibrillation with an electronic ventricular pacemaker. IMPRESSION: 1. Congestive heart failure. 2. History of cardiomyopathy. 3. Peripheral vascular disease. 4. Diabetes mellitus. 5. History of automatic implantable cardioverter-defibrillator. 6. Renal insufficiency. 7. Hypertension. PLAN: This gentleman presents with recurrent congestive heart failure. The patient will be diuresed with IV Lasix. We will interrogate the patient's electronic pacemaker. We will follow this patient with you through his hospitalization. Job ID: [id number]
--- NOTE | 2019-01-15 18:57 | CON ---
DATE OF CONSULTATION: REASON FOR CONSULTATION: Elevated creatinine. HISTORY OF PRESENT ILLNESS: He is a well known patient who follows in the [facility], was admitted yesterday evening for decompensated congestive heart failure, for orthopnea, and some chest tightness. The patient has chronic CKD. His creatinine is 1.6 today, was 1.7 yesterday, ranges anywhere from 1.3-1.7 since 2012. PAST MEDICAL HISTORY: Significant for congestive heart failure, EF 30%; diabetes mellitus; hypertension; chronic kidney disease; history of cardiac arrest; arrhythmia; back surgery ablation; umbilical hernia repair. HOME MEDICATION: List reviewed. HOSPITAL MEDICATIONS: List reviewed. ALLERGIES: REVIEWED. REVIEW OF SYSTEMS: A 15-point review of systems was performed and negative except for positives noted above. GENERAL: HEAD: NECK: No swelling or lumps. NOSE: No epistaxis or discharge. EYES: No diplopia or pain. RESPIRATORY: CARDIOVASCULAR: GASTROINTESTINAL: /TACK WELDER: MUSCULOSKELETAL: No joint pain. NEUROPSYCHIATRIC SYSTEMS: No suicidal ideation. No ideation. SKIN: Denies any rash or ulcer. CONSTITUTIONAL: No fever or chills. PHYSICAL EXAMINATION: See above. CONSTITUTIONAL: The patient is awake, alert. VITAL SIGNS: Afebrile. Pulse 75, breathing 16, blood pressure 162/74. GENERAL APPEARANCE AND MENTAL STATUS: Fair. HEAD/NECK: Normocephalic. Atraumatic. EYES: EOMI. No deformity. EARS: Clear. No ulcers. NOSE: Intact. No lesions. MOUTH: Clear. No discharge. THROAT: Clear. No exudate. LUNGS: Clear. No crackles. CARDIAC: S1, S2. No rub. ABDOMEN: Benign. Bowel sounds positive. GENITALIA/RECTUM: Canseco absent. BACK/EXTREMITIES: Edema 0+. NEUROLOGICAL: Alert and motor intact. SKIN: LYMPHATICS: LABS: Reviewed. ASSESSMENT AND PLAN: 1. Stage 4 chronic kidney disease, stable. 2. Acute kidney injury, stable. 3. Hypokalemia, recommend potassium replacement. Continue Zaroxolyn and Lasix or torsemide as indicated. Would recommend 1000 mL fluid restriction. Job ID: [id number]
[2019-01-15] MEDS: Famotidine 20 MG TAB PO SCH (20:41)
[2019-01-16] MEDS: Furosemide 40 MG/4 ML VIAL SLOW IVP SCH ×2 (05:33→15:03)
[2019-01-16 06:20] LABS: Anion Gap 11 mmol/L (10-20); BUN (Urea Nitrogen) 27 mg/dL (8.4-25.7); Calc. Creatinine Clearance 51 mL/min (70-130); Calcium 9.1 mg/dL (7.8-10.44); Carbon Dioxide 27 mmol/L (23-31); Chloride 100 mmol/L (98-107); Estimated GFR-MDRD 42; Glucose 63 mg/dL (83-110); Potassium 3.4 mmol/L (3.5-5.1); Sodium 135 mmol/L (136-145)
[2019-01-16] MEDS ORDERED: Spironolactone 25 MG TAB PO SCH (08:00)
[2019-01-16] MEDS: Potassium Chloride 20 MEQ TAB PO SCH ×2 (09:09→17:05)
[2019-01-16] MEDS: Clopidogrel Bisulfate 75 MG TAB PO SCH (09:09)
[2019-01-16] MEDS: Losartan 25 MG TAB PO SCH (09:09)
[2019-01-16] MEDS: Metolazone 5 MG TAB PO SCH (09:09)
[2019-01-16] MEDS: Atorvastatin Calcium 40 MG TAB PO SCH (09:09)
[2019-01-16] MEDS: metFORMIN 500 MG TAB PO SCH ×2 (09:09→20:07)
[2019-01-16] MEDS: Carvedilol 3.125 MG TAB PO SCH ×2 (09:12→20:07)
[2019-01-16] MEDS: Aspirin Chewable 81 MG TAB PO SCH (09:12)
[2019-01-16] MEDS: Insulin Glargine 10 UNITS in Pre-Filled Syringe 1 EACH SC SCH ×2 (09:13→20:08)
[2019-01-16] MEDS: Multivitamins CHEW w/Iron Tablet PO SCH (09:13)
[2019-01-16] MEDS: Enoxaparin Sodium 40 MG/0.4 ML SYRINGE SC SCH (09:13)
--- NOTE | 2019-01-16 12:44 | PRG ---
DATE OF SERVICE: 01/16/2019 SUBJECTIVE: An 83-year-old gentleman, being seen for acute kidney injury. The patient denies any nausea, vomiting, or chest pain. OBJECTIVE: CONSTITUTIONAL: The patient is awake and alert. VITAL SIGNS: Afebrile, pulse 72, breathing 16, blood pressure 132/60. GENERAL APPEARANCE AND MENTAL STATUS: Fair. HEAD/NECK: Normocephalic. Atraumatic. EYES: EOMI. No deformity. EARS: Clear. No ulcers. NOSE: Intact. No lesions. MOUTH: Clear. No discharge. THROAT: Clear. No exudate. LUNGS: Clear. No crackles. CARDIAC: S1, S2. No rub. ABDOMEN: Benign. Bowel sounds positive. GENITALIA/RECTUM: Canseco absent. BACK/EXTREMITIES: Edema 0+. NEUROLOGICAL: Alert and motor intact. SKIN: LYMPHATICS: LABORATORY DATA: Labs show hemoglobin 9.9. Creatinine 1.5. ASSESSMENT AND PLAN: 1. Chronic kidney disease stage 3, stable. 2. Acute kidney injury. 3. Congestive heart failure, stable. 4. Medications based on GFR appropriate. Continue aggressive diuresis. Job ID: [id number]
--- NOTE | 2019-01-16 17:56 | PDOC.PN ---
- Subjective Encounter Start Date: 01/16/19 Encounter Start Time: 08:00 Pt seen for followup re: systolic CHF exacerbation. Feels better. Ambulated in hallways. - Objective Resuscitation Status - Order Detail: 01/14/19 19:13 Resuscitation Status Routine Resuscitation Status: FULL: Full Resuscitation Discussed with: POA: daughter SAPPHIRE Reviewed: Yes Vital Signs & Weight: Vital Signs (12 hours) Temp Pulse Pulse Pulse Resp BP BP 01/16/19 16:00 97.8 F 76 16 01/16/19 12:45 68 16 01/16/19 12:00 97.6 F 78 12 01/16/19 09:43 77 79 138/60 148/71 H 01/16/19 08:00 97.5 F L 72 18 01/16/19 06:54 70 16 BP Pulse Ox 01/16/19 16:00 143/64 H 95 01/16/19 12:45 95 01/16/19 12:00 127/60 97 01/16/19 09:43 01/16/19 08:00 140/63 92 L 01/16/19 06:54 90 L Weight Weight 221 lb 3.2 oz I&O: 01/15/19 01/16/19 01/17/19 06:59 06:59 06:59 Intake Total 300 720 600 Output Total 750 1775 1500 Balance -450 -1055 -900 Result Diagrams: 01/15/19 05:46 01/16/19 05:12 Additional Labs: Accuchecks 01/16/19 01/16/19 01/15/19 10:47 05:22 20:50 POC Glucose 123 H 72 181 H EKG Reviewed by me: Yes (Tele: audrey reyna) Phys Exam - Physical Examination Obese HEENT: moist MMs Neck: supple Respiratory: clear to auscultation bilateral S1, S2, irreg Gastrointestinal: soft Neurological: moves all 4 limbs Psychiatric: normal affect Dx/Plan (1) Acute on chronic systolic ACC/AHA stage C congestive heart failure Code(s): I50.23 - ACUTE ON CHRONIC SYSTOLIC (CONGESTIVE) HEART FAILURE Status : Acute Comment: Improving with furosemide; NYHA Class 3 (2) CAD (coronary artery disease) Code(s): I25.10 - ATHSCL HEART DISEASE OF [place] CORONARY ARTERY W/O ANG PCTRS Status: Chronic Qualifiers: Coronary Disease-Associated Artery/Lesion type: bypass graft [place] vs. transplanted heart: [place] heart Associated angina: without angina Qualified Code(s): I25.810 - Atherosclerosis of coronary artery bypass graft(s) without angina pectoris Comment: stable (3) Diabetes type 2, controlled Code(s): E11.9 - TYPE 2 DIABETES MELLITUS WITHOUT COMPLICATIONS Status: Chronic Qualifiers: Diabetes mellitus retirement insulin use: with watermelon inspector use Diabetes mellitus complication detail: with chronic kidney disease Chronic kidney disease stage: stage 3 (moderate) Comment: reasonable control (4) Dyslipidemia Code(s): E78.5 - HYPERLIPIDEMIA, UNSPECIFIED Status: Chronic Comment: Continue Lipitor. (5) GERD (gastroesophageal reflux disease) Code(s): K21.9 - GASTRO-ESOPHAGEAL REFLUX DISEASE WITHOUT ESOPHAGITIS Status: Chronic Qualifiers: Esophagitis presence: without esophagitis Qualified Code(s): K21.9 - Gastro -esophageal reflux disease without esophagitis Comment: stable (6) Hypertension Code(s): I10 - ESSENTIAL (PRIMARY) HYPERTENSION Status: Chronic Qualifiers: Hypertension type: essential hypertension Qualified Code(s): I10 - Essential (primary) hypertension Comment: reasonable control (7) Chronic kidney disease, stage 3 Code(s): N18.3 - CHRONIC KIDNEY DISEASE, STAGE 3 (MODERATE) Status: Chronic Comment: stable - Plan PT/OT, out of bed/ambulate * . replace potassium Review of Systems - Review of Systems Respiratory: SOB with Excertion. negative: Cough, Shortness of Breath, Pleuritic Pain, Wheezing Cardiovascular: negative: chest pain, palpitations, orthopnea, paroxysmal nocturnal dyspnea, edema, light headedness - Medications/Allergies Allergies/Adverse Reactions: Allergies Allergy/AdvReac Type Severity Reaction Status Date / Time Fish Containing Products Allergy Verified 01/14/19 23:49 fish oil Allergy Verified 01/14/19 23:49 Latex, Natural Rubber Allergy Verified 01/14/19 23:49 Penicillins Allergy Verified 01/14/19 23:49 shellfish derived Allergy Verified 01/14/19 23:49 Medications: Current Medications Acetaminophen (Tylenol) 650 mg PO Q4H PRN PRN Reason: Headache/Fever/Mild Pain (1-3) Albuterol/Ipratropium (Duoneb) 3 ml NEB [id number] Last Admin: 01/16/19 12:45 Dose: 3 ml Aspirin (Aspirin Chewable) 81 mg PO DAILY [facility] Last Admin: 01/16/19 09:12 Dose: 81 mg Atorvastatin Calcium (Lipitor) 40 mg PO DAILY [facility] Last Admin: 01/16/19 09:09 Dose: 40 mg Bisacodyl (Dulcolax) 10 mg [place] DAILYPRN PRN PRN Reason: Constipation Carvedilol (Coreg) 3.125 mg PO BID [facility] Last Admin: 01/16/19 09:12 Dose: Not Given Clopidogrel Bisulfate (Plavix) 75 mg PO DAILY [facility] Last Admin: 01/16/19 09:09 Dose: 75 mg Dextrose/Water (Dextrose 50%) 25 gm SLOW IVP PRN PRN PRN Reason: Hypoglycemia Enoxaparin Sodium (Lovenox) 40 mg SC 0900 [facility] Last Admin: 01/16/19 09:13 Dose: 40 mg Famotidine (Pepcid) 20 mg PO QPM [facility] Last Admin: 01/15/19 20:41 Dose: 20 mg Furosemide (Lasix) 80 mg SLOW IVP 0600,1400 [facility] Last Admin: 01/16/19 15:03 Dose: 80 mg Glucagon (Glucagon) 1 mg IM PRN PRN PRN Reason: Hypoglycemia Guaifenesin/Dextromethorphan (Robitussin Dm) 15 ml PO Q4H PRN PRN Reason: Cough Dextrose/Water (D5w) 1,000 mls @ 0 mls/hr IV .Q0M PRN PRN Reason: Hypoglycemia Insulin Glargine 10 units/ (Miscellaneous Medication) 0.1 mls @ 0 mls/hr SC BID [facility] Last Admin: 01/16/19 09:13 Dose: 0.1 mls Insulin Human Lispro (Humalog) 0 units SC .MODERATE SLIDING SC PRN PRN Reason: Moderate Correctional Scale Insulin Human Lispro (Humalog) 0 units SC .BEDTIME SLIDING SC PRN PRN Reason: Bedtime Correctional Scale Losartan Potassium (Cozaar) 25 mg PO DAILY [facility] Last Admin: 01/16/19 09:09 Dose: 25 mg Metformin HCl (Glucophage) 500 mg PO BID [facility] Last Admin: 01/16/19 09:09 Dose: 500 mg Metolazone (Zaroxolyn) 5 mg PO 0830 [facility] Last Admin: 01/16/19 09:09 Dose: 5 mg Multivitamins/Iron (Centrum Kids Complete/Iron) 1 tab PO DAILY [facility] Last Admin: 01/16/19 09:13 Dose: 1 tab Potassium Chloride (K-Dur) 40 meq PO BID-[facility] Last Admin: 01/16/19 17:05 Dose: 40 meq Senna/Docusate Sodium (Senokot S) 2 tab PO BID PRN PRN Reason: Constipation Spironolactone (Aldactone) 50 mg PO QAM-[facility]
[2019-01-16] MEDS: Famotidine 20 MG TAB PO SCH (20:07)
[2019-01-17 05:50] LABS: Anion Gap 15 mmol/L (10-20); BUN (Urea Nitrogen) 28 mg/dL (8.4-25.7); Calc. Creatinine Clearance 50 mL/min (70-130); Calcium 9.7 mg/dL (7.8-10.44); Carbon Dioxide 24 mmol/L (23-31); Chloride 100 mmol/L (98-107); Estimated GFR-MDRD 41; Glucose 67 mg/dL (83-110); Potassium 3.8 mmol/L (3.5-5.1); Sodium 135 mmol/L (136-145)
[2019-01-17] MEDS: Furosemide 40 MG/4 ML VIAL SLOW IVP SCH ×2 (06:03→14:09)
[2019-01-17] MEDS ORDERED: Spironolactone 25 MG TAB PO SCH (08:00)
[2019-01-17] MEDS: Aspirin Chewable 81 MG TAB PO SCH (08:51)
[2019-01-17] MEDS: Clopidogrel Bisulfate 75 MG TAB PO SCH (08:51)
[2019-01-17] MEDS: Multivitamins CHEW w/Iron Tablet PO SCH (08:51)
[2019-01-17] MEDS: Metolazone 5 MG TAB PO SCH (08:51)
[2019-01-17] MEDS: Potassium Chloride 20 MEQ TAB PO SCH ×2 (08:52→16:51)
[2019-01-17] MEDS: Spironolactone 25 MG TAB PO SCH (08:52)
[2019-01-17] MEDS: metFORMIN 500 MG TAB PO SCH ×2 (08:52→20:21)
[2019-01-17] MEDS: Atorvastatin Calcium 40 MG TAB PO SCH (08:52)
[2019-01-17] MEDS: Losartan 25 MG TAB PO SCH (08:52)
[2019-01-17] MEDS: Enoxaparin Sodium 40 MG/0.4 ML SYRINGE SC SCH (08:53)
[2019-01-17] MEDS: Carvedilol 3.125 MG TAB PO SCH ×2 (08:54→20:17)
[2019-01-17] MEDS: Insulin Glargine 10 UNITS in Pre-Filled Syringe 1 EACH SC SCH ×2 (08:54→20:21)
--- NOTE | 2019-01-17 11:21 | PRG ---
DATE OF SERVICE: 01/17/2019 SUBJECTIVE: This is an 83-year-old male, being seen for acute kidney injury with CHF. The patient denied nausea, vomiting, or chest pain. OBJECTIVE: CONSTITUTIONAL: The patient is awake and alert. VITAL SIGNS: Pulse 79, breathing 16, blood pressure 135/67. GENERAL APPEARANCE AND MENTAL STATUS: Fair. HEAD/NECK: Normocephalic. Atraumatic. EYES: EOMI. No deformity. EARS: Clear. No ulcers. NOSE: Intact. No lesions. MOUTH: Clear. No discharge. THROAT: Clear. No exudate. LUNGS: Clear. No crackles. CARDIAC: S1, S2. No rub. ABDOMEN: Benign. Bowel sounds positive. GENITALIA/RECTUM: Canseco absent. BACK/EXTREMITIES: Edema 0+. NEUROLOGICAL: Alert and motor intact. SKIN: LYMPHATICS: LABORATORY DATA: Reviewed. ASSESSMENT AND PLAN: 1. Stage 4 chronic kidney disease, stable. 2. Acute kidney injury, resolved, due to acute tubular necrosis. 3. Hypertension, stable. 4. Anemia, stable. 5. Medications based on GFR, appropriate. I will sign off on this patient. Please reconsult as needed. Job ID: [id number]
--- NOTE | 2019-01-17 17:38 | PDOC.PN ---
- Subjective Encounter Start Date: 01/17/19 Encounter Start Time: 08:00 Pt seen for followup re: CHF exacerbation. Feels better. Ambulating. - Objective Resuscitation Status - Order Detail: 01/14/19 19:13 Resuscitation Status Routine Resuscitation Status: FULL: Full Resuscitation Discussed with: POA: daughter Vital Signs & Weight: Vital Signs (12 hours) Temp Pulse Pulse Pulse Resp BP BP 01/17/19 16:00 97.4 F L 72 16 01/17/19 12:43 75 16 01/17/19 12:00 97.2 F L 72 17 01/17/19 10:35 86 74 120/56 L 135/67 01/17/19 08:00 96.9 F L 79 18 01/17/19 07:15 70 16 BP Pulse Ox 01/17/19 16:00 151/66 H 94 L 01/17/19 12:43 96 01/17/19 12:00 135/67 95 01/17/19 10:35 01/17/19 08:00 132/62 96 01/17/19 07:15 92 L Weight Weight 215 lb 9.6 oz I&O: 01/16/19 01/17/19 01/18/19 06:59 06:59 06:59 Intake Total 720 1080 720 Output Total 1771 3300 2200 Balance -3239 -2229 -0940 Result Diagrams: 01/15/19 05:46 01/17/19 04:19 Additional Labs: Accuchecks 01/17/19 01/17/19 01/17/19 16:43 11:26 06:15 POC Glucose 181 H 148 H 82 01/17/19 01/16/19 01/16/19 05:31 19:56 17:08 POC Glucose 67 L 131 H 95 Phys Exam - Physical Examination Constitutional: NAD HEENT: moist MMs Neck: no JVD Bibasal crackles Cardiovascular: RRR Gastrointestinal: soft Musculoskeletal: edema present Psychiatric: normal affect Dx/Plan (1) Acute on chronic systolic ACC/AHA stage C congestive heart failure Code(s): I50.23 - ACUTE ON CHRONIC SYSTOLIC (CONGESTIVE) HEART FAILURE Status : Acute Comment: Improving, currently on furosemide 80 mg IV BID. LVEF 25-30%, pt is on beta carlitos and ARB (2) CAD (coronary artery disease) Code(s): I25.10 - ATHSCL HEART DISEASE OF [place] CORONARY ARTERY W/O ANG PCTRS Status: Chronic Qualifiers: Coronary Disease-Associated Artery/Lesion type: bypass graft [place] vs. transplanted heart: [place] heart Associated angina: without angina Qualified Code(s): I25.810 - Atherosclerosis of coronary artery bypass graft(s) without angina pectoris Comment: stable, on aspirin, beta carlitos and ARB (3) Diabetes type 2, controlled Code(s): E11.9 - TYPE 2 DIABETES MELLITUS WITHOUT COMPLICATIONS Status: Chronic Qualifiers: Diabetes mellitus turning machine set up operator insulin use: with turning machine set up operator use Diabetes mellitus complication detail: with chronic kidney disease Chronic kidney disease stage: stage 3 (moderate) Comment: reasonable control (4) Dyslipidemia Code(s): E78.5 - HYPERLIPIDEMIA, UNSPECIFIED Status: Chronic Comment: on Lipitor. (5) GERD (gastroesophageal reflux disease) Code(s): K21.9 - GASTRO-ESOPHAGEAL REFLUX DISEASE WITHOUT ESOPHAGITIS Status: Chronic Qualifiers: Esophagitis presence: without esophagitis Qualified Code(s): K21.9 - Gastro -esophageal reflux disease without esophagitis Comment: stable (6) Hypertension Code(s): I10 - ESSENTIAL (PRIMARY) HYPERTENSION Status: Chronic Qualifiers: Hypertension type: essential hypertension Qualified Code(s): I10 - Essential (primary) hypertension Comment: reasonable control (7) Chronic kidney disease, stage 3 Code(s): N18.3 - CHRONIC KIDNEY DISEASE, STAGE 3 (MODERATE) Status: Chronic Comment: stable - Plan * . Review of Systems - Review of Systems Respiratory: SOB with Excertion Cardiovascular: negative: chest pain, palpitations, orthopnea, paroxysmal nocturnal dyspnea, edema, light headedness Gastrointestinal: negative: Nausea, Vomiting, Abdominal Pain, Diarrhea, Constipation, Melena, Hematochezia - Medications/Allergies Allergies/Adverse Reactions: Allergies Allergy/AdvReac Type Severity Reaction Status Date / Time Fish Containing Products Allergy Verified 01/14/19 23:49 fish oil Allergy Verified 01/14/19 23:49 Latex, Natural Rubber Allergy Verified 01/14/19 23:49 Penicillins Allergy Verified 01/14/19 23:49 shellfish derived Allergy Verified 01/14/19 23:49 Medications: Current Medications Acetaminophen (Tylenol) 650 mg PO Q4H PRN PRN Reason: Headache/Fever/Mild Pain (1-3) Albuterol/Ipratropium (Duoneb) 3 ml NEB [id number] [facility] Last Admin: 01/17/19 12:43 Dose: 3 ml Aspirin (Aspirin Chewable) 81 mg PO DAILY [facility] Last Admin: 01/17/19 08:51 Dose: 81 mg Atorvastatin Calcium (Lipitor) 40 mg PO DAILY [facility] Last Admin: 01/17/19 08:52 Dose: 40 mg Bisacodyl (Dulcolax) 10 mg [place] DAILYPRN PRN PRN Reason: Constipation Carvedilol (Coreg) 3.125 mg PO BID [facility] Last Admin: 01/17/19 08:54 Dose: 3.125 mg Clopidogrel Bisulfate (Plavix) 75 mg PO DAILY [facility] Last Admin: 01/17/19 08:51 Dose: 75 mg Dextrose/Water (Dextrose 50%) 25 gm SLOW IVP PRN PRN PRN Reason: Hypoglycemia Enoxaparin Sodium (Lovenox) 40 mg SC 0900 [facility] Last Admin: 01/17/19 08:53 Dose: 40 mg Famotidine (Pepcid) 20 mg PO QPM [facility] Last Admin: 01/16/19 20:07 Dose: 20 mg Furosemide (Lasix) 80 mg SLOW IVP 0600,1400 [facility] Last Admin: 01/17/19 14:09 Dose: 80 mg Glucagon (Glucagon) 1 mg IM PRN PRN PRN Reason: Hypoglycemia Guaifenesin/Dextromethorphan (Robitussin Dm) 15 ml PO Q4H PRN PRN Reason: Cough Dextrose/Water (D5w) 1,000 mls @ 0 mls/hr IV .Q0M PRN PRN Reason: Hypoglycemia Insulin Glargine 10 units/ (Miscellaneous Medication) 0.1 mls @ 0 mls/hr SC BID [facility] Last Admin: 01/17/19 08:54 Dose: Not Given Insulin Human Lispro (Humalog) 0 units SC .MODERATE SLIDING SC PRN PRN Reason: Moderate Correctional Scale Insulin Human Lispro (Humalog) 0 units SC .BEDTIME SLIDING SC PRN PRN Reason: Bedtime Correctional Scale Losartan Potassium (Cozaar) 25 mg PO DAILY [facility] Last Admin: 01/17/19 08:52 Dose: 25 mg Metformin HCl (Glucophage) 500 mg PO BID [facility] Last Admin: 01/17/19 08:52 Dose: 500 mg Metolazone (Zaroxolyn) 5 mg PO 0830 [facility] Last Admin: 01/17/19 08:51 Dose: 5 mg Multivitamins/Iron (Centrum Kids Complete/Iron) 1 tab PO DAILY [facility] Last Admin: 01/17/19 08:51 Dose: 1 tab Potassium Chloride (K-Dur) 40 meq PO BID-[facility] Last Admin: 01/17/19 16:51 Dose: 40 meq Senna/Docusate Sodium (Senokot S) 2 tab PO BID PRN PRN Reason: Constipation Spironolactone (Aldactone) 50 mg PO QAM-[facility] Last Admin: 01/17/19 08:52 Dose: 50 mg
--- NOTE | 2019-01-17 17:59 | PDOC.CTH ---
Cardiology Progress Note - Subjective The pt seen and examined. No overnight events. No cardiac complaints. He cont having HARTLEY with mild exertion; however, he stated his breathing is more stable today. - Objective Vital Signs Temp Pulse Pulse Pulse Resp BP BP 01/17/19 16:00 97.4 F L 72 16 01/17/19 12:43 75 16 01/17/19 12:00 97.2 F L 72 17 01/17/19 10:35 86 74 120/56 L 135/67 01/17/19 08:00 96.9 F L 79 18 01/17/19 07:15 70 16 BP Pulse Ox 01/17/19 16:00 151/66 H 94 L 01/17/19 12:43 96 01/17/19 12:00 135/67 95 01/17/19 10:35 01/17/19 08:00 132/62 96 01/17/19 07:15 92 L Weight 215 lb 9.6 oz 01/16/19 01/17/19 01/18/19 06:59 06:59 06:59 Intake Total 720 1080 720 Output Total 1775 3300 2200 Balance -1055 -2220 -1480 - Physical Examination General/Neuro: alert & oriented x3 Neck: no JVD present Lungs: other: (diminished at bases) Heart: other: (irregular) Abdomen: soft Extremities: other: (1-2+ pitting BLE edema; on TEDs) - Telemetry Telemetry Rhythm: Afib vs SR with HR 60s - Labs Result Diagrams: 01/15/19 05:46 01/17/19 04:19 Troponin/CKMB CK-MB (CK-2) 4.2 ng/mL (0-6.6) 01/14/19 14:40 Troponin I 0.034 ng/mL (< 0.028) H 01/14/19 17:47 - Assessment/Plan 1. Acute on chronic systolic HF - his resp. status has been improving with Lasix IV BID, Metolazone, bblocker, Losartan, and spironolactone; 2. 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 CAD with hx of stent placement - On bblocker, ASA, and Plavix 4. HTN - stable 5. HLD - On Lipitor 6. DM type 2 - 7. CKD stage 3 - unchanged 8. Hx of [place] artery stent placement - On ASA, and Plavix 9. Questionable Afib vs SR - well controlled HR with Coreg; On ASA 81mg qd and Lovenox qd; Not OAC due to high risk of fall. MAR reviewed * Echo on 01/16/2019 with EF 25-30%, mild dilated LA, mod ERV, mod MR, mild-mod TR, and dilated IVC. Pt. seen and eval. by me. I agree with the A/P by the MATHS TUTOR. Mild edema. At times it appears that he may be in atrial flutter. Will discuss with EP on Saturday. Chest clear. Review of Systems - Review of Systems Constitutional: reports: no symptoms reported EENTM: reports: no symptoms reported Respiratory: reports: see HPI Cardiac (ROS): reports: no symptoms reported ABD/GI: reports: no symptoms reported : reports: no symptoms reported Musculoskeletal: reports: no symptoms reported
[2019-01-17] MEDS: Famotidine 20 MG TAB PO SCH (20:21)
[2019-01-18] MEDS: Furosemide 40 MG/4 ML VIAL SLOW IVP SCH ×2 (05:54→14:12)
[2019-01-18] MEDS: Potassium Chloride 20 MEQ TAB PO SCH ×2 (09:09→17:16)
[2019-01-18] MEDS: Spironolactone 25 MG TAB PO SCH (09:10)
[2019-01-18] MEDS: Aspirin Chewable 81 MG TAB PO SCH (09:10)
[2019-01-18] MEDS: Metolazone 5 MG TAB PO SCH (09:10)
[2019-01-18] MEDS: Atorvastatin Calcium 40 MG TAB PO SCH (09:11)
[2019-01-18] MEDS: Carvedilol 3.125 MG TAB PO SCH ×2 (09:11→21:03)
[2019-01-18] MEDS: Clopidogrel Bisulfate 75 MG TAB PO SCH (09:11)
[2019-01-18] MEDS: Enoxaparin Sodium 40 MG/0.4 ML SYRINGE SC SCH (09:11)
[2019-01-18] MEDS: Losartan 25 MG TAB PO SCH (09:11)
[2019-01-18] MEDS: Insulin Glargine 10 UNITS in Pre-Filled Syringe 1 EACH SC SCH ×2 (09:12→21:05)
[2019-01-18] MEDS: metFORMIN 500 MG TAB PO SCH ×2 (09:12→21:04)
[2019-01-18] MEDS: Multivitamins CHEW w/Iron Tablet PO SCH (09:12)
--- NOTE | 2019-01-18 13:50 | PDOC.CTH ---
Cardiology Progress Note - Subjective The pt seen and examined. No overnight events. No cardiac complaints. - Objective Vital Signs Temp Pulse Pulse Pulse Resp BP BP 01/18/19 13:16 55 L 18 01/18/19 12:00 98.3 F 77 19 01/18/19 10:35 82 73 132/59 L 139/64 01/18/19 08:00 97.7 F 67 14 01/18/19 06:57 58 L 16 01/18/19 03:34 97.8 F 70 18 BP BP Pulse Ox Pulse Ox Pulse Ox 01/18/19 13:16 97 01/18/19 12:00 147/68 H 97 01/18/19 10:35 95 97 01/18/19 08:00 134/61 01/18/19 06:57 93 L 01/18/19 03:34 134/63 96 Weight 207 lb 01/17/19 01/18/19 01/19/19 06:59 06:59 06:59 Intake Total 1080 1200 Output Total 3300 4000 1350 Balance -2220 -2800 -1350 - Physical Examination General/Neuro: alert & oriented x3 Neck: no JVD present Lungs: CTA (diminished at bases) Heart: RRR Abdomen: soft Extremities: other: (No edema) - Telemetry Telemetry Rhythm: Afib vs SR? - Labs Result Diagrams: 01/15/19 05:46 01/17/19 04:19 Troponin/CKMB CK-MB (CK-2) 4.2 ng/mL (0-6.6) 01/14/19 14:40 Troponin I 0.034 ng/mL (< 0.028) H 01/14/19 17:47 - Assessment/Plan 1. Acute on chronic systolic HF - his resp. status has been improving with Lasix IV BID which will be changed to 40mg PO BID from tomorrow; Metolazone, bblocker, Losartan, and spironolactone; 2. 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 CAD with hx of stent placement - On bblocker, ASA, and Plavix 4. HTN - stable 5. HLD - On Lipitor 6. DM type 2 - 7. CKD stage 3 - unchanged 8. Hx of Lt [place] artery stent placement - On ASA, and Plavix 9. Questionable Afib vs SR - well controlled HR with Coreg; On ASA 81mg qd and Lovenox qd; Not OAC due to high risk of fall. Will discuss with EP on Saturday. 10. COPD - stable with RA MAR reviewed * Echo on 01/16/2019 with EF 25-30%, mild dilated LA, mod ERV, mod MR, mild-mod TR, and dilated IVC. Pt. seen and eval. by me. I agree with the A/P by the STEEL CUTTER. continue diuresis. gjmays Review of Systems - Review of Systems Constitutional: reports: no symptoms reported EENTM: reports: no symptoms reported Respiratory: reports: no symptoms reported Cardiac (ROS): reports: no symptoms reported ABD/GI: reports: no symptoms reported : reports: no symptoms reported Musculoskeletal: reports: no symptoms reported
--- NOTE | 2019-01-18 15:51 | PDOC.PN ---
- Subjective Encounter Start Date: 01/18/19 Encounter Start Time: 08:00 - Objective Resuscitation Status - Order Detail: 01/14/19 19:13 Resuscitation Status Routine Resuscitation Status: FULL: Full Resuscitation Discussed with: POA: daughter SAPPHIRE Reviewed: Yes Vital Signs & Weight: Vital Signs (12 hours) Temp Pulse Pulse Pulse Resp BP BP 01/18/19 13:16 55 L 18 01/18/19 12:00 98.3 F 77 19 01/18/19 10:35 82 73 132/59 L 139/64 01/18/19 08:00 97.7 F 67 14 01/18/19 06:57 58 L 16 BP Pulse Ox Pulse Ox Pulse Ox 01/18/19 13:16 97 01/18/19 12:00 147/68 H 97 01/18/19 10:35 95 97 01/18/19 08:00 134/61 01/18/19 06:57 93 L Weight Weight 207 lb I&O: 01/17/19 01/18/19 01/19/19 06:59 06:59 06:59 Intake Total 1080 1200 Output Total 3300 4000 1550 Balance -2220 -2800 -1550 Result Diagrams: 01/15/19 05:46 01/19/19 11:57 Additional Labs: Accuchecks 01/18/19 01/18/19 01/17/19 10:36 05:41 20:22 POC Glucose 145 H 120 H 172 H 01/17/19 16:43 POC Glucose 181 H EKG Reviewed by me: Yes (Tele: NSR) Phys Exam - Physical Examination Constitutional: NAD HEENT: moist MMs Neck: supple Respiratory: no wheezing Cardiovascular: RRR, no rub Gastrointestinal: soft, positive bowel sounds Neurological: moves all 4 limbs Psychiatric: normal affect Dx/Plan (1) Acute on chronic systolic ACC/AHA stage C congestive heart failure Code(s): I50.23 - ACUTE ON CHRONIC SYSTOLIC (CONGESTIVE) HEART FAILURE Status : Acute Comment: Improving, switching to oral furosemide tomorrow LVEF 25-30%,continue beta carlitos and ARB (2) CAD (coronary artery disease) Code(s): I25.10 - ATHSCL HEART DISEASE OF [place] CORONARY ARTERY W/O ANG PCTRS Status: Chronic Qualifiers: Coronary Disease-Associated Artery/Lesion type: bypass graft [place] vs. transplanted heart: [place] heart Associated angina: without angina Qualified Code(s): I25.810 - Atherosclerosis of coronary artery bypass graft(s) without angina pectoris Comment: stable, continue aspirin, beta carlitos and ARB (3) Diabetes type 2, controlled Code(s): E11.9 - TYPE 2 DIABETES MELLITUS WITHOUT COMPLICATIONS Status: Chronic Qualifiers: Diabetes mellitus rat exterminator insulin use: with assisted use Diabetes mellitus complication detail: with chronic kidney disease Chronic kidney disease stage: stage 3 (moderate) Comment: reasonable control (4) Dyslipidemia Code(s): E78.5 - HYPERLIPIDEMIA, UNSPECIFIED Status: Chronic Comment: on Lipitor. (5) GERD (gastroesophageal reflux disease) Code(s): K21.9 - GASTRO-ESOPHAGEAL REFLUX DISEASE WITHOUT ESOPHAGITIS Status: Chronic Qualifiers: Esophagitis presence: without esophagitis Qualified Code(s): K21.9 - Gastro -esophageal reflux disease without esophagitis Comment: stable (6) Hypertension Code(s): I10 - ESSENTIAL (PRIMARY) HYPERTENSION Status: Chronic Qualifiers: Hypertension type: essential hypertension Qualified Code(s): I10 - Essential (primary) hypertension Comment: controlled (7) Chronic kidney disease, stage 3 Code(s): N18.3 - CHRONIC KIDNEY DISEASE, STAGE 3 (MODERATE) Status: Chronic Comment: stable - Plan * . Review of Systems - Review of Systems Cardiovascular: negative: chest pain, palpitations, orthopnea, paroxysmal nocturnal dyspnea, edema, light headedness Gastrointestinal: negative: Nausea, Vomiting, Abdominal Pain, Diarrhea, Constipation, Melena, Hematochezia - Medications/Allergies Allergies/Adverse Reactions: Allergies Allergy/AdvReac Type Severity Reaction Status Date / Time Fish Containing Products Allergy Verified 01/14/19 23:49 fish oil Allergy Verified 01/14/19 23:49 Latex, Natural Rubber Allergy Verified 01/14/19 23:49 Penicillins Allergy Verified 01/14/19 23:49 shellfish derived Allergy Verified 01/14/19 23:49 Medications: Current Medications Acetaminophen (Tylenol) 650 mg PO Q4H PRN PRN Reason: Headache/Fever/Mild Pain (1-3) Albuterol/Ipratropium (Duoneb) 3 ml NEB X9ZA-MW COUNTS INCLUDE 234 BEDS AT THE [facility] Last Admin: 01/18/19 13:16 Dose: 3 ml Aspirin (Aspirin Chewable) 81 mg PO DAILY COUNTS INCLUDE 234 BEDS AT THE [facility] Last Admin: 01/18/19 09:10 Dose: 81 mg Atorvastatin Calcium (Lipitor) 40 mg PO DAILY COUNTS INCLUDE 234 BEDS AT THE [facility] Last Admin: 01/18/19 09:11 Dose: 40 mg Bisacodyl (Dulcolax) 10 mg NM DAILYPRN PRN PRN Reason: Constipation Carvedilol (Coreg) 3.125 mg PO BID COUNTS INCLUDE 234 BEDS AT THE [facility] Last Admin: 01/18/19 09:11 Dose: 3.125 mg Clopidogrel Bisulfate (Plavix) 75 mg PO DAILY COUNTS INCLUDE 234 BEDS AT THE [facility] Last Admin: 01/18/19 09:11 Dose: 75 mg Dextrose/Water (Dextrose 50%) 25 gm SLOW IVP PRN PRN PRN Reason: Hypoglycemia Enoxaparin Sodium (Lovenox) 40 mg SC 0900 COUNTS INCLUDE 234 BEDS AT THE [facility] Last Admin: 01/18/19 09:11 Dose: 40 mg Famotidine (Pepcid) 20 mg PO QPM COUNTS INCLUDE 234 BEDS AT THE [facility] Last Admin: 01/17/19 20:21 Dose: 20 mg Furosemide (Lasix) 80 mg SLOW IVP 0600,1400 COUNTS INCLUDE 234 BEDS AT THE [facility] Stop: 01/18/19 17:00 Last Admin: 01/18/19 14:12 Dose: 80 mg Furosemide (Lasix) 40 mg PO 0900,1400 COUNTS INCLUDE 234 BEDS AT THE [facility] Glucagon (Glucagon) 1 mg IM PRN PRN PRN Reason: Hypoglycemia Guaifenesin/Dextromethorphan (Robitussin Dm) 15 ml PO Q4H PRN PRN Reason: Cough Dextrose/Water (D5w) 1,000 mls @ 0 mls/hr IV .Q0M PRN PRN Reason: Hypoglycemia Insulin Glargine 10 units/ (Miscellaneous Medication) 0.1 mls @ 0 mls/hr SC BID COUNTS INCLUDE 234 BEDS AT THE [facility] Last Admin: 01/18/19 09:12 Dose: 0.1 mls Insulin Human Lispro (Humalog) 0 units SC .MODERATE SLIDING SC PRN PRN Reason: Moderate [place] Scale Insulin Human Lispro (Humalog) 0 units SC .BEDTIME SLIDING SC PRN PRN Reason: Bedtime Correctional Scale Losartan Potassium (Cozaar) 25 mg PO DAILY COUNTS INCLUDE 234 BEDS AT THE [facility] Last Admin: 01/18/19 09:11 Dose: 25 mg Metformin HCl (Glucophage) 500 mg PO BID COUNTS INCLUDE 234 BEDS AT THE [facility] Last Admin: 01/18/19 09:12 Dose: 500 mg Metolazone (Zaroxolyn) 5 mg PO 0830 COUNTS INCLUDE 234 BEDS AT THE [facility] Last Admin: 01/18/19 09:10 Dose: 5 mg Multivitamins/Iron (Centrum Kids Complete/Iron) 1 tab PO DAILY COUNTS INCLUDE 234 BEDS AT THE [facility] Last Admin: 01/18/19 09:12 Dose: 1 tab Potassium Chloride (K-Dur) 40 meq PO BID-[facility] Last Admin: 01/18/19 09:09 Dose: 40 meq Senna/Docusate Sodium (Senokot S) 2 tab PO BID PRN PRN Reason: Constipation Spironolactone (Aldactone) 50 mg PO QAM-[facility] Last Admin: 01/18/19 09:10 Dose: 50 mg
[2019-01-18] MEDS: Famotidine 20 MG TAB PO SCH (21:04)
[2019-01-19] MEDS: Spironolactone 25 MG TAB PO SCH (08:55)
[2019-01-19] MEDS: Furosemide 20 MG TAB PO SCH ×2 (08:55→15:54)
[2019-01-19] MEDS: Carvedilol 3.125 MG TAB PO SCH (08:55)
[2019-01-19] MEDS: Losartan 25 MG TAB PO SCH (08:55)
[2019-01-19] MEDS: Clopidogrel Bisulfate 75 MG TAB PO SCH (08:56)
[2019-01-19] MEDS: Enoxaparin Sodium 40 MG/0.4 ML SYRINGE SC SCH (08:56)
[2019-01-19] MEDS: Aspirin Chewable 81 MG TAB PO SCH (08:56)
[2019-01-19] MEDS: Multivitamins CHEW w/Iron Tablet PO SCH (08:56)
[2019-01-19] MEDS: Atorvastatin Calcium 40 MG TAB PO SCH (08:56)
[2019-01-19] MEDS: metFORMIN 500 MG TAB PO SCH (08:56)
[2019-01-19] MEDS: Potassium Chloride 20 MEQ TAB PO SCH ×2 (08:56→18:36)
[2019-01-19] MEDS: Insulin Glargine 10 UNITS in Pre-Filled Syringe 1 EACH SC SCH (08:56)
[2019-01-19] MEDS: Metolazone 5 MG TAB PO SCH (09:03)
[2019-01-19 12:38] LABS: Anion Gap 15 mmol/L (10-20); BUN (Urea Nitrogen) 39 mg/dL (8.4-25.7); Calc. Creatinine Clearance 40 mL/min (70-130); Calcium 10.4 mg/dL (7.8-10.44); Carbon Dioxide 26 mmol/L (23-31); Chloride 95 mmol/L (98-107); Estimated GFR-MDRD 36; Glucose 155 mg/dL (83-110); Potassium 4.3 mmol/L (3.5-5.1); Sodium 132 mmol/L (136-145)
[2019-01-19 15:54] VITALS: BP 129/61; TEMP 97.6
--- NOTE | 2019-01-20 01:21 | DIS ---
DATE OF ADMISSION: 01/14/2019 DATE OF DISCHARGE: 01/19/2019 PRIMARY CARE PROVIDER: Chepe Parr MD DISCHARGE DIAGNOSES: 1. Acute on chronic systolic congestive heart failure, [place] Heart Association class III, ACC/AHA stage C. 2. Hyponatremia. 3. Chronic kidney disease, stage 3. 4. Hypokalemia. CONDITION OF PATIENT ON THE DAY OF DISCHARGE: Stable. I assessed Mr. Carranza on the day of discharge. He denies any chest pain or shortness of breath. Vital signs are stable. S1 and S2 are heard, regular. Lungs are clear to auscultation bilaterally. CONSULTATIONS DURING THIS HOSPITALIZATION: Cardiology, Dr. Siva Zamora MD DISCHARGE MEDICATIONS: 1. Lipitor 40 mg daily. 2. Calcium and vitamin D tablet, one tablet two times a day. 3. Plavix 75 mg daily. 4. Advair HFA times a day. 5. Metformin 500 mg 2 times a day. 6. Multivitamins one tablet daily. 7. Ranexa 1000 mg 2 times a day. 8. Januvia 50 mg daily. 9. Aspirin 81 mg daily. 10. Coreg 6.25 mg 2 times a day. 11. Lasix 40 mg 2 times a day. 12. Lantus insulin 10 units 2 times a day. 13. Cozaar 25 mg daily. 14. Zaroxolyn 5 mg daily as needed for weight gain of more than 4 pounds. 15. Omeprazole 40 mg daily. 16. Spironolactone 50 mg daily. HOSPITAL COURSE: Mr. Carranza is a pleasant 83-year-old gentleman, who was admitted to [facility] on January 14, 2019, for congestive heart failure exacerbation. 2D echocardiogram showed left ventricular ejection fraction of 25% to 30%, mildly dilated left atrium, moderately enlarged right ventricular cavity, mildly increased left ventricular size, somewhat thickened aortic valve leaflets, moderate mitral regurgitation, [id number] tricuspid regurgitation, elevated right ventricular systolic pressure and dilated IVC. He was seen by Cardiology Service. He improved with diuretics. He was also seen by Nephrology Service, Dr. Hope, for chronic kidney disease. He is being discharged home in a stable condition. On the day of discharge, he has sodium 132, potassium 4.3, blood urea nitrogen 39, creatinine 1.82, and BNP 1027. During this hospitalization, his blood sugars were at times low. His Lantus insulin dose was decreased to 10 units 2 times a day. He has been advised to check his blood sugars three times a day and show them to his primary care provider. Many thanks for allowing me to participate in your patient's care. Please feel free to contact me with any questions or concerns. DISCHARGE DESTINATION: Home. TIME SPENT: Total amount of time spent coordinating this discharge: 32 minutes. Job ID: [id number]
== END 2019-01-19 18:40 | disposition home health service (06) | DRG 291 ==
LOC: ERS 14:22 → OBSVTOIN 19:13 → 2NO 19:13
PROVIDERS: ADMIT Internal Medicine; ATTEND Internal Medicine
DX: I13.0 Hypertensive heart and chronic kidney disease with heart failure and stage 1 through stage 4 chronic kidney disease, or unspecified chronic kidney disease (principal); I50.23 Acute on chronic systolic (congestive) heart failure; N17.9 Acute kidney failure, unspecified; E87.1 Hypo-osmolality and hyponatremia; E11.22 Type 2 diabetes mellitus with diabetic chronic kidney disease; N18.3 Chronic kidney disease, stage 3 (moderate); E78.5 Hyperlipidemia, unspecified; D63.1 Anemia in chronic kidney disease; J44.9 Chronic obstructive pulmonary disease, unspecified; I25.5 Ischemic cardiomyopathy; E87.6 Hypokalemia; K21.9 Gastro-esophageal reflux disease without esophagitis; E66.01 Morbid (severe) obesity due to excess calories; I25.10 Atherosclerotic heart disease of native coronary artery without angina pectoris; I08.1 Rheumatic disorders of both mitral and tricuspid valves; Z95.810 Presence of automatic (implantable) cardiac defibrillator; Z79.4 Long term (current) use of insulin; Z79.02 Long term (current) use of antithrombotics/antiplatelets; Z79.899 Other long term (current) drug therapy; Z88.0 Allergy status to penicillin; Z91.040 Latex allergy status; Z91.013 Allergy to seafood; Z87.891 Personal history of nicotine dependence; Z68.27 Body mass index [BMI] 27.0-27.9, adult
CPT/HCPCS: 36415; 36416; 71045; 80048; 80053; 80061; 82550; 82553; 82607; 82728; 82746; 83036; 83540; 83550; 83880; 84443; 84484; 85025; 93005; 93306; 93798; 94640; 96374; J1650; J1825; J1940; J7620

== ENCOUNTER 2019-06-22 10:09 | Emergency (ER) | payer MEDICARE, OTHER ==
--- NOTE | 2019-06-22 10:49 | RAD ---
2 VIEWS LEFT TIBIA AND FIBULA: Date: 06/22/19 COMPARISON: None. HISTORY: Fall with left leg pain. FINDINGS: 2 views of the left tibia/fibula show no evidence of acute fracture or dislocation. No degenerative c hanges are seen in the knee or ankle. IMPRESSION: No evidence of acute osseous abnormality. POS: TPC
--- NOTE | 2019-06-22 12:22 | RAD ---
LEFT KNEE 4 VIEWS: Date: 06/22/19 HISTORY: Knee injury. FINDINGS: Bones appear slightly demineralized. There are vascular calcifications noted. There are no signs of f racture or dislocation. There are arthritic changes of the knee. IMPRESSION: No evidence of fracture. POS: TPC
--- NOTE | 2019-06-22 12:23 | RAD ---
LEFT HIP 2 VIEWS: Date: 06/22/19 HISTORY: Hip injury. FINDINGS: There are some very mild arthritic changes of the hip joint. The bones appear demineralized. There ar e no signs of fracture. IMPRESSION: 1. No evidence of fracture. 2. Atherosclerosis. POS: TPC
--- NOTE | 2019-06-22 12:23 | RAD ---
AP PELVIS: Date: 06/22/19 HISTORY: Trauma with pelvic injury. FINDINGS: There are arthritic changes of the lower lumbar spine. There are some mild arthritic changes of both hips. Extensive vascular calcifications are seen. The pelvic ring is intact without evidence of fracture. SI joints are symmetric. No diastasis of the symphysis. IMPRESSION: Negative AP pelvis. POS: TPC
--- NOTE | 2019-06-22 13:25 | CT ---
CT left hip noncontrast: DATE: 06/22/2019 HISTORY: 83-year-old male with traumatic left hip pain due to fall. FINDINGS: There is no moderate sized or large hematoma around the left hip, including the obturator internus mu scle. There is edema in the soft tissues superficial to the posterior muscle bundle around the left hip. There is no dislocation. No fracture is identified. Femoral head contour is normal. Mild osteoph ytosis at lateral acetabular roof. No significant subcapital osteophytes. No high-grade joint space narrowing. No free fluid within the left side of the pelvic cavity. IMPRESSION: 1. No acute left hip fracture identified. 2. Fat stranding consistent with either edema or contusion in the subcutaneous fat posterior and medi al to the left hip.
== END 2019-06-22 16:27 ==
LOC: ERS 10:09
DX: M79.605 Pain in left leg (principal); M62.81 Muscle weakness (generalized); I25.10 Atherosclerotic heart disease of native coronary artery without angina pectoris; I11.0 Hypertensive heart disease with heart failure; I50.9 Heart failure, unspecified; I25.2 Old myocardial infarction; E11.9 Type 2 diabetes mellitus without complications; K21.9 Gastro-esophageal reflux disease without esophagitis; Z87.891 Personal history of nicotine dependence; Z79.899 Other long term (current) drug therapy; Z79.4 Long term (current) use of insulin; Z95.5 Presence of coronary angioplasty implant and graft; Z79.01 Long term (current) use of anticoagulants; Z79.51 Long term (current) use of inhaled steroids
CPT/HCPCS: 36416; 72170

== ENCOUNTER 2019-09-10 10:27 | Day surgery (SDC) | payer MEDICARE, OTHER ==
[2019-09-09 14:02] VITALS: BMI 26.4
[~2019-09-10 10:27] MED LIST: Lidocaine 1% PF 5 ML VIAL ONE; PROPOFOL 200 MG/20 ML VIAL ONE
--- NOTE | 2019-09-10 15:49 | OP ---
DATE OF PROCEDURE: 09/10/2019 PROCEDURE PERFORMED: Esophagogastroduodenoscopy with Seo dilatation and biopsy. PREMEDICATIONS: Given by Anesthesiology Department. PREPROCEDURE DIAGNOSES: 1. Dysphagia. 2. Questionable esophageal abnormality on barium study. POSTPROCEDURE DIAGNOSES: 1. Normal esophagus. 2. Gastroesophageal junction located at 40 cm with variable Z-line. 3. Normal stomach and duodenum. DESCRIPTION OF PROCEDURE: Written consents were obtained prior to procedure. After adequate sedation, forward-viewing endoscope was advanced down the stomach under direct vision to the third portion of duodenum. The duodenum and the bulb appeared normal. The pylorus was patent. The gastric antrum, body, fundus, and cardia all appeared normal. Retroflexion did not show any abnormality. There was no hiatal hernia noted. The GE junction was located at 40 cm from the incisors. The Z-line was variable. There was no lesion or mucosal abnormality throughout the esophagus, which appeared to be patent and somewhat patulous. No focal constriction or stricture was encountered. In the upper third, small adherent white materials were noted. Most of these were washed away. However, biopsy was obtained to exclude esophageal candidiasis. Empiric dilatation was performed using a 56-Thai Seo without any resistance. Repeat endoscopy did not show any tear or bleeding. The instrument was then fully removed. The patient tolerated the procedure well. ASSESSMENT: 1. Normal exam for dysphagia, status post empiric dilatation with 56-Thai Seo without resistance. 2. 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 RECOMMENDATIONS: Neurology evaluation to exclude any other process as the patient has phonation problem associated with some nasal regurgitation along with his dysphagia. Job ID: [id number]
== END 2019-09-10 14:20 | disposition home or self-care (01) ==
LOC: SDC 10:27
PROVIDERS: ATTEND Internal Medicine Gastroenterology
PROC: 0DB18ZX Excision of Upper Esophagus, Via Natural or Artificial Opening Endoscopic, Diagnostic (ICD-10-PCS; principal; 2019-09-10)
PROC: 0D757ZZ Dilation of Esophagus, Via Natural or Artificial Opening (ICD-10-PCS; 2019-09-10)
DX: B37.81 Candidal esophagitis (principal); R13.12 Dysphagia, oropharyngeal phase; R13.19 Other dysphagia; K21.9 Gastro-esophageal reflux disease without esophagitis; E11.9 Type 2 diabetes mellitus without complications; I25.2 Old myocardial infarction; E78.00 Pure hypercholesterolemia, unspecified; G47.00 Insomnia, unspecified; M19.90 Unspecified osteoarthritis, unspecified site; I11.0 Hypertensive heart disease with heart failure; I50.9 Heart failure, unspecified; Z87.891 Personal history of nicotine dependence; Z79.02 Long term (current) use of antithrombotics/antiplatelets; Z79.4 Long term (current) use of insulin; Z79.82 Long term (current) use of aspirin; Z79.899 Other long term (current) drug therapy; Z88.0 Allergy status to penicillin; Z91.013 Allergy to seafood; Z91.040 Latex allergy status; Z95.810 Presence of automatic (implantable) cardiac defibrillator
CPT/HCPCS: 36416; 88305; 88312; 88313; J2001; J2704

== ENCOUNTER 2019-12-07 12:44 | Outpatient (CLI) | payer MEDICARE, OTHER ==
[~2019-12-07 12:44] MED LIST changes: +Iopamidol 370 76% 100 ML VIAL ONE; -Lidocaine 1% PF 5 ML VIAL ONE; -PROPOFOL 200 MG/20 ML VIAL ONE
--- NOTE | 2019-12-07 13:58 | CT ---
CT arteriogram neck with IV contrast and 3-D imaging HISTORY: Vascular disease. Carotid stenosis. FINDINGS: Prominent calcification at the aortic arch. The right subclavian artery arises from the deangelo cending aortic arch, passing posterior to the esophagus. Prominent calcification with approximately 70% stenosis of the right subclavian artery immediately to the right of the esophagus. Calcification within the proximal left vertebral artery resulting in approximately 70% stenosis. Ther e is also a short segment stenosis at the level of C4, estimated at 70%. There is calcification throughout the right carotid system. At the bifurcation, dense calcification c ompletely obscures the lumen, so that exact degree of stenosis is not evaluated. Distal to the dense calcification, homogeneous contrast within the distal right ICA is the same as the left ICA at the same level, suggesting that the flow is antegrade rather than retrograde from collaterals. Short segment high-grade stenosis of the origin of the right external carotid artery is also evident. There is also calcification along the course of the left carotid artery. Within the proximal ICA, the re is a short segment stenosis estimated at 60%. Good flow beyond this level. Degenerative changes throughout the cervical spine are apparent. Absence of the right C5 and C6 alvaro ae with the appearance of prior surgical resection. IMPRESSION : Severe atherosclerosis. Very high-grade stenosis favored (over complete occlusion) at the origin of t he right internal carotid artery. 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
== END 2019-12-07 12:45 | disposition home or self-care (01) ==
LOC: BICCT 12:44
PROVIDERS: ATTEND Thoracic Surgery (Cardiothoracic Vascular Surgery)
DX: I65.03 Occlusion and stenosis of bilateral vertebral arteries (principal); I65.23 Occlusion and stenosis of bilateral carotid arteries; I70.208 Unspecified atherosclerosis of native arteries of extremities, other extremity
CPT/HCPCS: 70498; 82565; Q9967

== ENCOUNTER 2020-01-22 13:27 | Inpatient (IN) | payer MEDICARE, OTHER ==
[2020-01-22] MEDS ORDERED: Piperacillin/Tazobactam 4.5 GM VIAL ONE (14:15)
[2020-01-22] MEDS ORDERED: Morphine 4 MG/ML VIAL ONE (14:15)
--- NOTE | 2020-01-22 14:30 | RAD ---
Exam:3 views left foot HISTORY: Infection. Pain. COMPARISON: None FINDINGS: Soft tissue swelling No erosive or destructive changes. Preserved joint spaces. Lisfranc alignment is maintained. IMPRESSION: Cellulitis. No radiographic evidence of osteomyelitis.
[2020-01-22 14:42] LABS: #Eosinphils 0.1 thou/uL (0.0-0.7); #Lymphocytes 1.5 thou/uL (1.20-3.40); #Monocytes 0.6 thou/uL (0.11-0.59); #Neutrophils 6.6 thou/uL (1.40-6.50); %Basophils 0.4 % (0.0-1.0); %Eosinophils 1.5 % (0.0-10.0); %Lymphocytes 16.7 % (21.0-51.0); %Neutrophils 74.4 % (42.0-75.0); Hemoglobin 13.3 g/dL (14.0-18.0); Mean Corpuscular HGB CONC 34.4 g/dL (32.0-36.0); Mean Corpuscular Hemoglobin 32.1 pg (27.0-31.0); Mean Corpuscular Volume 93.4 fL (78.0-98.0); Mean Platelet Volume 7.7 fL (7.4-10.4); Platelet Count 209 thou/uL (130-400); Red Blood Cell (RBC) Count 4.13 mill/uL (4.70-6.10); White Blood Cell (WBC) Count 8.9 thou/uL (4.8-10.8)
[2020-01-22 15:04] LABS: ALT (SGPT) 17 U/L (8-55); AST (SGOT) 23 U/L (5-34); Alkaline Phosphatase 90 U/L (40-110); Anion Gap 14 mmol/L (10-20); BUN (Urea Nitrogen) 61 mg/dL (8.4-25.7); Bilirubin, Total 0.9 mg/dL (0.2-1.2); Calc. Creatinine Clearance 0 mL/min (70-130); Calcium 9.3 mg/dL (7.8-10.44); Carbon Dioxide 26 mmol/L (23-31); Chloride 102 mmol/L (98-107); Estimated GFR-MDRD 29; Globulin 3.2 g/dL (2.4-3.5); Glucose 163 mg/dL (83-110); Potassium 4.2 mmol/L (3.5-5.1); Protein, Total 7.2 g/dL (5.8-8.1); Sodium 138 mmol/L (136-145)
[2020-01-22] MEDS ORDERED: Vancomycin 1 GM/200 ML BAG ONE (15:11)
[2020-01-22] MEDS ORDERED: Acetaminophen 325 MG TAB PO PRN (18:48)
[2020-01-22] MEDS ORDERED: Ondansetron PF 4 MG/2 ML Vial IVP PRN (18:48)
[2020-01-22] MEDS ORDERED: Ondansetron ODT 4 MG TAB SL PRN (18:48)
[2020-01-22] MEDS ORDERED: Dextrose 5% in Water 1,000 ML IV PRN (19:45)
[2020-01-22] MEDS ORDERED: Dextrose 50% Abboject 50 ML SYRINGE SLOW IVP PRN (19:45)
[2020-01-22] MEDS ORDERED: HumaLOG 300 UNITS/3 ML VIAL SC PRN (19:45)
[2020-01-22] MEDS ORDERED: Albuterol Sulfate 2.5 mg/3 ml Neb IPPB PRN (19:48)
--- NOTE | 2020-01-22 19:50 | PDOC.HHP ---
Hospitalist HPI - History of Present Illness RLE pain History of Present Illness: This is an 84 year old male with past medical history of diabetes, myasthenia gravis, CAD, hypertension who presented to the ER with worsening leg pain. Patient states his pain in his right foot has been going on for weeks. He states that he was given doxycycline on 01/11 and took that for a week. Due to persisten pain he was switched over to clindamycin on 01/18. Patient started taking this on Saturday and has not had improvement in his pain. He denies fevers or chills. He states the pain is present on exertion and at rest. He states while laying in bed he gets a stabbing pain radiating from his middle of this thigh down to his toes. He says when he lifts his leg up his foot turns white. He also states his feet are at times ice-cold and his toes sometimes turn purple. Patient reports history of varicose veins on his legs and reports getting frequent ultrasounds with a Dr. shah. ED Course: When the patient presented to the ER, he had BP of 132/80, temp 100.9, HR 20, RR 15. He was given IV vancomycin and zosyn in the ER. Labs showed creatinine of 2.18, slightly up from baseline. Hospitalist ROS - Review of Systems Constitutional: denies: fever, chills - Medication Medications: Lasix 40 mg bid Spironolactone 50 mg qday Lantus 15 units bid Januvia 50 mg daily Metformin 500 mg bid Statin 40 mg qhs Ranexa 1000 mg bid Plavix 75 mg daily Coreg 6.25 mg bid Losartan 25 g daily Ecotrin 81 mg daily Clacium 600 mg 1 tab bid Centrum 1 tab daily Prilosec 40 mg daily Advair 2 puff bid Albuterol by nebulization Fluticasone Pyridoxine 60 mg tid Hospitalist History - Past Surgical History Other Surgical History: Kidney stone surgery Cataract and lens implant Bilateral inguinal hernia surgery Right detached retina Tonsillectomy Bilateral hip replacement - Family History Other Family History: Diabetes Hyperlipidemia Hypertension Gout Myasthenia Gravis COPD GERD - Social History Smoking Status: Former smoker (quit in 2004) Alcohol: reports: None - Exam General Appearance: NAD, awake alert Eye: PERRL, anicteric sclera ENT: normocephalic atraumatic, no oropharyngeal lesions Neck: supple, symmetric, no JVD Heart: RRR, no murmur, no gallops, no rubs Respiratory: CTAB, no wheezes, no rales, no ronchi, no tachypnea Gastrointestinal: soft, non-tender, non-distended Extremities - other findings: right sided swelling, erythema, tenderness middle/ ring/pinky toe Skin - other findings: mild cyanosis noted on dorsum of foot and toes. Diff to palpate pulse Neurological: cranial nerve grossly intact, normal sensation to touch, no focal deficits, no new deficit Musculoskeletal: normal tone, normal strength, no muscle wasting Psychiatric: normal affect, normal behavior, A&O x 3, oriented to person Hospitalist Results - Labs Result Diagrams: 01/22/20 14:11 01/22/20 14:11 Lab results: WBC 8.9 thou/uL (4.8-10.8) 01/22/20 14:11 Hgb 13.3 g/dL (14.0-18.0) L 01/22/20 14:11 Hct 38.6 % (42.0-52.0) L 01/22/20 14:11 MCV 93.4 fL (78.0-98.0) 01/22/20 14:11 Plt Count 209 thou/uL (130-400) 01/22/20 14:11 Neutrophils % 74.4 % (42.0-75.0) 01/22/20 14:11 Sodium 138 mmol/L (136-145) 01/22/20 14:11 Potassium 4.2 mmol/L (3.5-5.1) 01/22/20 14:11 Chloride 102 mmol/L (98-107) 01/22/20 14:11 Carbon Dioxide 26 mmol/L (23-31) 01/22/20 14:11 BUN 61 mg/dL (8.4-25.7) H 01/22/20 14:11 Creatinine 2.18 mg/dL (0.7-1.3) H 01/22/20 14:11 Glucose 163 mg/dL (83-110) H 01/22/20 14:11 Lactic Acid 1.5 mmol/L (0.5-2.2) 01/22/20 14:11 Calcium 9.3 mg/dL (7.8-10.44) 01/22/20 14:11 Total Bilirubin 0.9 mg/dL (0.2-1.2) 01/22/20 14:11 AST 23 U/L (5-34) 01/22/20 14:11 ALT 17 U/L (8-55) 01/22/20 14:11 Alkaline Phosphatase 90 U/L (40-110) 01/22/20 14:11 Serum Total Protein 7.2 g/dL (5.8-8.1) 01/22/20 14:11 Albumin 4.0 g/dL (3.4-4.8) 01/22/20 14:11 Hospitalist H&P A/P - Plan Plan: This is an 84 year old male who presents to the hospital with persistent right foot pain/swelling, difficulty ambulating Right LE swelling/pain - possibly from cellulitis vs gout vs arterial insufficiency - will switch to IV ceftriaxone. Pt reports allergy to zosyn in past (hives) after 4 days of therapy - check uric acid. Last uric acid level was 13 in the past. Will start prednisone given kidney dysfunction if uric acid elevated - check arterial US due to diminished pulses in lower extremities ARLENE - creatinine slightly elevated at 2.189 - will hold losartan HCTZ Type II diabetes -insulin sliding scale - lantus 15 unit bid - hold januvia Systolic heart failure - last EF 25-30% - hold lasix for now CAD - contiue statin, plavix, ranexa, aspirin Myasthenia gravis - continue pyridostimgine 60 mg tid DVT prophylaxis: heparin 5000 units SC Tid Code status: full code
[2020-01-22] MEDS ORDERED: Carvedilol 6.25 MG TAB PO SCH (20:00)
[2020-01-22 21:39] VITALS: BMI 26.6
[2020-01-22] MEDS: cefTRIAXone\\ROCEPHIN 1 GM in Sodium Chloride 0.9% 100 ML IVPB SCH (22:37)
[2020-01-22] MEDS: Pyridostigmine Bromide IR 60 MG TAB PO SCH (22:40)
[2020-01-22] MEDS: Insulin Glargine 15 UNITS in Pre-Filled Syringe SC SCH (22:40)
[2020-01-22] MEDS: Heparin 5,000 UNITS/ML VIAL SC SCH (22:40)
--- NOTE | 2020-01-23 00:45 | ULT ---
Ultrasound Doppler duplex arterial left lower extremity: DATE: 01/22/2020 Time: 10:13 PM HISTORY: 84-year-old male with severe left lower extremity pain, diminished pulses, and discolored, blue toes TECHNIQUE: Grayscale, color-flow, and spectral analysis, of major arteries of left lower extremity. FINDINGS: Prominent calcified atheromatous plaque at all visualized arteries, greatest at common femoral artery and femoral artery. Highest peak systolic velocities in centimeters per second, followed by pulse Doppler waveforms: Common femoral: 155, biphasic Superficial femoral, proximal: 100, biphasic Superficial femoral, mid: 80, biphasic Superficial femoral, distal: 85, biphasic Popliteal, proximal: 25, biphasic Popliteal, distal colon 75, biphasic Posterior tibial: 15, biphasic Anterior tibial: 10, monophasic IMPRESSION: 1. Extensive atherosclerosis. 2. Findings suggestive of high-grade arterial occlusive disease at the mid to distal thigh, knee, and ankle
[2020-01-23] MEDS: Insulin Glargine 15 UNITS in Pre-Filled Syringe SC SCH ×2 (09:24→20:51)
[2020-01-23] MEDS: Pyridostigmine Bromide IR 60 MG TAB PO SCH ×3 (09:25→20:51)
[2020-01-23] MEDS: Heparin 5,000 UNITS/ML VIAL SC SCH ×3 (09:25→20:50)
[2020-01-23] MEDS: Fluticasone Propionate Nasal Spray 16 gm Bottle NASAL SCH (10:54)
[2020-01-23] MEDS: Carvedilol 6.25 MG TAB PO SCH ×2 (11:48→17:53)
--- NOTE | 2020-01-23 15:10 | PDOC.HOSPP ---
- Objective Vital Signs & Weight: Vital Signs (12 hours) Temp Pulse Resp BP BP Pulse Ox 01/23/20 13:02 98.6 F 53 L 18 193/74 H 98 01/23/20 10:57 54 L 142/56 H 01/23/20 09:24 100 01/23/20 07:50 97.5 F L 58 L 18 103/42 L 100 Weight Weight 196 lb Result Diagrams: 01/22/20 14:11 01/22/20 14:11 Additional Labs: Accuchecks 01/23/20 01/23/20 01/22/20 12:07 06:22 20:02 POC Glucose 127 H 94 143 H Hospitalist ROS - Medication Medications: Active Medications Generic Name Dose Route Start Last Admin Trade Name Freq PRN Reason Stop Dose Admin Carvedilol 6.25 mg 01/23/20 08:00 01/23/20 11:48 Coreg PO Not Given BID-WM MIKAYLA Fluticasone Propionate 1 gm 01/23/20 09:00 01/23/20 10:54 Flonase Nasal [place] NASAL 1 spray DAILY MIKAYLA Administration Heparin Sodium (Porcine) 5,000 units 01/22/20 21:00 01/23/20 14:15 Heparin SC 5,000 units TID MIKAYLA Administration Ceftriaxone Sodium 1 gm/ 100 mls @ 200 mls/hr 01/22/20 20:00 01/22/20 22:37 Sodium Chloride IVPB 100 mls Q24HR MIKAYLA Administration Insulin Glargine 15 units/ 0.15 mls @ 0 mls/hr 01/22/20 21:00 01/23/20 09:24 Miscellaneous Medication SC 0.15 mls BID MIKAYLA Administration Pantoprazole Sodium 40 mg 01/22/20 09:00 01/23/20 09:23 Protonix PO 40 mg DAILY MIKAYLA Administration Pyridostigmine [place] 60 mg 01/22/20 21:00 01/23/20 14:15 Mestinon PO 60 mg TID MIKAYLA Administration Ranolazine 1,000 mg 01/22/20 21:00 01/23/20 09:23 Ranexa PO Not Given BID MIKAYLA Hosp A/P - Plan Note edited to reflect today's care of plan. This is an 84 year old male who presents to the hospital with persistent right foot pain/swelling, difficulty ambulating Right LE swelling/pain - - arterial insufficiency - will switch to IV ceftriaxone. Pt reports allergy to zosyn in past (hives) after 4 days of therapy - check uric acid. Last uric acid level was 13 in the past. Will start prednisone given kidney dysfunction if uric acid elevated PAD -significant stenois from left leg to thigh --c/s vasc sux. -ASA, statin, - ACEI contra w.. high cr ARLENE - creatinine slightly elevated at 2.189 - will hold losartan HCTZ Type II diabetes -insulin sliding scale - lantus 15 unit bid - hold januvia Systolic heart failure - last EF 25-30% - hold lasix for now CAD - contiue statin, plavix, ranexa, aspirin Myasthenia gravis - continue pyridostimgine 60 mg tid
[2020-01-23] MEDS: Sodium Chloride 0.9% 1,000 ML IV SCH (17:52)
--- NOTE | 2020-01-23 19:39 | CON ---
DATE OF CONSULTATION: HISTORY OF PRESENT ILLNESS: I was asked to see Mr. Carranza in regard to peripheral vascular disease involving his left leg. He states that for over 2 years he has had problems with the coloration of his left foot. It becomes red when he hangs it and white when he lays supine. He has begun to have pain over the last 3-4 weeks in the left foot. This has increased in intensity, which brought him to the emergency department. It is hard to keep Mr. Carranza on track as he is very upset at not being able to see Dr. Chowdhury anymore. Once we have finally worked around this issue, he is more able to give me some more information. He claudicates at home and has done so for many years. He is not sure how far he can walk currently before he claudicates. He says discoloration of his foot has gotten worse. The pain has also gotten worse, although he is sitting up eating dinner right now in no apparent distress. When lying supine, his foot does lighten in color, but it is not white as he describes it. He does have dependent rubor when he is sitting up. PAST MEDICAL HISTORY: 1. Diabetes mellitus. 2. Renal insufficiency. 3. Hypertension. 4. Dyslipidemia. 5. Gout. 6. History of myasthenia gravis. 7. COPD. 8. GERD. 9. Carotid disease, status post right carotid stenting by Dr. Chowdhury with recurrent stenosis. PAST SURGICAL HISTORY: 1. Kidney stone surgery. 2. Cataracts bilaterally. 3. Bilateral inguinal hernia repair. 4. Retinal surgery. 5. Tonsillectomy. 6. Bilateral hip replacements. SOCIAL HISTORY: He does not use alcohol or tobacco. He quit smoking in 2004. CURRENT MEDICATIONS: Noted. ALLERGIES: FISH OIL, LATEX AND RUBBER. PHYSICAL EXAMINATION: GENERAL: This is a well-developed, well-nourished man, resting comfortably, eating dinner. VITAL SIGNS: His temperature is 98.3, pulse is 50 and regular, and blood pressure is 156/65, oxygen saturations 95% on room air. HEENT: Sclerae nonicteric. Pupils are equal and round bilaterally. He has bilateral carotid bruits. CHEST: Clear bilaterally. HEART: Rhythm is regular without murmur. ABDOMEN: Soft and nontender. EXTREMITIES: His left lower extremity has rubor from midcalf to foot. There are small varicosities bilaterally below the knee. VASCULAR: He has palpable femoral pulses bilaterally. The dorsalis pedis has a monophasic Doppler signal on the left. He has palpable dorsalis pedis on the right. IMAGING: Ultrasound of the lower extremities has shown atherosclerotic disease throughout his femoral, popliteal, and tibial systems. He has a drop-off in the pressures at the distal SFA/proximal popliteal artery. ASSESSMENT AND PLAN: Peripheral vascular disease with near rest pain. I have discussed angiograms and potential intervention with him and he is agreeable. His current creatinine is 2.1. We will start him on some normal saline infusion and recheck his BMP in the morning and plan for angiograms on Saturday. Job ID: [id number]
[2020-01-23] MEDS: cefTRIAXone\\ROCEPHIN 1 GM in Sodium Chloride 0.9% 100 ML IVPB SCH (20:50)
[2020-01-23] MEDS ORDERED: Atorvastatin Calcium 20 MG TAB PO SCH (21:00)
[2020-01-24 05:57] LABS: Anion Gap 11 mmol/L (10-20); BUN (Urea Nitrogen) 43 mg/dL (8.4-25.7); Calc. Creatinine Clearance 45 mL/min (70-130); Calcium 8.2 mg/dL (7.8-10.44); Carbon Dioxide 22 mmol/L (23-31); Chloride 107 mmol/L (98-107); Estimated GFR-MDRD 42; Glucose 63 mg/dL (83-110); Potassium 3.4 mmol/L (3.5-5.1); Sodium 137 mmol/L (136-145)
[2020-01-24] MEDS: Heparin 5,000 UNITS/ML VIAL SC SCH ×3 (08:06→20:46)
[2020-01-24] MEDS: Carvedilol 6.25 MG TAB PO SCH ×2 (08:06→17:03)
[2020-01-24] MEDS: Sodium Chloride 0.9% 1,000 ML IV SCH (08:06)
[2020-01-24] MEDS: Fluticasone Propionate Nasal Spray 16 gm Bottle NASAL SCH (08:06)
[2020-01-24] MEDS: Pyridostigmine Bromide IR 60 MG TAB PO SCH ×3 (08:06→20:45)
[2020-01-24] MEDS: Aspirin 81 mg Enteric Coated Tablet PO SCH (10:04)
[2020-01-24] MEDS ORDERED: Clopidogrel Bisulfate 75 MG TAB PO SCH (10:15)
[2020-01-24] MEDS ORDERED: Potassium Chloride 20 MEQ TAB PO SCH ×2 (11:30→14:00)
--- NOTE | 2020-01-24 11:49 | PDOC.EVN ---
Event Note - Event Note Event Note: correction to prior progress notes cellulitis and L LLE swelling and pain [correction -- it is not the right leg but left leg
[2020-01-24] MEDS: Insulin Glargine 15 UNITS in Pre-Filled Syringe SC SCH (12:04)
[2020-01-24] MEDS ORDERED: Insulin Glargine 7 UNITS in Pre-Filled Syringe 1 EACH SC SCH (12:15)
--- NOTE | 2020-01-24 13:48 | PDOC.HOSPP ---
- Subjective Encounter Date: 01/24/20 Encounter Time: 11:55 Subjective: pt up in bed eating his lunch - Objective Vital Signs & Weight: Vital Signs (12 hours) Temp Pulse Resp BP BP BP Pulse Ox 01/24/20 11:01 98.0 F 54 L 20 158/80 H 95 01/24/20 08:07 99 01/24/20 08:06 185/74 H 01/24/20 07:16 98.6 F 61 18 185/74 H 99 01/24/20 06:15 97.4 F L 54 L 20 134/70 95 01/24/20 02:00 97.3 F L 46 L 147/50 H 97 Weight Admit Weight 196 lb Weight 196 lb I&O: 01/23/20 01/24/20 01/25/20 06:59 06:59 06:59 Intake Total 240 1380 Balance 240 1380 Result Diagrams: 01/22/20 14:11 01/24/20 05:15 Additional Labs: Accuchecks 01/24/20 01/24/20 01/23/20 10:12 06:08 19:35 POC Glucose 185 H 75 162 H 01/23/20 16:05 POC Glucose 101 Hospitalist ROS - Review of Systems Cardiovascular: denies: chest pain, palpitations, orthopnea, paroxysmal noc. dyspnea, edema, light headedness, other Gastrointestinal: denies: nausea, vomiting, abdominal pain, diarrhea, constipation, melena, hematochezia, other Genitourinary: denies: dysuria, frequency, incontinence, hematuria, retention, other - Medication Medications: Active Medications Generic Name Dose Route Start Last Admin Trade Name Marlen PRN Reason Stop Dose Admin Aspirin 81 mg 01/24/20 09:00 01/24/20 10:04 Ecotrin PO 81 mg DAILY MIKAYLA Administration Carvedilol 6.25 mg 01/23/20 08:00 01/24/20 08:06 Coreg PO 6.25 mg BID-WM MIKAYLA Administration Fluticasone Propionate 1 gm 01/23/20 09:00 01/24/20 08:06 Flonase Nasal [place] NASAL 1 spray DAILY MIKAYLA Administration Heparin Sodium (Porcine) 5,000 units 01/22/20 21:00 01/24/20 08:06 Heparin SC 5,000 units TID MIKAYLA Administration Ceftriaxone Sodium 1 gm/ 100 mls @ 200 mls/hr 01/22/20 20:00 01/23/20 20:50 Sodium Chloride IVPB 100 mls Q24HR MIKAYLA Administration Sodium Chloride 1,000 mls @ 75 mls/hr 01/23/20 17:30 01/24/20 08:06 Normal Saline 0.9% IV 1,000 mls .[id number] MIKAYLA Administration Insulin Glargine 7 units/ 0.07 mls @ 0 mls/hr 01/24/20 12:15 01/24/20 13:38 Miscellaneous Medication SC 01/24/20 14:15 0.07 mls NOW MIKAYLA Administration Pantoprazole Sodium 40 mg 01/22/20 09:00 01/24/20 08:06 Protonix PO 40 mg DAILY MIKAYLA Administration Pyridostigmine [place] 60 mg 01/22/20 21:00 01/24/20 08:06 Mestinon PO 60 mg TID MIKAYLA Administration Sodium Chloride 10 ml 01/23/20 21:00 01/24/20 08:07 Flush - Normal Saline IVF Not Given Q12HR MIKAYLA - Exam Heart: negative: RRR, no murmur, no gallops, no rubs, normal peripheral pulses, irregular, diminshed peripheral pulses, murmur present, II/IV, III/IV Respiratory: negative: CTAB, no wheezes, no rales, no ronchi, normal chest expansion, no tachypnea, normal percussion, rales, rhonchi, tachypneic, wheezes Gastrointestinal: negative: soft, non-tender, non-distended, normal bowel sounds , no palpable masses, no hepatomegaly, no splenomegaly, no bruit, no guarding, no rigidity, tender to palpation, distended, diminished bowl sounds, voluntary guarding Hosp A/P (1) Left leg cellulitis Code(s): L03.116 - CELLULITIS OF LEFT LOWER LIMB Status: Acute (2) CAD (coronary artery disease) Code(s): I25.10 - ATHSCL HEART DISEASE OF [place] CORONARY ARTERY W/O ANG PCTRS Status: Chronic Qualifiers: Coronary Disease-Associated Artery/Lesion type: bypass graft [place] vs. transplanted heart: [place] heart Associated angina: without angina Qualified Code(s): I25.810 - Atherosclerosis of coronary artery bypass graft(s) without angina pectoris (3) Chronic kidney disease, stage 3 Code(s): N18.3 - CHRONIC KIDNEY DISEASE, STAGE 3 (MODERATE) Status: Chronic (4) Diabetes type 2, controlled Code(s): E11.9 - TYPE 2 DIABETES MELLITUS WITHOUT COMPLICATIONS Status: Chronic Qualifiers: Diabetes mellitus residential insulin use: with termite control service representative use Diabetes mellitus complication detail: with chronic kidney disease Chronic kidney disease stage: stage 3 (moderate) - Plan mild erythema noted. will continue abx for now. pt on asa. pt going for angiogram in am. will hold lasix and losartan for now. will continue iv fluids.
[2020-01-24] MEDS ORDERED: hydrALAZINE 25 MG TAB PO SCH (14:00)
[2020-01-24] MEDS: Mometasone 100 MCG/Formoterol 5 MCG 120 PUFF INHALER INH SCH (18:38)
[2020-01-24] MEDS: cefTRIAXone\\ROCEPHIN 1 GM in Sodium Chloride 0.9% 100 ML IVPB SCH (20:43)
[2020-01-24] MEDS: Atorvastatin Calcium 40 MG TAB PO SCH (20:45)
[2020-01-24] MEDS: hydrALAZINE 25 MG TAB PO SCH (20:45)
[2020-01-24] MEDS: Insulin Glargine 7 UNITS in Pre-Filled Syringe 1 EACH SC SCH (20:46)
[2020-01-25] MEDS: Sodium Chloride 0.9% 1,000 ML IV SCH ×2 (00:41→01:01)
[2020-01-25 05:53] LABS: Anion Gap 11 mmol/L (10-20); BUN (Urea Nitrogen) 31 mg/dL (8.4-25.7); Calc. Creatinine Clearance 50 mL/min (70-130); Carbon Dioxide 22 mmol/L (23-31); Chloride 110 mmol/L (98-107); Estimated GFR-MDRD 48; Glucose 83 mg/dL (83-110); Potassium 3.8 mmol/L (3.5-5.1); Sodium 139 mmol/L (136-145)
[2020-01-25] MEDS: Mometasone 100 MCG/Formoterol 5 MCG 120 PUFF INHALER INH SCH ×2 (06:59→18:14)
[2020-01-25] MEDS ORDERED: Midazolam HCl 2 mg/2 ml Vial ONE (07:22)
[2020-01-25] MEDS ORDERED: Fentanyl 100 MCG/2 ML VIAL ONE (07:22)
--- NOTE | 2020-01-25 08:39 | OP ---
DATE OF PROCEDURE: 01/25/2020 PREOPERATIVE DIAGNOSIS: Peripheral vascular disease with left foot cellulitis. POSTOPERATIVE DIAGNOSIS: Aortoiliac occlusive disease. PROCEDURE PERFORMED: Ultrasound-guided right femoral artery access with right external iliac artery angiogram. FINDINGS: Near occlusion of the right external iliac artery with inability to place a formal 5-[place] sheath. TOTAL CONTRAST: 2 mL. TOTAL FLUORO TIME: 1.7 minutes. DESCRIPTION OF PROCEDURE: After consent was obtained, the patient was brought to the concrete mixing plant laborer. Groins were prepped and draped in usual sterile fashion. Using ultrasound guidance, the right groin was anesthetized with 1% lidocaine. Using ultrasound guidance, percutaneous access to common femoral artery was obtained. The micro puncture wire and sheath easily passed into the femoral system. I could not get another wire to estefany into the aorta. Wires coiled within the iliac system. Hand-injected arteriogram was performed, which showed extensive calcification of the iliac system. The patient will need a CTA to further evaluate his aortoiliac occlusive disease, and we will be able to make some decisions from that point about how to best manage him. Job ID: [id number]
[2020-01-25] MEDS ORDERED: Clopidogrel Bisulfate 75 MG TAB PO SCH (09:00)
[2020-01-25] MEDS ORDERED: Iopamidol 370 76% 50 ML VIAL FS ONE (09:05)
[2020-01-25] MEDS: Insulin Glargine 7 UNITS in Pre-Filled Syringe 1 EACH SC SCH ×2 (10:22→20:52)
[2020-01-25] MEDS: Magnesium Oxide 400 MG TAB PO SCH (10:22)
[2020-01-25] MEDS: hydrALAZINE 25 MG TAB PO SCH ×2 (10:23→20:51)
[2020-01-25] MEDS: Calcium Carbonate 600 MG + Vit D TAB PO SCH (10:23)
[2020-01-25] MEDS: Pyridostigmine Bromide IR 60 MG TAB PO SCH ×3 (10:23→20:51)
[2020-01-25] MEDS: Aspirin 81 mg Enteric Coated Tablet PO SCH (10:23)
[2020-01-25] MEDS: Multivitamin W/ Minerals 1 TAB PO SCH (10:23)
[2020-01-25] MEDS: Carvedilol 6.25 MG TAB PO SCH ×2 (10:23→16:59)
[2020-01-25] MEDS: Fluticasone Propionate Nasal Spray 16 gm Bottle NASAL SCH (10:24)
[2020-01-25] MEDS: Heparin 5,000 UNITS/ML VIAL SC SCH ×3 (10:24→20:52)
--- NOTE | 2020-01-25 10:33 | CT ---
HISTORY: Left leg swelling and erythema. Aortoiliac occlusive disease. COMPARISON: None TECHNIQUE: Multiple contiguous axial images were obtained a CTA of the abdomen, pelvis, and bilateral lower extremities with contrast. Sagittal and coronal 3-D MIP reformats were performed. FINDINGS: Lung bases: Chronic changes in the lung bases suspected. Focal scar or atelectasis in the middle lobe . Heart: Cardiomegaly. No significant pericardial fluid. There are coronary artery calcifications. Liver: Diffuse hypoattenuation due to hepatic steatosis.. Gallbladder: CT evidence of cholelithiasis without evidence of cholecystitis.. Kidneys: Symmetric enhancement of the kidneys. Bilateral nonspecific perinephric fat stranding. Bilat eral exophytic renal hypodensities compatible with cysts. Bilaterally no obstructive uropathy.. Adrenal glands: Unremarkable. Spleen: Unremarkable. Pancreas: Unremarkable. Bowel: Limited evaluation of the alimentary canal by the lack of oral contrast. No evidence of a darryl l obstruction. Ileocecal junction appears to have a normal appearance. Normal caliber appendix is identified.. Reproductive organs :Unremarkable. Retroperitoneum: No lymphadenopathy Bones: Mild chronic compression fracture at T10. Abdominal aorta. Descending thoracic aorta and abdominal aorta demonstrate multifocal atherosclerotic disease. There is no periaortic fat stranding or aneurysm. 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 Celiac artery origin is patent. SMA: Minimal atherosclerosis. The superior mesenteric artery origin and proximal superior mesenteric artery are patent. CARRILLO: Patent Renal arteries: Without significant atherosclerotic disease. Bilateral single intrarenal arteries. At herosclerosis in both renal artery ostia. There is a left renal artery stent. No evidence of significant renal artery stenosis. Bilateral common iliac arteries: Atherosclerosis with mild luminal narrowing. Internal iliac arteries: Atherosclerosis with luminal narrowing, mild to moderate.. External iliac arteries: Atherosclerosis with mild to moderate luminal narrowing of bilateral externa l iliac arteries.. Common femoral arteries: Right lower extremity: There is atherosclerosis with mild luminal narrowing. There is iatrogenic gutierrez ge secondary to recent catheterization attempt involving the right inguinal soft tissues. There appears to be free spillage of contrast in the right lower quadrant. Left lower extremity: Atherosclerosis without significant luminal narrowing. [place]funda femoral arteries: Bilateral [place] femoral arteries demonstrate minimal atherosclerosis. N o significant luminal narrowing.. Superficial femoral arteries: Right lower extremity: Multisegment mild to moderate narrowing due to atherosclerotic disease. Left lower extremity: Multisegment moderate to severe narrowing due to atherosclerotic disease.. Popliteal arteries: Right lower extremity: Multisegment moderate to severe stenosis due to atherosclerotic disease. Left lower extremity: Multisegment moderate narrowing due to atherosclerotic disease.. Right lower extremity: Multifocal significant stenosis involving the anterior tibial artery, posterio r tibial artery and peroneal artery. There appears to be single vessel supply down to level of the foot, the of the posterior tibial artery. Left lower extremity: Multifocal significant stenosis involving the anterior tibial artery, posterior tibial artery and peroneal artery. There is single vessel supply at the level of the foot via the posterior tibial artery. IMPRESSION: 1. Extensive atherosclerotic disease as detailed above. 2. Extravasated contrast in the right lower quadrant, likely due to recent attempt at arterial cathet erization. Transcribed Date/Time: 01/25/2020 10:55 AM
[2020-01-25] MEDS ORDERED: Iopamidol-370 76% 500 ML 1 ML ONE (12:43)
--- NOTE | 2020-01-25 14:28 | PDOC.HOSPP ---
- Subjective Encounter Date: 01/25/20 Encounter Time: 11:15 Subjective: pt up in bed upset about his blood pressure being elevated. - Objective Vital Signs & Weight: Vital Signs (12 hours) Temp Pulse Resp BP Pulse Ox 01/25/20 10:10 98 01/25/20 04:09 97.2 F L 57 L 18 161/64 H 98 01/25/20 02:30 98.0 F 56 L 20 153/69 H 98 Weight Admit Weight 196 lb Weight 196 lb I&O: 01/24/20 01/25/20 01/26/20 06:59 06:59 06:59 Intake Total 240 2760 Balance 240 2760 Result Diagrams: 01/22/20 14:11 01/25/20 05:01 Additional Labs: Accuchecks 01/25/20 01/25/20 01/24/20 11:28 06:08 19:11 POC Glucose 144 H 94 160 H 01/24/20 16:07 POC Glucose 115 H Hospitalist ROS - Review of Systems Gastrointestinal: denies: nausea, vomiting, abdominal pain, diarrhea, constipation, melena, hematochezia, other Genitourinary: denies: dysuria, frequency, incontinence, hematuria, retention, other Musculoskeletal: denies: neck pain, shoulder pain, arm pain, back pain, hand pain, leg pain, foot pain, other - Medication Medications: Active Medications Generic Name Dose Route Start Last Admin Trade Name Freq PRN Reason Stop Dose Admin Albuterol/Ipratropium 3 ml 01/24/20 18:30 01/25/20 06:59 Duoneb NEB Not Given BID-RT MIKAYLA Aspirin 81 mg 01/24/20 09:00 01/25/20 10:23 Ecotrin PO 81 mg DAILY MIKAYLA Administration Atorvastatin Calcium 40 mg 01/24/20 21:00 01/24/20 20:45 Lipitor PO 40 mg HS MIKAYLA Administration Calcium/Vitamin D 1 tab 01/25/20 09:00 01/25/20 10:23 Caltrate 600 + Vit D PO 1 tab DAILY MIKAYLA Administration Carvedilol 6.25 mg 01/24/20 17:00 01/25/20 10:23 Coreg PO 6.25 mg BID-WM MIKAYLA Administration Fluticasone Propionate 1 gm 01/23/20 09:00 01/25/20 10:24 Flonase Nasal [place] NASAL 1 spray DAILY MIKAYLA Administration Heparin Sodium (Porcine) 5,000 units 01/22/20 21:00 01/25/20 10:24 Heparin SC Not Given TID MIKAYLA Hydralazine HCl 25 mg 01/24/20 21:00 01/25/20 10:23 Apresoline PO 25 mg BID MIKAYLA Administration Ceftriaxone Sodium 1 gm/ 100 mls @ 200 mls/hr 01/22/20 20:00 01/24/20 20:43 Sodium Chloride IVPB 100 mls Q24HR MIKAYLA Administration Sodium Chloride 1,000 mls @ 75 mls/hr 01/23/20 17:30 01/25/20 01:01 Normal Saline 0.9% IV 1,000 mls .[id number] MIKAYLA Administration Insulin Glargine 7 units/ 0.07 mls @ 0 mls/hr 01/24/20 21:00 01/25/20 10:22 Miscellaneous Medication SC 0.07 mls BID MIKAYLA Administration Iron/Minerals/Multivitamins 1 tab 01/25/20 09:00 01/25/20 10:23 Theragran M PO 1 tab DAILY MIKAYLA Administration Magnesium Oxide 400 mg 01/25/20 09:00 01/25/20 10:22 Magnesium Oxide PO 400 mg DAILY MIKAYLA Administration Mometasone Furoate/Formoterol Fumar 2 puff 01/24/20 18:30 01/25/20 06:59 Dulera 100 Mcg/5 Mcg Inhaler INH Not Given BID-RT MIKAYLA Pantoprazole Sodium 40 mg 01/22/20 09:00 01/25/20 10:23 Protonix PO 40 mg DAILY MIKAYLA Administration Pyridostigmine [place] 60 mg 01/22/20 21:00 01/25/20 10:23 Mestinon PO 60 mg TID MIKAYLA Administration Sodium Chloride 10 ml 01/23/20 21:00 01/25/20 10:24 Flush - Normal Saline IVF 10 ml Q12HR MIKAYLA Administration - Exam Neck: negative: supple, symmetric, no JVD, no thyromegaly, no lymphadenopathy, no carotid bruit, JVD Heart: negative: RRR, no murmur, no gallops, no rubs, normal peripheral pulses, irregular, diminshed peripheral pulses, murmur present, II/IV, III/IV Respiratory: negative: CTAB, no wheezes, no rales, no ronchi, normal chest expansion, no tachypnea, normal percussion, rales, rhonchi, tachypneic, wheezes Gastrointestinal: negative: soft, non-tender, non-distended, normal bowel sounds , no palpable masses, no hepatomegaly, no splenomegaly, no bruit, no guarding, no rigidity, tender to palpation, distended, diminished bowl sounds, voluntary guarding Extremities: 2+ LE edema Extremities - other findings: erythema to left lower ext Hosp A/P (1) Left leg cellulitis Code(s): L03.116 - CELLULITIS OF LEFT LOWER LIMB Status: Acute (2) CAD (coronary artery disease) Code(s): I25.10 - ATHSCL HEART DISEASE OF [place] CORONARY ARTERY W/O ANG PCTRS Status: Chronic Qualifiers: Coronary Disease-Associated Artery/Lesion type: bypass graft [place] vs. transplanted heart: [place] heart Associated angina: without angina Qualified Code(s): I25.810 - Atherosclerosis of coronary artery bypass graft(s) without angina pectoris (3) Chronic kidney disease, stage 3 Code(s): N18.3 - CHRONIC KIDNEY DISEASE, STAGE 3 (MODERATE) Status: Chronic (4) Diabetes type 2, controlled Code(s): E11.9 - TYPE 2 DIABETES MELLITUS WITHOUT COMPLICATIONS Status: Chronic Qualifiers: Diabetes mellitus terminal press operator insulin use: with terminal press operator use Diabetes mellitus complication detail: with chronic kidney disease Chronic kidney disease stage: stage 3 (moderate) - Plan mild erythema noted. will continue abx for now. pt on asa. pt going for angiogram in am. will hold lasix and losartan for now. will continue iv fluids. 01/24 will hold his losartan explained to patient. will stop fluids for now. will check labs in am. near occlusion of the right external iliac artery with inability to proceed. cta aorto run off indicated atherosclerotic disease. Daughter updated
[2020-01-25] MEDS: Atorvastatin Calcium 40 MG TAB PO SCH (20:51)
[2020-01-25] MEDS: cefTRIAXone\\ROCEPHIN 1 GM in Sodium Chloride 0.9% 100 ML IVPB SCH (20:55)
[2020-01-26 05:32] LABS: #Eosinphils 0.2 thou/uL (0.0-0.7); #Lymphocytes 1.5 thou/uL (1.20-3.40); #Neutrophils 6.2 thou/uL (1.40-6.50); %Basophils 0.5 % (0.0-1.0); %Eosinophils 1.8 % (0.0-10.0); %Lymphocytes 16.4 % (21.0-51.0); %Monocytes 11.3 % (0.0-10.0); Hemoglobin 11.3 g/dL (14.0-18.0); Mean Corpuscular HGB CONC 33.1 g/dL (32.0-36.0); Mean Corpuscular Volume 93.9 fL (78.0-98.0); Mean Platelet Volume 7.7 fL (7.4-10.4); Platelet Count 161 thou/uL (130-400); RBC Distribution Width 12.7 % (11.5-14.5); Red Blood Cell (RBC) Count 3.64 mill/uL (4.70-6.10); White Blood Cell (WBC) Count 8.8 thou/uL (4.8-10.8)
[2020-01-26 05:52] LABS: Anion Gap 11 mmol/L (10-20); BUN (Urea Nitrogen) 25 mg/dL (8.4-25.7); Calc. Creatinine Clearance 52 mL/min (70-130); Calcium 8.3 mg/dL (7.8-10.44); Carbon Dioxide 21 mmol/L (23-31); Chloride 109 mmol/L (98-107); Estimated GFR-MDRD 50; Glucose 96 mg/dL (83-110); Potassium 3.9 mmol/L (3.5-5.1); Sodium 137 mmol/L (136-145)
[2020-01-26] MEDS: Sodium Chloride 0.9% 1,000 ML IV SCH (06:23)
[2020-01-26] MEDS: Mometasone 100 MCG/Formoterol 5 MCG 120 PUFF INHALER INH SCH ×2 (06:29→20:10)
[2020-01-26] MEDS: Pyridostigmine Bromide IR 60 MG TAB PO SCH ×3 (09:07→20:44)
[2020-01-26] MEDS: Aspirin 81 mg Enteric Coated Tablet PO SCH (09:07)
[2020-01-26] MEDS: Calcium Carbonate 600 MG + Vit D TAB PO SCH (09:07)
[2020-01-26] MEDS: hydrALAZINE 25 MG TAB PO SCH ×2 (09:08→20:44)
[2020-01-26] MEDS: Magnesium Oxide 400 MG TAB PO SCH (09:08)
[2020-01-26] MEDS: Carvedilol 6.25 MG TAB PO SCH ×2 (09:08→16:11)
[2020-01-26] MEDS: Heparin 5,000 UNITS/ML VIAL SC SCH ×3 (09:09→20:44)
[2020-01-26] MEDS: Multivitamin W/ Minerals 1 TAB PO SCH (09:09)
[2020-01-26] MEDS: Fluticasone Propionate Nasal Spray 16 gm Bottle NASAL SCH (09:10)
[2020-01-26] MEDS: Insulin Glargine 7 UNITS in Pre-Filled Syringe 1 EACH SC SCH ×2 (09:10→20:44)
--- NOTE | 2020-01-26 18:00 | PDOC.HOSPP ---
- Subjective Encounter Date: 01/26/20 Encounter Time: 10:00 Subjective: pt up in bed no complains - Objective Vital Signs & Weight: Vital Signs (12 hours) Temp Pulse Resp BP BP Pulse Ox 01/26/20 16:11 161/66 H 01/26/20 08:00 97.8 F 48 L 17 131/68 97 01/26/20 06:27 57 L 16 97 Weight Admit Weight 196 lb Weight 196 lb I&O: 01/25/20 01/26/20 01/27/20 06:59 06:59 06:59 Intake Total 2760 Balance 2760 Result Diagrams: 01/26/20 05:12 01/26/20 05:12 Additional Labs: Accuchecks 01/26/20 01/26/20 01/26/20 16:03 12:11 05:37 POC Glucose 135 H 136 H 111 H 01/25/20 19:26 POC Glucose 158 H Hospitalist ROS - Review of Systems Cardiovascular: denies: chest pain, palpitations, orthopnea, paroxysmal noc. dyspnea, edema, light headedness, other Gastrointestinal: denies: nausea, vomiting, abdominal pain, diarrhea, constipation, melena, hematochezia, other Genitourinary: denies: dysuria, frequency, incontinence, hematuria, retention, other - Medication Medications: Active Medications Generic Name Dose Route Start Last Admin Trade Name Franckq PRN Reason Stop Dose Admin Albuterol/Ipratropium 3 ml 01/24/20 18:30 01/26/20 06:27 Duoneb NEB 3 ml BID-RT MIKAYLA Administration Aspirin 81 mg 01/24/20 09:00 01/26/20 09:07 Ecotrin PO 81 mg DAILY MIKAYLA Administration Atorvastatin Calcium 40 mg 01/24/20 21:00 01/25/20 20:51 Lipitor PO 40 mg HS MIKAYLA Administration Calcium/Vitamin D 1 tab 01/25/20 09:00 01/26/20 09:07 Caltrate 600 + Vit D PO 1 tab DAILY MIKAYLA Administration Carvedilol 6.25 mg 01/24/20 17:00 01/26/20 16:11 Coreg PO 6.25 mg BID-WM MIKAYLA Administration Fluticasone Propionate 1 gm 01/23/20 09:00 01/26/20 09:10 Flonase Nasal [place] NASAL Not Given DAILY MIKAYLA Heparin Sodium (Porcine) 5,000 units 01/22/20 21:00 01/26/20 14:44 Heparin SC 5,000 units TID MIKAYLA Administration Hydralazine HCl 25 mg 01/24/20 21:00 01/26/20 09:08 Apresoline PO 25 mg BID MIKAYLA Administration Ceftriaxone Sodium 1 gm/ 100 mls @ 200 mls/hr 01/22/20 20:00 01/25/20 20:55 Sodium Chloride IVPB 100 mls Q24HR MIKAYLA Administration Insulin Glargine 7 units/ 0.07 mls @ 0 mls/hr 01/24/20 21:00 01/26/20 09:10 Miscellaneous Medication SC 0.07 mls BID MIKAYLA Administration Iron/Minerals/Multivitamins 1 tab 01/25/20 09:00 01/26/20 09:09 Theragran M PO 1 tab DAILY MIKAYLA Administration Magnesium Oxide 400 mg 01/25/20 09:00 01/26/20 09:08 Magnesium Oxide PO 400 mg DAILY MIKAYLA Administration Mometasone Furoate/Formoterol Fumar 2 puff 01/24/20 18:30 01/26/20 06:29 Dulera 100 Mcg/5 Mcg Inhaler INH 2 puff BID-RT MIKAYLA Administration Pantoprazole Sodium 40 mg 01/22/20 09:00 01/26/20 09:09 Protonix PO 40 mg DAILY MIKAYLA Administration Pyridostigmine [place] 60 mg 01/22/20 21:00 01/26/20 14:44 Mestinon PO 60 mg TID MIKAYLA Administration Sodium Chloride 10 ml 01/23/20 21:00 01/26/20 09:10 Flush - Normal Saline IVF 10 ml Q12HR MIKAYLA Administration - Exam Neck: negative: supple, symmetric, no JVD, no thyromegaly, no lymphadenopathy, no carotid bruit, JVD Heart: negative: RRR, no murmur, no gallops, no rubs, normal peripheral pulses, irregular, diminshed peripheral pulses, murmur present, II/IV, III/IV Respiratory: negative: CTAB, no wheezes, no rales, no ronchi, normal chest expansion, no tachypnea, normal percussion, rales, rhonchi, tachypneic, wheezes Hosp A/P (1) Left leg cellulitis Code(s): L03.116 - CELLULITIS OF LEFT LOWER LIMB Status: Acute (2) CAD (coronary artery disease) Code(s): I25.10 - ATHSCL HEART DISEASE OF [place] CORONARY ARTERY W/O ANG PCTRS Status: Chronic Qualifiers: Coronary Disease-Associated Artery/Lesion type: bypass graft [place] vs. transplanted heart: [place] heart Associated angina: without angina Qualified Code(s): I25.810 - Atherosclerosis of coronary artery bypass graft(s) without angina pectoris (3) Chronic kidney disease, stage 3 Code(s): N18.3 - CHRONIC KIDNEY DISEASE, STAGE 3 (MODERATE) Status: Chronic (4) Diabetes type 2, controlled Code(s): E11.9 - TYPE 2 DIABETES MELLITUS WITHOUT COMPLICATIONS Status: Chronic Qualifiers: Diabetes mellitus long-term insulin use: with watermelon inspector use Diabetes mellitus complication detail: with chronic kidney disease Chronic kidney disease stage: stage 3 (moderate) - Plan mild erythema noted. will continue abx for now. pt on asa. pt going for angiogram in am. will hold lasix and losartan for now. will continue iv fluids. 01/24 will hold his losartan explained to patient. will stop fluids for now. will check labs in am. near occlusion of the right external iliac artery with inability to proceed. cta aorto run off indicated atherosclerotic disease. Daughter updated 01/25 pt doing well, will talk with CV surgeon for plan. will continue current meds.
[2020-01-26] MEDS: Atorvastatin Calcium 40 MG TAB PO SCH (20:44)
[2020-01-26] MEDS: cefTRIAXone\\ROCEPHIN 1 GM in Sodium Chloride 0.9% 100 ML IVPB SCH (20:45)
[2020-01-27] MEDS: Carvedilol 6.25 MG TAB PO SCH ×2 (06:27→17:30)
[2020-01-27] MEDS: Sodium Chloride 0.9% 1,000 ML IV SCH (06:27)
[2020-01-27 06:48] LABS: Anion Gap 12 mmol/L (10-20); BUN (Urea Nitrogen) 24 mg/dL (8.4-25.7); Calc. Creatinine Clearance 52 mL/min (70-130); Calcium 8.7 mg/dL (7.8-10.44); Carbon Dioxide 20 mmol/L (23-31); Chloride 108 mmol/L (98-107); Estimated GFR-MDRD 50; Glucose 88 mg/dL (83-110); Potassium 3.9 mmol/L (3.5-5.1); Sodium 136 mmol/L (136-145)
[2020-01-27] MEDS: Mometasone 100 MCG/Formoterol 5 MCG 120 PUFF INHALER INH SCH ×2 (06:59→19:50)
[2020-01-27] MEDS: Aspirin 81 mg Enteric Coated Tablet PO SCH (08:51)
[2020-01-27] MEDS: Insulin Glargine 7 UNITS in Pre-Filled Syringe 1 EACH SC SCH ×2 (08:52→21:33)
[2020-01-27] MEDS: Heparin 5,000 UNITS/ML VIAL SC SCH ×3 (08:52→21:32)
[2020-01-27] MEDS: Fluticasone Propionate Nasal Spray 16 gm Bottle NASAL SCH (08:52)
[2020-01-27] MEDS: Pyridostigmine Bromide IR 60 MG TAB PO SCH ×3 (08:53→21:32)
--- NOTE | 2020-01-27 14:29 | PDOC.HOSPP ---
- Subjective Encounter Date: 01/27/20 Encounter Time: 10:30 Subjective: pt up in bed no complains - Objective Vital Signs & Weight: Vital Signs (12 hours) Temp Pulse Resp BP BP BP Pulse Ox 01/27/20 07:16 97.5 F L 58 L 18 118/50 L 100 01/27/20 07:00 63 16 97 01/27/20 06:59 63 16 97 01/27/20 06:27 126/86 01/27/20 04:00 98.5 F 62 18 124/61 96 Weight Admit Weight 196 lb Weight 196 lb Result Diagrams: 01/29/20 05:47 01/29/20 05:47 Additional Labs: Accuchecks 01/27/20 01/27/20 01/26/20 11:28 04:20 19:37 POC Glucose 107 107 168 H 01/26/20 16:03 POC Glucose 135 H Hospitalist ROS - Review of Systems Cardiovascular: denies: chest pain, palpitations, orthopnea, paroxysmal noc. dyspnea, edema, light headedness, other Gastrointestinal: denies: nausea, vomiting, abdominal pain, diarrhea, constipation, melena, hematochezia, other Genitourinary: denies: dysuria, frequency, incontinence, hematuria, retention, other - Medication Medications: Active Medications Generic Name Dose Route Start Last Admin Trade Name Franckq PRN Reason Stop Dose Admin Albuterol/Ipratropium 3 ml 01/24/20 18:30 01/27/20 07:00 Duoneb NEB 3 ml BID-RT MIAKYLA Administration Aspirin 81 mg 01/24/20 09:00 01/27/20 08:51 Ecotrin PO Not Given DAILY MIKAYLA Atorvastatin Calcium 40 mg 01/24/20 21:00 01/26/20 20:44 Lipitor PO 40 mg HS MIKAYLA Administration Calcium/Vitamin D 1 tab 01/25/20 09:00 01/26/20 09:07 Caltrate 600 + Vit D PO 1 tab DAILY MIKAYLA Administration Carvedilol 6.25 mg 01/24/20 17:00 01/27/20 06:27 Coreg PO 6.25 mg BID-WM MIKAYLA Administration Fluticasone Propionate 1 gm 01/23/20 09:00 01/27/20 08:52 Flonase Nasal [place] NASAL 1 spray DAILY MIKAYLA Administration Heparin Sodium (Porcine) 5,000 units 01/22/20 21:00 01/27/20 08:52 Heparin SC Not Given TID MIKAYLA Hydralazine HCl 25 mg 01/24/20 21:00 01/26/20 20:44 Apresoline PO 25 mg BID MIKAYLA Administration Ceftriaxone Sodium 1 gm/ 100 mls @ 200 mls/hr 01/22/20 20:00 01/26/20 20:45 Sodium Chloride IVPB 100 mls Q24HR MIKAYLA Administration Insulin Glargine 7 units/ 0.07 mls @ 0 mls/hr 01/24/20 21:00 01/27/20 08:52 Miscellaneous Medication SC Not Given BID MIKAYLA Sodium Chloride 1,000 mls @ 75 mls/hr 01/27/20 06:00 01/27/20 06:27 Normal Saline 0.9% IV 1,000 mls .[id number] MIKAYLA Administration Iron/Minerals/Multivitamins 1 tab 01/25/20 09:00 01/26/20 09:09 Theragran M PO 1 tab DAILY MIKAYLA Administration Magnesium Oxide 400 mg 01/25/20 09:00 01/26/20 09:08 Magnesium Oxide PO 400 mg DAILY MIKAYLA Administration Mometasone Furoate/Formoterol Fumar 2 puff 01/24/20 18:30 01/27/20 06:59 Dulera 100 Mcg/5 Mcg Inhaler INH 2 puff BID-RT MIKAYLA Administration Pantoprazole Sodium 40 mg 01/22/20 09:00 01/26/20 09:09 Protonix PO 40 mg DAILY MIKAYLA Administration Pyridostigmine [place] 60 mg 01/22/20 21:00 01/27/20 08:53 Mestinon PO Not Given TID MIKAYLA Sodium Chloride 10 ml 01/23/20 21:00 01/27/20 08:53 Flush - Normal Saline IVF Not Given Q12HR MIKAYLA - Exam Heart: negative: RRR, no murmur, no gallops, no rubs, normal peripheral pulses, irregular, diminshed peripheral pulses, murmur present, II/IV, III/IV Respiratory: negative: CTAB, no wheezes, no rales, no ronchi, normal chest expansion, no tachypnea, normal percussion, rales, rhonchi, tachypneic, wheezes Gastrointestinal: negative: soft, non-tender, non-distended, normal bowel sounds , no palpable masses, no hepatomegaly, no splenomegaly, no bruit, no guarding, no rigidity, tender to palpation, distended, diminished bowl sounds, voluntary guarding Extremities: 2+ LE edema Extremities - other findings: left leg erythema Hosp A/P (1) Left leg cellulitis Code(s): L03.116 - CELLULITIS OF LEFT LOWER LIMB Status: Acute (2) CAD (coronary artery disease) Code(s): I25.10 - ATHSCL HEART DISEASE OF [place] CORONARY ARTERY W/O ANG PCTRS Status: Chronic Qualifiers: Coronary Disease-Associated Artery/Lesion type: bypass graft [place] vs. transplanted heart: [place] heart Associated angina: without angina Qualified Code(s): I25.810 - Atherosclerosis of coronary artery bypass graft(s) without angina pectoris (3) Chronic kidney disease, stage 3 Code(s): N18.3 - CHRONIC KIDNEY DISEASE, STAGE 3 (MODERATE) Status: Chronic (4) Diabetes type 2, controlled Code(s): E11.9 - TYPE 2 DIABETES MELLITUS WITHOUT COMPLICATIONS Status: Chronic Qualifiers: Diabetes mellitus fpc insulin use: with fpc use Diabetes mellitus complication detail: with chronic kidney disease Chronic kidney disease stage: stage 3 (moderate) - Plan mild erythema noted. will continue abx for now. pt on asa. pt going for angiogram in am. will hold lasix and losartan for now. will continue iv fluids. 01/24 will hold his losartan explained to patient. will stop fluids for now. will check labs in am. near occlusion of the right external iliac artery with inability to proceed. cta aorto run off indicated atherosclerotic disease. Daughter updated 01/25 pt doing well, will talk with CV surgeon for plan. will continue current meds. 01/26 pt was suppose to get his angiogram done but due to emergencies it was pushed back to janine.
[2020-01-27] MEDS: Magnesium Oxide 400 MG TAB PO SCH (16:10)
[2020-01-27] MEDS: Calcium Carbonate 600 MG + Vit D TAB PO SCH (16:10)
[2020-01-27] MEDS: hydrALAZINE 25 MG TAB PO SCH ×2 (16:10→21:32)
[2020-01-27] MEDS: Multivitamin W/ Minerals 1 TAB PO SCH (16:11)
[2020-01-27] MEDS: Atorvastatin Calcium 40 MG TAB PO SCH (21:32)
[2020-01-27] MEDS: cefTRIAXone\\ROCEPHIN 1 GM in Sodium Chloride 0.9% 100 ML IVPB SCH (21:32)
[2020-01-28] MEDS ORDERED: hydrALAZINE 20 MG/ML VIAL SLOW IVP PRN (06:40)
[2020-01-28] MEDS: Mometasone 100 MCG/Formoterol 5 MCG 120 PUFF INHALER INH SCH ×2 (07:19→19:01)
[2020-01-28] MEDS: Carvedilol 6.25 MG TAB PO SCH ×2 (08:15→17:13)
[2020-01-28] MEDS: Sodium Chloride 0.9% 1,000 ML IV SCH ×2 (08:15→08:16)
[2020-01-28] MEDS: Heparin 5,000 UNITS/ML VIAL SC SCH ×3 (08:16→20:41)
[2020-01-28] MEDS: Aspirin 81 mg Enteric Coated Tablet PO SCH (08:16)
[2020-01-28] MEDS: Insulin Glargine 7 UNITS in Pre-Filled Syringe 1 EACH SC SCH ×2 (08:17→20:41)
[2020-01-28] MEDS: Fluticasone Propionate Nasal Spray 16 gm Bottle NASAL SCH (08:17)
[2020-01-28] MEDS: Pyridostigmine Bromide IR 60 MG TAB PO SCH ×3 (08:17→20:40)
[2020-01-28] MEDS ORDERED: Fentanyl 100 MCG/2 ML VIAL ONE (10:35)
[2020-01-28] MEDS ORDERED: Midazolam HCl 2 mg/2 ml Vial ONE (10:35)
[2020-01-28] MEDS ORDERED: hydrALAZINE 20 MG/ML VIAL ONE ×2 (11:18→14:29)
[2020-01-28] MEDS ORDERED: Heparin 10,000 UNITS/1 ML VIAL ONE (11:34)
[2020-01-28] MEDS ORDERED: Protamine Sulfate 50 MG/5 ML VIAL ONE (11:53)
[2020-01-28] MEDS ORDERED: Iopamidol 370 76% 50 ML VIAL FS ONE (12:39)
[2020-01-28] MEDS ORDERED: hydrALAZINE 20 MG/ML VIAL SLOW IVP SCH (14:45)
[2020-01-28] MEDS ORDERED: hydrALAZINE 25 MG TAB PO SCH (14:45)
[2020-01-28] MEDS: Magnesium Oxide 400 MG TAB PO SCH (17:12)
[2020-01-28] MEDS: Calcium Carbonate 600 MG + Vit D TAB PO SCH (17:12)
[2020-01-28] MEDS: Multivitamin W/ Minerals 1 TAB PO SCH (17:12)
[2020-01-28] MEDS: hydrALAZINE 25 MG TAB PO SCH ×2 (17:13→20:40)
[2020-01-28] MEDS ORDERED: Fluconazole 100 MG TAB PO SCH (18:00)
[2020-01-28] MEDS ORDERED: Furosemide 40 MG/4 ML VIAL SLOW IVP SCH (18:00)
--- NOTE | 2020-01-28 18:20 | OP ---
DATE OF PROCEDURE: 01/28/2020 PREOPERATIVE DIAGNOSIS: Peripheral vascular disease with left foot cellulitis and hypoperfusion. POSTOPERATIVE DIAGNOSIS: Peripheral vascular disease with left foot cellulitis and hypoperfusion. PROCEDURES PERFORMED: 1. Right external iliac angiogram. 2. Abdominal aortogram. 3. Left common iliac artery angiogram. 4. Left external iliac artery angiogram. 5. Left popliteal artery angiogram. 6. Left SFA LINUX KERNEL DEVELOPER with a 5 x 150 Lutonix drug-eluting balloon taken to 8 mmHg for 3 minutes. 7. Ultrasound-guided arterial access. TOTAL CONTRAST: 48 mL. TOTAL FLUORO TIME: 17 minutes. DESCRIPTION OF PROCEDURE: After consent was obtained, the patient was brought to the laboratory assistant, placed in supine position on laboratory assistant table. Appropriate central line was placed and IV sedation begun. Using ultrasound guidance, the right groin was anesthetized with 1% lidocaine. Using ultrasound guidance, percutaneous access to common femoral artery was obtained. The micropuncture sheath was placed followed by J-wire. This allowed us to access the artery with a 5-Citizen Of [place] sheath. A J-wire was passed in the abdominal aorta followed by Contra catheter. Hand-injected aortogram was performed illuminating the aorta and iliac vasculature showing no significant obstructive disease. There was calcium within the brothers of all vessels, but no significant obstruction. The Contra catheter was then used to cross the aortic bifurcation. Once across the bifurcation, hand-injected arteriogram was performed. The common iliac artery laid out the architecture of the remainder of the iliac system on the left. A stiff angled Glidewire was used to cross the bifurcation and guide the catheter down into the external iliac artery. Hand-injected arteriogram was used to play out the femoral artery bifurcation. The profunda and superficial femoral arteries were widely patent. The superficial femoral was accessed and a guidewire passed down distally into the superficial femoral artery. Catheter was passed into the origin of the superficial femoral artery. Hand-injected arteriogram performed using digital subtraction angiography with multiple injections to lay out the superficial femoral artery. There were multiple short-segment calcified areas with luminal encroachment including 2 areas of near occlusion. There was also an area distally in the superficial femoral artery, which was occluded for less than 1 cm. The patient was given 5000 units of heparin. A 5-Citizen [place] sheath was removed and a 5-Citizen [place] Destination sheath was placed down into the common femoral artery. Using an angled [place] catheter and stiff angled Glidewire, the area of occlusion was crossed. Catheter was placed in the popliteal artery and hand-injected arteriogram was performed showing intraluminal location. The posterior tibial and peroneal arteries were patent to the foot. Magic Torque guidewire was then passed. The catheter was removed and a 5 x 150 Lutonix balloon was selected and inflated within the superficial femoral artery for 3 minutes. Followup angiogram showed a great result with good flow down into the popliteal artery. We did a pullback across the origin of the superficial femoral artery and throughout the iliac system. There was no pressure drop. The patient was given 25 mg of protamine. Sheath was removed and manual pressure held for hemostasis. The patient tolerated the procedure well and transferred to recovery room and then to the floor for monitoring. Job ID: [id number]
[2020-01-28] MEDS: Atorvastatin Calcium 40 MG TAB PO SCH (20:40)
[2020-01-29 05:59] LABS: #Eosinphils 0.1 thou/uL (0.0-0.7); #Monocytes 0.9 thou/uL (0.11-0.59); #Neutrophils 5.7 thou/uL (1.40-6.50); %Basophils 0.2 % (0.0-1.0); %Eosinophils 1.8 % (0.0-10.0); %Lymphocytes 12.9 % (21.0-51.0); %Monocytes 11.9 % (0.0-10.0); %Neutrophils 73.2 % (42.0-75.0); Hemoglobin 10.1 g/dL (14.0-18.0); Mean Corpuscular Hemoglobin 31.7 pg (27.0-31.0); Mean Corpuscular Volume 93.4 fL (78.0-98.0); Mean Platelet Volume 7.7 fL (7.4-10.4); Platelet Count 137 thou/uL (130-400); RBC Distribution Width 13.3 % (11.5-14.5); Red Blood Cell (RBC) Count 3.19 mill/uL (4.70-6.10); White Blood Cell (WBC) Count 7.8 thou/uL (4.8-10.8)
[2020-01-29 06:35] LABS: Anion Gap 10 mmol/L (10-20); BUN (Urea Nitrogen) 20 mg/dL (8.4-25.7); Calc. Creatinine Clearance 55 mL/min (70-130); Calcium 8.6 mg/dL (7.8-10.44); Carbon Dioxide 22 mmol/L (23-31); Chloride 110 mmol/L (98-107); Estimated GFR-MDRD 53; Glucose 125 mg/dL (83-110); Potassium 3.7 mmol/L (3.5-5.1); Sodium 138 mmol/L (136-145)
--- NOTE | 2020-01-29 07:22 | PDOC.HOSPP ---
- Subjective Encounter Date: 01/28/20 Encounter Time: 17:50 Subjective: pt up in bed eating - Objective Vital Signs & Weight: Vital Signs (12 hours) Temp Pulse Resp BP BP Pulse Ox 01/29/20 04:00 98 F 65 20 145/70 H 96 01/28/20 20:40 67 01/28/20 20:35 97.5 F L 67 18 133/71 96 Weight Admit Weight 196 lb Weight 196 lb Result Diagrams: 01/29/20 05:47 01/29/20 05:47 Additional Labs: Accuchecks 01/28/20 20:43 POC Glucose 229 H Hospitalist ROS - Review of Systems Cardiovascular: denies: chest pain, palpitations, orthopnea, paroxysmal noc. dyspnea, edema, light headedness, other Gastrointestinal: denies: nausea, vomiting, abdominal pain, diarrhea, constipation, melena, hematochezia, other Genitourinary: denies: dysuria, frequency, incontinence, hematuria, retention, other - Medication Medications: Active Medications Generic Name Dose Route Start Last Admin Trade Name Franckq PRN Reason Stop Dose Admin Albuterol/Ipratropium 3 ml 01/24/20 18:30 01/28/20 18:59 Duoneb NEB 3 ml BID-RT MIKAYLA Administration Aspirin 81 mg 01/24/20 09:00 01/28/20 08:16 Ecotrin PO Not Given DAILY MIKAYLA Atorvastatin Calcium 40 mg 01/24/20 21:00 01/28/20 20:40 Lipitor PO 40 mg HS MIKAYLA Administration Calcium/Vitamin D 1 tab 01/25/20 09:00 01/28/20 17:12 Caltrate 600 + Vit D PO 1 tab DAILY MIKAYLA Administration Carvedilol 6.25 mg 01/24/20 17:00 01/28/20 17:13 Coreg PO 6.25 mg BID-WM MIKAYLA Administration Fluticasone Propionate 1 gm 01/23/20 09:00 01/28/20 08:17 Flonase Nasal [place] NASAL 2 spray DAILY MIKAYLA Administration Heparin Sodium (Porcine) 5,000 units 01/22/20 21:00 01/28/20 20:41 Heparin SC 5,000 units TID MIKAYLA Administration Hydralazine HCl 25 mg 01/24/20 21:00 01/28/20 20:40 Apresoline PO 25 mg BID MIKAYLA Administration Hydralazine HCl 10 mg 01/28/20 06:40 01/28/20 06:48 Apresoline SLOW IVP 10 mg Q6H PRN Administration BP Insulin Glargine 7 units/ 0.07 mls @ 0 mls/hr 01/24/20 21:00 01/28/20 20:41 Miscellaneous Medication SC 0.07 mls BID MIKAYLA Administration Iron/Minerals/Multivitamins 1 tab 01/25/20 09:00 01/28/20 17:12 Theragran M PO 1 tab DAILY MIKAYLA Administration Magnesium Oxide 400 mg 01/25/20 09:00 01/28/20 17:12 Magnesium Oxide PO 400 mg DAILY MIKAYLA Administration Mometasone Furoate/Formoterol Fumar 2 puff 01/24/20 18:30 01/28/20 19:01 Dulera 100 Mcg/5 Mcg Inhaler INH 2 puff BID-RT MIKAYLA Administration Pantoprazole Sodium 40 mg 01/22/20 09:00 01/28/20 17:13 Protonix PO 40 mg DAILY MIKAYLA Administration Pyridostigmine [place] 60 mg 01/22/20 21:00 01/28/20 20:40 Mestinon PO 60 mg TID MIKAYLA Administration Sodium Chloride 10 ml 01/23/20 21:00 01/28/20 08:18 Flush - Normal Saline IVF Not Given Q12HR MIKAYLA - Exam ENT: normocephalic atraumatic, no oropharyngeal lesions Heart: negative: RRR, no murmur, no gallops, no rubs, normal peripheral pulses, irregular, diminshed peripheral pulses, murmur present, II/IV, III/IV Respiratory: negative: CTAB, no wheezes, no rales, no ronchi, normal chest expansion, no tachypnea, normal percussion, rales, rhonchi, tachypneic, wheezes Gastrointestinal: negative: soft, non-tender, non-distended, normal bowel sounds , no palpable masses, no hepatomegaly, no splenomegaly, no bruit, no guarding, no rigidity, tender to palpation, distended, diminished bowl sounds, voluntary guarding Extremities: 2+ LE edema Extremities - other findings: left leg erythema Hosp A/P (1) Left leg cellulitis Code(s): L03.116 - CELLULITIS OF LEFT LOWER LIMB Status: Acute (2) CAD (coronary artery disease) Code(s): I25.10 - ATHSCL HEART DISEASE OF [place] CORONARY ARTERY W/O ANG PCTRS Status: Chronic Qualifiers: Coronary Disease-Associated Artery/Lesion type: bypass graft [place] vs. transplanted heart: [place] heart Associated angina: without angina Qualified Code(s): I25.810 - Atherosclerosis of coronary artery bypass graft(s) without angina pectoris (3) Chronic kidney disease, stage 3 Code(s): N18.3 - CHRONIC KIDNEY DISEASE, STAGE 3 (MODERATE) Status: Chronic (4) Diabetes type 2, controlled Code(s): E11.9 - TYPE 2 DIABETES MELLITUS WITHOUT COMPLICATIONS Status: Chronic Qualifiers: Diabetes mellitus assisted insulin use: with assisted use Diabetes mellitus complication detail: with chronic kidney disease Chronic kidney disease stage: stage 3 (moderate) - Plan mild erythema noted. will continue abx for now. pt on asa. pt going for angiogram in am. will hold lasix and losartan for now. will continue iv fluids. 01/24 will hold his losartan explained to patient. will stop fluids for now. will check labs in am. near occlusion of the right external iliac artery with inability to proceed. cta aorto run off indicated atherosclerotic disease. Daughter updated 01/25 pt doing well, will talk with CV surgeon for plan. will continue current meds. 01/26 pt was suppose to get his angiogram done but due to emergencies it was pushed back to janine. 01/27 pt s/p angiogram with angioplasty done. pt wanted me to start him on flucanzole he states that helps him when he is sob. He states that when he gets yeast in his mouth he gets sob and the medication helps. I explained to him that is not what yeast does but he is adamant that he wants it.
[2020-01-29] MEDS: Mometasone 100 MCG/Formoterol 5 MCG 120 PUFF INHALER INH SCH (07:57)
[2020-01-29] MEDS ORDERED: Spironolactone 25 MG TAB PO SCH (08:00)
[2020-01-29] MEDS: Carvedilol 6.25 MG TAB PO SCH (08:47)
[2020-01-29] MEDS: Aspirin 81 mg Enteric Coated Tablet PO SCH (08:48)
[2020-01-29] MEDS: Calcium Carbonate 600 MG + Vit D TAB PO SCH (08:48)
[2020-01-29] MEDS: Heparin 5,000 UNITS/ML VIAL SC SCH (08:49)
[2020-01-29] MEDS: Magnesium Oxide 400 MG TAB PO SCH (08:49)
[2020-01-29] MEDS: Insulin Glargine 7 UNITS in Pre-Filled Syringe 1 EACH SC SCH (08:50)
[2020-01-29] MEDS: hydrALAZINE 25 MG TAB PO SCH (08:50)
[2020-01-29] MEDS: Multivitamin W/ Minerals 1 TAB PO SCH (08:50)
[2020-01-29] MEDS: Pyridostigmine Bromide IR 60 MG TAB PO SCH (08:51)
[2020-01-29] MEDS: Fluticasone Propionate Nasal Spray 16 gm Bottle NASAL SCH (08:53)
[2020-01-29] MEDS ORDERED: Furosemide 40 MG TAB PO SCH (09:00)
[2020-01-29] MEDS ORDERED: Clopidogrel Bisulfate 75 MG TAB PO SCH (09:00)
[2020-01-29] MEDS ORDERED: Fluconazole 100 MG TAB PO SCH (09:00)
[2020-01-29 12:28] VITALS: BP 130/72; TEMP 98.1
--- NOTE | 2020-01-30 00:57 | DIS ---
DATE OF ADMISSION: 01/26/2020 DATE OF DISCHARGE: 01/29/2020 DISCHARGE DIAGNOSES: As of the following: Left lower leg cellulitis, resolved, unlikely coronary artery disease, peripheral vascular disease, chronic kidney disease stage 3, and diabetes type 2. HOSPITAL COURSE: The patient is an 84-year-old male, who initially presented to the hospital with complaints of left lower extremity pain and swelling. The patient at this time was noted to have some erythema of his left lower extremity. He was initially started on IV antibiotics and arterial ultrasound Doppler was done. 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 This was on his left lower extremity. At this time, CV Surgery was consulted. Angiography was unsuccessful. He underwent a CT angio with runoff, which indicated extensive atherosclerotic disease on the left lower extremity. At this time, he was taken back into the OR on 01/27 and he underwent a right external iliac angiogram, had left SFA REVIEW ANALYST with a 5 x 150 drug-eluting balloon. No stents were deployed. The patient at this time was returned back to his room. He was monitored overnight and he was then discharged the following day. The patient did complain that he was little short of breath. However, his lungs were completely clear. He was ambulated. His sats never dropped below 92% and patient stated that his shortness of breath is most likely from the yeast. I did do oral exam. He had no indication of any oral thrush that was noted. He will not be discharged home. He will follow up with his primary and CV Surgery in two weeks. I did speak with the patient's daughter, Tamiko, and I updated her about the plan. He will continue with aspirin and Plavix. His home medications will be resumed. The only new medications which he is already on is aspirin and Plavix. Otherwise, no changes in his medications have been made. PHYSICAL EXAMINATION: VITAL SIGNS: Temperature 98.1, 62, 18, 98% on room air, 130/72. GENERAL: He is awake, alert, and oriented x3. Does not appear in distress. CV: S1, S2 present. No murmurs, rubs, or gallops. ABDOMEN: Soft and nontender. Bowel sounds are present x2. EXTREMITIES: Left lower extremity has erythema. Pedal pulses are present. It is a little bit more swollen compared to the right, otherwise unchanged. Job ID: [id number]
--- NOTE | 2020-01-30 11:01 | EKG ---
Test Reason : Blood Pressure : / mmHG Vent. Rate : 047 BPM Atrial Rate : 058 BPM P-R Int : 000 ms QRS Dur : 094 ms QT Int : 504 ms P-R-T Axes : 000 020 085 degrees QTc Int : 446 ms Atrial fibrillation with slow ventricular response with occasional ventricular-paced complexes Anterior infarct , age undetermined Abnormal ECG Confirmed by RODGER MITCHELL DO ([id number]), video effects editor SANDRO DAVIES ([id number]) on 01/30/2020 11:00:51 AM Referred By: Confirmed By:RODGER MITCHELL DO
--- NOTE | 2020-02-01 07:11 | PQF ---
JAZZ HUBBARD KARISHMA [id number] CLINICAL DOCUMENTATION CLARIFICATION FORM: POST DISCHARGE Addendum to original discharge summary date: ____ Late entry note date: __ DATE: 02/01/2020 ATTN:Celena Otero Please exercise your independent, professional judgment in responding to the clarification form. Clinical indicators are provided on the bottom of this form for your review Please check appropriate box(s): [ ] LLE cellulitis related to DM [ ] LLE cellulitis not related to DM [ ] Other diagnosis [ ] Unable to determine For continuity of documentation, please document condition throughout progress notes and discharge summary. Thank You. CLINICAL INDICATORS - SIGNS / SYMPTOMS / LABS HP 01/21 "patient's pain is on the left lower extremity" HP 01/21 "right LE swelling/pain-possibly from cellulits vs gout vs arterial insufficiency" OP Note 01/24 "PVD with left foot cellulitis" DS 01/28 "ultrasound had a high grade arertail occlusive disease" Labs Glucose:01/2120=72577/22=45478/58=260 01/2842=560 RISKS: 84 years old male-HP 01/21 DM-HP 01/21 Myasthenia gravis-HP 01/21 CAD-HP 01/21 HTN-HP 01/21 Gout-HP 01/21 Former Smoker-HP 01/21 PVD-OP Note 01/24 TREATMENT: Lower extremity ultrasound-Collected 01/21 Left SFA stent with angiograms-OP Note 01/27 Zosyn 4.5gm IV-OCT 15 Vancomycin 1gm IV-OCT 15 IVF-OCT 15 Glucagon 1mg IM-OCT 15 (This form is maintained as a part of the permanent medical record) 2014 [employer]. All Rights Reserved [email or web address] [email or web address]
== END 2020-01-29 15:13 | disposition home health service (06) | DRG 580 ==
LOC: ERS 13:27 → T4-A 16:04 → OBSVTOIN 01-26 09:29
PROVIDERS: ADMIT Internal Medicine; ATTEND Internal Medicine
PROC: B41F1ZZ Fluoroscopy of Right Lower Extremity Arteries using Low Osmolar Contrast (ICD-10-PCS; 2020-01-25)
PROC: 047L341 Dilation of Left Femoral Artery with Drug-eluting Intraluminal Device, using Drug-Coated Balloon, Percutaneous Approach (ICD-10-PCS; principal; 2020-01-28)
PROC: B41G1ZZ Fluoroscopy of Left Lower Extremity Arteries using Low Osmolar Contrast (ICD-10-PCS; 2020-01-28)
PROC: B4101ZZ Fluoroscopy of Abdominal Aorta using Low Osmolar Contrast (ICD-10-PCS; 2020-01-28)
PROC: B4181ZZ Fluoroscopy of Bilateral Renal Arteries using Low Osmolar Contrast (ICD-10-PCS; 2020-01-28)
DX: L03.116 Cellulitis of left lower limb (principal); I13.0 Hypertensive heart and chronic kidney disease with heart failure and stage 1 through stage 4 chronic kidney disease, or unspecified chronic kidney disease; N17.9 Acute kidney failure, unspecified; I50.22 Chronic systolic (congestive) heart failure; E11.22 Type 2 diabetes mellitus with diabetic chronic kidney disease; G70.00 Myasthenia gravis without (acute) exacerbation; I25.10 Atherosclerotic heart disease of native coronary artery without angina pectoris; Z96.643 Presence of artificial hip joint, bilateral; Z96.1 Presence of intraocular lens; E11.51 Type 2 diabetes mellitus with diabetic peripheral angiopathy without gangrene; N18.3 Chronic kidney disease, stage 3 (moderate); E78.5 Hyperlipidemia, unspecified; M10.9 Gout, unspecified; J44.9 Chronic obstructive pulmonary disease, unspecified; K21.9 Gastro-esophageal reflux disease without esophagitis; Z87.891 Personal history of nicotine dependence; Z79.01 Long term (current) use of anticoagulants; Z79.4 Long term (current) use of insulin; Z79.51 Long term (current) use of inhaled steroids; Z79.899 Other long term (current) drug therapy; Z88.8 Allergy status to other drugs, medicaments and biological substances; Z91.040 Latex allergy status; Z88.0 Allergy status to penicillin; Z91.013 Allergy to seafood
CPT/HCPCS: 36005; 36415; 36416; 37224; 75635; 76942; 80048; 80053; 83605; 84550; 85025; 85347; 87040; 93005; 93923; 94640; 96361; 96365; 96366; 96367; 96375; 99152; 99153; C2623; G0378; J0360; J0696; J1644; J1815; J1940; J2250; J2270; J2543; J2720; J3010; J3370; J3490; J7620; Q9967

== ENCOUNTER 2020-01-31 18:46 | Emergency (ER) | payer MEDICARE, OTHER ==
[2020-01-31 19:19] LABS: #Basophils 0.1 thou/uL (0.0-0.2); #Eosinphils 0.2 thou/uL (0.0-0.7); #Lymphocytes 1.5 thou/uL (1.20-3.40); #Monocytes 0.9 thou/uL (0.11-0.59); #Neutrophils 6.3 thou/uL (1.40-6.50); %Basophils 0.6 % (0.0-1.0); %Eosinophils 2.7 % (0.0-10.0); %Lymphocytes 16.9 % (21.0-51.0); %Monocytes 9.8 % (0.0-10.0); %Neutrophils 70.1 % (42.0-75.0); Hemoglobin 10.4 g/dL (14.0-18.0); Mean Corpuscular Hemoglobin 32.2 pg (27.0-31.0); Mean Corpuscular Volume 94.7 fL (78.0-98.0); Mean Platelet Volume 7.6 fL (7.4-10.4); Platelet Count 198 thou/uL (130-400); RBC Distribution Width 13.3 % (11.5-14.5); Red Blood Cell (RBC) Count 3.23 mill/uL (4.70-6.10)
[2020-01-31 19:28] LABS: INR-International Normal Ratio 1.1; PTT 32.9 sec (22.9-36.1); Prothrombin Time 14.5 sec (12.0-14.7)
[2020-01-31 19:48] LABS: AST (SGOT) 24 U/L (5-34); Albumin 3.7 g/dL (3.4-4.8); Alkaline Phosphatase 86 U/L (40-110); Anion Gap 14 mmol/L (10-20); BUN (Urea Nitrogen) 36 mg/dL (8.4-25.7); Bilirubin, Total 0.3 mg/dL (0.2-1.2); Calc. Creatinine Clearance 0 mL/min (70-130); Carbon Dioxide 21 mmol/L (23-31); Chloride 109 mmol/L (98-107); Estimated GFR-MDRD 32; Globulin 2.3 g/dL (2.4-3.5); Glucose 141 mg/dL (83-110); Potassium 4.2 mmol/L (3.5-5.1); Sodium 140 mmol/L (136-145)
[2020-01-31 20:00] LABS: ALT (SGPT) 30 U/L (8-55)
--- NOTE | 2020-01-31 20:10 | RAD ---
PORTABLE CHEST: Date: 01-31-2020 Provided Clinical History: Difficulty breathing. FINDINGS: Comparison 01-14-19. Cardiac and mediastinal silhouette is within normal limits. Vascular calcification and left subclavia n cardiac pacing device is redemonstrated. No focal consolidation, pleural fluid, or pneumothorax sonu arent. IMPRESSION: No evidence for an acute cardiopulmonary process. POS: NAYA
[2020-01-31 20:11] LABS: CKMB 3.7 ng/mL (0-6.6)
--- NOTE | 2020-01-31 21:12 | ULT ---
LEFT LOWER EXTREMITY VENOUS DOPPLER: Date: 01-31-2020 Provided Clinical History: Pain FINDINGS: Lucero scale and color doppler sonography with spectral analysis was performed of the left common femor al, femoral, popliteal, posterior tibial, greater saphenous and profunda femoral veins demonstrated a normal sonographic appearance to each. IMPRESSION: No sonographic evidence for left lower extremity deep venous thrombosis. POS: NAYA
== END 2020-01-31 20:57 | disposition home or self-care (01) ==
LOC: ERS 18:46
DX: M79.89 Other specified soft tissue disorders (principal); I25.10 Atherosclerotic heart disease of native coronary artery without angina pectoris; I11.0 Hypertensive heart disease with heart failure; I50.9 Heart failure, unspecified; E11.9 Type 2 diabetes mellitus without complications; K21.9 Gastro-esophageal reflux disease without esophagitis; Z87.891 Personal history of nicotine dependence
CPT/HCPCS: 36415; 71045; 80053; 82550; 82553; 83605; 83880; 84484; 85025; 85610; 85730; 93005; 94760

== ENCOUNTER 2020-12-08 11:08 | Inpatient (IN) | payer MEDICARE, OTHER ==
[2020-12-08] MEDS ORDERED: Morphine 4 MG/ML VIAL ONE (11:43)
[2020-12-08 11:45] LABS: #Eosinphils 0.2 thou/uL (0.0-0.7); #Lymphocytes 1.7 thou/uL (1.20-3.40); #Monocytes 1.1 thou/uL (0.11-0.59); #Neutrophils 10.5 thou/uL (1.40-6.50); %Basophils 0.4 % (0.0-1.0); %Eosinophils 1.4 % (0.0-10.0); %Lymphocytes 12.8 % (21.0-51.0); %Monocytes 7.9 % (0.0-10.0); %Neutrophils 77.6 % (42.0-75.0); Hemoglobin 13.2 g/dL (14.0-18.0); Mean Corpuscular HGB CONC 33.8 g/dL (32.0-36.0); Mean Corpuscular Hemoglobin 31.9 pg (27.0-31.0); Mean Corpuscular Volume 94.4 fL (78.0-98.0); Mean Platelet Volume 7.7 fL (7.4-10.4); Platelet Count 196 thou/uL (130-400); RBC Distribution Width 13.6 % (11.5-14.5); Red Blood Cell (RBC) Count 4.15 mill/uL (4.70-6.10); White Blood Cell (WBC) Count 13.5 thou/uL (4.8-10.8)
[2020-12-08 12:06] LABS: ALT (SGPT) 16 U/L (8-55); AST (SGOT) 24 U/L (5-34); Albumin 4.2 g/dL (3.4-4.8); Alkaline Phosphatase 104 U/L (40-110); Anion Gap 16 mmol/L (10-20); BUN (Urea Nitrogen) 45 mg/dL (8.4-25.7); Calc. Creatinine Clearance 0 mL/min (70-130); Calcium 9.8 mg/dL (7.8-10.44); Carbon Dioxide 25 mmol/L (23-31); Chloride 103 mmol/L (98-107); Globulin 3.6 g/dL (2.4-3.5); Glucose 132 mg/dL (83-110); Magnesium 1.5 mg/dL (1.6-2.6); Potassium 4.1 mmol/L (3.5-5.1); Protein, Total 7.8 g/dL (5.8-8.1); Sodium 140 mmol/L (136-145)
[2020-12-08 12:30] LABS: CKMB 4.9 ng/mL (0-6.6)
[2020-12-08] MEDS ORDERED: Magnesium 2 GM/50 ML BAG (IN WATER) ONE (12:54)
[2020-12-08] MEDS ORDERED: Aspirin Chewable 81 MG TAB ONE (12:54)
[2020-12-08 14:48] LABS: SARS-CoV-2 NAA Rapid Test Not Detected (NotDetected)
[2020-12-08] MEDS ORDERED: Acetaminophen 325 MG TAB PO PRN (15:00)
[2020-12-08] MEDS ORDERED: Ondansetron ODT 4 MG TAB SL PRN (15:00)
[2020-12-08] MEDS ORDERED: Ondansetron PF 4 MG/2 ML Vial IVP PRN (15:00)
[2020-12-08 15:58] LABS: Troponin I 0.069 ng/mL (< 0.028)
[2020-12-08 17:23] VITALS: BMI 28.1
[2020-12-08 18:35] LABS: Troponin I 0.047 ng/mL (< 0.028)
[2020-12-08] MEDS ORDERED: Dextrose 50% Abboject 50 ML SYRINGE SLOW IVP PRN (19:51)
[2020-12-08] MEDS ORDERED: Dextrose 5% in Water 1,000 ML IV PRN (19:51)
[2020-12-08] MEDS ORDERED: hydrALAZINE 20 MG/ML VIAL SLOW IVP PRN ×2 (20:02→23:14)
[2020-12-08] MEDS ORDERED: Morphine 4 MG/ML VIAL SLOW IVP PRN (20:07)
[2020-12-08] MEDS: Atorvastatin Calcium 40 MG TAB PO SCH (21:31)
[2020-12-08] MEDS: Pyridostigmine Bromide IR 60 MG TAB PO SCH (21:32)
[2020-12-08] MEDS: Furosemide 40 MG TAB PO SCH (21:32)
[2020-12-08] MEDS: Clopidogrel Bisulfate 75 MG TAB PO SCH (21:32)
[2020-12-08] MEDS: Lantus 1000 UNITS/10 ML VIAL SC SCH (21:34)
[2020-12-09 05:23] LABS: #Eosinphils 0.2 thou/uL (0.0-0.7); #Lymphocytes 1.9 thou/uL (1.20-3.40); #Monocytes 1.1 thou/uL (0.11-0.59); %Basophils 0.3 % (0.0-1.0); %Eosinophils 1.4 % (0.0-10.0); %Lymphocytes 15.7 % (21.0-51.0); %Monocytes 8.8 % (0.0-10.0); %Neutrophils 73.8 % (42.0-75.0); Hemoglobin 11.6 g/dL (14.0-18.0); Mean Corpuscular HGB CONC 34.6 g/dL (32.0-36.0); Mean Corpuscular Hemoglobin 32.2 pg (27.0-31.0); Mean Platelet Volume 7.8 fL (7.4-10.4); Platelet Count 188 thou/uL (130-400); RBC Distribution Width 13.6 % (11.5-14.5); Red Blood Cell (RBC) Count 3.59 mill/uL (4.70-6.10); White Blood Cell (WBC) Count 12.2 thou/uL (4.8-10.8)
[2020-12-09 05:45] LABS: Anion Gap 13 mmol/L (10-20); BUN (Urea Nitrogen) 41 mg/dL (8.4-25.7); Calc. Creatinine Clearance 45 mL/min (70-130); Calcium 9.4 mg/dL (7.8-10.44); Carbon Dioxide 25 mmol/L (23-31); Chloride 102 mmol/L (98-107); Potassium 3.7 mmol/L (3.5-5.1); Sodium 136 mmol/L (136-145)
[2020-12-09 05:51] LABS: Glucose 51 mg/dL (83-110)
[2020-12-09] MEDS: Alogliptin 6.25 MG TAB PO SCH (08:10)
[2020-12-09] MEDS: Multivit, Therapeutic 1 TAB PO SCH (08:10)
[2020-12-09] MEDS: Spironolactone 25 MG TAB PO SCH (08:11)
[2020-12-09] MEDS: Furosemide 40 MG TAB PO SCH ×2 (08:12→21:32)
[2020-12-09] MEDS: Clopidogrel Bisulfate 75 MG TAB PO SCH ×2 (08:12→21:31)
[2020-12-09] MEDS: Calcium Carbonate 600 MG + Vit D TAB PO SCH (08:12)
[2020-12-09] MEDS: Aspirin 81 mg Enteric Coated Tablet PO SCH (08:12)
[2020-12-09] MEDS: Losartan 25 MG TAB PO SCH (08:12)
[2020-12-09] MEDS: Pyridostigmine Bromide IR 60 MG TAB PO SCH ×3 (08:14→21:31)
[2020-12-09] MEDS ORDERED: Metolazone 2.5 MG TAB PO SCH (11:30)
[2020-12-09] MEDS ORDERED: Acetaminophen 500 MG TAB PO PRN (11:30)
[2020-12-09] MEDS: Lantus 1000 UNITS/10 ML VIAL SC SCH ×2 (11:31→21:32)
[2020-12-09] MEDS: HYDROcodone/Acetaminophen 5/325 mg Tablet PO PRN ×2 (11:56→16:05)
[2020-12-09] MEDS ORDERED: Magnesium 2 GM/50 ML 2 GM in Premix Bag 1 BAG IVPB SCH (13:30)
[2020-12-09] MEDS: Lidocaine 5% Patch TD SCH (17:15)
[2020-12-09] MEDS: Atorvastatin Calcium 40 MG TAB PO SCH (21:31)
[2020-12-10] MEDS: Transdermal Patch Removal TOP SCH (05:08)
[2020-12-10 05:22] LABS: #Eosinphils 0.2 thou/uL (0.0-0.7); #Lymphocytes 1.8 thou/uL (1.20-3.40); #Monocytes 0.9 thou/uL (0.11-0.59); #Neutrophils 7.3 thou/uL (1.40-6.50); %Basophils 0.5 % (0.0-1.0); %Eosinophils 1.9 % (0.0-10.0); %Lymphocytes 17.7 % (21.0-51.0); Hemoglobin 11.4 g/dL (14.0-18.0); Mean Corpuscular Hemoglobin 31.8 pg (27.0-31.0); Mean Corpuscular Volume 93.4 fL (78.0-98.0); Mean Platelet Volume 7.5 fL (7.4-10.4); Platelet Count 179 thou/uL (130-400); RBC Distribution Width 13.5 % (11.5-14.5); Red Blood Cell (RBC) Count 3.59 mill/uL (4.70-6.10); White Blood Cell (WBC) Count 10.3 thou/uL (4.8-10.8)
[2020-12-10 05:42] LABS: Anion Gap 13 mmol/L (10-20); BUN (Urea Nitrogen) 44 mg/dL (8.4-25.7); Calc. Creatinine Clearance 44 mL/min (70-130); Calcium 9.1 mg/dL (7.8-10.44); Carbon Dioxide 26 mmol/L (23-31); Chloride 98 mmol/L (98-107); Glucose 77 mg/dL (83-110); Potassium 3.6 mmol/L (3.5-5.1); Sodium 133 mmol/L (136-145)
[2020-12-10] MEDS: Clopidogrel Bisulfate 75 MG TAB PO SCH (08:18)
[2020-12-10] MEDS: Aspirin 81 mg Enteric Coated Tablet PO SCH (08:18)
[2020-12-10] MEDS: Multivit, Therapeutic 1 TAB PO SCH (08:18)
[2020-12-10] MEDS: Furosemide 40 MG TAB PO SCH ×2 (08:18→12:59)
[2020-12-10] MEDS: Pyridostigmine Bromide IR 60 MG TAB PO SCH ×3 (08:18→21:20)
[2020-12-10] MEDS: Calcium Carbonate 600 MG + Vit D TAB PO SCH (08:18)
[2020-12-10] MEDS: Spironolactone 25 MG TAB PO SCH (08:19)
[2020-12-10] MEDS: Alogliptin 6.25 MG TAB PO SCH (08:19)
[2020-12-10] MEDS: Lantus 1000 UNITS/10 ML VIAL SC SCH (08:20)
[2020-12-10] MEDS: Losartan 25 MG TAB PO SCH (08:20)
[2020-12-10] MEDS ORDERED: Potassium Chloride 20 MEQ TAB PO SCH (09:30)
[2020-12-10] MEDS ORDERED: HYDROcodone/Acetaminophen 5/325 mg Tablet PO PRN (09:59)
[2020-12-10] MEDS ORDERED: Gabapentin 100 MG CAP PO SCH (12:15)
[2020-12-10 13:07] LABS: Bacteria/HPF None Seen HPF (None Seen); Bilirubin Negative (Negative); Blood, Urine Negative (Negative); Clarity Clear (Clear); Glucose, Urine (Dipstick) Normal (Negative); Ketone, Urine Negative (Negative); Leukocyte Negative Leu/uL (Negative); Nitrite Negative (Negative); Protein, Urine (Dipstick) Negative (Neg-Trace); RBC/HPF 0-3 HPF (0-3); Squamous Epithelial 0-3 HPF (0-3); Urobilinogen Normal mg/dL (Less than 2); WBC/HPF 0-3 HPF (0-3)
[2020-12-10] MEDS: Lidocaine 5% Patch TD SCH (16:55)
[2020-12-10] MEDS: Mometasone 100 MCG/Formoterol 5 MCG 120 PUFF INHALER INH SCH (20:22)
[2020-12-10] MEDS ORDERED: FLUTICASONE IH SCH (21:00)
[2020-12-10] MEDS ORDERED: [UNRECOGNIZED DRUG - OTHER] IH SCH (21:00)
[2020-12-10] MEDS ORDERED: SALMETEROL IH SCH (21:00)
[2020-12-10] MEDS: Carvedilol 3.125 MG TAB PO SCH (21:19)
[2020-12-10] MEDS: Gabapentin 100 MG CAP PO SCH (21:19)
[2020-12-10] MEDS: Enoxaparin Sodium 100 MG/ML SYRINGE SC SCH (21:19)
[2020-12-10] MEDS: Atorvastatin Calcium 40 MG TAB PO SCH (21:19)
[2020-12-11 04:31] LABS: #Eosinphils 0.1 thou/uL (0.0-0.7); #Lymphocytes 1.8 thou/uL (1.20-3.40); #Monocytes 1.1 thou/uL (0.11-0.59); #Neutrophils 6.5 thou/uL (1.40-6.50); %Basophils 0.3 % (0.0-1.0); %Eosinophils 1.4 % (0.0-10.0); %Lymphocytes 18.7 % (21.0-51.0); %Monocytes 11.5 % (0.0-10.0); %Neutrophils 68.1 % (42.0-75.0); Hemoglobin 11.2 g/dL (14.0-18.0); Mean Corpuscular HGB CONC 34.9 g/dL (32.0-36.0); Mean Corpuscular Hemoglobin 32.4 pg (27.0-31.0); Mean Corpuscular Volume 92.9 fL (78.0-98.0); Mean Platelet Volume 7.7 fL (7.4-10.4); Platelet Count 180 thou/uL (130-400); RBC Distribution Width 13.6 % (11.5-14.5); Red Blood Cell (RBC) Count 3.46 mill/uL (4.70-6.10); White Blood Cell (WBC) Count 9.5 thou/uL (4.8-10.8)
[2020-12-11 04:54] LABS: Anion Gap 13 mmol/L (10-20); BUN (Urea Nitrogen) 47 mg/dL (8.4-25.7); Calc. Creatinine Clearance 40 mL/min (70-130); Calcium 9.1 mg/dL (7.8-10.44); Carbon Dioxide 24 mmol/L (23-31); Chloride 98 mmol/L (98-107); Glucose 108 mg/dL (83-110); Magnesium 1.6 mg/dL (1.6-2.6); Potassium 3.9 mmol/L (3.5-5.1); Sodium 131 mmol/L (136-145)
[2020-12-11] MEDS: Transdermal Patch Removal TOP SCH (04:57)
[2020-12-11] MEDS: Mometasone 100 MCG/Formoterol 5 MCG 120 PUFF INHALER INH SCH ×2 (07:40→19:03)
[2020-12-11] MEDS: Aspirin 81 mg Enteric Coated Tablet PO SCH (08:31)
[2020-12-11] MEDS: Pyridostigmine Bromide IR 60 MG TAB PO SCH ×3 (08:31→20:16)
[2020-12-11] MEDS: Alogliptin 6.25 MG TAB PO SCH (08:31)
[2020-12-11] MEDS: Enoxaparin Sodium 100 MG/ML SYRINGE SC SCH ×2 (08:31→20:16)
[2020-12-11] MEDS: Calcium Carbonate 600 MG + Vit D TAB PO SCH (08:31)
[2020-12-11] MEDS: Losartan 25 MG TAB PO SCH (08:32)
[2020-12-11] MEDS: Multivit, Therapeutic 1 TAB PO SCH (08:32)
[2020-12-11] MEDS: Furosemide 40 MG TAB PO SCH ×2 (08:32→15:00)
[2020-12-11] MEDS: Carvedilol 3.125 MG TAB PO SCH ×2 (08:32→20:16)
[2020-12-11] MEDS: Spironolactone 25 MG TAB PO SCH (08:32)
[2020-12-11] MEDS ORDERED: Non-Formulary Item 1 EACH (Omeprazole [Omeprazole] 40 MG Capsule.Dr) PO SCH (09:00)
[2020-12-11] MEDS ORDERED: Clopidogrel Bisulfate 75 MG TAB PO SCH (09:00)
[2020-12-11] MEDS: HYDROcodone/Acetaminophen 5/325 mg Tablet PO PRN ×2 (11:47→20:15)
[2020-12-11] MEDS: Lidocaine 5% Patch TD SCH (17:32)
[2020-12-11] MEDS: Gabapentin 100 MG CAP PO SCH (20:16)
[2020-12-11] MEDS: Atorvastatin Calcium 40 MG TAB PO SCH (20:16)
[2020-12-12] MEDS: Mometasone 100 MCG/Formoterol 5 MCG 120 PUFF INHALER INH SCH ×2 (06:45→18:47)
[2020-12-12] MEDS: Transdermal Patch Removal TOP SCH ×2 (07:43)
[2020-12-12] MEDS: Enoxaparin Sodium 100 MG/ML SYRINGE SC SCH ×2 (08:34→20:33)
[2020-12-12] MEDS: Alogliptin 6.25 MG TAB PO SCH (08:34)
[2020-12-12] MEDS: Spironolactone 25 MG TAB PO SCH (08:35)
[2020-12-12] MEDS: Pyridostigmine Bromide IR 60 MG TAB PO SCH ×3 (08:35→20:33)
[2020-12-12] MEDS: Multivit, Therapeutic 1 TAB PO SCH (08:35)
[2020-12-12] MEDS: Furosemide 40 MG TAB PO SCH ×2 (08:35→15:30)
[2020-12-12] MEDS: Losartan 25 MG TAB PO SCH (08:35)
[2020-12-12] MEDS: Aspirin 81 mg Enteric Coated Tablet PO SCH (08:35)
[2020-12-12] MEDS: Carvedilol 3.125 MG TAB PO SCH ×2 (08:35→20:32)
[2020-12-12] MEDS: Metolazone 5 MG TAB PO SCH (08:35)
[2020-12-12] MEDS: Calcium Carbonate 600 MG + Vit D TAB PO SCH (08:35)
[2020-12-12] MEDS: HYDROcodone/Acetaminophen 5/325 mg Tablet PO PRN ×2 (11:14→20:33)
[2020-12-12] MEDS: HumaLOG 300 UNITS/3 ML VIAL SC PRN (15:30)
[2020-12-12] MEDS: Lidocaine 5% Patch TD SCH (16:25)
[2020-12-12] MEDS: Atorvastatin Calcium 40 MG TAB PO SCH (20:32)
[2020-12-12] MEDS: Gabapentin 100 MG CAP PO SCH (20:32)
[2020-12-13 05:14] LABS: Eosinophils 2 % (0-10); Hemoglobin 11.3 g/dL (14.0-18.0); Lymphocytes 27 % (21-51); MDiff Complete? YES; Mean Corpuscular HGB CONC 35.3 g/dL (32.0-36.0); Mean Corpuscular Hemoglobin 32.6 pg (27.0-31.0); Mean Corpuscular Volume 92.4 fL (78.0-98.0); Mean Platelet Volume 8.5 fL (7.4-10.4); Metamyelocyte 1 % (0-0); Monocytes 14 % (0-10); Neutrophil 55 % (42-75); Platelet Count 173 thou/uL (130-400); Platelet Morphology Comment Appears Adequate; Reactive Lymphocytes 1 % (0-10); Red Blood Cell (RBC) Count 3.48 mill/uL (4.70-6.10); White Blood Cell (WBC) Count 7.6 thou/uL (4.8-10.8)
[2020-12-13 05:17] LABS: Anion Gap 14 mmol/L (10-20); BUN (Urea Nitrogen) 61 mg/dL (8.4-25.7); Calc. Creatinine Clearance 35 mL/min (70-130); Carbon Dioxide 24 mmol/L (23-31); Chloride 94 mmol/L (98-107); Glucose 137 mg/dL (83-110); Sodium 128 mmol/L (136-145)
[2020-12-13] MEDS: Transdermal Patch Removal TOP SCH ×2 (05:30)
[2020-12-13] MEDS: Mometasone 100 MCG/Formoterol 5 MCG 120 PUFF INHALER INH SCH ×2 (06:19→19:04)
[2020-12-13] MEDS: Pyridostigmine Bromide IR 60 MG TAB PO SCH ×3 (07:51→21:34)
[2020-12-13] MEDS: Losartan 25 MG TAB PO SCH (07:51)
[2020-12-13] MEDS: Enoxaparin Sodium 100 MG/ML SYRINGE SC SCH (07:51)
[2020-12-13] MEDS: Multivit, Therapeutic 1 TAB PO SCH (07:52)
[2020-12-13] MEDS: Alogliptin 6.25 MG TAB PO SCH (07:52)
[2020-12-13] MEDS: Spironolactone 25 MG TAB PO SCH (07:52)
[2020-12-13] MEDS: Calcium Carbonate 600 MG + Vit D TAB PO SCH (07:52)
[2020-12-13] MEDS: Furosemide 40 MG TAB PO SCH ×2 (07:52→14:02)
[2020-12-13] MEDS: Carvedilol 3.125 MG TAB PO SCH ×2 (07:52→21:34)
[2020-12-13] MEDS: Aspirin 81 mg Enteric Coated Tablet PO SCH (07:52)
[2020-12-13] MEDS ORDERED: PROPOFOL 20 ML ONE (10:57)
[2020-12-13] MEDS ORDERED: PROPOFOL 200 MG/20 ML VIAL ONE (11:32)
[2020-12-13] MEDS: HYDROcodone/Acetaminophen 5/325 mg Tablet PO PRN (14:02)
[2020-12-13] MEDS ORDERED: Amiodarone 200 MG TAB PO SCH (14:25)
[2020-12-13] MEDS: Lidocaine 5% Patch TD SCH (16:13)
[2020-12-13] MEDS: HumaLOG 300 UNITS/3 ML VIAL SC PRN ×2 (18:19→21:38)
[2020-12-13] MEDS: Amiodarone 200 MG TAB PO SCH (21:33)
[2020-12-13] MEDS: Gabapentin 100 MG CAP PO SCH (21:34)
[2020-12-13] MEDS: Atorvastatin Calcium 40 MG TAB PO SCH (21:34)
[2020-12-14] MEDS: Transdermal Patch Removal TOP SCH ×2 (05:06)
[2020-12-14] MEDS: Mometasone 100 MCG/Formoterol 5 MCG 120 PUFF INHALER INH SCH ×2 (08:02→18:44)
[2020-12-14] MEDS: Alogliptin 6.25 MG TAB PO SCH (09:00)
[2020-12-14] MEDS: Losartan 25 MG TAB PO SCH (09:00)
[2020-12-14] MEDS: Aspirin 81 mg Enteric Coated Tablet PO SCH (09:00)
[2020-12-14] MEDS: Calcium Carbonate 600 MG + Vit D TAB PO SCH (09:00)
[2020-12-14] MEDS: Spironolactone 25 MG TAB PO SCH (09:01)
[2020-12-14] MEDS: Multivit, Therapeutic 1 TAB PO SCH (09:01)
[2020-12-14] MEDS: HYDROcodone/Acetaminophen 5/325 mg Tablet PO PRN ×2 (09:01→21:41)
[2020-12-14] MEDS: Amiodarone 200 MG TAB PO SCH ×3 (09:01→21:40)
[2020-12-14] MEDS: Furosemide 40 MG TAB PO SCH ×2 (09:02→15:54)
[2020-12-14] MEDS: Pyridostigmine Bromide IR 60 MG TAB PO SCH ×3 (09:02→21:40)
[2020-12-14] MEDS: Apixaban 2.5 MG TAB PO SCH ×2 (09:02→21:40)
[2020-12-14] MEDS: Carvedilol 3.125 MG TAB PO SCH ×2 (09:02→21:40)
[2020-12-14] MEDS: HumaLOG 300 UNITS/3 ML VIAL SC PRN ×2 (11:35→22:19)
[2020-12-14] MEDS: Lidocaine 5% Patch TD SCH (16:00)
[2020-12-14] MEDS: Gabapentin 100 MG CAP PO SCH (21:39)
[2020-12-14] MEDS: Atorvastatin Calcium 40 MG TAB PO SCH (21:39)
[2020-12-15] MEDS: Transdermal Patch Removal TOP SCH (05:39)
[2020-12-15] MEDS: Mometasone 100 MCG/Formoterol 5 MCG 120 PUFF INHALER INH SCH (08:11)
[2020-12-15] MEDS: Spironolactone 25 MG TAB PO SCH (09:04)
[2020-12-15] MEDS: Apixaban 2.5 MG TAB PO SCH (09:04)
[2020-12-15] MEDS: Calcium Carbonate 600 MG + Vit D TAB PO SCH (09:04)
[2020-12-15] MEDS: Metolazone 5 MG TAB PO SCH (09:04)
[2020-12-15] MEDS: Losartan 25 MG TAB PO SCH (09:05)
[2020-12-15] MEDS: Furosemide 40 MG TAB PO SCH (09:05)
[2020-12-15] MEDS: Carvedilol 3.125 MG TAB PO SCH (09:05)
[2020-12-15] MEDS: Aspirin 81 mg Enteric Coated Tablet PO SCH (09:05)
[2020-12-15] MEDS: Multivit, Therapeutic 1 TAB PO SCH (09:05)
[2020-12-15] MEDS: Alogliptin 6.25 MG TAB PO SCH (09:05)
[2020-12-15] MEDS: Amiodarone 200 MG TAB PO SCH (09:05)
[2020-12-15] MEDS: Pyridostigmine Bromide IR 60 MG TAB PO SCH (09:05)
[2020-12-15 11:24] VITALS: BP 110/55; TEMP 97.7
[2020-12-15] MEDS: HumaLOG 300 UNITS/3 ML VIAL SC PRN (11:24)
[2020-12-15] MEDS: HYDROcodone/Acetaminophen 5/325 mg Tablet PO PRN (11:24)
== END 2020-12-15 12:06 | DRG 291 ==
LOC: ERS 11:08 → 2SW 15:09 → OBSVTOIN 12-09 16:15 → 2NO 12-10 14:32
PROVIDERS: ADMIT Hospitalist; ATTEND Internal Medicine
PROC: B24BZZ4 Ultrasonography of Heart with Aorta, Transesophageal (ICD-10-PCS; principal; 2020-12-13)
PROC: 5A2204Z Restoration of Cardiac Rhythm, Single (ICD-10-PCS; 2020-12-13)
DX: I13.0 Hypertensive heart and chronic kidney disease with heart failure and stage 1 through stage 4 chronic kidney disease, or unspecified chronic kidney disease (principal); I50.23 Acute on chronic systolic (congestive) heart failure; E87.1 Hypo-osmolality and hyponatremia; I25.10 Atherosclerotic heart disease of native coronary artery without angina pectoris; J44.9 Chronic obstructive pulmonary disease, unspecified; E11.22 Type 2 diabetes mellitus with diabetic chronic kidney disease; E11.649 Type 2 diabetes mellitus with hypoglycemia without coma; M54.9 Dorsalgia, unspecified; R00.1 Bradycardia, unspecified; D64.9 Anemia, unspecified; K80.20 Calculus of gallbladder without cholecystitis without obstruction; N28.1 Cyst of kidney, acquired; N18.32 Chronic kidney disease, stage 3b; E78.5 Hyperlipidemia, unspecified; I73.9 Peripheral vascular disease, unspecified; E11.51 Type 2 diabetes mellitus with diabetic peripheral angiopathy without gangrene; I25.5 Ischemic cardiomyopathy; G89.29 Other chronic pain; I08.3 Combined rheumatic disorders of mitral, aortic and tricuspid valves; I48.0 Paroxysmal atrial fibrillation; I25.2 Old myocardial infarction; Z95.810 Presence of automatic (implantable) cardiac defibrillator; Z95.5 Presence of coronary angioplasty implant and graft; Z87.891 Personal history of nicotine dependence; Z88.0 Allergy status to penicillin; Z91.013 Allergy to seafood; Z79.82 Long term (current) use of aspirin; Z79.4 Long term (current) use of insulin; Z79.02 Long term (current) use of antithrombotics/antiplatelets
CPT/HCPCS: 0240U; 36415; 36416; 71045; 71275; 72128; 72131; 80048; 80053; 81001; 82553; 83735; 83880; 84443; 84484; 85025; 92960; 93005; 93010; 93306; 93312; 94640; 94760; 96365; 96366; 96375; 96376; G0378; J1650; J1815; J2270; J2704; J3475; J7620

== ENCOUNTER 2021-02-21 10:39 | Outpatient (CLI) | payer MEDICARE, OTHER | END 2021-02-21 10:40 | disposition home or self-care (01) | LOC: BICRAD 10:39 | PROVIDERS: ATTEND Neurological Surgery | DX: M54.6 Pain in thoracic spine (principal); G95.20 Unspecified cord compression | CPT/HCPCS: 72070 ==

== ENCOUNTER 2021-03-27 12:29 | Outpatient (CLI) | payer MEDICARE, OTHER | END 2021-03-27 12:30 | disposition home or self-care (01) | LOC: BICRAD 12:29 | PROVIDERS: ATTEND Physician Assistant | DX: S22.008D Other fracture of unspecified thoracic vertebra, subsequent encounter for fracture with routine healing (principal) | CPT/HCPCS: 72070 ==

== ENCOUNTER 2021-08-29 15:43 | Emergency (ER) | payer MEDICARE, OTHER ==
[2021-08-29 16:15] LABS: #Eosinphils 0.1 thou/uL (0.0-0.7); #Lymphocytes 0.9 thou/uL (1.20-3.40); #Monocytes 0.7 thou/uL (0.11-0.59); #Neutrophils 7.5 thou/uL (1.40-6.50); %Basophils 0.3 % (0.0-1.0); %Eosinophils 1.1 % (0.0-10.0); %Monocytes 7.8 % (0.0-10.0); %Neutrophils 80.8 % (42.0-75.0); Mean Corpuscular HGB CONC 30.4 g/dL (32.0-36.0); Mean Corpuscular Hemoglobin 25.8 pg (27.0-31.0); Mean Corpuscular Volume 84.6 fL (78.0-98.0); Mean Platelet Volume 7.6 fL (7.4-10.4); Platelet Count 167 thou/uL (130-400); RBC Distribution Width 17.9 % (11.5-14.5); Red Blood Cell (RBC) Count 3.51 mill/uL (4.70-6.10); White Blood Cell (WBC) Count 9.3 thou/uL (4.8-10.8)
[2021-08-29 16:35] LABS: ALT (SGPT) 17 U/L (8-55); AST (SGOT) 21 U/L (5-34); Albumin 3.7 g/dL (3.4-4.8); Alkaline Phosphatase 112 U/L (40-110); Anion Gap 16 mmol/L (10-20); BUN (Urea Nitrogen) 59 mg/dL (8.4-25.7); Bilirubin, Total 0.7 mg/dL (0.2-1.2); Calc. Creatinine Clearance 0 mL/min (70-130); Calcium 8.8 mg/dL (7.8-10.44); Carbon Dioxide 17 mmol/L (23-31); Chloride 112 mmol/L (98-107); Glucose 61 mg/dL (83-110); Potassium 3.7 mmol/L (3.5-5.1); Protein, Total 6.7 g/dL (5.8-8.1); Sodium 141 mmol/L (136-145)
[2021-08-29 16:57] LABS: CKMB 3.2 ng/mL (0-6.6)
== END 2021-08-29 20:52 | disposition home or self-care (01) ==
LOC: ERS 15:43
DX: S06.9X9A Unspecified intracranial injury with loss of consciousness of unspecified duration, initial encounter (principal); R55 Syncope and collapse; I11.0 Hypertensive heart disease with heart failure; I50.9 Heart failure, unspecified; I25.10 Atherosclerotic heart disease of native coronary artery without angina pectoris; I25.2 Old myocardial infarction; K21.9 Gastro-esophageal reflux disease without esophagitis; J43.9 Emphysema, unspecified; Z87.891 Personal history of nicotine dependence
CPT/HCPCS: 36415; 70450; 71045; 80053; 82553; 83880; 84484; 85025; 93005

== ENCOUNTER 2021-10-15 11:10 | Inpatient (IN) | payer MEDICARE, OTHER ==
[2021-10-15 11:46] LABS: #Eosinphils 0.1 thou/uL (0.0-0.7); #Lymphocytes 1.1 thou/uL (1.20-3.40); #Monocytes 0.9 thou/uL (0.11-0.59); %Basophils 0.5 % (0.0-1.0); %Monocytes 11.2 % (0.0-10.0); %Neutrophils 73.3 % (42.0-75.0); Hemoglobin 8.6 g/dL (14.0-18.0); Mean Corpuscular HGB CONC 31.8 g/dL (32.0-36.0); Mean Corpuscular Hemoglobin 27.1 pg (27.0-31.0); Mean Corpuscular Volume 85.1 fL (78.0-98.0); Mean Platelet Volume 8.2 fL (7.4-10.4); Platelet Count 169 thou/uL (130-400); Red Blood Cell (RBC) Count 3.19 mill/uL (4.70-6.10); White Blood Cell (WBC) Count 8.2 thou/uL (4.8-10.8)
[2021-10-15 12:10] LABS: ALT (SGPT) 13 U/L (8-55); AST (SGOT) 12 U/L (5-34); Albumin 3.8 g/dL (3.4-4.8); Alkaline Phosphatase 97 U/L (40-110); Anion Gap 19 mmol/L (10-20); BUN (Urea Nitrogen) 113 mg/dL (8.4-25.7); Calc. Creatinine Clearance 0 mL/min (70-130); Calcium 8.3 mg/dL (7.8-10.44); Carbon Dioxide 13 mmol/L (23-31); Chloride 103 mmol/L (98-107); Globulin 3.1 g/dL (2.4-3.5); Glucose 155 mg/dL (83-110); Potassium 5.1 mmol/L (3.5-5.1); Protein, Total 6.9 g/dL (5.8-8.1); Sodium 130 mmol/L (136-145)
[2021-10-15 12:51] LABS: INR-International Normal Ratio 1.7; Prothrombin Time 20.6 sec (12.0-14.7)
[2021-10-15 12:52] LABS: PTT 43.6 sec (22.9-36.1)
[2021-10-15 13:19] LABS: CKMB 4.5 ng/mL (0-6.6)
[2021-10-15] MEDS ORDERED: Ondansetron PF 4 MG/2 ML Vial IVP PRN (16:15)
[2021-10-15] MEDS ORDERED: Acetaminophen 325 MG TAB PO PRN ×2 (16:15→16:27)
[2021-10-15] MEDS ORDERED: Ondansetron ODT 4 MG TAB SL PRN (16:15)
[2021-10-15] MEDS ORDERED: Dextrose 50% Abboject 50 ML SYRINGE SLOW IVP PRN (16:27)
[2021-10-15] MEDS ORDERED: Dextrose 5% in Water 1,000 ML IV PRN (16:27)
[2021-10-15] MEDS ORDERED: Bisacodyl 5 MG TAB PO PRN (16:27)
[2021-10-15 16:55] VITALS: BMI 26.6
[2021-10-15 17:11] LABS: Troponin I 0.075 ng/mL (< 0.028)
[2021-10-15 22:09] LABS: SARS-CoV-2 PCR by NAA Not Detected (NotDetected)
[2021-10-16] MEDS: Sodium Bicarbonate 150 MEQ in Dextrose 5% in Water 1,000 ML IV SCH (05:18)
[2021-10-16 05:23] LABS: Band 3 % (5-11); Eosinophils 1 % (0-10); Hemoglobin 8.6 g/dL (14.0-18.0); Hypochromia SLIGHT = 6-15 cells (100X) (0-5/hpf); Lymphocytes 20 % (21-51); MDiff Complete? YES; Mean Corpuscular HGB CONC 31.1 g/dL (32.0-36.0); Mean Corpuscular Hemoglobin 26.4 pg (27.0-31.0); Mean Corpuscular Volume 84.9 fL (78.0-98.0); Mean Platelet Volume 8.3 fL (7.4-10.4); Monocytes 3 % (0-10); Neutrophil 73 % (42-75); Platelet Count 164 thou/uL (130-400); Platelet Morphology Comment Appears Adequate; RBC Distribution Width 18.3 % (11.5-14.5); Red Blood Cell (RBC) Count 3.24 mill/uL (4.70-6.10); White Blood Cell (WBC) Count 8.5 thou/uL (4.8-10.8)
[2021-10-16 05:26] LABS: Anion Gap 15 mmol/L (10-20); BUN (Urea Nitrogen) 112 mg/dL (8.4-25.7); Calc. Creatinine Clearance 18 mL/min (70-130); Calcium 7.9 mg/dL (7.8-10.44); Carbon Dioxide 20 mmol/L (23-31); Chloride 100 mmol/L (98-107); Glucose 152 mg/dL (83-110); Potassium 4.4 mmol/L (3.5-5.1); Sodium 131 mmol/L (136-145)
[2021-10-16] MEDS ORDERED: Amiodarone 200 MG TAB PO SCH (09:00)
[2021-10-16] MEDS: Carvedilol 6.25 MG TAB PO SCH ×2 (09:43→20:52)
[2021-10-16] MEDS: Multivit, Therapeutic 1 TAB PO SCH (09:43)
[2021-10-16] MEDS: Aspirin 81 mg Enteric Coated Tablet PO SCH (09:43)
[2021-10-16] MEDS: Fluticasone Propionate Nasal Spray 16 gm Bottle NASAL SCH (10:02)
[2021-10-16] MEDS: HumaLOG 300 UNITS/3 ML VIAL SC PRN ×2 (13:04→18:49)
[2021-10-16] MEDS: Azithromycin 250 MG TAB PO SCH (16:29)
[2021-10-16] MEDS: Mometasone 100 MCG/Formoterol 5 MCG 120 PUFF INHALER INH SCH (19:15)
[2021-10-16] MEDS: Apixaban 2.5 MG TAB PO SCH (20:52)
[2021-10-16] MEDS: Atorvastatin Calcium 40 MG TAB PO SCH (20:53)
[2021-10-17] MEDS: Sodium Bicarbonate 150 MEQ in Dextrose 5% in Water 1,000 ML IV SCH ×2 (00:33→15:24)
[2021-10-17] MEDS: Mometasone 100 MCG/Formoterol 5 MCG 120 PUFF INHALER INH SCH ×2 (06:36→19:05)
[2021-10-17 07:54] LABS: #Eosinphils 0.1 thou/uL (0.0-0.7); #Lymphocytes 1.6 thou/uL (1.20-3.40); #Monocytes 1.1 thou/uL (0.11-0.59); #Neutrophils 5.4 thou/uL (1.40-6.50); %Basophils 0.5 % (0.0-1.0); %Eosinophils 1.2 % (0.0-10.0); %Lymphocytes 19.1 % (21.0-51.0); %Monocytes 13.3 % (0.0-10.0); Mean Corpuscular Volume 84.7 fL (78.0-98.0); Mean Platelet Volume 8.2 fL (7.4-10.4); Platelet Count 163 thou/uL (130-400); RBC Distribution Width 18.6 % (11.5-14.5); White Blood Cell (WBC) Count 8.2 thou/uL (4.8-10.8)
[2021-10-17 08:14] LABS: ALT (SGPT) 13 U/L (8-55); AST (SGOT) 18 U/L (5-34); Albumin 3.3 g/dL (3.4-4.8); Alkaline Phosphatase 86 U/L (40-110); Anion Gap 15 mmol/L (10-20); BUN (Urea Nitrogen) 103 mg/dL (8.4-25.7); Calc. Creatinine Clearance 24 mL/min (70-130); Carbon Dioxide 22 mmol/L (23-31); Chloride 96 mmol/L (98-107); Globulin 2.8 g/dL (2.4-3.5); Glucose 157 mg/dL (83-110); Potassium 4.2 mmol/L (3.5-5.1); Protein, Total 6.1 g/dL (5.8-8.1); Sodium 129 mmol/L (136-145)
[2021-10-17] MEDS: Carvedilol 6.25 MG TAB PO SCH ×2 (09:56→21:03)
[2021-10-17] MEDS: Fluticasone Propionate Nasal Spray 16 gm Bottle NASAL SCH (09:56)
[2021-10-17] MEDS: Multivit, Therapeutic 1 TAB PO SCH (09:58)
[2021-10-17] MEDS: Aspirin 81 mg Enteric Coated Tablet PO SCH (09:58)
[2021-10-17] MEDS: Apixaban 2.5 MG TAB PO SCH (10:04)
[2021-10-17] MEDS: HumaLOG 300 UNITS/3 ML VIAL SC PRN ×3 (12:24→21:20)
[2021-10-17] MEDS: Azithromycin 250 MG TAB PO SCH (15:24)
[2021-10-17] MEDS: Enoxaparin Sodium 30 MG/0.3 ML SYRINGE SC SCH (21:03)
[2021-10-17] MEDS: Atorvastatin Calcium 40 MG TAB PO SCH (21:03)
[2021-10-17] MEDS ORDERED: Dextrose 50% Abboject 50 ML SYRINGE SLOW IVP PRN (21:14)
[2021-10-17] MEDS ORDERED: Dextrose 5% in Water 1,000 ML IV PRN (21:14)
[2021-10-17 23:09] LABS: Bacteria/HPF None Seen HPF (None Seen); Bilirubin Negative (Negative); Blood, Urine Negative (Negative); Clarity Clear (Clear); Glucose, Urine (Dipstick) Normal (Negative); Ketone, Urine Negative (Negative); Leukocyte Negative Leu/uL (Negative); Nitrite Negative (Negative); Protein, Urine (Dipstick) Negative (Neg-Trace); RBC/HPF 0-3 HPF (0-3); Specific Gravity, Urine 1.013 (1.002-1.036); Squamous Epithelial None Seen HPF (0-3); Urobilinogen Normal mg/dL (Less than 2); WBC/HPF 0-3 HPF (0-3)
[2021-10-17 23:10] LABS: Urine Culture Reflex No No
[2021-10-18] MEDS: Sodium Bicarbonate 150 MEQ in Dextrose 5% in Water 1,000 ML IV SCH (03:05)
[2021-10-18 04:30] LABS: #Eosinphils 0.1 thou/uL (0.0-0.7); #Lymphocytes 1.1 thou/uL (1.20-3.40); #Monocytes 0.9 thou/uL (0.11-0.59); #Neutrophils 4.8 thou/uL (1.40-6.50); %Basophils 0.6 % (0.0-1.0); %Lymphocytes 16.3 % (21.0-51.0); %Monocytes 13.1 % (0.0-10.0); Hemoglobin 8.8 g/dL (14.0-18.0); Mean Corpuscular HGB CONC 33.2 g/dL (32.0-36.0); Mean Corpuscular Hemoglobin 28.1 pg (27.0-31.0); Mean Corpuscular Volume 84.6 fL (78.0-98.0); Mean Platelet Volume 7.7 fL (7.4-10.4); Platelet Count 161 thou/uL (130-400); RBC Distribution Width 18.5 % (11.5-14.5); Red Blood Cell (RBC) Count 3.15 mill/uL (4.70-6.10); White Blood Cell (WBC) Count 6.9 thou/uL (4.8-10.8)
[2021-10-18 05:10] LABS: Anion Gap 12 mmol/L (10-20); BUN (Urea Nitrogen) 94 mg/dL (8.4-25.7); Calc. Creatinine Clearance 29 mL/min (70-130); Carbon Dioxide 31 mmol/L (23-31); Chloride 92 mmol/L (98-107); Glucose 168 mg/dL (83-110); Potassium 3.9 mmol/L (3.5-5.1); Sodium 131 mmol/L (136-145)
[2021-10-18] MEDS: Mometasone 100 MCG/Formoterol 5 MCG 120 PUFF INHALER INH SCH ×2 (07:43→19:30)
[2021-10-18] MEDS: Multivit, Therapeutic 1 TAB PO SCH ×2 (08:48→09:48)
[2021-10-18] MEDS: Aspirin 81 mg Enteric Coated Tablet PO SCH ×2 (08:48→08:56)
[2021-10-18] MEDS: Carvedilol 6.25 MG TAB PO SCH ×3 (08:48→22:42)
[2021-10-18] MEDS ORDERED: Lidocaine 1% (PF) 30 ML VIAL ONE (09:25)
[2021-10-18] MEDS ORDERED: Gentamicin 80 MG/2 ML VIAL ONE (09:25)
[2021-10-18] MEDS ORDERED: CEFAZOLIN 1 GM VIAL ONE (09:25)
[2021-10-18] MEDS ORDERED: Ondansetron HCl/PF 4 MG/2 ML Vial IVP PRN (10:35)
[2021-10-18] MEDS ORDERED: Promethazine HCl 25 MG/ML VIAL IM PRN (10:35)
[2021-10-18] MEDS ORDERED: Promethazine HCl 25 MG/ML VIAL IVPB PRN (10:35)
[2021-10-18] MEDS ORDERED: Fentanyl 250 MCG/5 ML VIAL ONE (10:38)
[2021-10-18] MEDS ORDERED: Ketamine 50 MG/ML (10ML VIAL) ONE (10:38)
[2021-10-18] MEDS ORDERED: Ondansetron PF 4 MG/2 ML Vial ONE (10:56)
[2021-10-18] MEDS ORDERED: Midazolam HCl 2 mg/2 ml Vial ONE (11:12)
[2021-10-18] MEDS ORDERED: diphenhydrAMINE 50 MG CAP PO PRN (13:31)
[2021-10-18] MEDS ORDERED: Acetaminophen 325 MG TAB PO PRN (13:45)
[2021-10-18] MEDS ORDERED: methylPREDNISolone Sod Succ/PF 125 MG/2 ML VIAL IVP SCH (13:45)
[2021-10-18] MEDS ORDERED: Acetaminophen/Codeine 30-300mg Tablet PO PRN (13:45)
[2021-10-18] MEDS: Azithromycin 250 MG TAB PO SCH (17:34)
[2021-10-18] MEDS: Fluticasone Propionate Nasal Spray 16 gm Bottle NASAL SCH (17:52)
[2021-10-18] MEDS: HumaLOG 300 UNITS/3 ML VIAL SC PRN ×2 (18:06→22:44)
[2021-10-18] MEDS: Atorvastatin Calcium 40 MG TAB PO SCH (22:42)
[2021-10-18] MEDS: Doxycycline 100 MG CAP PO SCH (22:43)
[2021-10-18] MEDS: Enoxaparin Sodium 30 MG/0.3 ML SYRINGE SC SCH (22:43)
[2021-10-18] MEDS: Lantus 1000 UNITS/10 ML VIAL SC SCH (22:44)
[2021-10-19 04:44] LABS: #Lymphocytes 0.4 thou/uL (1.20-3.40); #Monocytes 0.1 thou/uL (0.11-0.59); #Neutrophils 3.7 thou/uL (1.40-6.50); %Eosinophils 0.3 % (0.0-10.0); %Monocytes 1.4 % (0.0-10.0); %Neutrophils 88.4 % (42.0-75.0); Mean Corpuscular HGB CONC 31.3 g/dL (32.0-36.0); Mean Corpuscular Hemoglobin 26.1 pg (27.0-31.0); Mean Corpuscular Volume 83.3 fL (78.0-98.0); Mean Platelet Volume 8.1 fL (7.4-10.4); Platelet Count 162 thou/uL (130-400); RBC Distribution Width 18.3 % (11.5-14.5); Red Blood Cell (RBC) Count 3.43 mill/uL (4.70-6.10); White Blood Cell (WBC) Count 4.2 thou/uL (4.8-10.8)
[2021-10-19] MEDS: HumaLOG 300 UNITS/3 ML VIAL SC PRN ×4 (06:45→20:43)
[2021-10-19] MEDS ORDERED: Spironolactone 25 MG TAB PO SCH (08:00)
[2021-10-19] MEDS: Carvedilol 6.25 MG TAB PO SCH ×2 (08:46→20:42)
[2021-10-19] MEDS: Losartan 25 MG TAB PO SCH (08:47)
[2021-10-19] MEDS: Fluticasone Propionate Nasal Spray 16 gm Bottle NASAL SCH (08:47)
[2021-10-19] MEDS: Doxycycline 100 MG CAP PO SCH ×2 (09:37→20:43)
[2021-10-19] MEDS: Multivit, Therapeutic 1 TAB PO SCH (09:37)
[2021-10-19] MEDS: Aspirin 81 mg Enteric Coated Tablet PO SCH (09:40)
[2021-10-19 10:10] LABS: Chloride 94 mmol/L (98-107); Sodium 135 mmol/L (136-145)
[2021-10-19 10:11] LABS: Glucose 244 mg/dL (83-110)
[2021-10-19 10:14] LABS: Anion Gap 15 mmol/L (10-20); Carbon Dioxide 30 mmol/L (23-31)
[2021-10-19 10:15] LABS: BUN (Urea Nitrogen) 74 mg/dL (8.4-25.7); Calc. Creatinine Clearance 37 mL/min (70-130)
[2021-10-19] MEDS: Mometasone 100 MCG/Formoterol 5 MCG 120 PUFF INHALER INH SCH ×2 (10:33→18:49)
[2021-10-19] MEDS: Atorvastatin Calcium 40 MG TAB PO SCH (20:42)
[2021-10-19] MEDS: Enoxaparin Sodium 30 MG/0.3 ML SYRINGE SC SCH (20:43)
[2021-10-19] MEDS: Lantus 1000 UNITS/10 ML VIAL SC SCH (20:44)
[2021-10-20] MEDS: Mometasone 100 MCG/Formoterol 5 MCG 120 PUFF INHALER INH SCH ×2 (07:11→19:10)
[2021-10-20] MEDS ORDERED: Spironolactone 25 MG TAB PO SCH (08:00)
[2021-10-20 08:06] LABS: Anion Gap 13 mmol/L (10-20); BUN (Urea Nitrogen) 78 mg/dL (8.4-25.7); Calc. Creatinine Clearance 39 mL/min (70-130); Carbon Dioxide 31 mmol/L (23-31); Chloride 93 mmol/L (98-107); Glucose 115 mg/dL (83-110); Potassium 4.2 mmol/L (3.5-5.1); Sodium 133 mmol/L (136-145)
[2021-10-20] MEDS: Fluticasone Propionate Nasal Spray 16 gm Bottle NASAL SCH (08:36)
[2021-10-20] MEDS: Multivit, Therapeutic 1 TAB PO SCH (08:37)
[2021-10-20] MEDS: Doxycycline 100 MG CAP PO SCH ×2 (08:37→21:37)
[2021-10-20] MEDS: Carvedilol 6.25 MG TAB PO SCH ×2 (08:37→21:36)
[2021-10-20] MEDS: Aspirin 81 mg Enteric Coated Tablet PO SCH (08:37)
[2021-10-20] MEDS: Losartan 25 MG TAB PO SCH (08:40)
[2021-10-20] MEDS: Apixaban 2.5 MG TAB PO SCH ×2 (09:59→21:37)
[2021-10-20] MEDS: HumaLOG 300 UNITS/3 ML VIAL SC PRN (12:27)
[2021-10-20] MEDS ORDERED: Pyridostigmine Bromide IR 60 MG TAB PO SCH (15:00)
[2021-10-20] MEDS: Atorvastatin Calcium 40 MG TAB PO SCH (21:36)
[2021-10-20 21:37] VITALS: BP 133/63
[2021-10-20] MEDS: Enoxaparin Sodium 30 MG/0.3 ML SYRINGE SC SCH (21:37)
[2021-10-21 01:41] VITALS: TEMP 97.3
== END 2021-10-20 22:35 | disposition expired | DRG 226 ==
LOC: ERS 11:10 → 2NO 14:18
PROVIDERS: ADMIT Internal Medicine; ATTEND Internal Medicine
PROC: 4B02XTZ Measurement of Cardiac Defibrillator, External Approach (ICD-10-PCS; principal; 2021-10-18)
PROC: 0JH609Z Insertion of Cardiac Resynchronization Defibrillator Pulse Generator into Chest Subcutaneous Tissue and Fascia, Open Approach (ICD-10-PCS; 2021-10-18)
PROC: 02HL3KZ Insertion of Defibrillator Lead into Left Ventricle, Percutaneous Approach (ICD-10-PCS; 2021-10-18)
PROC: 02H63KZ Insertion of Defibrillator Lead into Right Atrium, Percutaneous Approach (ICD-10-PCS; 2021-10-18)
PROC: 0JPT0PZ Removal of Cardiac Rhythm Related Device from Trunk Subcutaneous Tissue and Fascia, Open Approach (ICD-10-PCS; 2021-10-18)
DX: I13.0 Hypertensive heart and chronic kidney disease with heart failure and stage 1 through stage 4 chronic kidney disease, or unspecified chronic kidney disease (principal); Z66 Do not resuscitate; Z20.822 Contact with and (suspected) exposure to COVID-19; I50.43 Acute on chronic combined systolic (congestive) and diastolic (congestive) heart failure; N17.9 Acute kidney failure, unspecified; A04.5 Campylobacter enteritis; I48.19 Other persistent atrial fibrillation; E87.2 Acidosis; E87.1 Hypo-osmolality and hyponatremia; L03.116 Cellulitis of left lower limb; I48.3 Typical atrial flutter; N18.4 Chronic kidney disease, stage 4 (severe); I25.10 Atherosclerotic heart disease of native coronary artery without angina pectoris; J43.9 Emphysema, unspecified; E11.22 Type 2 diabetes mellitus with diabetic chronic kidney disease; K21.9 Gastro-esophageal reflux disease without esophagitis; I25.5 Ischemic cardiomyopathy; E11.51 Type 2 diabetes mellitus with diabetic peripheral angiopathy without gangrene; E66.9 Obesity, unspecified; E86.0 Dehydration; I08.3 Combined rheumatic disorders of mitral, aortic and tricuspid valves; D63.1 Anemia in chronic kidney disease; G70.00 Myasthenia gravis without (acute) exacerbation; E87.5 Hyperkalemia; Z88.0 Allergy status to penicillin; Z91.013 Allergy to seafood; Z79.899 Other long term (current) drug therapy; Z79.84 Long term (current) use of oral hypoglycemic drugs; Z79.4 Long term (current) use of insulin; Z79.51 Long term (current) use of inhaled steroids; Z79.82 Long term (current) use of aspirin; Z79.01 Long term (current) use of anticoagulants; I25.2 Old myocardial infarction; Z95.5 Presence of coronary angioplasty implant and graft; Z98.890 Other specified postprocedural states; Z68.28 Body mass index [BMI] 28.0-28.9, adult
CPT/HCPCS: 33224; 36415; 36416; 71045; 74176; 80048; 80053; 81001; 82553; 83690; 83880; 84484; 85025; 85610; 85730; 87045; 87046; 87081; 87324; 87427; 87449; 93005; 93306; 94640; 94760; C1892; C1900; J0690; J1580; J1650; J1815; J2001; J2250; J2405; J2930; J3010; J7070; J7620; U0003; U0005